=== PATIENT | female | born 1935 | race Caucasian/White ===

== ENCOUNTER 2023-10-12 20:51 | Emergency (ER) | payer MEDICARE, OTHER, SELFPAY ==
[2023-10-12 20:55] VITALS: BP 176/89; PULSE 81; RESP 18; TEMP 36.4; O2SAT 98
--- NOTE | 2023-10-12 21:11 | ED_ITS ---
HPI - Altered Mental Status General Chief Complaint: Altered Mental Status Stated Complaint: AMS Time Seen by Provider: 10/12/23 21:05 Source: patient Mode of arrival: ambulance Limitations: no limitations History of Present Illness HPI narrative: pleasant patient with history of dementia. lives alone. Presents via [facility]. States she was upset at home because some women who was there left. She called 911 and had [facility] bring her here. states she feels ok now and feels she can go home. No injury. No fever Related Data Home Medications Medication Instructions Recorded Confirmed carvedilol 6.25 mg tablet mg 10/12/23 memantine 10 mg tablet mg 10/12/23 Review of Systems ROS Status of ROS 10 or more systems reviewed and unremark able except as noted in history and below PFSH PFS Social History Smoking status: Never smoker Exam Constitutional Vital Signs, click to edit/add: Last Vital Signs Temp 97.6 F 10/12/23 20:55 Pulse 81 10/12/23 20:55 Resp 18 10/12/23 20:55 BP 176/89 H 10/12/23 20:55 Pulse Ox 98 10/12/23 20:55 Common normals: no apparent distress, oriented x3 (pleasant but confused), healthy appearing, alert and well nourished [facility] Common normals: normocephalic and head/scalp atraumatic Eye Common normals: PERRL, EOMs intact bilaterally and conjunctivae normal Respiratory Common normals: normal respiratory effort, no retractions, no use of accessory muscles and clear to auscultation bilaterally Cardio Common normals: regular rate, regular rhythm, S1 normal heart sound and S2 normal heart sound GI Common normals: Normal to inspection, nondistended, normoactive bowel sounds present, soft to palpation and non-tender Extremity Common normals: normal to inspection and full ROM Neuro Common normals: oriented x3 (oriented to place and person), CN's II-XII intact bilaterally, moves all extremities and no focal motor deficits Psych Appearance: grossly normal Course Vital Signs Vital signs: Vital Signs Temperature 97.6 F 10/12/23 20:55 Pulse Rate 81 10/12/23 20:55 Respiratory Rate 18 10/12/23 20:55 Blood Pressure 176/89 H 10/12/23 20:55 Pulse Oximetry 98 10/12/23 20:55 Temperature 97.6 F 10/12/23 20:55 Pulse Rate 81 10/12/23 20:55 Respiratory Rate 18 10/12/23 20:55 Blood Pressure 176/89 H 10/12/23 20:55 Pulse Oximetry 98 10/12/23 20:55 MDM - Altered Mental Status MDM Narrative Medical decision making narrative: history of dementia. States someone at her home left and this upset her. We have no way of proving there was someone at her home. She called [facility] to come to the hospital. States she feels better now that she is here and wants to go home. Will call family to come and get her and check basic labs labs return and demonstrate mild renal insufficiency. UA neg. nitrite and trace leukocytes. Patient not treated for UTI. Urine cx pending. Discharged home in the care of her neighbor who is here to pick her up. He is same person who pick ed her up last time and Lab Data Labs: Lab Results 10/12/23 10/12/23 Range/Units 21:18 22:40 WBC 5.0 (4.0-11.0) 10^3/uL RBC 4.52 (4.20-5.40) 10^6/uL Hgb 14.0 (12.0-16.0) g/dL Hct 44.2 (36.0-48.0) % MCV 97.8 (81.0-99.0) fL MCH 31.0 (26.7-34.0) pg MCHC 31.7 (29.9-35.2) g/dL RDW 13.2 (11.0-15.0) % Plt Count 150 (150-450) 10^3/uL MPV 10.2 (9.5-13.5) fL Neut % (Auto) 61.0 (43.0-75.0) % Lymph % (Auto) 24.7 (20.5-60.0) % [place] % (Auto) 8.5 (1.7-12.0) % Eos % (Auto) 4.8 (0.9-7.0) % Baso % (Auto) 0.8 (0.2-2.0) % Neut # (Auto) 3.0 (1.4-6.5) 10^3/uL Lymph # (Auto) 1.2 (1.2-3.8) 10^3/uL Izard # (Auto) 0.4 (0.3-0.8) 10^3/uL Eos # (Auto) 0.2 (0.0-0.7) 10^3/uL Baso # (Auto) 0.0 (0.0-0.1) 10^3/uL Abs Immat Gran (auto) 0.01 (0.00-0.03) 10^3/uL Imm/Tot Granulo (auto) 0.2 (0.0-0.5) % Sodium 145 (136-145) mmol/L Potassium 4.6 (3.5-5.1) mmol/L Chloride 107 (98-107) mmol/L Carbon Dioxide 30.5 (21.0-32.0) mmol/L Anion Gap 12.1 BUN 27.0 H (7.0-18.0) mg/dL Creatinine 1.13 H (0.55-1.02) mg/dL Est GFR ( Amer) 55 L (>=60) Est GFR (Non-Af Amer) 46 L (>=60) BUN/Creatinine Ratio 23.9 Glucose 90 (74-106) mg/dL Calcium 9.3 (8.5-10.1) mg/dL Urine Color Lt. yellow (YELLOW) Urine Clarity Clear (CLEAR) Urine pH 6.0 (5.0-9.0) Ur Specific [place] >=1.030 A (1.005-1.025) Urine Protein Negative (NEG/TRACE) mg/dL Urine Glucose (UA) Negative (NEGATIVE) mg/dL Urine Ketones Negative (NEGATIVE) mg/dL Urine Occult Blood Trace-i (NEGATIVE) Urine Nitrite Negative (NEGATIVE) Urine Bilirubin Negative (NEGATIVE) Urine Urobilinogen 0.2 (0.2-1.0) EU/dL Ur Leukocyte Esterase Small A (NEGATIVE) Discharge Plan Discharge Chief Complaint: Altered Mental Status Clinical Impression: Dementia Patient Disposition: Home, Self-Care Prescriptions / Home Meds: No Action carvedilol 6.25 mg tablet memantine 10 mg tablet Instructions: Dementia (ED) Additional Instructions: follow up with family doctor early next week Stand Alone Forms: Portal Instructions Referrals: MODE SERVIN DO [Primary Care Provider] - 1 week
--- NOTE | 2023-10-12 21:15 | PC.NURSE ---
Pt has hx dementia and lives alone. Called dispatch because seh thought she saw strangers in her house [employer]NA[employer] IN [employer]. EMS confirmed pt lives alone and there was no one in her home. Pt A&Ox3 upon assessment and neurologically intact.
[2023-10-12 21:25] LABS: Basophils Percent Auto 0.8 % (0.2-2.0); Eosinophils Absolute Auto 0.2 10^3/uL (0.0-0.7); Eosinophils Percent Auto 4.8 % (0.9-7.0); Hematocrit 44.2 % (36.0-48.0); Immature Granulocytes Abs Auto 0.01 10^3/uL (0.00-0.03); Immature Granulocytes Pct Auto 0.2 % (0.0-0.5); Lymphocytes Absolute Auto 1.2 10^3/uL (1.2-3.8); Lymphocytes Percent Auto 24.7 % (20.5-60.0); Mean Corpuscular HGB Conc 31.7 g/dL (29.9-35.2); Mean Corpuscular Volume 97.8 fL (81.0-99.0); Mean Platelet Volume 10.2 fL (9.5-13.5); Monocytes Absolute Auto 0.4 10^3/uL (0.3-0.8); Monocytes Percent Auto 8.5 % (1.7-12.0); Platelet Count 150 10^3/uL (150-450); Red Blood Count 4.52 10^6/uL (4.20-5.40); Red Cell Distribution Width 13.2 % (11.0-15.0)
[2023-10-12 21:33] LABS: Anion Gap 12.1; BUN Creatinine Ratio 23.9; Calcium 9.3 mg/dL (8.5-10.1); Carbon Dioxide 30.5 mmol/L (21.0-32.0); Chloride 107 mmol/L (98-107); Estimated GFR (African America 55 (>=60); Estimated GFR (Non-African Ame 46 (>=60); Glucose 90 mg/dL (74-106); Potassium 4.6 mmol/L (3.5-5.1); Sodium 145 mmol/L (136-145)
[2023-10-12 22:48] LABS: Bilirubin Urine NEGATIVE (NEGATIVE); Blood Urine TRACE-I (NEGATIVE); Clarity Urine CLEAR (CLEAR); Color Urine LT. YELLOW (YELLOW); Glucose Urine UA NEGATIVE (NEGATIVE); Ketones Urine NEGATIVE (NEGATIVE); Leukocyte Esterase Urine SMALL (NEGATIVE); Nitrite Urine NEGATIVE (NEGATIVE); Protein Urine NEGATIVE (NEG/TRACE); Specific Gravity Urine >=1.030 (1.005-1.025); Urobilinogen Urine 0.2 EU/dL (0.2-1.0)
[2023-10-12 22:51] LABS: Urine Microscopic Indicated YES
[2023-10-12 23:00] LABS: RBC Urine 0-2 #/HPF (0-2)
[2023-10-12 23:01] LABS: Bacteria Urine SMALL #/HPF (NONE SEEN); Cast Seen? NONE SEEN #/LPF (NONE SEEN); Crystals Seen? None Seen #/HPF (None Seen); Mucus Urine NONE SEEN (NONE SEEN); Squamous Epithelial Cell Urine MODERATE #/LPF (NONE/RARE); Urine Culture Indicated YES
[2023-10-12 23:03] VITALS: BP 150/88; PULSE 80; RESP 18; O2SAT 97
== END 2023-10-12 23:05 | disposition home or self-care (01) ==
PROVIDERS: Emergency Provider Internal Medicine; PCP Family Medicine
DX: F03.90 Unspecified dementia, unspecified severity, without behavioral disturbance, psychotic disturbance, mood disturbance, and anxiety (principal); Z79.899 Other long term (current) drug therapy
CPT/HCPCS: 36415; 80048; 81001; 85025; 87086; 87150; 87186; 99283

== ENCOUNTER 2023-10-22 14:15 | Emergency (ER) | payer MEDICARE, OTHER, SELFPAY ==
[2023-10-22 14:19] VITALS: BP 161/72; PULSE 89; RESP 18; TEMP 36.8; O2SAT 98; BMI 19.4
--- OUTSIDE RECORDS SUMMARY | 2023-10-22 14:28 | XMS_ITS | CCD ---
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 encouraged to monitor and assist with daily activities, particularly those with potential harm, such as medications and finances. Driving is not recommended due to the magnitude of cognitive impairments. Finally, management of mood symptoms should be considered to maximize cognitive and emotional well-being. RECOMMENDATIONS When there is a diagnosis of dementia, no matter the type, we encourage families to educate themselves, learn communication tips, and learn ways to adjust expectations over time. There are many resources available online. The Alzheimer's Association (web site: alz.org/goldstein) Available 24 hours a day, 7 days per week. Contact: Local: ; Toll free: 807.136.2810 or https://www.alz.org/spearfish Do not require an Alzheimer's diagnosis to contact them Family Caregiver [place] (web site: Caregiver.org) [employer]EN[employer] Scottie[employer]idankrzysztof-- a secure online solution for quality information, support, and resources for family caregivers. Contact: Toll-free number: [phone] In home resource- http://www.ExpertBids.com.GeoMe/ind ex.aspx -Recommended connecting with the local Agency on Aging for benefits screening, including for the [employer] program, which can provide funding for home health aide services. Contact information: . Alternate number: [phone] [facility] (https://[email or web address].com/local/ ayyiwtx-sotfwij-iakx-gtgawc-bw-cg yid-gusyjcwxt-ggsb-yfvdqs-zv-iazv g-oh) - Home Health Agencies who can provide supportive services to both patient and caregiver. These services may include companionship and assistance with activities of daily living, such as meals, bathing, and dressing. They may also provide assistance with mortician supplies sales representative and transportation. Many agencies have caregivers that have training specifically for the care of a person with dementia. [facility]: [phone] Visiting Nurse Association: [phone] [employer]: [phone] [facility]: [phone] [facility]: [phone] This report is meant to be considered as only one part of the comprehensive examination. The results will be communicated to the referring physician via shared electronic medical records. Zarina Lentz Psy.D. Neuropsychology fellow I have participated in this evaluation, including the interview and examination of the patient, interpretation of the test data, and development of the conclusion. The report above has been reviewed and edited by me and its contents reflect my opinions. Nanette Patton, Ph.D., ABPP-CN Board Certified in Clinical Neuropsychology Neuropsychological evaluation services by neuropsychologist = 2 hours Neuropsychological test administration/scoring by ncr operator = 1 hour, 55 minutes documented in this encounter [facility] 01-23-2023 Miscellaneous Notes This encounter was opened in error. documented in this encounter [facility] 10-08-2022 Note HNO ID: [id number] Author: SALVADOR Raza Service: ? Author Type: Technologist Type: Progress Notes Filed: 10/08/2022 3:29 PM Note Text: Radiology Service Progress Note PATIENT NAME: Erin Tejada DATE OF SERVICE: October 08, 2022 TIME: 3:28 PM PATIENT IDENTITY VERIFICATION COMPLETED USING TWO (2) IDENTIFIERS: Name and Date of confirmed by patient verbally. FALL SCREENING: Has the patient had 2 falls in the last year or 1 fall with injury or currently using an Ambulatory Assistive Device (Walker, Cane, Wheelchair, Crutches, etc.)? No PATIENT GENDER DATA: Female. status: : No status: NO. PATIENT RELEVANT IMPLANT DATA REVIEWED: Yes RADIOLOGY DEPARTMENT: MR; Exam(s) Completed: Head: Routine Brain PERIPHERAL IV DATA: Not applicable SIGNED BY: SALVADOR Raza October 08, 2022 3:28 PM [facility] 10-08-2022 History of Present illness Narrative Radiology Service Progress Note PATIENT NAME: Erin Tejada DATE OF SERVICE: October 08, 2022 TIME: 3:28 PM PATIENT IDENTITY VERIFICATION COMPLETED USING TWO (2) IDENTIFIERS: Name and Date of confirmed by patient verbally. FALL SCREENING: Has the patient had 2 falls in the last year or 1 fall with injury or currently using an Ambulatory Assistive Device (Walker, Cane, Wheelchair, Crutches, etc.)? No PATIENT GENDER DATA: Female. status: : No status: NO. PATIENT RELEVANT IMPLANT DATA REVIEWED: Yes RADIOLOGY DEPARTMENT: MR; Exam(s) Completed: Head: Routine Brain PERIPHERAL IV DATA: Not applicable SIGNED BY: SALVADOR Raza October 08, 2022 3:28 PM documented in this encounter [facility] 09-05-2022 Miscellaneous Notes Scheduling spoke with patients cousin (LARS) and provided scheduling number for the neuropsychological testing. I spoke with patient, she requested that I mail MRI order to her so she can complete close to home. (Placed in mail) I also explained to her that I would forward her chart to scheduling for neuropsych testing appointment. She was appreciative of call. Erin is in the [facility] oncology office today for a follow up. 07/07/[address] Quintero who ordered MRI brain and neuropsych testing but Erin said these tests were never scheduled. Follow up is to be arrange after the above testing. Erin would like the MRI brain done locally at [facility]. She is wondering if she should have the neuropsych testing done locally or if [facility] is preferred. She and her cousin, Anderson Palafox, are here today and seem to have some confusion about the expected appointments. Will you please reach out to Erin arrange the testing and follow up as ordered. Enrrique De Santiago LPN documented in this encounter [facility] 09-02-2022 Note HNO ID: [id number] Author: Say Drew MD Service: ? Author Type: Physician Type: Progress Notes Filed: 09/14/2022 5:05 AM Note Text: Radiation Oncology - Follow Up Note PATIENT NAME: Erin Tejada PATIENT DIAGNOSIS/PATIENT IDENTIFICATION: Ms. 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 Holland. She went on to complete at least 5 years of adjuvant endocrine therapy with Arimidex. INTERVAL HISTORY/ROS: Ms. Tejada returns to clinic today for routine follow-up approximately one year since her last visit on 09/02/2021. In the interim, she had her annual surveillance mammogram on 08/30/2022 which showed stable posttreatment changes (BI-RADS 2). Today she reports no pain/discomfort, skin irritation/breakdown, new lumps or bumps in the left breast with intact range of motion. She does note fatigue with good appetite and hydration. Is following up with a neurologist regarding potential cognitive changes. She otherwise denies any recent fevers, chills, headaches, difficulty with speech/swallowing, shortness of breath, chest pain/palpitations, abdominal pain, nausea, vomiting, change in bowel/urinary habits, difficulty with gait/balance, recent falls, etc. The remainder of the review of systems was performed and was otherwise noncontributory. ALLERGIES ALLERGIES Allergen Reactions Ruiz Inhibitors Cough Aspirin Hives Codeine Other: See Comments Pt states i get high out of my mind Nsaids (Non-Steroid* Hives Sulfa (Sulfonamide * Unknown MEDICATIONS: Current Outpatient Medications: hydroCHLOROthiazide (HYDRODIURIL, ESIDRIX) 12.5 mg capsule memantine (NAMENDA) 10 mg tablet carvedilol (COREG) 3.125 mg tablet ALPRAZolam (XANAX) 0.5 mg tablet PHYSICAL EXAM: GENERAL: Elderly woman sitting in chair in no acute distress. VITALS: BP 176/85 Pulse 92 Temp 96.9 Resp 16 Wt 132 lb (59.9kg) SpO2 100% KPS: 80 HEENT: NC/AT, anicteric sclera HEART: S1S2 LUNGS: non-labored breathing ABDOMEN: soft MUSCULOSKELETAL: no peripheral edema, moves all extremities. NEURO: no focal deficit; AANDO X3. RADIOLOGIC DATA: Mammogram (08/30/2022) ASSESSMENT AND PLAN: Ms. 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 Holland. She went on to complete at least 5 years of adjuvant endocrine therapy with Arimidex. Ms. Tejada is doing well clinically approximately 17 years after the completion of her radiation treatments to the left breast with no significant residual sequela at this time in her annual surveillance mammogram from earlier this month shows stable posttreatment changes (BI-RADS 2). Given her age and the time since her diagnosis, we agreed to extend her follow-up mammogram to every other year as she wishes to continue her surveillance. I will plan to see her back in 2 years with repeat mammogram. The patient is aware to contact the clinic in the interim should any questions or concerns arise. Thank you for allowing us to participate in the care of this patient. Signed by: Say Drew MD I spent a total of 20 minutes on the date of the service which included preparing to see the patient, [id number] patient care, and counseling and educating the patient/family/caregiver. This document has been created with the use of voice recognition technology. It may contain inaccuracies, misspellings, inaccurate syntax or inappropriate word context that are a result of the inadequacies/shortcomings of said technology/software. [facility] 09-01-2022 History of Present illness Narrative Radiation Oncology - Follow Up Note PATIENT NAME: Erin Tejada PATIENT Signed by: Say Drew MD I spent a total of 20 minutes on the date of the service which included preparing to see the patient, [id number] patient care, and counseling and educating the patient/family/caregiver. This document has been created with the use of voice recognition technology. It may contain inaccuracies, misspellings, inaccurate syntax or inappropriate word context that are a result of the inadequacies/shortcomings of said technology/software. documented in this encounter [facility] 07-07-2022 Note HNO ID: [id number] Author: Akilah Quintero, DO Service: ? Author Type: Physician Type: Progress Notes Filed: 07/10/2022 3:40 PM Note Text: [facility] for General Neurology New Patient Evaluation Consulting Provider: LUIS SERVIN [address] [place] [id number] Individuals who were included in, or assisted with the encounter were: Erin Tejada Akilah Quintero DO Chief Complaint/Issues: Erin Tejada is a 87 year old female seen in the [facility] for General Neurology for: Memory changes HPI: Ms. Tejada is an 87 year old woman PMHx HTN, remote breast CA presenting with memory concerns. She is accompanied by her cousin. She tells me that another cousin thought she had memory issues when she went to visit her in [place] for three weeks last year. She does not think she has memory issues, but here to find out if she does. Several years ago she had spine surgery. She could not walk well. Feet were glued to the floor after surgery. Balance better now. Denies tremors. Sometimes she talks about her like she just saw him. She states this is just how she talks about him. Her father and paternal grandmother had dementia. No trouble sleeping. Rarely drinks alcohol. She denies tremors. 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 Nobody complains about her cognition at work. Her cousin with her today thinks her memory is okay. General Examination: There were no vitals taken for this visit. General: Awake, alert, interactive, no acute distress, good nutritional status, normal development, well-kept Skin: Rash: absent Pigmentation: absent HEENT: Head: normocephalic, no dysmorphism Eyes: normal Oropharynx: normal Extremities: Edema: absent Trophic change: absent Heart: RRR, no cyanosis Lungs: Chest rise symmetrical Neurological Exam Mental Status Alert, fully oriented, attentive, with normal cognition, memory, speech and affect. [place]orge Cognitive Assessment (MoCA) MoCA Total Score: 18 (out of 30) Visuospatial / Executive: 3/5 Namin/3 Attention: 4/6 Language: 2/3 Abstraction: 1/2 Delayed memory: 0/5 Orientation: 6/6 Education: 0 (1 is true, 0 is false) Cranial Nerves Visual nunez intact. Fundi with normal discs and vasculature. Pupils reactive. Extraocular movements conjugate and full. No ptosis. No nystagmus. Facial sensation intact. Face symmetric and strong. Palate and tongue normal. XI normal. Motor Examination and Coordination Motor examination with normal bulk, strength and tone. No drift. Normal rapid alternating movements and coordination. No adventitious movements or significant tremor. Reflexes Deep tendon reflexes graded by MRC Deep tendon reflexes are 2+ and symmetric in all four extremities. Sensation Light touch intact Gait Gait normal Assessment AND Plan 07/10/2022 - General Neurology, Akilah Quintero, DO ASSESSMENT Ms. Tejada is an 87 year old woman presenting with memory concerns per a report by her cousin. She does not think she had issues. MOCA . This warrants further work-up. PLAN Neuropsych testing Memory labs MRI brain RTC after neuropsych to go over results No diagnosis found. No follow-ups on file. Data Review Objective Current Outpatient Medications Medication Sig carvedilol (COREG) 3.125 mg tablet Take 3.125 mg by mouth twice daily with meals. ALPRAZolam (XANAX) 0.5 mg tablet Take 0.5 mg by mouth at bedtime as needed. No current facility-administered medications for this visit. ACTIVE PROBLEM LIST History of Breast Cancer Breast Cancer (Hcc) Hypertension Headache Back Pain Anxiety PAST MEDICAL HISTORY Diagnosis Date Anxiety BURN VICTIM Back pain Breast cancer (HCC) Headache History of breast cancer 06/25/2014 Hypertension PAST SURGICAL HISTORY Procedure Laterality Date APPENDECTOMY HX BREAST BIOPSY HX Left BREAST LUMPECTOMY HX D AND C DIAGNOSTIC NONOB Social History Tobacco Use Smoking status: Never Smokeless tobacco: Never Substance Use Topics Alcohol use: Yes Comment: socially Drug use: No FAMILY HISTORY Problem Relation Age of Onset Arthritis Mother other (dementia) Father Review of Systems All other systems reviewed and are negative. Subjective Patient-Entered Data: 07/07/22 - GENERAL NEUROLOGY SCORES No flowsheet data found. Depression Screening 03/07/2017 07/25/2019 PHQ-2 Score 1 0 PHQ-9 Score 3 - No flowsheet data found. No flowsheet data found. No flowsheet data found. I spent a total of 60 minutes on the date of the service which included preparing to see the patient, [id number] patient care, completing clinical documentation, obtaining and/or reviewing separately obtained history, performing a medically appropriate examination, counseling and educating the patient/family/ (more content not included)... [facility] 07-07-2022 Instructions Akilah Quintero DO - 07/07/2022 3:29 PM EST Please get memory labs, brain MRI, neuropsychological testing (formal memory testing). Follow-up after neuropsych testing to go over results. documented in this encounter [facility] 07-07-2022 History of Present illness Narrative Images from the original note were not included. [facility] General Neurology New Patient Evaluation Consulting Provider: LUIS SERVIN [place] [id number] Individuals who were included in, or assisted with the encounter were: Erin Tejada Akilah Quintero DO Chief Complaint/Issues: Erin Tejada is a 87 year old female seen in the [facility] for General Neurology for: Memory changes HPI: Ms. Tejada is an 87 year old woman PMHx HTN, remote breast CA presenting with memory concerns. She is accompanied by her cousin. She tells me that another cousin thought she had memory issues when she went to visit her in [place] for three weeks last year. She does not think she has memory issues, but here to find out if she does. Several years ago she had spine surgery. She could not walk well. Feet were glued to the floor after surgery. Balance better now. Denies tremors. Sometimes she talks about her like she just saw him. She states this is just how she talks about him. Her father and paternal grandmother had dementia. No trouble sleeping. Rarely drinks alcohol. She denies tremors. 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 Nobody complains about her cognition at work. Her cousin with her today thinks her memory is okay. General Examination: There were no vitals taken for this visit. General: Awake, alert, interactive, no acute distress, good nutritional status, normal development, well-kept Skin: Rash: absent Pigmentation: absent HEENT: Head: normocephalic, no dysmorphism Eyes: normal Oropharynx: normal Extremities: Edema: absent Trophic change: absent Heart: RRR, no cyanosis Lungs: Chest rise symmetrical Neurological Exam Mental Status Alert, fully oriented, attentive, with normal cognition, memory, speech and affect. [place]orge Cognitive Assessment (MoCA) MoCA Total Score: 18 (out of 30) Visuospatial / Executive: 3/5 Namin/3 Attention: 4/6 Language: 2/3 Abstraction: 1/2 Delayed memory: 0/5 Orientation: 6/6 Education: 0 (1 is true, 0 is false) Cranial Nerves Visual nunez intact. Fundi with normal discs and vasculature. Pupils reactive. Extraocular movements conjugate and full. No ptosis. No nystagmus. Facial sensation intact. Face symmetric and strong. Palate and tongue normal. XI normal. Motor Examination and Coordination Motor examination with normal bulk, strength and tone. No drift. Normal rapid alternating movements and coordination. No adventitious movements or significant tremor. Reflexes Deep tendon reflexes graded by MRC Deep tendon reflexes are 2+ and symmetric in all four extremities. Sensation Light touch intact Gait Gait normal Assessment & Plan 07/10/2022 - General Neurology, Akilah Quintero, DO ASSESSMENT Ms. Tejada is an 87 year old woman presenting with memory concerns per a report by her cousin. She does not think she had issues. MOCA . This warrants further work-up. PLAN Neuropsych testing Memory labs MRI brain RTC after neuropsych to go over results No diagnosis found. No follow-ups on file. Data Review Objective Current Outpatient Medications Medication Sig carvedilol (COREG) 3.125 mg tablet Take 3.125 mg by mouth twice daily with meals. ALPRAZolam (XANAX) 0.5 mg tablet Take 0.5 mg by mouth at bedtime as needed. No current facility-administered medications for this visit. ACTIVE PROBLEM LIST History of Breast Cancer Breast Cancer (Hcc) Hypertension Headache Back Pain Anxiety PAST MEDICAL HISTORY Diagnosis Date Anxiety BURN VICTIM Back pain Breast cancer (HCC) Headache History of breast cancer 06/25/2014 Hypertension PAST SURGICAL HISTORY Procedure Laterality Date APPENDECTOMY HX BREAST BIOPSY HX Left BREAST LUMPECTOMY HX D AND C DIAGNOSTIC NONOB Social History Tobacco Use Smoking status: Never Smokeless tobacco: Never Substance Use Topics Alcohol use: Yes Comment: socially Drug use: No FAMILY HISTORY Problem Relation Age of Onset Arthritis Mother other (dementia) Father Review of Systems All other systems reviewed and are negative. Subjective Patient-Entered Data: 07/07/22 - GENERAL NEUROLOGY SCORES No flowsheet data found. Depression Screening 03/07/2017 07/25/2019 PHQ-2 Score 1 0 PHQ-9 Score 3 - No flowsheet data found. No flowsheet data found. No flowsheet data found. I spent a total of 60 minutes on the date of the service which included preparing to see the patient, [id number] patient care, completing clinical documentation, obtaining and/or reviewing separately obtained history, performing a medically appropriate examination, counseling and educating the patient/family/caregiver, and ordering medications, tests, or procedures. 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 Mild cognitive impairment, so stated [facility] [place] [facility]No assessment information available[facility] Work Phone: Evaluation note* Diagnosis History of breast cancer- Primary Personal history of malignant neoplasm of breast [facility] [place] [facility] Diagnosis Cognitive impairment, mild, so stated- Primary Mild cognitive impairment, so stated [facility] [place] [facility] Diagnosis Cognitive impairment, mild, so stated Mild cognitive impairment, so stated [facility] [place] [facility]* Diagnosis OPENED IN ERROR- Primary To allow closing an encounter opened in error (used in SmartSet) [facility] [place] [facility]* Diagnosis Dementia without behavioral disturbance, psychotic disturbance, mood disturbance, or anxiety, unspecified dementia severity, unspecified dementia type (HCC)- Primary documented in this encounter [facility] Summary Purpose Family History No Family History Records Found Relationship Condition Age at Onset Recorded Date/T eladia father Dementia Unknown Advance Directives No Advanced Directives Records FoundDocuments on File Type Date Recorded Patient Clinical Psychologist Private Practice Expl anation Advance Directive(s) 07/26/2012 2:28 PM Advance Directive Response Recorded Date/ Time Advance Directives No June 16, 2017 8:37am Documents on File Type Date Recorded Patient Clinical Psychologist Private Practice Expl anation Advance Directive(s) 07/26/2012 2:28 PM Reason for Referral Specialty Diagnoses / Procedures Referred By Contac t Referred To Contact Diagnoses Cognitive impairment, mild, so stated Procedures NEUROPSYCHOLOGICAL TESTING CONSULT Akilah Quintero DO [address] [id number] Referral ID Status Reason Start Date Expiration Date Visits Requested Visits Authorized [id number] Ref Not Required PCP Requested Referral 10/05/2022 1 1 Specialty Diagnoses / Procedures Referred By Contac t Referred To Contact MR IMAGING Diagnoses Cognitive impairment, mild, so stated Procedures MRI BRAIN WO IVCON MRI BRAIN BRAIN STEM W/O CONTRAST MATERIAL Akilah Quintero DO [address] [id number] Mr Imaging Referral ID Status Reason Start Date Expiration Date Visits Requested Visits Authorized [id number] Pending Review Auto-Generat ed Referral 08/06/2023 1 1 Specialty Diagnoses / Procedures Referred By Contac t Referred To Contact MR IMAGING Diagnoses Cognitive impairment, mild, so stated Procedures MRI 3D POST PROCESSING 3D RENDERING W/INTERP&POSTPROC DIFF WORK STATION Caio Holloway MD, [address] [id number] Mr Imaging Referral ID Status Reason Start Date Expiration Date Visits Requested Visits Authorized [id number] Pending Review Auto-Generat ed Referral 10/08/2022 11/07/2023 1 1 Specialty Diagnoses / Procedures Referred By Contac t Referred To Contact MR IMAGING Diagnoses Cognitive impairment, mild, so stated Procedures MRI BRAIN WO IVCON MRI BRAIN BRAIN STEM W/O CONTRAST MATERIAL Akilah Quintero DO [address] [place] [address] Mr Imaging Referral ID Status Reason Start Date Expiration Date V isits Requested Visits Authorized [id number] Closed Auto-Generate d Referral 07/07/2022 08/06/2023 1 1 Chief Complaint and Reason for Visit Chief Complaint hx of breast cancer Additional Source Comments INFORMATION SOURCE (unrecogn ized section and content) DATE CREATED AUTHOR 11/15/2021 Napoleon Mujica [facility] DATE CREATED AUTHOR AUTHOR'S ORGANIZ ATION 07/10/2022 [facility] DATE CREATED AUTHOR AUTHOR'S ORGANIZ ATION 09/07/2022 [facility] DATE CREATED AUTHOR AUTHOR'S ORGANIZ ATION 01/05/2023 [facility] DATE CREATED AUTHOR AUTHOR'S ORGANIZ ATION 08/31/2023 [facility] Source Comments (unrecognize d section and content) In the event this informatio n is protected by the Federal Confidentiality of Alcohol and Drug Abuse Patient Records regulations: The Federal rules restrict any use of the information to criminally investigate or prosecute any alcohol or drug abuse patient.[facility] the event this information is protected by the Federal Confidentiality of Alcohol and Drug Abuse Patient Records regulations: The Federal rules restrict any use of the information to criminally investigate or prosecute any alcohol or drug abuse patient.[facility] the event this information is protected by the Federal Confidentiality of Alcohol and Drug Abuse Patient Records regulations: The Federal rules restrict any use of the information to criminally investigate or prosecute any alcohol or drug abuse patient.[facility] the event this information is protected by the Federal Confidentiality of Alcohol and Drug Abuse Patient Records regulations: The Federal rules restrict any use of the information to criminally investigate or prosecute any alcohol or drug abuse patient.[facility] the event this information is protected by the Federal Confidentiality of Alcohol and Drug Abuse Patient Records regulations: The Federal rules restrict any use of the information to criminally investigate or prosecute any alcohol or drug abuse patient.[facility] the event this information is protected by the Federal Confidentiality of Alcohol and Drug Abuse Patient Records regulations: The Federal rules restrict any use of the information to criminally investigate or prosecute any alcohol or drug abuse patient.[facility] the event this information is protected by the Federal Confidentiality of Alcohol and Drug Abuse Patient Records regulations: The Federal rules restrict any use of the information to criminally investigate or prosecute any alcohol or drug abuse patient.[facility] Reason for Visit (unrecogniz ed section and content) Reason Comments New Patient Rule out [facility] , Discu ss symptoms Reason Comments Patient Question Appointment Reason Comments Breast Cancer Specialty Diagnoses / Procedures Referred By Contac t Referred To Contact MR IMAGING Diagnoses Cognitive impairment, mild, so stated Procedures MRI BRAIN WO IVCON MRI BRAIN BRAIN STEM W/O CONTRAST MATERIAL Akilah Quintero DO [address] [place] [address] Mr Imaging Referral ID Status Reason Start Date Expiration Date V isits Requested Visits Authorized [id number] Closed Auto-Generate d Referral 07/07/2022 08/06/2023 1 1 Reason Onset Date Comments Opened In Error 01/23/2023 Specialty Diagnoses / Procedures Referred By Contact Referred To Contact Psychology / NEUROPSYCHOLOGY Diagnoses Cognitive impairment, mild, so stated [G31.84] Procedures ACUTE CARE PHYSICIAN [place] [address] [place] [address] Nanette Patton, PhD [address] [employer] [facility] [place] [address] Referral ID Status Reason Start Date Expiration Date V isits Requested Visits Authorized [id number] Pending Review 01/17/2023 04/17/2023 1 1 Care Teams (unrecognized sec tion and content) Fur Pointer Relationship Specialty Start Date End Date Joselyn Castillo MD [address] [place] [address] PCP - General Family Medicine 08/01/18 Luis Servin [address] [place] [address] Referring Family Medicine 05/31/22 Team Status: Inactive Member Role Status Dates Joselyn Castillo MD Primary Care Provider Active Say Drew MD Attending Provider Active Team Status: Active Member Role Status Dates Joselyn Castillo MD Primary Care Provider Active Fur Pointer Relationship Specialty Start Date End Date Joselyn Castillo MD [address] [facility] [place] [address] PCP - General Family Medicine 08/01/[address] [place] [address] Referring Family Medicine 05/31/22 Fur Pointer Relationship Specialty Start Date End Date Joselyn Castillo MD [address] [facility] [place] [address] PCP - General Family Medicine 08/01/[address] [place] [address] Referring Family Medicine 05/31/22 Fur Pointer Relationship Specialty Start Date End Date Joselyn Castillo MD [address] [facility] [place] [address] PCP - General Family Medicine 08/01/[address] [place] [address] Referring Family Medicine 05/31/22 Fur Pointer Relationship Specialty Start Date End Date Joselyn Castillo MD [address] [facility] [place] [address] PCP - General Family Medicine 08/01/[address] [place] [phone] Referring Family Medicine 05/31/22 Fur Pointer Relationship Specialty Start Date End Date Joselyn Castillo MD [address] [facility] [place] [address] PCP - General Family Medicine 08/01/[address] [place] [address] Referring Family [facility] 05/31/22 Fur Pointer Relationship Specialty Start Date End Date Joselyn Castillo MD [address] [facility] [place] [address] PCP - General Family Medicine 08/01/[address] [place] [address] Referring Family [facility] 05/31/22 Goals (unrecognized section and content) Goals may be documented in a n alternate section FOR RECORDS PERTAINING TO PATIENTS WHO ARE OR HAVE BEEN ENROLLED IN A CHEMICAL DEPENDENCY/SUBSTANCEABUSE PROGRAM, SOME INFORMATION MAY BE OMITTED. This clinical summary was aggregated from multiple sources. Caution should be exercised in using it in the provision of clinical care. This summary normalizes information from multiple sources, and as a consequence, information in this document may materially change the coding, format and clinical context of patient data. In addition, data may be omitted in some cases. CLINICAL DECISIONS SHOULD BE BASED ON THE PRIMARY CLINICAL RECORDS. [facility] [email or web address] provides no warranty or guarantee of the accuracy or completeness of information in this document.
--- NOTE | 2023-10-22 14:46 | ED_ITS ---
HPI - General Adult General Chief complaint: Altered Mental Status Stated complaint: Altered Mental Status Time Seen by Provider: 10/22/23 14:20 Source: patient Mode of arrival: ambulance Limitations: no limitations History of Present Illness HPI narrative: This patient was brought to us from a local restaurant for evaluation of possible confusion. I did review her previous records and she was here recently for the same. We are waiting for family members to arrive. At this time she denies any symptoms. She is fully ambulatory denies any discomfort no nausea vomiting headache difficulty breathing. Her vital signs are stable. She apparently does live alone but says there is a male agricultural education professor who sometimes stays there as well. She is very nondescript and very vague with all her questions. When I ask if she has been to this hospital emergency room recently she said no but then she thought that she might be here but she was not sure. She was not sure of who our president is. She thought today was Monday when in fact it is Monday. She does not know the name of her doctor. She admits that she gets forgetful about things. Her family member arrived and he is an excellent historian. He confirms that last year her primary care doctor, Dr. Ann, sent her to the [facility] in which she was seen there at least twice for cognitive testing. The second visit confirmed that her cognitive skills were declining and she was found to have moderate cognitive impairment. He says they are in the process of getting her financial matters in order. Related Data Home Medications Medication Instructions Recorded Confirmed carvedilol 6.25 mg tablet 6.25 mg PO DAILY 10/12/23 10/22/23 memantine 10 mg tablet 10 mg PO DAILY 10/12/23 10/22/23 Allergies Allergy/AdvReac Type Severity Reaction Status Date / Time No Known Drug Allergies Allergy Verified 10/22/23 14:17 [facility] Social History Smoking status: Never smoker Exam Narrative Exam Narrative: Vital signs are stable on arrival here. She does not have any symptomatology. She has little insight as to why they brought her here. Fortunately family member came in and was able to provide more detailed information. They are also thinking about getting some home health care for her so that she does not have to be living alone. Vital signs are stable and she does not appear ill there is no nuchal rigidity or meningeal irritation there is no evidence of head or neck trauma. I do not smell alcoholic byproducts on her breath. She is fully cooperative and not agitated. Certainly some short-term memory is altered as noted above. On HEENT no evidence of infectious process. Her chest examination is benign with her lungs being clear no wheeze rales or rhonchi heart sounds are normal. She has no abdominal tenderness. Her perfusion to the extremity is normal. She has no focal motor neurological deficits. Ambulation and gait are normal. I Constitutional Vital Signs, click to edit/add: Last Vital Signs Temp 98.3 F 10/22/23 14:19 Pulse 89 10/22/23 14:19 Resp 18 10/22/23 14:19 BP 161/72 H 10/22/23 14:19 Pulse Ox 98 10/22/23 14:19 O2 Del Method Room Air 10/22/23 14:19 Course Vital Signs Vital signs: Vital Signs Temperature 98.3 F 10/22/23 14:19 Pulse Rate 89 10/22/23 14:19 Respiratory Rate 18 10/22/23 14:19 Blood Pressure 161/72 H 10/22/23 14:19 Pulse Oximetry 98 10/22/23 14:19 Oxygen Delivery Method Room Air 10/22/23 14:19 Temperature 98.3 F 10/22/23 14:19 Pulse Rate 89 10/22/23 14:19 Respiratory Rate 18 10/22/23 14:19 Blood Pressure 161/72 H 10/22/23 14:19 Pulse Oximetry 98 10/22/23 14:19 Oxygen Delivery Method Room Air 10/22/23 14:19 Medical Decision Making MDM Narrative Medical decision making narrative: This is now the second visit recently for evaluation of some cognitive decline and behavioral issues. We emphasized with her family member that she should keep close tabs with her primary care doctor and consideration of assistance at her home he agrees that is being done. Discharge Plan Discharge Chief Complaint: Altered Mental Status Clinical Impression: Cognitive impairment Patient Disposition: Home, Self-Care Time of Disposition Decision: 16:11 Prescriptions / Home Meds: No Action carvedilol 6.25 mg tablet 6.25 mg PO DAILY memantine 10 mg tablet 10 mg PO DAILY Additional Instructions: Follow-up with Dr. Forman as needed to put in place safety plans at home Referrals: ROSY CHEEMA [Primary Care Provider] - 1 week Stand Alone Forms: Portal Instructions
== END 2023-10-22 16:25 | disposition home or self-care (01) ==
PROVIDERS: Emergency Provider Emergency Medicine Emergency Medical Services; PCP Family Medicine
DX: F09 Unspecified mental disorder due to known physiological condition (principal); Z79.899 Other long term (current) drug therapy
CPT/HCPCS: 99282

== ENCOUNTER 2023-12-31 09:13 | Observation (INO) | payer MEDICARE, OTHER, SELFPAY ==
[2023-12-31] VITALS (26 sets, daily range): BP systolic 130–200; BP diastolic 55–91; PULSE 69–91; TEMP 36.4–36.9; O2SAT 95–99; BMI 21.0; BMI 20.5
--- NOTE | 2023-12-31 09:26 | XR_ITS ---
The [address] [address] Patient Name: BERNARD PACHECO MRN: [id number] date: 1935 Sex: F Assigned Patient Location: ER Current Patient Location: ER Accession/Order Number: [id number] Exam Date: 12/31/2023 09:40 Report Date: 12/31/2023 09:58 At the request of: SHIRLEY GASTON Procedure: XR chest 1V EXAM: XR chest 1V INDICATION: Altered mental status. COMPARISON: None. TECHNIQUE: Single frontal view of the chest FINDINGS: Normal cardiomediastinal contours. No acute infiltrative process. No pleural effusion or pneumothorax. No acute osseous abnormality. XR/XR chest 1V IMPRESSION: No acute cardiopulmonary process. Electronically authenticated by: TATI NICHOLE Date: 12/31/2023 09:58
--- NOTE | 2023-12-31 09:26 | ECG_ITS ---
[facility] Test Date: 2023-12-31 Pat Name: BERNARD PACHECO Department: Room: - Gender: Female Community Case Manager: : 1935 Requested By: ROSY CHEEMA Order Number: [id number] Reading MD: BROOKE BONILLA Measurements Intervals [place] Rate: 73 P: 81 VA: 178 QRS: -2 QRSD: 98 T: 58 QT: 368 QTc: 393 Interpretive Statements 1100 Sinus rhythm 2440 Incomplete right bundle branch block 9130 borderline ECG No previous ECG available for comparison Electronically Signed On 12-31-2023 21:53:32 EDT by BROOKE BONILLA
--- NOTE | 2023-12-31 09:26 | ED.AMS1 ---
HPI - Altered Mental Status General Chief Complaint: Altered Mental Status Stated Complaint: ALTERED MENTAL STATUS Time Seen by Provider: 12/31/23 09:20 Source: patient Mode of arrival: ambulance Limitations: altered mental status History of Present Illness HPI narrative: 88-year-old female presents by ambulance to ED for altered mental status. She was at a grocery store and a bystander noticed that she seemed confused. Paramedics were called. The patient is unable to tell me where she was and does not seem to have any physical complaints such as headache. There is no history of trauma. She has a history of dementia. Related Data Home Medications ?Medication ?Instructions ?Recorded ?Confirmed carvedilol 6.25 mg tablet 6.25 mg PO DAILY 10/12/23 10/22/23 memantine 10 mg tablet 10 mg PO DAILY 10/12/23 10/22/23 Allergies Allergy/AdvReac Type Severity Reaction Status Date / Time No Known Drug Allergies Allergy Verified 10/22/23 14:17 Review of Systems ROS Narrative A ten point review of systems is negative except as noted above. PFSH PFSH Social History Smoking status: Never smoker Exam Narrative Exam Narrative: Nurses note and vital signs reviewed and patient is not hypoxic. General: The patient appears well and in no apparent distress. Patient is resting comfortably on cart. Skin: Warm, dry, no pallor noted. There is no rash noted. Head: Normocephalic, atraumatic Eye: Normal conjunctiva, no drainage Ears, Nose, Mouth, and Throat: oral mucosa is moist. Nares patent. Cardiovascular: Regular Rate and Rhythm Respiratory: Patient is in no distress, no accessory muscle use, lungs are clear to auscultation, no wheezing, rales or rhonchi Back: non-tender, no CVA tenderness bilaterally to percussion. GI: Soft and nontender Musculoskeletal: The patient has no evidence of calf tenderness, no pitting edema, symmetrical pulses noted bilaterally Neurological: Awake and alert. She knows where she is and her name but does not know the year or why she is here. Psychiatric: Cooperative Constitutional Vital Signs, click to edit/add: Last Vital Signs Temp 97.7 F 12/31/23 09:18 Pulse 76 12/31/23 10:30 Resp 22 H 12/31/23 09:22 BP 175/77 H 12/31/23 09:18 Pulse Ox 97 12/31/23 09:20 O2 Del Method Room Air 12/31/23 09:20 Course Vital Signs Vital signs: Vital Signs Temperature 97.7 F 12/31/23 09:18 Pulse Rate 89 12/31/23 09:18 Respiratory Rate 20 12/31/23 09:18 Blood Pressure 175/77 H 12/31/23 09:18 Pulse Oximetry 97 12/31/23 09:18 Oxygen Delivery Method Room Air 12/31/23 09:18 Temperature 97.7 F 12/31/23 09:18 Pulse Rate 76 12/31/23 10:30 Respiratory Rate 22 H 12/31/23 09:22 Blood Pressure 175/77 H 12/31/23 09:18 Pulse Oximetry 97 12/31/23 09:20 Oxygen Delivery Method Room Air 12/31/23 09:20 MDM - Altered Mental Status MDM Narrative Medical decision making narrative: Blood work and urinalysis are negative. CT scan of the brain is pending. It is not safe for the patient to go home at this point. There are no family members that we have been able to contact and she is being admitted for observation. Differential Diagnosis Differential diagnosis: Likely altered mental status, dementia, hypoglycemia and hyponatremia Lab Data Attestation: I reviewed the patient's lab results. Labs: Lab Results 12/31/23 12/31/23 Range/Units 09:20 10:55 WBC 5.3 (4.0-11.0) 10^3/uL RBC 4.95 (4.20-5.40) 10^6/uL Hgb 15.2 (12.0-16.0) g/dL Hct 48.2 H (36.0-48.0) % MCV 97.4 (81.0-99.0) fL MCH 30.7 (26.7-34.0) pg MCHC 31.5 (29.9-35.2) g/dL RDW 13.2 (11.0-15.0) % Plt Count 153 (150-450) 10^3/uL MPV 10.6 (9.5-13.5) fL Neut % (Auto) 68.3 (43.0-75.0) % Lymph % (Auto) 20.9 (20.5-60.0) % Knott % (Auto) 7.9 (1.7-12.0) % Eos % (Auto) 1.9 (0.9-7.0) % Baso % (Auto) 0.8 (0.2-2.0) % Neut # (Auto) 3.6 (1.4-6.5) 10^3/uL Lymph # (Auto) 1.1 L (1.2-3.8) 10^3/uL Knott # (Auto) 0.4 (0.3-0.8) 10^3/uL Eos # (Auto) 0.1 (0.0-0.7) 10^3/uL Baso # (Auto) 0.0 (0.0-0.1) 10^3/uL Abs Immat Gran (auto) 0.01 (0.00-0.03) 10^3/uL Imm/Tot Granulo (auto) 0.2 (0.0-0.5) % Sodium 140 (136-145) mmol/L Potassium 4.0 (3.5-5.1) mmol/L Chloride 103 (98-107) mmol/L Carbon Dioxide 30.6 (21.0-32.0) mmol/L Anion Gap 10.4 BUN 21.0 H (7.0-18.0) mg/dL Creatinine 1.10 H (0.55-1.02) mg/dL Est GFR ( Amer) 57 L (>=60) Est GFR (Non-Af Amer) 47 L (>=60) BUN/Creatinine Ratio 19.1 Glucose 117 H (74-106) mg/dL Calcium 9.9 (8.5-10.1) mg/dL Urine Color Lt. yellow (YELLOW) Urine Clarity Clear (CLEAR) Urine pH 6.0 (5.0-9.0) Ur Specific [place] 1.025 (1.005-1.025) Urine Protein Negative (NEG/TRACE) mg/dL Urine Glucose (UA) Negative (NEGATIVE) mg/dL Urine Ketones Negative (NEGATIVE) mg/dL Urine Occult Blood Trace-i (NEGATIVE) Urine Nitrite Negative (NEGATIVE) Urine Bilirubin Negative (NEGATIVE) Urine Urobilinogen 0.2 (0.2-1.0) EU/dL Ur Leukocyte Esterase Small A (NEGATIVE) Urine RBC 0-2 (0-2) #/HPF Urine WBC 0-2 A (NONE SEEN) #/HPF Ur Squamous Epith Cells None seen (NONE/RARE) #/LPF Urine Crystals None seen (None Seen) #/HPF Urine Bacteria None seen (NONE SEEN) #/HPF Urine Casts None seen (NONE SEEN) #/LPF Urine Mucus Trace A (NONE SEEN) ECG Data Attestation: I personally reviewed and interpreted this ECG as follows: (EKG on my interpretation shows sinus rhythm with no acute change and rate of 73) Discharge Plan Discharge Chief Complaint: Altered Mental Status Clinical Impression: Confusion Patient Disposition: Admitted as Observation Time of Disposition Decision: 11:51 Condition: Good Prescriptions / Home Meds: No Action carvedilol 6.25 mg tablet 6.25 mg PO DAILY memantine 10 mg tablet 10 mg PO DAILY Print Language: Kinyarwanda Referrals: ROSY CHEEMA [Primary Care Provider] - 1 week
[2023-12-31 09:36] LABS: Basophils Percent Auto 0.8 % (0.2-2.0); Eosinophils Absolute Auto 0.1 10^3/uL (0.0-0.7); Eosinophils Percent Auto 1.9 % (0.9-7.0); Hematocrit 48.2 % (36.0-48.0); Hemoglobin 15.2 g/dL (12.0-16.0); Immature Granulocytes Abs Auto 0.01 10^3/uL (0.00-0.03); Immature Granulocytes Pct Auto 0.2 % (0.0-0.5); Lymphocytes Absolute Auto 1.1 10^3/uL (1.2-3.8); Lymphocytes Percent Auto 20.9 % (20.5-60.0); Mean Corpuscular HGB Conc 31.5 g/dL (29.9-35.2); Mean Corpuscular Hemoglobin 30.7 pg (26.7-34.0); Mean Corpuscular Volume 97.4 fL (81.0-99.0); Mean Platelet Volume 10.6 fL (9.5-13.5); Monocytes Absolute Auto 0.4 10^3/uL (0.3-0.8); Monocytes Percent Auto 7.9 % (1.7-12.0); Neutrophils Absolute Auto 3.6 10^3/uL (1.4-6.5); Neutrophils Percent Auto 68.3 % (43.0-75.0); Platelet Count 153 10^3/uL (150-450); Red Blood Count 4.95 10^6/uL (4.20-5.40); Red Cell Distribution Width 13.2 % (11.0-15.0); White Blood Count 5.3 10^3/uL (4.0-11.0)
--- OUTSIDE RECORDS SUMMARY | 2023-12-31 09:43 | XMS_ITS | CCD ---
Author Organization [facility] Care Team Providers Care Traffic Workforce Representative Name Role Phone DANIELLE QUINTERO Attending Unavailable RENAN CASTILLO Primary Care Unavailable DANIELLE QUINTERO Referring Unavailable RENAN CASTILLO Primary Care Unavailable Renan Castillo MD Primary Care Provider [phone] Luis Servin Unavailable [phone] MD Renan Castillo Primary Care Provider [phone] MD Say Drew Attending Provider Renan Castillo Primary Care Unavailable Gildardobesten Jorge Admitting Unavailable JamiestenLuisJorge Attending Unavailable Jenni, Renan E Primary Care Unavailable Katelin, Say Admitting Unavailable Say Drew Attending Unavailable SERVIN, DR LUIS Bucio Primary Care Unavailable MARKER ., DR ISAAC Attending Unavailable MARKER ., DR ISAAC Consulting Unavailable MARKER ., DR ISAAC Admitting Unavailable SERVIN, DR LUIS Bucio Primary Care Unavailable SERVIN, DR LUIS Bucio Admitting Unavailable SERVIN, DR LUIS Bucio Attending Unavailable SERVIN, DR LUIS Bucio Consulting Unavailable DANIELLE LANDIS Referring Unavailable RENAN CASTILLO E Primary Care Unavailable MARIA ISABEL PATTON Attending Unavailable DANIELLE LANDIS Attending Unavailable DANIELLE LANDIS Referring Unavailable RENAN CASTILLO Primary Care Unavailable RENAN CASTILLO Primary Care Unavailable KATELIN, SAY Attending Unavailable KATELIN SAY Referring Unavailable Allergies Allergy Classification Reported Allergen(s) Allergy Type Date of Onset Reaction(s) Facility (12 sources) Angiotensin Converting Enzyme (Андрей) Inhibitors; Translations: [АНДРЕЙ INHIBITORS] Propensity to adverse reactions to drug (disorder) 7 Cough [facility] Repository (12 sources) Aspirin; Translations: [ASPIRIN] Drug Allergy 4 Hives [facility] Repository (11 sources) Codeine; Translations: [CODEINE] Drug Allergy 4 Other: See Comments [facility] Repository (9 sources) NSAIDs; Translations: [NSAIDS (NON-STEROIDAL ANTI-INFLAMMATOR Y DRUG)] Propensity to adverse reactions to drug (disorder) 7 Hives [facility] Repository (9 sources) Sulfonamides (Antibiotic); Translations: [SULFA (SULFONAMIDE ANTIBIOTICS)] Propensity to adverse reactions to drug (disorder) 4 Unknown [facility]ository Medications Current Medications Medication Drug Class(es) Dates [...] hydrochloride 10 mg oral tablet (7 sources) S-pzoalo-H-asparta 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 Start: 06-17-2022 take 1 [...] 1 dose pk PO per package directions February 09, 2018 11:00pm January 15, 2020 [...] 12-15-2022 Episodic Other aftercare (1 source) Other ocean transportation intermediary (current) drug therapy; Translations: [OTH NURSING HOME CURRENT DRUG THERAPY] Onset: 01-05-2023 Episodic [...] Test Name Value Interpretation Reference Range Facility [facility] 08-30-2023 [facility] Telephone (RADTSA) -------- ERIN TEJADA ([id number]) 1935 F Date Time Provider Department 08/30/23 SAY DREW During your visit today, we recorded the following information about you: Enrrique De Santiago LPN 08/30/2023 10:[address] Drew please sign pended [facility] order due Aug 2024. Desirae: Will you please call and schedule [facility] at [facility] in Aug 2024? Follow up was scheduled for 2 years- 09/02/24. Thanks KAYCEE Cardenas Saju, MD 08/30/2023 10:54 AM Signed Signed - thanks! Desirae Cates 08/30/2023 11:13 AM Signed Patient I called and scheduled.. Allergies As of Date: 08/30/2023 Noted Allergy Reaction АНДРЕЙ INHIBITORS 03/07/2017 3 - Cough ASPIRIN 06/25/2014 4 - Hives CODEINE 06/25/2014 14 - Other: See Comments Comments: Pt states i get high out of my mind NSAIDS (NON-STEROIDAL ANTI-INFLAM*03/07/2017 4 - Hives SULFA (SULFONAMIDE ANTIBIOTICS) 06/25/2014 16 - Unknown Date Reviewed: 09/01/2022 Reviewed by: Graves, Enrrique, LOG HANDLER - Fully Assessed Reason for Visit: Orders [681] Primary Visit Diagnosis:History of breast cancer [Z85.3] Order(s):[facility] DIAGNOSTIC BILATERAL [[id number]] Order #: [id number] FUTURE Prescriptions as of 08/30/2023 - hydroCHLOROthiazide [...] Status:Closed by ENRRIQUE DE SANTIAGO on 08/30/23 [facility] CNOVon 01-17-2023 CNOV Office Visit (NPTU10 ) -------- ERIN TEJADA ([id number]) 1935 F Date Time Provider Department 01/17/23 12:30 PM MARIA ISABEL PATTON NPTU10 During your visit today, we recorded the following information about you: Maria Isabel Patton, PhD 01/23/2023 12:23 PM Signed PATIENT NAME: Erin Tejada NEUROPSYCHOLOGICAL EVALUATION EDUCATION: 12 OCCUPATION: retired HANDEDNESS: R REFERRING: Danielle Quintero, DO ? The current evaluation was performed in the context of medical care and a clinical referral question and not for purposes of a forensic, disability, or workers' compensation evaluation. This assessment is part of a multidisciplinary evaluation conducted in the [facility]. The assessment consisted of a brief interview [...] is othe (more content not included)... Normal [facility] CBC AUTO DIFFon 12-12-2022 BASO # 0.0 103/ul Normal 0.0-0.1 [facility] Comment on above: Performed By: #### C BC #### [facility] [address] [place], [place] [address] Dr. Vonda Ocampo Basophils/100 WBC (Bld) 0.8 % Normal 0.2-2.0 [facility] Comment on above: Performed By: #### C BC #### [facility] [address] [place] [address] Dr. Vonda Ocampo EO # 0.1 103/ul Normal 0.0-0.7 [facility] Comment on above: Performed By: #### C BC #### [facility] [address] [place] [address] Dr. Vonda Ocampo Eosinophils/100 WBC (Bld) 1.8 % Normal 0.9-7.0 [facility] Comment on above: Performed By: #### C BC #### [facility] [address] [place] [address] Dr. Vonda Ocampo Erythrocyte distribution width (RBC) [Ratio] 13.2 % Normal 11.0-15.0 [facility] Comment on above: Performed By: #### C BC #### [facility] [address] [place] [address] Dr. Vonda Ocampo Hematocrit (Bld) [Volume fraction] 46.4 % Normal 36.0-48.0 [facility] Comment on above: Performed By: #### C BC #### [facility] [address] [place] [address] Dr. Vonda Ocampo Hemoglobin (Bld) [Mass/Vol] 14.7 g/dL Normal 12.0-16.0 [facility] Comment on above: Performed By: #### C BC #### [facility] [address] [place] [address] Dr. Vonda Ocampo IG # 0.01 10e3/ul Normal 0.00-0.03 [facility] Comment on above: Performed By: #### C BC #### [facility] [address] [place] [address] Dr. Vonda Ocampo IG % 0.2 % Normal 0.0-0.5 [facility] Comment on above: Performed By: #### C BC #### [facility] [address] [place] [address] Dr. Vonda Ocampo LYMPH # 1.0 103/ul Critically low 1.2-3.8 [facility] Comment on above: Performed By: #### C BC #### [facility] [address] [place] [address] Dr. Vonda Ocampo Lymphocytes/100 WBC (Bld) 19.2 % Critically low 20.5-60.0 [facility] Comment on above: Performed By: #### C BC #### [facility] [address] [place] [address] Dr. Vonda Ocampo MANUAL DIFF REQ NO Normal [facility] Comment on above: Performed By: #### C BC #### [facility] [address] [place] [address] Dr. Vonda Ocampo MCH (RBC) [Entitic mass] 30.4 pg Normal 26.7-34.0 [facility] Comment on above: Performed By: #### C BC #### [facility] [address] [place] [address] Dr. Vonda Ocampo MCHC (RBC) [Mass/Vol] 31.7 g/dL Normal 29.9-35.2 [facility] Comment on above: Performed By: #### C BC #### [facility] [address] [place] [address] Dr. Vonda Ocampo MCV (RBC) [Entitic vol] 96.1 fL Normal 81.0-99.0 [facility] Comment on above: Performed By: #### C BC #### [facility] [address] [place] [address] Dr. Vonda Ocampo MONO # 0.4 103/ul Normal 0.3-0.8 [facility] Comment on above: Performed By: #### C BC #### [facility] [address] [place] [address] Dr. Vonda Ocampo Monocytes/100 WBC (Bld) 7.7 % Normal 1.7-12.0 [facility] Comment on above: Performed By: #### C BC #### [facility] [address] [place] [address] Dr. Vonda Ocampo NEUT # 3.6 103/ul Normal 1.4-6.5 [facility] Comment on above: Performed By: #### C BC #### [facility] [address] [place] [address] Dr. Vonda Ocampo Neutrophils/100 WBC (Bld) 70.3 % Normal 43.0-75.0 [facility] Comment on above: Performed By: #### C BC #### [facility] [address] [place] [address] Dr. Vonda Ocampo Platelet mean volume (Bld) [Entitic vol] 10.1 fL Normal 9.5-13.5 [facility] Comment on above: Performed By: #### C BC #### [facility] [address] [place] [address] Dr. Vonda Ocampo PLT 162 103/ul Normal 150-450 [facility] Comment on above: Performed By: #### C BC #### [facility] [address] [place] [address] Dr. Vonda Ocampo RBC 4.83 106/ul Normal 4.20-5.40 [facility] Comment on above: Performed By: #### C BC #### [facility] [address] [place] [address] Dr. Vonda Ocampo WBC 5.1 103/ul Normal 4.0-11.0 [facility] Comment on above: Performed By: #### C BC #### [facility] [address] [place] [address] Dr. Vonda Ocampo FREE T3on 12-12-2022 FREE T3 2.70 pg/mlL Normal 2.18-3.98 [facility] Comment on above: Performed By: #### C MP, TSH, FT3, LIPID #### [facility] [address] [place] [address] Dr. Vonda Ocampo FREE T4on 12-12-2022 Free T4 [Mass/Vol] 1.01 ng/dL Normal 0.76-1.[address] [facility] Comment on above: Performed By: #### F T4, B12FOL #### [facility] [address] [place] [address] Dr. Vonda Ocampo LIPID PROFILEon 12-12-2022 CHOL-HDL RATIO NORM SEE BELOW Normal [facility] Comment on above: Result Comment: 3.3 - 4.4 LOW RISK 4.4 - 7.1 AVERAGE RISK 7.1 - 11.0 MODERATE RISK >11.0 HIGH RISK Performed By: #### C MP, TSH, FT3, LIPID #### [facility] [address] [place] [address] Dr. Vonda Ocampo Cholesterol [Mass/Vol] 235 mg/dL Critically high <=200 [facility] Comment on above: Performed By: #### C MP, TSH, FT3, LIPID #### [facility] [address] [place] [address] Dr. Vonda Ocampo Cholesterol in HDL [Mass/Vol] 68 mg/dL Critically high 40-60 [facility] Comment on above: Performed By: #### C MP, TSH, FT3, LIPID #### [facility] [address] [place] [address] Dr. Vonda Ocampo Cholesterol in LDL [Mass/Vol] 144.4 mg/dL Normal [facility] Comment on above: Performed By: #### C MP, TSH, FT3, LIPID #### [facility] [address] [place] [address] Dr. Vonda Ocampo Cholesterol.total/ Cholesterol in HDL [Mass ratio] 3.5 {ratio} Normal [facility] Comment on above: Performed By: #### C MP, TSH, FT3, LIPID #### [facility] [address] [place] [address] Dr. Vonda Ocampo HDL NORMAL > or = 60 mg/dl - LO W CARDIOVASCULAR RISK <40 mg/dl - HIGH CARDIOVASCULAR RISK Normal [facility] Comment on above: Performed By: #### C MP, TSH, FT3, LIPID #### [facility] [address] [place] [address] Dr. Vonda Ocampo LDL CALC NORMAL SEE BELOW Normal [facility] Comment on above: Result Comment: <100 mg/dl OPTIMAL 100 - 129 mg/dl NEAR OR ABOVE OPTIMAL 130 - 159 mg/dl BORDERLINE HIGH 160 - 189 mg/dl HIGH >190 mg/dl VERY HIGH Performed By: #### C MP, TSH, FT3, LIPID #### [facility] [address] [place] [address] Dr. Vonda Ocampo Triglyceride [Mass/Vol] 113 mg/dL Normal <=150 [facility] Comment on above: Performed By: #### C MP, TSH, FT3, LIPID #### [facility] [address] [place] [address] [address] Vonda Ocampo VLDL CALC 22.6 mg/dL Normal [facility] Comment on above: Performed By: #### C MP, TSH, FT3, LIPID #### [facility] [address] [place] [address] [address] Vonda Ocampo PROF 14(COMP METB)on 023 Albumin [Mass/Vol] 3.7 g/dL Normal 3.4-5.0 [facility] Comment on above: Performed By: #### C MP, TSH, FT3, LIPID #### [facility] [address] [place] [address] Dr. Vonda Ocampo Albumin/Globulin [Mass ratio] 0.9 {ratio} Normal [facility] Comment on above: Performed By: #### C MP, TSH, FT3, LIPID #### [facility] [address] [place] [address] Dr. Vonda Ocampo ALP [Catalytic activity/Vol] 125 U/L Critically high 46-116 [facility] Comment on above: Performed By: #### C MP, TSH, FT3, LIPID #### [facility] [address] [place] [address] Dr. Vonda Ocampo ALT [Catalytic activity/Vol] 20 U/L Normal 14-59 [facility] Comment on above: Performed By: #### C MP, TSH, FT3, LIPID #### [facility] [address] [place] [address] Dr. Vonda Ocampo Anion gap [Moles/Vol] 12.2 mmol/L Normal [facility] Comment on above: Performed By: #### C MP, TSH, FT3, LIPID #### [facility] [address] [place] [address] Dr. Vonda Ocampo AST [Catalytic activity/Vol] 20 U/L Normal 15-37 [facility] Comment on above: Performed By: #### C MP, TSH, FT3, LIPID #### [facility] [address] [place] [address] Dr. Vonda Ocampo Bilirubin [Mass/Vol] 0.7 mg/dL Normal 0.2-1.0 [facility] Comment on above: Performed By: #### C MP, TSH, FT3, LIPID #### [facility] [address] [place] [address] Dr. Vonda Ocampo Calcium [Mass/Vol] 9.8 mg/dL Normal 8.5-10.1 [facility] Comment on above: Performed By: #### C MP, TSH, FT3, LIPID #### [facility] [address] [place] [address] Dr. Vonda Ocampo Chloride [Moles/Vol] 104 mmol/L Normal 98-107 [facility] Comment on above: Performed By: #### C MP, TSH, FT3, LIPID #### [facility] [address] [place] [address] Dr. Vonda Ocampo CO2 [Moles/Vol] 31.0 mmol/L Normal 21.0-32.0 [facility] Comment on above: Performed By: #### C MP, TSH, FT3, LIPID #### [facility] [address] [place] [address] Dr. Vonda Ocampo Creatinine [Mass/Vol] 0.94 mg/dL Normal 0.55-1.02 [facility] Comment on above: Performed By: #### C MP, TSH, FT3, LIPID #### [facility] [address] [place] [address] Dr. Vonda Ocampo EGFR-AF TURKISH >60 Normal >=60 [facility] Comment on above: Performed By: #### C MP, TSH, FT3, LIPID #### [facility] [address] [place] [address] Dr. Vonda Ocampo EGFR-NON AF TURKISH 56 mL/min/1.73m2 Critically low >=60 [facility] Comment on above: Performed By: #### C MP, TSH, FT3, LIPID #### [facility] [address] [place] [address] Dr. Vonda Ocampo Globulin (S) [Mass/Vol] 4.3 g/dL Normal [facility] Comment on above: Performed By: #### C MP, TSH, FT3, LIPID #### [facility] [address] [place] [address] Dr. Vonda Ocampo Glucose [Mass/Vol] 108 mg/dL Critically high 74-106 T [facility] Comment on above: Performed By: #### C MP, TSH, FT3, LIPID #### [facility] [address] [place] [address] Dr. Vonda Ocampo Potassium [Moles/Vol] 4.2 mmol/L Normal 3.5-5.1 [facility] Comment on above: Performed By: #### C MP, TSH, FT3, LIPID #### [facility] [address] [place] [address] Dr. Vonda Ocampo Protein [Mass/Vol] 8.0 g/dL Normal 6.4-8.2 [facility] Comment on above: Performed By: #### C MP, TSH, FT3, LIPID #### [facility] [address] [place] [address] Dr. Vonda Ocampo Sodium [Moles/Vol] 143 mmol/L Normal 136-145 [facility] Comment on above: Performed By: #### C MP, TSH, FT3, LIPID #### [facility] [address] [place] [address] Dr. Vonda Ocampo Urea nitrogen [Mass/Vol] 21.0 mg/dL Critically high 7.0-18.0 [facility] Comment on above: Performed By: #### C MP, TSH, FT3, LIPID #### [facility] [address] [place] [address] Dr. Vonda Ocampo Urea nitrogen/Creatinin e [Mass ratio] 22.3 mg/mg Normal [facility] Comment on above: Performed By: #### C MP, TSH, FT3, LIPID #### [facility] [address] [place] [address] Dr. Vonda Ocampo TSHon 12-12-2022 TSH 1.479 uIU/mL Normal 0.358-3.740 [facility] Comment on above: Performed By: #### C MP, TSH, FT3, LIPID #### [facility] [address], [place] [address] Dr. Vonda Ocampo VIT B12 AND FOLATEon 023 Cobalamin (Vitamin B12) [Mass/Vol] 384.0 pg/mL Normal 193.0-986.0 [facility] Comment on above: Performed By: #### F T4, B12FOL #### [facility] [address], [place] [address] Dr. Vonda Ocampo FOLATE 23.10 ng/mL Normal 8.60-58.90 [facility] Comment on above: Performed By: #### F T4, B12FOL #### [facility] [address] [place], [place] [address] Dr. Vonda Ocampo MRI 3D POST PROCESSINGon MRI 3D POST PROCESSING * * *Final Report* * * DATE OF EXAM: Oct 08 2022 3:34PM [facility] 0280 - MRI 3D POST PROCESSING / [...] = Focal Lesions 2 = Beginning of [place] 3 = Diffuse Involvement of Entire Region [...] results from the analysis charts for details. Blue Leather Sorter: YARELIS Transcribe Date/Time: Oct 08 2022 3:47P Dictated by : ALEXI YARBROUGH MD This examination was interpreted and the report reviewed and electronically signed by: ALEXI YARBROUGH MD on Oct 08 2022 4:29PM EST [id number] Normal [facility] MRI BRAIN WO IVCONon 023 MRI [...] dementia protocol and 3-D post-processing using the [employer] software at an independent workstation with concurrent [...] = Focal Lesions 2 = Beginning of [place] 3 = Diffuse Involvement of Entire Region [...] results from the analysis charts for details. 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 This document has been created with the use of voice recognition technology. It may contain inaccuracies, misspellings, inaccurate syntax or inappropriate word context that are a result of the inadequacies/shortcoming s of said technology/software. Referring Provider: SAY DREW [[id number]] Allergies As of Date: 09/01/2022 Noted Allergy Reaction АНДРЕЙ INHIBITORS 03/07/2017 3 - Cough ASPIRIN 06/25/2014 [...] mg tablet (more content not included)... Normal [facility] MM diagnostic mammo BI w/CAD on 08-30-2022 MM diagnostic mammo BI w/CAD [facility] [place] [address] [place] [address] Mammography Report Signed Patient: Erin Tejada MR#: [id number] : 1935 Acct:[id number] Age/Sex: 87 / F ADM Date: 08/30/22 Loc: [place] Room: Type: [facility] Attending Dr: Say Drew MD Copies to: [...] Maranda Portillo M.D.08/30/2022 2:31 PM Dictation Location: [facility] Transcribed By: AZIZA 08/30/22 143 Dictated By: Maranda Portillo MD 08/30/22 1426 Signed By: 08/30/22 1431 [facility] CNOVon 07-07-2022 CNOV Office Visit (DAVISADFV ) -------- ERIN TEJADA ([id number]) 1935 F Date Time Provider Department 07/07/22 3:00 PM DANIELLE QUINTERO During your visit today, we recorded the following information about you: Pulse Blood pressure Weight Height 86/minute 199/84 59.8 kg 1.632 m Danielle Quintero DO 07/10/2022 3:40 PM Signed [facility] New Patient Evaluation Consulting Provider: LUIS SERVIN [place] [address] Individuals who were included in, or assisted with the encounter were: Erin Tejada Danielle Quintero DO Chief Complaint/Issues: Erin Tejada is a 87 year old female seen in the [facility] for: Memory changes HPI: Ms. Tejada is an 87 year old woman PMHx HTN, remote breast [place] presenting with memory concerns. She is accompanied by her cousin. She tells me that another cousin thought she had memory issues when she went to visit her in [place] for three weeks last year. She does [...] denies tremors. 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 Nobody complains about her [...] Assessment AND Plan 07/10/2022 - General Neurology, Danielle Quintero, DO ASSESSMENT Ms. Tejada is an [...] service (more content not included)... Normal [facility] FOLATE SERUMon 07-07-2022 Folate [Mass/Vol] >4.7 ng/mL [facility] Folate SerPl-mCncon 07-07-20 22 Folate [Mass/Vol] ng/mL Normal >4.7 [facility] Comment on above: Order Comment: Specrico celaya Type: BLOOD SPECIMEN Ordering Facility: [facility] Address: [address] [place] [id number] Result Comment: A re sult of > 20 ng/mL is not necessarily indicative of a pathologic or treatable condition: it reflects a limitation of the test methodology. Assay reference range: 4.8 to 24.2 ng/mL. Suitable for detection of folate deficiency. Reference: Folate III (Folate III) [package insert V 1.0 Citizen Of [place]]. [place], [place], [place]: June 2015. Performed By: #### 2 132-9, 2284-8 #### [facility] CLIA [id number] [place] [id number] [place] VITAMIN B12 BLOODon 07-07-20 22 Cobalamin (Vitamin B12) [Mass/Vol] 556 pg/mL 232 - 1,245 pg/mL [facility] Vit B12 SerPl-ncon 022 Cobalamin (Vitamin B12) [Mass/Vol] 556 pg/mL Normal 232-1245 [facility] Comment on above: Order Comment: Mushtaq celaya Type: BLOOD SPECIMEN Ordering Facility: [facility] Address: [facility] [place] [address] Performed By: #### 2 132-9, 2284-8 #### [facility] CLIA [id number] [place] [id number] [place] AUD - Otheron [...] was advised that I would speak with quality assurance test program manager regarding the situation and get back [...] restricted hearing right ear Jesusita Jay M.A., [facility] Winder Operator [facility] AUD - Otheron 06-08-2021 AUD - Other 06/07/2021 - Patient in today a week late for appointment. She had written appointment down on wrong day. Patient needed help putting right hearing aid in ear. Patient brought 2 left hearing aids and had been trying to put one of them in her right ear. The hearing aid was [employer] brand, not one she recently purchased here. Patient stated she had other hearing aids at home. Advised patient to reschedule and bring in all of the devices she has at home and we will figure out which devices are the newer ones that she should be wearing. 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 No charge, patient under warranty. Chris Donaldson CCC-A, F-AAA Dx Code: H90.3 SNHL AU Normal [facility] AUD - Hearing Aid Saleson AUD - Hearing Aid Sales [id number] D:127 Normal [facility] AUD - Orderson 12-09-2020 AUD - Orders [id number]#[id number] :127 [facility] AUD - Progress Noteson 12-08 AUD - Progress Notes Hearing Aid Clean/Check 12/08/2020 Purpose of Appointment: Patient in today for a routine hearing aid check/cleaning. Hearing Devices: Unitron D Moxi Jump 7 RICs with C shell earmolds and Unitron Stride P 800 BTE with standard earmold and tubing ( S/N: [id number]) Primary issues/concerns: The patient reports that she [...] as patient is under warranty. 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 Normal [facility] Vital Signs Date Time Vital Sign Value Performing Clinician Lasti mildred 09-01-2022 14:45-0500 Body temperature 96.91 [degF] Say Drew MD Work Phone: [facility] 09-01-2022 14:45-0500 Body weight 59.88 kg Say Drew MD Work Phone: [facility] 09-01-2022 14:45-0500 Diastolic blood pressure 85 mm[Hg] Say Drew MD Work Phone: [facility] 09-01-2022 14:45-0500 Heart rate 92 /min Say Drew MD Work Phone: [facility] 09-01-2022 14:45-0500 Respiratory rate 16 /min Say Drew MD Work Phone: [facility] 09-01-2022 14:45-0500 SaO2% (BldA) [Mass fraction] 100 % Say Drew MD Work Phone: [facility] 09-01-2022 14:45-0500 Systolic blood pressure 176 mm[Hg] Say Drew MD Work Phone: [facility] 07-07-2022 14:36-0500 Body height 163.2 cm Danielle Quintero DO Work Phone: [facility] 07-07-2022 14:36-0500 Body weight 59.83 kg Danielle Quintero DO Work Phone: [facility] 07-07-2022 14:36-0500 Diastolic blood pressure 84 mm[Hg] Danielle Quintero DO Work Phone: [facility] 07-07-2022 14:36-0500 Heart rate 86 /min Danielle Quintero DO Work Phone: [facility] 07-07-2022 14:36-0500 Systolic blood pressure 199 mm[Hg] Danielle Quintero DO Work Phone: [facility] Encounters Encounter Date Encounter Type Care Provider Facility Start: 01-23-2023 Unlisted evaluation and management service Say Drew MD Work Phone: Radiation Oncology Comment on above: Opened In Error Start: 01-17-2023 End: 01-17-2023 ambulatory DANIELLE MANCUSO Facility:[facility] Start: 01-17-2023 End: 01-17-2023 Patient encounter procedure Maria Isabel Patton PhD Work Phone: Neuropyschology Comment on [...] stated [G31.84] Start: 09-01-2022 End: 09-01-2022 ambulatory RENAN CASTILLO Facility:[facility] Start: 09-01-2022 End: 09-01-2022 Patient encounter procedure Say Drew MD Work Phone: Radiation Oncology Comment on above: History of breast ca ncer (Primary Dx) Start: 09-01-2022 Telephone encounter Danielle parada DO Work Phone: Radiation Oncology Comment on above: Patient Question; Ap pointment Start: 08-30-2022 End: 08-30-2022 ambulatory MD Renan Castillo Work Phone: [facility] Work Phone: Start: 08-30-2022 End: 08-30-2022 Patient encounter procedure MD Renan Castillo Work Phone: [facility] Work Phone: Start: 07-07-2022 End: 07-08-2022 ambulatory DANIELLE R LEON Facility:[facility] Start: 07-07-2022 End: 07-07-2022 ambulatory DANIELLE R LEON Facility:[facility] Start: 07-07-2022 End: 07-07-2022 Patient encounter procedure Danielle Simpsonok DO Work Phone: Neurology Comment on above: Cognitive impairment , mild, so stated (Primary Dx) Start: 02-02-2022 End: 02-02-2022 ambulatory Renan Castillo Facility:[facility] Procedures Date Procedure Procedure Detail Performing Clinician Start: 10-08-2022 MRI 3D POST PROCESSING Jair Howell DO Work Phone: Start: 10-08-2022 Mri brain brain stem w/o contrast material Danielle Quintero DO Work Phone: Start: 08-30-2022 Bilateral mammography Kashif Castillo Work Phone: Plan of Treatment Date Care Activity Detail Author Start: 04-21-2023 Influenza vaccination INFLUENZ A (Season Ended) [facility] Start: 08-21-2022 ADVANCE DIRECTIVE DISCUSSION ADVANCE DIRECTIVE DISCUSSION [facility] Start: 08-21-2022 DEPRESSION ASSESSMENT DEPRESSION ASS ESSMENT [facility] Start: 07-07-2022 End: 09-06-2022 VITAMIN B1 (THIAMINE), WHOLE BLOOD VITAMIN B1 (THIAMINE), WHOLE BLOOD Lab Routine Cognitive impairment, mild, so stated Expected: 07/07/2022, Expires: 09/06/2022 [facility] Work Phone: Comment on above: Expected: 07/07/2022 , Expires: 09/06/2022 Start: 04-21-2022 Influenza vaccination INFLUENZA (#1) [facility] Start: 08-21-2021 ADVANCE DIRECTIVE DISCUSSION ADVANCE DIRECTIVE DISCUSSION [facility] Start: 08-21-2021 DEPRESSION ASSESSMENT DEPRESSION ASS ESSMENT [facility] Start: 11-25-2020 COVID-19 VACCINE (3 - Booster for Pfizer series) COVID-19 VACCINE (3 - Booster for Pfizer series) [facility] Start: 2001 BONE DENSITY BONE DENSITY [facility] Start: 2001 PNEUMOCOCCAL: 65+ (1 - PCV) PNEUMOCOCCAL: 65+ (1 - PCV) [facility] Start: 1986 SHINGRIX VACCINE (1 of 2) SHINGRIX VACCINE (1 of 2) [facility] Start: 1981 DIABETES SCREEN DIABETES SCREEN [facility] Start: 1955 Urine microalbumin profile DTAP,TDAP,TD (1 - Tdap) [facility] End: 08-06-2023 Mri brain brain stem w/o contrast material MRI BRAIN WO IVCON Radiology Routine Cognitive impairment, mild, so stated 1 Occurrences starting 07/07/2022 until 08/06/2023 [facility] Work Phone: Comment on above: 1 Occurrences starti ng 07/07/2022 until 08/06/2023 [facility] Payers Date Payer Category Payer Self-pay [id number] 2015 Private Health Insurance HUMANA HUMANA MEDICARE SUPPLEMENT [id number] 2015-Present [phone] [address] [address] [place] [address] Indemnity [id number] 2001 Medicare [id number] 1959 Medicare [id number] 1959 Medicare [id number] 1936 Unknown [id number] 1936 Unknown [id number] Unknown [id number] Unknown [id number] Social History Date Type Detail Facility Start: 07-07-2022 Tobacco smoking stat [facility] Never smoked tobacco [facility] Start: 07-07-2022 Tobacco use and exposure Smokeless tobacco non-user [facility] Start: 07-07-2022 End: 09-01-2022 Alcohol intake Current drinker of alcohol (finding) [facility] Start: 08-18-2016 Alcohol Comment socially [facility] Start: 1935 Sex Assigned At Not on file [facility] Start: 06-27-2022 End: 07-07-2022 Exposure to SARS-CoV-2 (event) Not sure [facility] Start: 1935 Sex Assigned At Female F [facility] Medical Equipment Procedure Code Equipment Code Equipment Origin al Text Equipment Identifier Dates Discectomy, lumbar COFLEX SIZE [address] art: 02-09-2018 Discectomy, lumbar COFLEX SIZE [address] art: 02-09-2018 Clinical Notes 07-07-2022 to 01-23-2023 Maria Isabel Patton, PhD - 01/23/2023 12:22 PM EDTTelephone Encounter - Alice Jamil RN - 01/23/2023 9:58 AM Paola Lange, supervisor of guidance and testing - 10/08/2022 3:00 PM William Drew MD - 09/01/2022 11:46 PM EST Note Date & Type Note Facility 01-23-2023 Note HNO ID: [id number] Author: Maria Isabel Patton, PhD Service: ? Author Type: Physician Type: Progress Notes Filed: 01/23/2023 12:23 PM Note Text: PATIENT NAME: Erin Tejada NEUROPSYCHOLOGICAL EVALUATION EDUCATION: 12 OCCUPATION: retired HANDEDNESS: R REFERRING: Danielle R Leon, DO ? The current evaluation was performed in the context of medical care and a clinical referral question and not for purposes of a forensic, disability, or workers' compensation evaluation. This assessment is part of a multidisciplinary evaluation conducted in the [facility]. The assessment consisted of a brief interview [...] the 24th p (more content not included)... [facility] 01-23-2023 History of Present illness Narrative PATIENT NAME: Erin Tejada NEUROPSYCHOLOGICAL EVALUATION EDUCATION: 12 OCCUPATION: retired HANDEDNESS: R REFERRING: Danielle Quintero, DO ? The current evaluation was performed in the context of medical care and a clinical referral question and not for purposes of a forensic, disability, or workers' compensation evaluation. This assessment is part of a multidisciplinary evaluation conducted in the [facility]. 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 Social: [place] alone in [place] town; [...] per week. Contact: Local: ; Toll free: [phone] or [email or web address] Do not require an Alzheimer's diagnosis to contact them Family Caregiver [place] (web site: Caregiver.org) [employer]-- a secure online solution for quality information, support, and resources for family caregivers. Contact: Toll-free number: [phone] In home resource- http://www.Mbite.AirXP/ind ex.aspx -Recommended connecting with the local Agency on Aging for benefits screening, including for the [employer] program, which can provide funding for home health aide services. Contact information: . Alternate number: [phone] [facility] (https://www.[employer]/local/ xlwznzs-iprvmwy-plkx-exgrvd-zh-os jkz-wmjcowbra-qqpa-tsqcno-ch-mejk g-oh) - Home Health Agencies who can provide supportive services to both patient and caregiver. These services may include companionship and assistance with activities of daily living, such as meals, bathing, and dressing. They may also provide assistance with denture waxer and transportation. Many agencies have caregivers that have training specifically for the care of a person with dementia. [facility] care: [phone] Visiting Nurse Association: [phone] Home Instead: [phone] [employer] Hel[employer]iors: [phone] [facility] Care: [phone] This report is meant to be considered [...] me and its contents reflect my opinions. Maria Isabel Patton, Ph.D., ABPP-CN Board Certified in Clinical Neuropsychology Neuropsychological evaluation services by neuropsychologist = 2 hours Neuropsychological test administration/scoring by cyber ops planner = 1 hour, 55 minutes documented in this encounter [facility] 01-23-2023 Miscellaneous Notes This encounter was opened in error. documented in this encounter [facility] 10-08-2022 Note HNO ID: [id number] Author: SALVADOR Raza Service: ? Author Type: [...] SALVADOR Raza October 08, 2022 3:28 PM [facility] 10-08-2022 History of Present illness Narrative [...] 2022 3:28 PM documented in this encounter [facility] 09-05-2022 Miscellaneous Notes Scheduling spoke with patients [...] appreciative of call. Erin is in the [facility] oncology office today for a follow up. 07/07/[address] Quintero who ordered MRI brain and neuropsych testing but Erin said these tests were never scheduled. Follow up is to be arrange after the above testing. Erin would like the MRI brain done locally at [facility]. She is wondering if she should have the neuropsych testing done locally or if [facility] is preferred. She and her cousin, Anderson Palafox, are here today and seem to have some confusion about the expected appointments. Will you please reach out to Erin arrange the testing and follow up as ordered. Enrrique De Santiago LPN documented in this encounter [facility] 09-02-2022 Note HNO ID: [id number] Author: Say Drew MD Service: ? Author Type: Physician Type: Progress Notes Filed: 09/14/2022 5:05 AM Note Text: Radiation Oncology - Follow Up Note PATIENT NAME: Erin Tejada PATIENT DIAGNOSIS/PATIENT IDENTIFICATION: Ms. 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 Holland. She went on to complete at least 5 years of adjuvant endocrine therapy with Arimidex. INTERVAL HISTORY/ROS: Ms. eTjada returns to clinic today for routine follow-up [...] was otherwise noncontributory. ALLERGIES ALLERGIES Allergen Reactions Андрей Inhibitors Cough Aspirin Hives Codeine Other: See [...] an 87-year old female with Stage I ([id number]) infiltrating ductal carcinoma of the lower quadrant [...] which included preparing to see the patient, omnu-cv-miif patient care, and counseling and educating the patient/family/caregiver. This document has been created with the use of voice recognition technology. It may contain inaccuracies, misspellings, inaccurate syntax or inappropriate word context that are a result of the inadequacies/shortcomings of said technology/software. [facility] 09-01-2022 History of Present illness Narrative Radiation Oncology - Follow Up Note PATIENT NAME: Erin Tejada PATIENT Signed by: Say Drew MD I spent a total of 20 minutes on the date of the service which included preparing to see the patient, wuor-am-xtik patient care, and counseling and educating the patient/family/caregiver. This document has been created with the use of voice recognition technology. It may contain inaccuracies, misspellings, inaccurate syntax or inappropriate word context that are a result of the inadequacies/shortcomings of said technology/software. documented in this encounter [facility] 07-07-2022 Note HNO ID: [id number] Author: Danielle Quintero DO Service: ? Author Type: Physician Type: Progress Notes Filed: 07/10/2022 3:40 PM Note Text: [facility] New Patient Evaluation Consulting Provider: LUIS SERVIN [address] [place] [address] Individuals who were included in, or assisted with the encounter were: Erinjennifer Tejada Danielle Quintero DO Chief Complaint/Issues: Erin Tejada is a 87 year old female seen in the [facility] for: Memory changes HPI: Ms. Tejada is an 87 year old woman PMHx HTN, remote breast CA presenting with memory concerns. She is accompanied by her cousin. She tells me that another cousin thought she had memory issues when she went to visit her in [place] for three weeks last year. She does [...] denies tremors. 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 Nobody complains about her [...] Assessment AND Plan 07/10/2022 - General Neurology, Danielle Quintero, DO ASSESSMENT Ms. Tejada is an [...] which included preparing to see the patient, eehy-uk-pwcw patient care, completing clinical documentation, obtaining and/or reviewing separately obtained history, performing a medically appropriate examination, counseling and educating the patient/family/ (more content not included)... [facility] 07-07-2022 Instructions Danielle Quintero DO - 07/07/2022 3:29 PM EST Please get memory labs, brain MRI, neuropsychological testing (formal memory testing). Follow-up after neuropsych testing to go over results. documented in this encounter [facility] 07-07-2022 History of Present illness Narrative Images from the original note were not included. [facility] General Neurology New Patient Evaluation Consulting Provider: LUIS SERVIN [place] [address] Individuals who were included in, or assisted with the encounter were: Erin Tejada Danielle Quintero DO Chief Complaint/Issues: Erin Tejada is a 87 year old female seen in the [facility] for: Memory changes HPI: Ms. Tejada is an 87 year old woman PMHx HTN, remote breast CA presenting with memory concerns. She is accompanied by her cousin. She tells me that another cousin thought she had memory issues when she went to visit her in [place] for three weeks last year. She does [...] denies tremors. 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 Nobody complains about her [...] with normal cognition, memory, speech and affect. [place] Cognitive Assessment (MoCA) MoCA Total Score: 18 [...] Assessment & Plan 07/10/2022 - General Neurology, Danielle Quintero, DO ASSESSMENT Ms. Tejada is an [...] which included preparing to see the patient, reeu-gc-gebx patient care, completing clinical documentation, obtaining and/or reviewing separately obtained history, performing a medically appropriate examination, counseling and educating the patient/family/caregiver, and ordering medications, tests, or procedures. Danielle Quintero DO documented in this encounter [facility] Evaluation note Diagnosis Cognitive impairment, mild, so stated- Primary Mild cognitive impairment, so stated [facility]No assessment information [facility] Work Phone: Evaluation note* Diagnosis History of breast cancer- Primary Personal history of malignant neoplasm of breast documented [facility]* Diagnosis Cognitive impairment, mild, so stated- Primary Mild cognitive impairment, so stated [facility] Diagnosis Cognitive impairment, mild, so stated Mild cognitive impairment, so stated [facility] Diagnosis OPENED IN ERROR- Primary To allow closing an encounter opened in error (used in SmartSet) [facility] Diagnosis Dementia without behavioral disturbance, psychotic disturbance, mood disturbance, or anxiety, unspecified dementia severity, unspecified dementia type (HCC)- Primary documented in this encounter [facility] Summary Purpose Family History No Family History Records Found Relationship Condition Age at Onset Recorded Date/T eladia father Dementia Unknown Advance Directives No Advanced Directives Records FoundDocuments on File Type Date Recorded Patient Wharf Hand Expl anation Advance Directive(s) 07/26/2012 2:28 PM Advance Directive Response Recorded Date/ Time Advance Directives No June 16, 2017 8:37am Documents on File Type Date Recorded Patient Wharf Hand Expl anation Advance Directive(s) 07/26/2012 2:28 PM Reason for Referral Specialty Diagnoses / Procedures Referred By Contac t Referred To Contact Diagnoses Cognitive impairment, mild, so stated Procedures NEUROPSYCHOLOGICAL TESTING CONSULT Danielle Quintero DO [address] [place] [address] Referral ID Status Reason Start Date Expiration Date Visits Requested Visits Authorized [id number] Ref Not Required PCP Requested Referral 2 10/05/2022 1 1 Specialty Diagnoses / Procedures Referred By Contac t Referred To Contact MR IMAGING Diagnoses Cognitive impairment, mild, so stated Procedures MRI BRAIN WO IVCON MRI BRAIN BRAIN STEM W/O CONTRAST MATERIAL Danielle Quintero, [address] [place] [address] Mr Imaging Referral ID Status Reason Start Date Expiration Date Visits Requested Visits Authorized [id number] Pending Review Auto-Generat ed Referral 08/06/2023 1 1 Specialty Diagnoses / Procedures Referred By Contac t Referred To Contact MR IMAGING Diagnoses Cognitive impairment, mild, so stated Procedures MRI 3D POST PROCESSING 3D RENDERING W/INTERP&POSTPROC DIFF WORK STATION Caio Holloway MD, [address] [place] [address] Mr Imaging Referral ID Status Reason Start Date Expiration Date Visits Requested Visits Authorized [id number] Pending Review Auto-Generat ed Referral 10/08/2022 11/07/2023 1 1 Specialty Diagnoses / Procedures Referred By Contac t Referred To Contact MR IMAGING Diagnoses Cognitive impairment, mild, so stated Procedures MRI BRAIN WO IVCON MRI BRAIN BRAIN STEM W/O CONTRAST MATERIAL Danielle Quintero, [address] [place] [address] Mr Imaging Referral ID Status Reason Start Date Expiration Date V isits Requested Visits Authorized [id number] Closed Auto-Generate d Referral 07/07/2022 08/06/2023 1 1 Chief Complaint and Reason for Visit Chief Complaint hx of breast cancer Additional Source Comments INFORMATION SOURCE (unrecogn ized section and content) DATE CREATED AUTHOR 11/15/2021 [facility] DATE CREATED AUTHOR AUTHOR'S ORGANIZ ATION 07/10/2022 [facility] DATE CREATED AUTHOR AUTHOR'S ORGANIZ ATION 09/07/2022 [facility] DATE CREATED AUTHOR AUTHOR'S ORGANIZ ATION 01/05/2023 [facility] DATE CREATED AUTHOR AUTHOR'S ORGANIZ ATION 08/31/2023 [facility] Source Comments (unrecognize d section and content) In the event this informatio n is protected by the Federal Confidentiality of Alcohol and Drug Abuse Patient Records regulations: The Federal rules restrict any use of the information to criminally investigate or prosecute any alcohol or drug abuse patient.[facility] the event this information is protected by the Federal Confidentiality of Alcohol and Drug Abuse Patient Records regulations: The Federal rules restrict any use of the information to criminally investigate or prosecute any alcohol or drug abuse patient.[facility] CenterIn the event this information is protected by the Federal Confidentiality of Alcohol and Drug Abuse Patient Records regulations: The Federal rules restrict any use of the information to criminally investigate or prosecute any alcohol or drug abuse patient.[facility] CenterIn the event this information is protected by the Federal Confidentiality of Alcohol and Drug Abuse Patient Records regulations: The Federal rules restrict any use of the information to criminally investigate or prosecute any alcohol or drug abuse patient.[facility] CenterIn the event this information is protected by the Federal Confidentiality of Alcohol and Drug Abuse Patient Records regulations: The Federal rules restrict any use of the information to criminally investigate or prosecute any alcohol or drug abuse patient.[facility] CenterIn the event this information is protected by the Federal Confidentiality of Alcohol and Drug Abuse Patient Records regulations: The Federal rules restrict any use of the information to criminally investigate or prosecute any alcohol or drug abuse patient.[facility] CenterIn the event this information is protected by the Federal Confidentiality of Alcohol and Drug Abuse Patient Records regulations: The Federal rules restrict any use of the information to criminally investigate or prosecute any alcohol or drug abuse patient.[facility] Reason for Visit (unrecogniz ed section and content) Reason Comments New Patient Rule out [facility] , Discu ss symptoms Reason Comments Patient Question Appointment Reason Comments Breast Cancer Specialty Diagnoses / Procedures Referred By Contac t Referred To Contact MR IMAGING Diagnoses Cognitive impairment, mild, so stated Procedures MRI BRAIN WO IVCON MRI BRAIN BRAIN STEM W/O CONTRAST MATERIAL Danielle Quintero, [address] [place] [address] Mr Imaging Referral ID Status Reason Start Date Expiration Date V isits Requested Visits Authorized [id number] Closed Auto-Generate d Referral 07/07/2022 08/06/2023 1 1 Reason Onset Date Comments Opened In Error 01/23/2023 Specialty Diagnoses / Procedures Referred By Contact Referred To Contact Psychology / NEUROPSYCHOLOGY Diagnoses Cognitive impairment, mild, so stated [G31.84] Procedures [employer] M[employer] TICK[employer] [address] [address] [place] [id number] Maria Isabel Patton, PhD [address] [place] [address] Referral ID Status Reason Start Date Expiration Date V isits Requested Visits Authorized [id number] Pending Review 01/17/2023 04/17/2023 1 1 Care Teams (unrecognized sec tion and content) Traffic Workforce Representative Relationship Specialty Start Date End Date Renan Castillo MD [address] [place] [address] PCP - General Family Medicine 08/01/18 Luis Servin [address] [place] [address] Referring Family Medicine 05/31/22 Team Status: Inactive Member Role Status Dates Renan Castillo MD Primary Care Provider Brian Drew MD Attending Provider Active Team Status: Active Member Role Status Dates Renan Castillo MD Primary Care Provider Active Traffic Workforce Representative Relationship Specialty Start Date End Date Renan Castillo MD [address] [place] [facility] [place] [place] [phone] PCP - General Family Medicine 08/01/[address] [place] [phone] Referring Family Medicine 05/31/22 Traffic Workforce Representative Relationship Specialty Start Date End Date Renan Castillo MD [address] [place] [facility] [place] [place] [phone] PCP - General Family Medicine 08/01/[address] [place] [phone] Referring Family Medicine 05/31/22 Traffic Workforce Representative Relationship Specialty Start Date End Date Renan Castillo MD [address] [place] [facility] [place] [place] [address] PCP - General Family Medicine 08/01/[address] [place] [phone] Referring Family Medicine 05/31/22 Traffic Workforce Representative Relationship Specialty Start Date End Date Renan Castillo MD [address] [place] [facility] [place] [place] [address] PCP - General Family Medicine 08/01/[address] [place] [phone] Referring Family Medicine 05/31/22 Traffic Workforce Representative Relationship Specialty Start Date End Date Renan Castillo MD [address] [place] [facility] [place] [place] [address] PCP - General Family Medicine 08/01/18 Luis Servin [address] [place] [address] Referring Family [facility] 05/31/22 Traffic Workforce Representative Relationship Specialty Start Date End Date Renan Castillo MD [address] [place] [address] PCP - General Family Medicine 08/01/18 Luis Servin [address] [place] [address] Referring [facility] 05/31/22 Goals (unrecognized section and content) Goals [...] BE BASED ON THE PRIMARY CLINICAL RECORDS. [facility] [employer] [facility]. provides no warranty or guarantee of the accuracy or completeness of information in this document.
[2023-12-31 09:57] LABS: Anion Gap 10.4; BUN Creatinine Ratio 19.1; Calcium 9.9 mg/dL (8.5-10.1); Carbon Dioxide 30.6 mmol/L (21.0-32.0); Chloride 103 mmol/L (98-107); Estimated GFR (African America 57 (>=60); Estimated GFR (Non-African Ame 47 (>=60); Glucose 117 mg/dL (74-106); Sodium 140 mmol/L (136-145)
[2023-12-31 11:03] LABS: Bilirubin Urine NEGATIVE (NEGATIVE); Blood Urine TRACE-I (NEGATIVE); Clarity Urine CLEAR (CLEAR); Color Urine LT. YELLOW (YELLOW); Glucose Urine UA NEGATIVE (NEGATIVE); Ketones Urine NEGATIVE (NEGATIVE); Leukocyte Esterase Urine SMALL (NEGATIVE); Nitrite Urine NEGATIVE (NEGATIVE); Protein Urine NEGATIVE (NEG/TRACE); Specific Gravity Urine 1.025 (1.005-1.025); Urobilinogen Urine 0.2 EU/dL (0.2-1.0)
[2023-12-31 11:14] LABS: Bacteria Urine NONE SEEN #/HPF (NONE SEEN); Cast Seen? NONE SEEN #/LPF (NONE SEEN); Crystals Seen? None Seen #/HPF (None Seen); Mucus Urine TRACE (NONE SEEN); RBC Urine 0-2 #/HPF (0-2); Squamous Epithelial Cell Urine NONE SEEN #/LPF (NONE/RARE); WBC Urine 0-2 #/HPF (NONE SEEN)
--- NOTE | 2023-12-31 11:48 | CT_ITS ---
The [address] [address] Patient Name: BERNARD PACHECO MRN: [id number] date: 1935 Sex: F Assigned Patient Location: ER Current Patient Location: ICU Accession/Order Number: [id number] Exam Date: 12/31/2023 12:00 Report Date: 12/31/2023 13:08 At the request of: SHIRLEY GASTON Procedure: CT head/brain wo con CT HEAD WITHOUT CONTRAST, 12/31/2023. HISTORY: Amnesia. Altered mental status. Confusion. COMPARISON: MRI brain, 08/31/2021. TECHNIQUE: Noncontrast axial CT images obtained through the head. Reconstructions obtained in the sagittal and coronal planes. Dose reduction techniques were achieved by using automated exposure control and/or adjustment of mA and/or kV according to patient size and/or use of iterative reconstruction technique. FINDINGS: The paranasal sinuses are clear. Mastoid air cells are clear. Skull base is intact. No skull lesion. Orbital contents are unremarkable. Large amount of brain atrophy. Large amount of chronic microvascular ischemic change in the cerebral white matter. There is some calcification in the white matter of the left cerebellar hemisphere which is likely degenerative. No subdural fluid collection. No mass effect. No shift of midline. No obstructive hydrocephalus. No acute hemorrhage. No mass. CT/CT head/brain wo con IMPRESSION: 1. No acute findings. No intracranial hemorrhage. 2. Large amount of brain atrophy and chronic microvascular ischemic changes. Electronically authenticated by: JAROCHO CARPIO Date: 12/31/2023 13:08
[2023-12-31] MEDS: CARVEDILOL 3.125 MG TABLET 6.25 MG PO (12:36)
--- OUTSIDE RECORDS SUMMARY | 2023-12-31 12:48 | XMS_ITS | CCD ---
Author Organization [facility] Care Team Providers Care Entry Level Accounting Clerk Name Role Phone DANIELLE QUINTERO Attending Unavailable RENAN CASTILLO Primary Care Unavailable DANIELLE QUINTERO Referring Unavailable RENAN CASTILLO Primary Care Unavailable Renan Castillo MD Primary Care Provider [phone] Luis Servin Unavailable MD Renan Castillo Primary Care Provider [phone] MD Say Drew Attending Provider [phone] Renan Castillo Primary Care Unavailable Gildardobesten Jorge [...] adverse reactions to drug (disorder) 7 Cough [facility] Repository (12 sources) Aspirin; Translations: [ASPIRIN] Drug Allergy 4 Hives [facility] Repository (11 sources) Codeine; Translations: [CODEINE] Drug Allergy 4 Other: See Comments [facility] Repository (9 sources) NSAIDs; Translations: [NSAIDS (NON-STEROIDAL ANTI-INFLAMMATOR Y DRUG)] Propensity to adverse reactions to drug (disorder) 7 Hives [facility] Repository (9 sources) Sulfonamides (Antibiotic); Translations: [SULFA (SULFONAMIDE ANTIBIOTICS)] Propensity to adverse reactions to drug (disorder) 4 Unknown [facility] Medications Current Medications Medication Drug [...] hydrochloride 10 mg oral tablet (7 sources) N-exznkx-M-asparta 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 Start: 06-17-2022 take 1 [...] 12-15-2022 Episodic Other aftercare (1 source) Other long term care social worker (current) drug therapy; Translations: [OTH PENITENTIARY CURRENT DRUG THERAPY] Onset: 01-05-2023 Episodic Other [...] Test Name Value Interpretation Reference Range Facility [facility] 08-30-2023 [facility] Telephone (RADTSA) -------- ERIN TEJADA ([id number]) 1935 F Date Time Provider Department 08/30/23 SAY DREW During your visit today, we recorded the following information about you: Enrrique De Santiago LPN 08/30/2023 10:[address] Drew please sign pended [facility] order due Aug 2024. Desirae: Will you please call and schedule [facility] at [facility] in Aug 2024? Follow [...] Date Reviewed: 09/01/2022 Reviewed by: Graves, Enrrique, PROCESS EXCELLENCE MANAGER - Fully Assessed Reason for Visit: Orders [681] Primary Visit Diagnosis:History of breast cancer [Z85.3] Order(s):[facility] [1064887] Order #: [id number] FUTURE Prescriptions as of 08/30/2023 - hydroCHLOROthiazide [...] Status:Closed by ENRRIQUE DE SANTIAGO on 08/30/[address] [facility] CNOVon 01-17-2023 CNOV Office Visit (NPTU10 ) -------- ERIN TEJADA ([id number]) 1935 F Date Time Provider Department 01/17/23 [...] of a multidisciplinary evaluation conducted in the [facility]. The assessment consisted of a brief interview [...] is othe (more content not included)... Normal [facility] CBC AUTO DIFFon 12-12-2022 BASO # 0.0 103/ul Normal 0.0-0.1 [facility] Comment on above: Performed By: #### C BC #### [facility] [address] [place], [place] [address] Dr. Vonda Ocampo Basophils/100 WBC (Bld) 0.8 % Normal 0.2-2.0 [facility] Comment on above: Performed By: #### C BC #### [facility] [address] [place] [address] Dr. Vonda Ocampo EO # 0.1 103/ul Normal 0.0-0.7 [facility] Comment on above: Performed By: #### C BC #### [facility] [address] [place] [address] Dr. Vonda Ocampo Eosinophils/100 WBC (Bld) 1.8 % Normal 0.9-7.0 [facility] Comment on above: Performed By: #### C BC #### [facility] [address] [place] [address] Dr. Vonda Ocampo Erythrocyte distribution width (RBC) [Ratio] 13.2 % Normal 11.0-15.0 [facility] Comment on above: Performed By: #### C BC #### [facility] [address] [place] [address] Dr. Vonda Ocampo Hematocrit (Bld) [Volume fraction] 46.4 % Normal 36.0-48.0 [facility] Comment on above: Performed By: #### C BC #### [facility] [address] [place] [address] Dr. Vonda Ocampo Hemoglobin (Bld) [Mass/Vol] 14.7 g/dL Normal 12.0-16.0 [facility] Comment on above: Performed By: #### C BC #### [facility] [address] [place] [address] Dr. Vonda Ocampo IG # 0.01 10e3/ul Normal 0.00-0.03 [facility] Comment on above: Performed By: #### C BC #### [facility] [address] [place] [address] Dr. Vonda Ocampo IG % 0.2 % Normal 0.0-0.5 [facility] Comment on above: Performed By: #### C BC #### [facility] [address] [place] [address] Dr. Vonda Ocampo LYMPH # 1.0 103/ul Critically low 1.2-3.8 [facility] Comment on above: Performed By: #### C BC #### [facility] [address] [place] [address] Dr. Vonda Ocampo Lymphocytes/100 WBC (Bld) 19.2 % Critically low 20.5-60.0 [facility] Comment on above: Performed By: #### C BC #### [facility] [address] [place] [address] Dr. Vonda Ocampo MANUAL DIFF REQ NO Normal [facility] Comment on above: Performed By: #### C BC #### [facility] [address] [place] [address] Dr. Vonda Ocapmo MCH (RBC) [Entitic mass] 30.4 pg Normal 26.7-34.0 [facility] Comment on above: Performed By: #### C BC #### [facility] [address] [place] [address] Dr. Vonda Ocampo MCHC (RBC) [Mass/Vol] 31.7 g/dL Normal 29.9-35.2 [facility] Comment on above: Performed By: #### C BC #### [facility] [address] [place] [address] Dr. Vonda Ocampo MCV (RBC) [Entitic vol] 96.1 fL Normal 81.0-99.0 [facility] Comment on above: Performed By: #### C BC #### [facility] [address] [place] [address] Dr. Vonda Ocampo MONO # 0.4 103/ul Normal 0.3-0.8 [facility] Comment on above: Performed By: #### C BC #### [facility] [address] [place] [address] Dr. Vonda Ocampo Monocytes/100 WBC (Bld) 7.7 % Normal 1.7-12.0 [facility] Comment on above: Performed By: #### C BC #### [facility] [address] [place] [address] Dr. Vonda Ocampo NEUT # 3.6 103/ul Normal 1.4-6.5 [facility] Comment on above: Performed By: #### C BC #### [facility] [address] [place] [address] Dr. Vonda Ocampo Neutrophils/100 WBC (Bld) 70.3 % Normal 43.0-75.0 [facility] Comment on above: Performed By: #### C BC #### [facility] [address] [place] [address] Dr. Vonda Ocampo Platelet mean volume (Bld) [Entitic vol] 10.1 fL Normal 9.5-13.5 [facility] Comment on above: Performed By: #### C BC #### [facility] [address] [place] [address] Dr. Vonda Ocampo PLT 162 103/ul Normal 150-450 [facility] Comment on above: Performed By: #### C BC #### [facility] [address] [place] [address] Dr. Vonda Ocampo RBC 4.83 106/ul Normal 4.20-5.40 [facility] Comment on above: Performed By: #### C BC #### [facility] [address] [place] [address] Dr. Vonda Ocampo WBC 5.1 103/ul Normal 4.0-11.0 [facility] Comment on above: Performed By: #### C BC #### [facility] [address] [place] [address] Dr. Vonda Ocampo FREE T3on 12-12-2022 FREE T3 2.70 pg/mlL Normal 2.18-3.98 [facility] Comment on above: Performed By: #### C MP, TSH, FT3, LIPID #### [facility] [address] [place] [address] Dr. Vonda Ocampo FREE T4on 12-12-2022 Free T4 [Mass/Vol] 1.01 ng/dL Normal 0.76-1.46 [facility] Comment on above: Performed By: #### F T4, B12FOL #### [facility] [address] [place] [address] Dr. Vonda Ocampo LIPID PROFILEon 12-12-2022 CHOL-HDL RATIO NORM SEE BELOW Normal [facility] Comment on above: Result Comment: 3.3 - 4.4 LOW RISK 4.4 - 7.1 AVERAGE RISK 7.1 - 11.0 MODERATE RISK >11.0 HIGH RISK Performed By: #### C MP, TSH, FT3, LIPID #### [facility] [address] [place] [address] Dr. Vonda Ocampo Cholesterol [Mass/Vol] 235 mg/dL Critically high <=200 [facility] Comment on above: Performed By: #### C MP, TSH, FT3, LIPID #### [facility] [address] [place] [address] Dr. Vonda Ocampo Cholesterol in HDL [Mass/Vol] 68 mg/dL Critically high 40-60 [facility] Comment on above: Performed By: #### C MP, TSH, FT3, LIPID #### [facility] [address] [place] [address] Dr. Vonda Ocampo Cholesterol in LDL [Mass/Vol] 144.4 mg/dL Normal [facility] Comment on above: Performed By: #### C MP, TSH, FT3, LIPID #### [facility] [address] [place] [address] Dr. Vonda Ocampo Cholesterol.total/ Cholesterol in HDL [Mass ratio] 3.5 {ratio} Normal [facility] Comment on above: Performed By: #### C MP, TSH, FT3, LIPID #### [facility] [address] [place] [address] Dr. Vonda Ocampo HDL NORMAL > or = 60 mg/dl - LO W CARDIOVASCULAR RISK <40 mg/dl - HIGH CARDIOVASCULAR RISK Normal [facility] Comment on above: Performed By: #### C MP, TSH, FT3, LIPID #### [facility] [address] [place] [address] Dr. Vonda Ocampo LDL CALC NORMAL SEE BELOW Normal [facility] Comment on above: Result Comment: <100 mg/dl OPTIMAL 100 - 129 mg/dl NEAR OR ABOVE OPTIMAL 130 - 159 mg/dl BORDERLINE HIGH 160 - 189 mg/dl HIGH >190 mg/dl VERY HIGH Performed By: #### C MP, TSH, FT3, LIPID #### [facility] [address] [place] [address] Dr. Vonda Ocampo Triglyceride [Mass/Vol] 113 mg/dL Normal <=150 [facility] Comment on above: Performed By: #### C MP, TSH, FT3, LIPID #### [facility] [address] [address] [address] Vonda Ocampo VLDL CALC 22.6 mg/dL Normal [facility] Comment on above: Performed By: #### C MP, TSH, FT3, LIPID #### [facility] [address] [place] [address] [address] Vonda Ocampo PROF 14(COMP METB)on 023 Albumin [Mass/Vol] 3.7 g/dL Normal 3.4-5.0 [facility] Comment on above: Performed By: #### C MP, TSH, FT3, LIPID #### [facility] [address] [place] [address] Dr. Vonda Ocampo Albumin/Globulin [Mass ratio] 0.9 {ratio} Normal [facility] Comment on above: Performed By: #### C MP, TSH, FT3, LIPID #### [facility] [address] [place] [address] Dr. Vonda Ocampo ALP [Catalytic activity/Vol] 125 U/L Critically high 46-116 [facility] Comment on above: Performed By: #### C MP, TSH, FT3, LIPID #### [facility] [address] [place] [address] Dr. Vonda Ocampo ALT [Catalytic activity/Vol] 20 U/L Normal 14-59 [facility] Comment on above: Performed By: #### C MP, TSH, FT3, LIPID #### [facility] [address] [place] [address] Dr. Vonda Ocampo Anion gap [Moles/Vol] 12.2 mmol/L Normal [facility] Comment on above: Performed By: #### C MP, TSH, FT3, LIPID #### [facility] [address] [place] [address] Dr. Vonda Ocampo AST [Catalytic activity/Vol] 20 U/L Normal 15-37 [facility] Comment on above: Performed By: #### C MP, TSH, FT3, LIPID #### [facility] [address] [place] [address] Dr. Vonda Ocampo Bilirubin [Mass/Vol] 0.7 mg/dL Normal 0.2-1.0 [facility] Comment on above: Performed By: #### C MP, TSH, FT3, LIPID #### [facility] [address] [place] [address] Dr. Vonda Ocampo Calcium [Mass/Vol] 9.8 mg/dL Normal 8.5-10.1 [facility] Comment on above: Performed By: #### C MP, TSH, FT3, LIPID #### [facility] [address] [place] [address] Dr. Vonda Ocampo Chloride [Moles/Vol] 104 mmol/L Normal 98-107 [facility] Comment on above: Performed By: #### C MP, TSH, FT3, LIPID #### [facility] [address] [place] [address] Dr. Vonda Ocampo CO2 [Moles/Vol] 31.0 mmol/L Normal 21.0-32.0 [facility] Comment on above: Performed By: #### C MP, TSH, FT3, LIPID #### [facility] [address] [place] [address] Dr. Vonda Ocampo Creatinine [Mass/Vol] 0.94 mg/dL Normal 0.55-1.02 [facility] Comment on above: Performed By: #### C MP, TSH, FT3, LIPID #### [facility] [address] [place] [address] Dr. Vonda Ocampo EGFR-AF TANZANIAN >60 Normal >=60 [facility] Comment on above: Performed By: #### C MP, TSH, FT3, LIPID #### [facility] [address] [place] [address] Dr. Vonda Ocampo EGFR-NON AF TANZANIAN 56 mL/min/1.73m2 Critically low >=60 [facility] Comment on above: Performed By: #### C MP, TSH, FT3, LIPID #### [facility] [address] [place] [address] Dr. Vonda Ocampo Globulin (S) [Mass/Vol] 4.3 g/dL Normal [facility] Comment on above: Performed By: #### C MP, TSH, FT3, LIPID #### [facility] [address] [place] [address] Dr. Vonda Ocampo Glucose [Mass/Vol] 108 mg/dL Critically high 74-106 T [facility] Comment on above: Performed By: #### C MP, TSH, FT3, LIPID #### [facility] [address] [place] [address] Dr. Vonda Ocampo Potassium [Moles/Vol] 4.2 mmol/L Normal 3.5-5.1 [facility] Comment on above: Performed By: #### C MP, TSH, FT3, LIPID #### [facility] [address] [place] [address] Dr. Vonda Ocampo Protein [Mass/Vol] 8.0 g/dL Normal 6.4-8.2 [facility] Comment on above: Performed By: #### C MP, TSH, FT3, LIPID #### [facility] [address] [place] [address] Dr. Vonda Ocampo Sodium [Moles/Vol] 143 mmol/L Normal 136-145 [facility] Comment on above: Performed By: #### C MP, TSH, FT3, LIPID #### [facility] [address] [place] [address] Dr. Vonda Ocampo Urea nitrogen [Mass/Vol] 21.0 mg/dL Critically high 7.0-18.0 [facility] Comment on above: Performed By: #### C MP, TSH, FT3, LIPID #### [facility] [address] [place] [address] Dr. Vonda Ocampo Urea nitrogen/Creatinin e [Mass ratio] 22.3 mg/mg Normal [facility] Comment on above: Performed By: #### C MP, TSH, FT3, LIPID #### [facility] [address] [place] [address] Dr. Vonda Ocampo TSHon 12-12-2022 TSH 1.479 uIU/mL Normal 0.358-3.740 [facility] Comment on above: Performed By: #### C MP, TSH, FT3, LIPID #### [facility] [address] [place], [place] [address] Dr. Vonda Ocampo VIT B12 AND FOLATEon 023 Cobalamin (Vitamin B12) [Mass/Vol] 384.0 pg/mL Normal 193.0-986.0 [facility] Comment on above: Performed By: #### F T4, B12FOL #### [facility] [address] [place], [place] [address] Dr. Vonda Ocampo FOLATE 23.10 ng/mL Normal 8.60-58.90 [facility] Comment on above: Performed By: #### F T4, B12FOL #### [facility] [address] [place], [place] [address] Dr. Vonda Ocampo MRI 3D POST PROCESSINGon MRI 3D POST PROCESSING * * *Final Report* * * DATE OF EXAM: Oct 08 2022 3:34PM [facility] 0280 - MRI 3D POST PROCESSING / [...] = Focal Lesions 2 = Beginning of [place] 3 = Diffuse Involvement of Entire Region [...] results from the analysis charts for details. Hair Assistant: YARELIS Transcribe Date/Time: Oct 08 2022 3:47P Dictated by : ALEXI YARBROUGH MD This examination was interpreted and the report reviewed and electronically signed by: ALEXI YARBROUGH MD on Oct 08 2022 4:29PM EST [id number] Normal [facility] MRI BRAIN WO IVCONon 023 MRI [...] dementia protocol and 3-D post-processing using the [employer] software at an independent workstation with concurrent [...] = Focal Lesions 2 = Beginning of [place] 3 = Diffuse Involvement of Entire Region [...] results from the analysis charts for details. 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 This document has been created with the use of voice recognition technology. It may contain inaccuracies, misspellings, inaccurate syntax or inappropriate word context that are a result of the inadequacies/shortcoming s of said technology/software. Referring Provider: SAY DREW [[id number]] Allergies As of Date: 09/01/2022 Noted Allergy [...] mg tablet (more content not included)... Normal [facility] MM diagnostic mammo BI w/CAD on 08-30-2022 MM diagnostic mammo BI w/CAD [facility] [address] [employer] [address] [place] [address] Mammography Report Signed Patient: Erin Tejada MR#: [id number] : 1935 Acct:[id number] Age/Sex: 87 / F ADM Date: 08/30/22 Loc: ID Room: Type: [facility] Attending Dr: Say Drew MD Copies to: MD KATELIN Fernandez SAJU MD Ordering Provider: ASY DREW MD Date of Service: 08/30/22 MM/MM [...] Maranda Portillo M.D.08/30/2022 2:31 PM Dictation Location: [facility] Transcribed By: AZIZA 08/30/22 143 Dictated By: Maranda Portillo MD 08/30/22 1426 Signed By: 08/30/22 1431 [facility] CNOVon 07-07-2022 CNOV Office Visit (DAVISADFV ) -------- ERIN TEJADA ([id number]) 1935 F Date Time Provider Department 07/07/22 3:00 PM DANIELLE QUINTERO During your visit today, we recorded the following information about you: Pulse Blood pressure Weight Height 86/minute 199/84 59.8 kg 1.632 m Danielle Quintero DO 07/10/2022 3:40 PM Signed [facility] New Patient Evaluation Consulting Provider: LUIS SERVIN [place] [address] Individuals who were included in, or assisted with the encounter were: Erin Tejada Danielle Quintero DO Chief Complaint/Issues: Erin Tejada is a 87 year old female seen in the [facility] for: Memory changes HPI: Ms. Tejada is an 87 year old woman PMHx HTN, remote breast CA presenting with memory concerns. She is accompanied by her cousin. She tells me that another cousin thought she had memory issues when she went to visit her in [place] for three weeks last year. She does [...] denies tremors. 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 Nobody complains [...] the service (more content not included)... Normal [facility] FOLATE SERUMon 07-07-2022 Folate [Mass/Vol] >4.7 ng/mL [facility] Folate SerPl-mCncon 07-07-20 22 Folate [Mass/Vol] ng/mL Normal >4.7 [facility] Comment on above: Order Comment: Specrico celaya Type: BLOOD SPECIMEN Ordering Facility: [facility] Address: [address] [id number] Result Comment: A re sult of > 20 ng/mL is not necessarily indicative of a pathologic or treatable condition: it reflects a limitation of the test methodology. Assay reference range: 4.8 to 24.2 ng/mL. Suitable for detection of folate deficiency. Reference: Folate III (Folate III) [package insert V 1.0 [place]]. [employer], [place], [place]: June 2015. Performed By: #### 2 132-9, 2284-8 #### [facility] CLIA [id number] [address] [place] [id number] [place] VITAMIN B12 BLOODon 07-07-20 22 Cobalamin (Vitamin B12) [Mass/Vol] 556 pg/mL 232 - 1,245 pg/mL [facility] Vit B12 SerPl-ncon 022 Cobalamin (Vitamin B12) [Mass/Vol] 556 pg/mL Normal 232-1245 [facility] Comment on above: Order Comment: Mushtaq celaya Type: BLOOD SPECIMEN Ordering Facility: [facility] Address: [address] [place] [address] Performed By: #### 2 132-9, 2284-8 #### [facility] CLIA [id number] [address] [place] [id number] [place] AUD - Otheron 06-10-2021 AUD - Other [...] was advised that I would speak with manager audio regarding the situation and get back to [...] restricted hearing right ear Jesusita Jay M.A., [facility] Load Manager [facility] AUD - Otheron 06-08-2021 AUD - Other 06/07/2021 - Patient in today a week late for appointment. She had written appointment down on wrong day. Patient needed help putting right hearing aid in ear. Patient brought 2 left hearing aids and had been trying to put one of them in her right ear. The hearing aid was [employer] brand, not one she recently purchased here. Patient stated she had other hearing aids at home. Advised patient to reschedule and bring in all of the devices she has at home and we will figure out which devices are the newer ones that she should be wearing. 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 No charge, patient under warranty. Chris Donaldson CCC-A, F-AAA Dx Code: H90.3 SNHL AU Normal [facility] AUD - Hearing Aid Saleson AUD - Hearing Aid Sales [id number] D:127 Normal [facility] AUD - Orderson 12-09-2020 AUD - Orders [id number] 1950 [id number] :127 [facility] AUD - Progress Noteson 12-08 AUD - Progress Notes Hearing Aid Clean/Check 12/08/2020 Purpose of Appointment: Patient in today for a routine hearing aid check/cleaning. Hearing Devices: [employer]ron D Moxi Jump 7 RICs with C shell earmolds and [employer] Stride P 800 BTE with standard earmold and tubing ( S/N: [id number]) Primary issues/concerns: The patient reports that she [...] as patient is under warranty. 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 Normal [facility] Vital Signs Date Time Vital Sign Value Performing Clinician Lasti mildred 09-01-2022 14:45-0500 Body temperature 96.91 [degF] Say Drew MD Work Phone: [facility] 09-01-2022 14:45-0500 Body weight 59.88 kg Say Drew MD Work Phone: [facility] 09-01-2022 14:45-0500 Diastolic blood pressure 85 mm[Hg] Say Drew MD Work Phone: [facility] 09-01-2022 14:45-0500 Heart rate 92 /min Say Drew MD Work Phone: [facility] 09-01-2022 14:45-0500 Respiratory rate 16 /min Say Drew MD Work Phone: [facility] 09-01-2022 14:45-0500 SaO2% (BldA) [Mass fraction] 100 % Say Drew MD Work Phone: [facility] 09-01-2022 14:45-0500 Systolic blood pressure 176 mm[Hg] Say Drew MD Work Phone: [facility] 07-07-2022 14:36-0500 Body height 163.2 cm Danielle Quintero DO Work Phone: [facility] 07-07-2022 14:36-0500 Body weight 59.83 kg Danielle Quintero DO Work Phone: [facility] 07-07-2022 14:36-0500 Diastolic blood pressure 84 mm[Hg] Danielle Quintero DO Work Phone: [facility] 07-07-2022 14:36-0500 Heart rate 86 /min Danielle Quintero DO Work Phone: [facility] 07-07-2022 14:36-0500 Systolic blood pressure 199 mm[Hg] Danielle Quintero DO Work Phone: [facility] Encounters Encounter Date Encounter Type Care Provider Facility Start: 01-23-2023 Unlisted evaluation and management service Say Drew MD Work Phone: Radiation Oncology Comment on above: Opened In Error Start: 01-17-2023 End: 01-17-2023 ambulatory DANIELLE MANCUSO Facility:[facility] Start: 01-17-2023 End: 01-17-2023 Patient encounter [...] Start: 09-01-2022 End: 09-01-2022 ambulatory RENAN CASTILLO Facility:[facility] Start: 09-01-2022 End: 09-01-2022 Patient encounter procedure Say Drew MD Work Phone: Radiation Oncology Comment on above: History of breast ca ncer (Primary Dx) Start: 09-01-2022 Telephone encounter Danielle parada DO Work Phone: Radiation Oncology Comment on above: Patient Question; Ap pointment Start: 08-30-2022 End: 08-30-2022 ambulatory MD Renan Castillo Work Phone: [facility] Work Phone: Start: 08-30-2022 End: 08-30-2022 Patient encounter procedure MD Renan Castillo Work Phone: [facility] Work Phone: Start: 07-07-2022 End: 07-08-2022 ambulatory DANIELLE R LEON Facility:[facility] Start: 07-07-2022 End: 07-07-2022 ambulatory DANIELLE R LEON Facility:[facility] Start: 07-07-2022 End: 07-07-2022 Patient encounter procedure Danielle Simpsonok DO Work Phone: Neurology Comment on above: Cognitive impairment , mild, so stated (Primary Dx) Start: 02-02-2022 End: 02-02-2022 ambulatory Renan Castillo Facility:[facility] Procedures Date Procedure Procedure Detail Performing Clinician Start: 10-08-2022 MRI 3D POST PROCESSING Jair Howell DO Work Phone: Start: 10-08-2022 Mri brain brain stem w/o contrast material Danielle Quintero DO Work Phone: Start: 08-30-2022 Bilateral mammography Kashif Castillo Work Phone: Plan of Treatment Date Care Activity Detail Author Start: 04-21-2023 Influenza vaccination INFLUENZ A (Season Ended) [facility] Start: 08-21-2022 ADVANCE DIRECTIVE DISCUSSION ADVANCE DIRECTIVE DISCUSSION [facility] Start: 08-21-2022 DEPRESSION ASSESSMENT DEPRESSION ASS ESSMENT [facility] Start: 07-07-2022 End: 09-06-2022 VITAMIN B1 (THIAMINE), WHOLE BLOOD VITAMIN B1 (THIAMINE), WHOLE BLOOD Lab Routine Cognitive impairment, mild, so stated Expected: 07/07/2022, Expires: 09/06/2022 [facility] Work Phone: Comment on above: Expected: 07/07/2022 , Expires: 09/06/2022 Start: 04-21-2022 Influenza vaccination INFLUENZA (#1) [facility] Start: 08-21-2021 ADVANCE DIRECTIVE DISCUSSION ADVANCE DIRECTIVE DISCUSSION [facility] Start: 08-21-2021 DEPRESSION ASSESSMENT DEPRESSION ASS ESSMENT [facility] Start: 11-25-2020 COVID-19 VACCINE (3 - Booster for Pfizer series) COVID-19 VACCINE (3 - Booster for Pfizer series) [facility] Start: 2001 BONE DENSITY BONE DENSITY [facility] Start: 2001 PNEUMOCOCCAL: 65+ (1 - PCV) PNEUMOCOCCAL: 65+ (1 - PCV) [facility] Start: 1986 SHINGRIX VACCINE (1 of 2) SHINGRIX VACCINE (1 of 2) [facility] Start: 1981 DIABETES SCREEN DIABETES SCREEN [facility] Start: 1955 Urine microalbumin profile DTAP,TDAP,TD (1 - Tdap) [facility] End: 08-06-2023 Mri brain brain stem w/o contrast material MRI BRAIN WO IVCON Radiology Routine Cognitive impairment, mild, so stated 1 Occurrences starting 07/07/2022 until 08/06/2023 [facility] Work Phone: Comment on above: 1 Occurrences starti ng 07/07/2022 until 08/06/2023 [facility] Payers Date Payer Category Payer Self-pay [id number] 2015 Private Health Insurance HUMANA HUMANA MEDICARE SUPPLEMENT [id number] 2015-Present [phone] [address] [address] [place] [address] Indemnity [id number] 2001 Medicare [id number] 1959 Medicare [id number] 1959 Medicare [id number] 1936 Unknown [id number] 1936 Unknown [id number] Unknown [id number] Unknown [id number] Social History Date Type Detail Facility Start: 07-07-2022 Tobacco smoking stat [facility] Never smoked tobacco [facility] Start: 07-07-2022 Tobacco use and exposure Smokeless tobacco non-user [facility] Start: 07-07-2022 End: 09-01-2022 Alcohol intake Current drinker of alcohol (finding) [facility] Start: 08-18-2016 [facility] Start: 1935 Sex Assigned At Not on file [facility] Start: 06-27-2022 End: 07-07-2022 Exposure to SARS-CoV-2 (event) Not sure [facility] Start: 1935 Sex Assigned At Female F [facility] Medical Equipment Procedure Code Equipment Code Equipment Origin al Text Equipment Identifier Dates Discectomy, lumbar COFLEX SIZE [address] art: 02-09-2018 Discectomy, lumbar COFLEX SIZE [address] art: 02-09-2018 Clinical Notes 07-07-2022 to 01-23-2023 Maria Isabel Patton, PhD - 01/23/2023 12:22 PM EDTTelephone Encounter - Alice Jamil RN - 01/23/2023 9:58 AM Paola Lange, shot tube machine tender - 10/08/2022 3:00 PM William Drew MD - 09/01/2022 11:46 PM EST Note Date & Type Note Facility 01-23-2023 Note HNO ID: [id number] Author: Maria Isabel Patton, PhD Service: ? [...] of a multidisciplinary evaluation conducted in the [facility]. The assessment consisted of a brief interview [...] the 24th p (more content not included)... [facility] 01-23-2023 History of Present illness Narrative PATIENT NAME: Erin Tejada NEUROPSYCHOLOGICAL EVALUATION EDUCATION: 12 OCCUPATION: retired HANDEDNESS: R REFERRING: Danielle Quintero, DO ? The current evaluation was performed in the context of medical care and a clinical referral question and not for purposes of a forensic, disability, or workers' compensation evaluation. This assessment is part of a multidisciplinary evaluation conducted in the [facility]. 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 Social: [place] alone in [place] town; [...] per week. Contact: Local: ; Toll free: [phone] or [email or web address] [email or web address] Do not require an Alzheimer's diagnosis to contact them Family Caregiver [employer] (web site: Caregiver.org) [employer]-- a secure online solution for quality information, support, and resources for family caregivers. Contact: Toll-free number: [phone] In home resource- http://www.[employer].Momo/ind ex.aspx -Recommended connecting with the local Agency on Aging for benefits screening, including for the [employer] program, which can provide funding for home health aide services. Contact information: . Alternate number: [phone] [facility] (https://www.nprogress.protected-networks.com/local/ gpplymq-wlxvksk-weqr-bkjbtm-dz-li mxu-tdtlquuoj-wrpy-qeugrc-za-jmxx g-oh) - Home Health Agencies who can provide supportive services to both patient and caregiver. These services may include companionship and assistance with activities of daily living, such as meals, bathing, and dressing. They may also provide assistance with assistant counsel and transportation. Many agencies have caregivers that have training specifically for the care of a person with dementia. [facility] care: [phone] Visiting Nurse Association: [phone] Home Instead: [phone] [employer]: [phone] [facility] Care: [phone] This report is meant to be considered [...] = 2 hours Neuropsychological test administration/scoring by landfill attendant = 1 hour, 55 minutes documented in this encounter [facility] 01-23-2023 Miscellaneous Notes This encounter was opened in error. documented in this encounter [facility] 10-08-2022 Note HNO ID: [id number] Author: SALVADOR Raza Service: ? Author Type: [...] SALVADOR Raza October 08, 2022 3:28 PM [facility] 10-08-2022 History of Present illness Narrative [...] 2022 3:28 PM documented in this encounter [facility] 09-05-2022 Miscellaneous Notes Scheduling spoke with patients [...] appreciative of call. Erin is in the [facility] [facility]ology office today for a follow up. 07/07/[address] Quintero who ordered MRI brain and neuropsych testing but Erin said these tests were never scheduled. Follow up is to be arrange after the above testing. Erin would like the MRI brain done locally at [facility]. She is wondering if she should have the neuropsych testing done locally or if [facility] is preferred. She and her cousin, Anderson Palafox, are here today and seem to have some confusion about the expected appointments. Will you please reach out to Erin arrange the testing and follow up as ordered. Enrrique De Santiago LPN documented in this encounter [facility] 09-02-2022 Note HNO ID: [id number] Author: Say Drew MD Service: ? Author Type: Physician Type: Progress Notes Filed: 09/14/2022 5:05 AM Note Text: Radiation Oncology - Follow Up Note PATIENT NAME: Erin Tejada PATIENT DIAGNOSIS/PATIENT IDENTIFICATION: Ms. 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 This document has been created with the use of voice recognition technology. It may contain inaccuracies, misspellings, inaccurate syntax or inappropriate word context that are a result of the inadequacies/shortcomings of said technology/software. [facility] 09-01-2022 History of Present illness Narrative Radiation Oncology - Follow Up Note PATIENT NAME: Erin Tejada PATIENT Signed by: Say Drew MD I spent a total of 20 minutes on the date of the service which included preparing to see the patient, uktn-lw-eomm patient care, and counseling and educating the patient/family/caregiver. This document has been created with the use of voice recognition technology. It may contain inaccuracies, misspellings, inaccurate syntax or inappropriate word context that are a result of the inadequacies/shortcomings of said technology/software. documented in this encounter [facility] 07-07-2022 Note HNO ID: [id number] Author: Danielle Quintero DO Service: ? Author Type: Physician Type: Progress Notes Filed: 07/10/2022 3:40 PM Note Text: [facility] New Patient Evaluation Consulting Provider: LUIS SERVIN [address] [place] [address] Individuals who were included in, or assisted with the encounter were: Erinjennifer Tejada Danielle Quintero DO Chief Complaint/Issues: Erin Tejada is a 87 year old female seen in the [facility] for: Memory changes HPI: Ms. Tejada is an 87 year old woman PMHx HTN, remote breast CA presenting with memory concerns. She is accompanied by her cousin. She tells me that another cousin thought she had memory issues when she went to visit her in [place] for three weeks last year. She does [...] denies tremors. 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 Nobody complains [...] which included preparing to see the patient, xuzx-je-plgk patient care, completing clinical documentation, obtaining and/or reviewing separately obtained history, performing a medically appropriate examination, counseling and educating the patient/family/ (more content not included)... [facility] 07-07-2022 Instructions Danielle Quintero DO - 07/07/2022 3:29 PM EST Please get memory labs, brain MRI, neuropsychological testing (formal memory testing). Follow-up after neuropsych testing to go over results. documented in this encounter [facility] 07-07-2022 History of Present illness Narrative Images from the original note were not included. [facility] New Patient Evaluation Consulting Provider: LUIS SERVIN [place] [address] Individuals who were included in, or assisted with the encounter were: Erin Tejada Danielle Quintero DO Chief Complaint/Issues: Erin Tejada is a 87 year old female seen in the [facility] for: Memory changes HPI: Ms. Tejada is an 87 year old woman PMHx HTN, remote breast CA presenting with memory concerns. She is accompanied by her cousin. She tells me that another cousin thought she had memory issues when she went to visit her in [place] for three weeks last year. She does [...] denies tremors. 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 Nobody complains [...] with normal cognition, memory, speech and affect. [place] Cognitive Assessment (MoCA) MoCA Total Score: 18 [...] which included preparing to see the patient, fkpt-qi-uzkb patient care, completing clinical documentation, obtaining and/or reviewing separately obtained history, performing a medically appropriate examination, counseling and educating the patient/family/caregiver, and ordering medications, tests, or procedures. Danielle Quintero DO documented in this encounter [facility] Evaluation note Diagnosis Cognitive impairment, mild, so stated- Primary Mild cognitive impairment, so stated [facility] noteNo assessment [facility] Work Phone: Evaluation note* Diagnosis History of breast cancer- Primary Personal history of malignant neoplasm of breast documented in this [facility]* Diagnosis Cognitive impairment, mild, so stated- Primary Mild cognitive impairment, so stated [facility] Diagnosis Cognitive impairment, mild, so stated Mild cognitive impairment, so stated [facility] Diagnosis OPENED IN ERROR- Primary To allow closing an encounter opened in error (used in SmartSet) [facility] Diagnosis Dementia without behavioral disturbance, psychotic disturbance, mood disturbance, or anxiety, unspecified dementia severity, unspecified dementia type (HCC)- Primary documented in this encounter [facility] Summary Purpose Family History No Family History Records Found Relationship Condition Age at Onset Recorded Date/T eladia father Dementia Unknown Advance Directives No Advanced Directives Records FoundDocuments on File Type Date Recorded 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 Advance Directive(s) 07/26/2012 2:28 PM Advance Directive Response Recorded Date/ Time Advance Directives No June 16, 2017 8:37am Documents on File Type Date Recorded 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 Advance Directive(s) 07/26/2012 2:28 PM Reason for Referral Specialty Diagnoses / Procedures Referred By Contac t Referred To Contact Diagnoses Cognitive impairment, mild, so stated Procedures NEUROPSYCHOLOGICAL TESTING CONSULT Danielle Quintero DO [address] [place] [address] Referral ID Status Reason Start Date Expiration Date Visits Requested Visits Authorized [id number] Ref Not Required PCP Requested Referral 2 10/05/2022 1 1 Specialty Diagnoses / Procedures Referred By Contac t Referred To Contact MR IMAGING Diagnoses Cognitive impairment, mild, so stated Procedures MRI BRAIN WO IVCON MRI BRAIN BRAIN STEM W/O CONTRAST MATERIAL Danielle Quintero, [address] [place] [address] Mr Imaging Referral ID Status Reason Start Date Expiration Date Visits Requested Visits Authorized [id number] Pending Review Auto-Generat ed Referral 08/06/2023 1 1 Specialty Diagnoses / Procedures Referred By Contac t Referred To Contact MR IMAGING Diagnoses Cognitive impairment, mild, so stated Procedures MRI 3D POST PROCESSING 3D RENDERING W/INTERP&POSTPROC DIFF WORK STATION Caio Holloway MD, [address] [place] [address] Mr Imaging Referral ID Status Reason Start Date Expiration Date Visits Requested Visits Authorized [id number] Pending Review Auto-Generat ed Referral 10/08/2022 11/07/2023 1 1 Specialty Diagnoses / Procedures Referred By Contac t Referred To Contact MR IMAGING Diagnoses Cognitive impairment, mild, so stated Procedures MRI BRAIN WO IVCON MRI BRAIN BRAIN STEM W/O CONTRAST MATERIAL Danielle Quintero, [address] [place] [address] Mr Imaging Referral ID Status Reason Start Date Expiration Date V isits Requested Visits Authorized [id number] Closed Auto-Generate d Referral 07/07/2022 08/06/2023 1 1 Chief Complaint and Reason for Visit Chief Complaint hx of breast cancer Additional Source Comments INFORMATION SOURCE (unrecogn ized section and content) DATE CREATED AUTHOR 11/15/2021 [facility] DATE CREATED AUTHOR AUTHOR'S ORGANIZ ATION 07/10/2022 [facility] DATE CREATED AUTHOR AUTHOR'S ORGANIZ ATION 09/07/2022 [facility] DATE CREATED AUTHOR AUTHOR'S ORGANIZ ATION 01/05/2023 [facility] DATE CREATED AUTHOR AUTHOR'S ORGANIZ ATION 08/31/2023 [facility] Source Comments (unrecognize d section and content) In the event this informatio n is protected by the Federal Confidentiality of Alcohol and Drug Abuse Patient Records regulations: The Federal rules restrict any use of the information to criminally investigate or prosecute any alcohol or drug abuse patient.[facility] the event this information is protected by the Federal Confidentiality of Alcohol and Drug Abuse Patient Records regulations: The Federal rules restrict any use of the information to criminally investigate or prosecute any alcohol or drug abuse patient.[facility] the event this information is protected by the Federal Confidentiality of Alcohol and Drug Abuse Patient Records regulations: The Federal rules restrict any use of the information to criminally investigate or prosecute any alcohol or drug abuse patient.[facility] the event this information is protected by the Federal Confidentiality of Alcohol and Drug Abuse Patient Records regulations: The Federal rules restrict any use of the information to criminally investigate or prosecute any alcohol or drug abuse patient.[facility] the event this information is protected by the Federal Confidentiality of Alcohol and Drug Abuse Patient Records regulations: The Federal rules restrict any use of the information to criminally investigate or prosecute any alcohol or drug abuse patient.[facility] the event this information is protected by the Federal Confidentiality of Alcohol and Drug Abuse Patient Records regulations: The Federal rules restrict any use of the information to criminally investigate or prosecute any alcohol or drug abuse patient.[facility] the event this information is protected by the Federal Confidentiality of Alcohol and Drug Abuse Patient Records regulations: The Federal rules restrict any use of the information to criminally investigate or prosecute any alcohol or drug abuse patient.[facility] Reason for Visit (unrecogniz ed section and content) Reason Comments New Patient Rule out [facility] , Discu ss symptoms Reason Comments Patient Question Appointment Reason Comments Breast Cancer Specialty Diagnoses / Procedures Referred By Contac t Referred To Contact MR IMAGING Diagnoses Cognitive impairment, mild, so stated Procedures MRI BRAIN WO IVCON MRI BRAIN BRAIN STEM W/O CONTRAST MATERIAL Danielle Quintero, [address] [place] [address] Mr Imaging Referral ID Status Reason Start Date Expiration Date V isits Requested Visits Authorized [id number] Closed Auto-Generate d Referral 07/07/2022 08/06/2023 1 1 Reason Onset Date Comments Opened In Error 01/23/2023 Specialty Diagnoses / Procedures Referred By Contact Referred To Contact Psychology / NEUROPSYCHOLOGY Diagnoses Cognitive impairment, mild, so stated [G31.84] Procedures [place] [address] [place] [id number] Maria Isabel Patton, PhD [address] [place] [address] Referral ID Status Reason Start Date Expiration Date V isits Requested Visits Authorized [id number] Pending Review 01/17/2023 04/17/2023 1 1 Care Teams (unrecognized sec tion and content) Entry Level Accounting Clerk Relationship Specialty Start Date End Date Renan Castillo MD [address] [place] [address] PCP - General Family Medicine 08/01/18 Luis Servin [address] [place] [address] Referring Family Medicine 05/31/22 Team Status: Inactive Member Role Status Dates Renan Castillo MD Primary Care Provider Brian Drew MD Attending Provider Active Team Status: Active Member Role Status Dates Renan Castillo MD Primary Care Provider Active Entry Level Accounting Clerk Relationship Specialty Start Date End Date Renan Castillo MD [address] [place] [place] [phone] PCP - General Family Medicine 08/01/[address] [place] [address] Referring Family Medicine 05/31/22 Entry Level Accounting Clerk Relationship Specialty Start Date End Date Renan Castillo MD [address] [place] [place] [address] PCP - General Family Medicine 08/01/[address] [place] [phone] Referring Family Medicine 05/31/22 Entry Level Accounting Clerk Relationship Specialty Start Date End Date Renan Castillo MD [address] [place] [place] [address] PCP - General Family Medicine 08/01/[address] [place] [phone] Referring Family Medicine 05/31/22 Entry Level Accounting Clerk Relationship Specialty Start Date End Date Renan Castillo MD [address] [place] [place] [address] PCP - General Family Medicine 08/01/[address] [place] [phone] Referring Family Medicine 05/31/22 Entry Level Accounting Clerk Relationship Specialty Start Date End Date Renan Castillo MD [address] [place] [place] [address] PCP - General Family Medicine 08/01/18 Luis Servin [address] [place] [address] Referring Family [facility] 05/31/22 Entry Level Accounting Clerk Relationship Specialty Start Date End Date Renan Castillo MD [address] [place] [address] PCP - General Family Medicine 08/01/18 Luis Servin [address] [place] [address] Referring [facility] [facility] 05/31/22 Goals (unrecognized section and content) [...] BE BASED ON THE PRIMARY CLINICAL RECORDS. [facility] [employer] [facility]. provides no warranty or guarantee of the accuracy or completeness of information in this document.
[2023-12-31] MEDS: 0.9 % SODIUM CHLORIDE 1,000 ML 70 ML IV (17:35)
[2023-12-31] MEDS: HYDRALAZINE HCL 20 MG/ML VIAL 10 MG IVP (18:21)
[2023-12-31] MEDS: CARVEDILOL 6.25 MG TABLET PO (21:11)
[2023-12-31] MEDS: MEMANTINE HCL 28 MG CAP XR PO (21:11)
[2024-01-01 03:54] VITALS: BP 150/77; PULSE 70; TEMP 36.6; O2SAT 97
[2024-01-01 05:01] LABS: Basophils Percent Auto 0.7 % (0.2-2.0); Eosinophils Absolute Auto 0.1 10^3/uL (0.0-0.7); Eosinophils Percent Auto 1.9 % (0.9-7.0); Hematocrit 43.5 % (36.0-48.0); Hemoglobin 13.8 g/dL (12.0-16.0); Immature Granulocytes Abs Auto 0.01 10^3/uL (0.00-0.03); Immature Granulocytes Pct Auto 0.2 % (0.0-0.5); Lymphocytes Absolute Auto 1.4 10^3/uL (1.2-3.8); Lymphocytes Percent Auto 24.2 % (20.5-60.0); Mean Corpuscular HGB Conc 31.7 g/dL (29.9-35.2); Mean Corpuscular Hemoglobin 30.8 pg (26.7-34.0); Mean Corpuscular Volume 97.1 fL (81.0-99.0); Mean Platelet Volume 10.8 fL (9.5-13.5); Monocytes Absolute Auto 0.5 10^3/uL (0.3-0.8); Monocytes Percent Auto 8.1 % (1.7-12.0); Neutrophils Absolute Auto 3.8 10^3/uL (1.4-6.5); Neutrophils Percent Auto 64.9 % (43.0-75.0); Platelet Count 152 10^3/uL (150-450); Red Blood Count 4.48 10^6/uL (4.20-5.40); Red Cell Distribution Width 13.3 % (11.0-15.0); White Blood Count 5.8 10^3/uL (4.0-11.0)
[2024-01-01 05:06] LABS: Anion Gap 9.3; BUN Creatinine Ratio 23.2; Calcium 9.2 mg/dL (8.5-10.1); Carbon Dioxide 29.1 mmol/L (21.0-32.0); Chloride 106 mmol/L (98-107); Estimated GFR (African America >60 (>=60); Estimated GFR (Non-African Ame 53 (>=60); Glucose 96 mg/dL (74-106); Potassium 4.4 mmol/L (3.5-5.1); Sodium 140 mmol/L (136-145)
[2024-01-01 08:06] VITALS: BP 158/90; PULSE 76
[2024-01-01] MEDS: CARVEDILOL 6.25 MG TABLET PO (08:21)
[2024-01-01] MEDS: SERTRALINE HCL 50 MG TABLET 25 MG PO (08:21)
[2024-01-01] MEDS: 0.9 % SODIUM CHLORIDE 1,000 ML 70 ML IV (08:21)
--- NOTE | 2024-01-01 10:41 | P.HP_ITS ---
HPI H&P: HPI History of Present Illness Chief complaint: CONFUSION Narrative: 88 y/o female with history of dementia presents to ER with confusion. Patient lives alone and drives. Was at store and bystander noticed her acting confused and called EMS. Brought to ER and CT head without acute change. WBC and UA normal. Chest x-ray normal. Patient had similar ER visits 10/22/23, 10/12/23, and 01/04/23 with confusion and each time taken home by family member. ER not able to get ahold of family and admitted. Started IV fluids and resumed home medication. Patient stable overnight. Alert and able to maintain conversation, not oriented to date. 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 Opioid HPI Opioid Management Most Recent Opioid Data: Last Pain Scale 0 01/01/24 10:08 Last Pain Assessment 01/01/24 10:08 Last ED Pain Assessment 12/31/23 09:20 Last ORT Total Score 0 12/31/23 14:10 Last ORT Risk Category Low Risk 12/31/23 14:10 Review of Systems ROS Constitutional Denies: fever, chills or fatigue Cardiovascular Denies: chest pain, palpitations or edema Respiratory Denies: shortness of breath, cough or wheezing Gastrointestinal Denies: abdominal pain, nausea, vomiting or diarrhea Genitourinary Denies: painful urination Neurological Reports: confusion PFSH PFS Medical History (Updated 01/01/24 @ 08:51 by Tone Prince MD) Dementia ?F03.90 - Unspecified dementia, unspecified severity, without behavioral disturbance, psychotic disturbance, mood disturbance, and anxiety (ICD-10) Cognitive impairment ?R41.89 - Other symptoms and signs involving cognitive functions and awareness (ICD-10) Breast cancer ?C50.919 - Malignant neoplasm of unspecified site of unspecified female breast (ICD-10) Dementia ?F03.90 - Unspecified dementia, unspecified severity, without behavioral disturbance, psychotic disturbance, mood disturbance, and anxiety (ICD-10) Surgical History (Updated 12/31/23 @ 13:43 by Annette Richardson) H/O lumpectomy ?Z98.890 - Other specified postprocedural states (ICD-10) Hx of appendectomy ?Z90.49 - Acquired absence of other specified parts of digestive tract (ICD- 10) Family History (Updated 12/31/23 @ 13:45 by Annette Richardson) Aunt Family history of stroke Social History (Updated 12/31/23 @ 13:46 by Annette Richardson) Within the past year, how often did you have a drink containing alcohol: monthly or less Within the past year, how often did you have six or more drinks on one occasion: never Smoking status: Never smoker Non-prescribed substance use: denies use Previous occupational history: retired Highest level of school completed/degree received: high school graduate In a typical week, how many times do you talk on the telephone with family, friends, or neighbors: twice per week How often do you get together with friends or relatives: twice per week How often do you attend anabaptism or hinduism services: never Do you belong to any clubs or organizations such as anabaptism groups unions, [employer] or athletic groups, or school groups: no Little interest or pleasure in doing things: not at all Feeling down, depressed, or hopeless: not at all Feel stressed/tense/nervous/anxious/difficulty sleeping: not at all Meds Home Medications and Allergies Home Medications ?Medication ?Instructions ?Recorded ?Confirmed ?Type carvedilol 6.25 mg tablet 6.25 mg PO BID 10/12/23 12/31/23 History memantine 10 mg tablet 10 mg PO BID 10/12/23 12/31/23 History sertraline 25 mg tablet 25 mg PO DAILY 12/31/23 12/31/23 History Allergies Allergy/AdvReac Type Severity Reaction Status Date / Time No Known Drug Allergies Allergy Verified 10/22/23 14:17 Exam Constitutional Vital Signs, click to edit/add: Last Vital Signs Temp 97.9 F 01/01/24 03:54 Pulse 76 01/01/24 08:06 Resp 20 01/01/24 03:54 BP 158/90 H 01/01/24 08:06 Pulse Ox 97 01/01/24 03:54 O2 Del Method Room Air 01/01/24 03:54 Documenting provider has reviewed patient's vital signs: yes Common normals: no apparent distress and alert Orientation/consciousness: Yes oriented to person and Yes oriented to place [place] Common normals: normocephalic Eye Common normals: PERRL and EOMs intact bilaterally Respiratory Common normals: normal respiratory effort and clear to auscultation bilaterally Cardio Common normals: regular rate, regular rhythm, no gallops, no murmurs and no rub GI Common normals: Normal to inspection, nondistended, normoactive bowel sounds present and non-tender Extremity Common normals: no pedal edema Results Labs Labs: Short CBC 01/01/24 Range/Units 04:20 WBC 5.8 (4.0-11.0) 10^3/uL Hgb 13.8 (12.0-16.0) g/dL Hct 43.5 (36.0-48.0) % Plt Count 152 (150-450) 10^3/uL BMP 01/01/24 04:20 Sodium 140 Potassium 4.4 Chloride 106 Carbon Dioxide 29.1 BUN 23.0 H Creatinine 0.99 Glucose 96 Calcium 9.2 Urine 12/31/23 Range/Units 10:55 Urine Color Lt. 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 Family at bedside and patient at baseline. Family states patient drives and volunteers and wants to continue. Recommended patient have outpatient driving simulation to assess skills and ability to continue driving. [employer] representative gave information on private caregivers since patient not home bound. Offered information on AL and SNF but refused. Discharge home. Resume home medication without change. Follow up with PCP in 1-2 weeks.
--- NOTE | 2024-01-01 10:57 | CM.NOTE ---
Medicare Outpatient Observation Notice reviewed and discussed with patient. Pt. verbalized understanding and signed the form. Original given to patient and copy placed in patient?s chart.
--- NOTE | 2024-01-01 10:59 | CM.NOTE ---
Rounds made with Dr. Prince. Plan for discharge today. Dr. Prince explains different services to Trevon valladares who helps Erin. Erin and Ed verbalizes understanding. Agreeable to discharge.
--- NOTE | 2024-01-01 11:05 | CM.NOTE ---
Spoke with Ed blaine Palafox and Erin regarding discharge planning. 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 Caregiver list given to Trevon and Erin, as requested. Reviewed with Trevon and Erin that the Caregiver list is people that are not associated with an Agency or with the hospital and we cannot guarantee their qualifications. There are several Agencies on the Caregiver list and these were also reviewed with Erin and Trevon. Both Erin and Trevon verbalize understanding. Information regarding [facility] given to Ed and Erin also. Offered outpatient P.T. as well and Erin states she will think about it. Refused [facility], Home Health and Assisted Living at this time. All questions answered.
--- NOTE | 2024-01-02 13:53 | CM.DCFOLLOWU ---
Person spoke with: patient How are you feeling? well How is your pain? no pain, just ate some lunch and going to take a nap Did you understand your discharge instructions? yes Do you have any questions about your discharge instructions? no Were you given any prescriptions at discharge? no Were you able to get your prescriptions filled? N/A Do you understand how to take your medications as ordered? yes Do you have any questions about your follow up appointment and do you plan to keep your follow up appointment? no questions, reviewed follow ups Is there anything else that you would like to discuss? no Questions/Comments/Concerns/Other: N/A
== END 2024-01-01 10:55 | disposition home or self-care (01) ==
LOC: ER 11:52 → ICU 12:46 → MS 17:03
PROVIDERS: Admitting Provider Family Medicine; Emergency Provider Emergency Medicine; PCP Family Medicine; Visit Provider Family Medicine
DX: F03.90 Unspecified dementia, unspecified severity, without behavioral disturbance, psychotic disturbance, mood disturbance, and anxiety (principal); F05 Delirium due to known physiological condition; I12.9 Hypertensive chronic kidney disease with stage 1 through stage 4 chronic kidney disease, or unspecified chronic kidney disease; N18.31 Chronic kidney disease, stage 3a; Z79.899 Other long term (current) drug therapy; Z85.3 Personal history of malignant neoplasm of breast
CPT/HCPCS: 36415; 70450; 71045; 80048; 81001; 85025; 93005; 96374; 97161; 97165; 97530; 99285; G0378

== ENCOUNTER 2024-01-14 12:19 | Emergency (ER) | payer MEDICARE, OTHER, SELFPAY ==
[2024-01-14] VITALS (21 sets, daily range): BP systolic 124–157; BP diastolic 59–81; PULSE 62–102; TEMP 36.4; O2SAT 98–100
--- NOTE | 2024-01-14 12:26 | ECG_ITS ---
[facility] Test Date: 2024-01-14 Pat Name: BERNARD PACHECO Department: Room: - Gender: Female Manager Gas: : 1935 Requested By: MODE SERVIN Order Number: [id number] Reading MD: BROOKE BONILLA Measurements Intervals [place] Rate: 69 P: 90 MD: 198 QRS: 27 QRSD: 100 T: 69 QT: 404 QTc: 423 Interpretive Statements 1100 Sinus rhythm 2420 RSR (QR) in lead V1/V2, consistent with right ventricular conduction delay 0102 ARTIFACT PRESENT 9130 borderline ECG Compared to ECG 12/31/2023 09:24:11 Incomplete right bundle-branch block no longer present Electronically Signed On 01-16-2024 8:48:42 EDT by BROOKE BONILLA
--- NOTE | 2024-01-14 12:34 | CT_ITS ---
The [address] [address] Patient Name: BERNARD PACHECO MRN: [id number] date: 1935 Sex: F Assigned Patient Location: ED.MAIN Current Patient Location: ED.MAIN Accession/Order Number: [id number] Exam Date: 01/14/2024 12:50 Report Date: 01/14/2024 13:23 At the request of: MELLISSA ROTH Procedure: CT head/brain wo con EXAMINATION: CT head/brain wo con HISTORY: fall COMPARISON: 12/31/2023 TECHNIQUE: CT scan of the head was performed without IV contrast. CT dose reduction technique was used, including Automated Exposure Control. FINDINGS: There are no extra-axial fluid collections. There is no mass effect or midline shift. No significant interval change in cortical thinning and compensatory lateral ventricular dilatation and sulci widening, representing cerebral atrophy.. The brain demonstrates normal attenuation. Basal cisterns are patent. There is extensive bilateral subcortical and deep periventricular white matter chronic microvascular ischemia. Bilateral orbits, paranasal sinuses and mastoid air cells are patent. No skull base fracture. CT/CT head/brain wo con IMPRESSION: No CT evidence of intracranial hemorrhage. extensive bilateral subcortical and deep periventricular white matter chronic microvascular ischemia. Electronically authenticated by: PATRICIA TORRES Date: 01/14/2024 13:23
--- OUTSIDE RECORDS SUMMARY | 2024-01-14 12:38 | XMS_ITS | CCD ---
Author Organization [facility] Care Team Providers Care Button Sewer Hand Name Role Phone AKILAH QUINTERO Attending Unavailable JOSELYN CASTILLO Primary Care Unavailable AKILAH QUINTERO Referring Unavailable JOSELYN CASTILLO Primary Care Unavailable Joselyn Castillo MD Primary Care Provider [phone] Luis Servin Unavailable [phone] MD Joselyn Castillo Primary Care Provider [phone] MD Say Drew Attending Provider Joselyn Castillo Primary Care Unavailable Luis Carranzaolas Admitting Unavailable Luis Carranzaolas Attending Unavailable Joselyn Castillo E Primary Care Unavailable Say Drew Admitting Unavailable [...] Primary Care Unavailable NANETTE PATTON Attending Unavailable AILIN MANCUSO AMANDA Attending Unavailable AILIN MANCUSO AKILAH Referring Unavailable JOSELYN CASTILLO Primary Care Unavailable JOSELYN CASTILLO Primary Care Unavailable SAY DREW Attending Unavailable SAY DREW Referring Unavailable Allergies Allergy Classification Reported Allergen(s) Allergy Type Date of Onset Reaction(s) Facility (12 sources) Angiotensin Converting Enzyme (Ruiz) Inhibitors; Translations: [RUIZ INHIBITORS] Propensity to adverse reactions to drug (disorder) 7 Cough [facility] Repository (12 sources) Aspirin; Translations: [ASPIRIN] Drug Allergy 4 [facility] Repository (11 sources) Codeine; Translations: [CODEINE] Drug Allergy 4 Other: See Comments [facility] (9 sources) NSAIDs; Translations: [NSAIDS (NON-STEROIDAL ANTI-INFLAMMATOR Y DRUG)] Propensity to adverse reactions to drug (disorder) 7 [facility] Repository (9 sources) Sulfonamides (Antibiotic); Translations: [SULFA (SULFONAMIDE ANTIBIOTICS)] Propensity to adverse reactions to drug (disorder) 4 Unknown [facility] Repository Medications Current Medications Medication Drug [...] hydrochloride 10 mg oral tablet (7 sources) P-foqqzl-T-asparta 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 Start: 06-17-2022 take 1 [...] 12-15-2022 Episodic Other aftercare (1 source) Other terminal carman (current) drug therapy; Translations: [OTH 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 Drew please sign pended yris order due Aug 2024. Desirae: Will you please call and schedule yris at [facility] in Aug [...] Primary Visit Diagnosis:History of breast cancer [Z85.3] Order(s):[facility] DIAGNOSTIC BILATERAL [[id number]] Order #: [id number] FUTURE Prescriptions as of 08/30/2023 - hydroCHLOROthiazide [...] ENRRIQUE DE SANTIAGO on 08/30/23 [facility] CNOVon 01-17-2023 CNOV Office Visit (NPTU10 ) -------- ERIN TEJADA ([id number]) 1935 F Date Time Provider Department 01/17/23 12:30 PM ANNETTE PATTON NPTU10 During your visit today, we [...] of a multidisciplinary evaluation conducted in the [facility]. The assessment consisted of a brief interview [...] microvascular change. Age related white matter changes ([facility]) rating: White matter lesions: 3 Basal ganglia [...] is othe (more content not included)... Normal [facility] CBC AUTO DIFFon 12-12-2022 BASO # 0.0 103/ul Normal 0.0-0.1 [facility] Comment on above: Performed By: #### C BC #### [facility] [address] [address] [address] Vonda Ocampo Basophils/100 WBC (Bld) 0.8 % Normal 0.2-2.0 [facility] Comment on above: Performed By: #### C BC #### [facility] [address] [place] [address] Dr. Vonda Ocampo EO # 0.1 103/ul Normal 0.0-0.7 [facility] Comment on above: Performed By: #### C BC #### [facility] [address] [place] [address] Dr. Vonda Ocampo Eosinophils/100 WBC (Bld) 1.8 % Normal 0.9-7.0 [facility] Comment on above: Performed By: #### C BC #### [facility] [address] [place] [address] Dr. Vonda Ocampo Erythrocyte distribution width (RBC) [Ratio] 13.2 % Normal 11.0-15.0 [facility] Comment on above: Performed By: #### C BC #### [facility] [address] [place] [address] Dr. Vonda Ocampo Hematocrit (Bld) [Volume fraction] 46.4 % Normal 36.0-48.0 [facility] Comment on above: Performed By: #### C BC #### [facility] [address] [place] [address] Dr. Vonda Ocampo Hemoglobin (Bld) [Mass/Vol] 14.7 g/dL Normal 12.0-16.0 [facility] Comment on above: Performed By: #### C BC #### [facility] [address] [place] [address] Dr. Vonda Ocampo IG # 0.01 10e3/ul Normal 0.00-0.03 [facility] Comment on above: Performed By: #### C BC #### [facility] [address] [place] [address] Dr. Vonda Ocampo IG % 0.2 % Normal 0.0-0.5 [facility] Comment on above: Performed By: #### C BC #### [facility] [address] [place] [address] Dr. Vonda Ocampo LYMPH # 1.0 103/ul Critically low 1.2-3.8 [facility] Comment on above: Performed By: #### C BC #### [facility] [address] [address] [address] Vonda Ocampo Lymphocytes/100 WBC (Bld) 19.2 % Critically low 20.5-60.0 [facility] Comment on above: Performed By: #### C BC #### [facility] [address] [place] [address] Dr. Vonda Ocampo MANUAL DIFF REQ NO Normal [facility] Comment on above: Performed By: #### C BC #### [facility] [address] [place] [address] Dr. Vonda Ocampo MCH (RBC) [Entitic mass] 30.4 pg Normal 26.7-34.0 [facility] Comment on above: Performed By: #### C BC #### [facility] [address] [place] [address] Dr. Vonda Ocampo MCHC (RBC) [Mass/Vol] 31.7 g/dL Normal 29.9-35.2 [facility] Comment on above: Performed By: #### C BC #### [facility] [address] [place] [address] Dr. Vonda Ocampo MCV (RBC) [Entitic vol] 96.1 fL Normal 81.0-99.0 [facility] Comment on above: Performed By: #### C BC #### [facility] [address] [place] [address] Dr. Vonda Ocampo MONO # 0.4 103/ul Normal 0.3-0.8 [facility] Comment on above: Performed By: #### C BC #### [facility] [address] [place] [address] Dr. Vonda Ocampo Monocytes/100 WBC (Bld) 7.7 % Normal 1.7-12.0 [facility] Comment on above: Performed By: #### C BC #### [facility] [address] [place] [address] Dr. Vonda Ocampo NEUT # 3.6 103/ul Normal 1.4-6.5 [facility] Comment on above: Performed By: #### C BC #### [facility] [address] [address] [address] Vonda Ocampo Neutrophils/100 WBC (Bld) 70.3 % Normal 43.0-75.0 [facility] Comment on above: Performed By: #### C BC #### [facility] [address] [address] [address] Vonda Ocampo Platelet mean volume (Bld) [Entitic vol] 10.1 fL Normal 9.5-13.5 [facility] Comment on above: Performed By: #### C BC #### [facility] [address] [address] [address] Vonda Ocampo PLT 162 103/ul Normal 150-450 [facility] Comment on above: Performed By: #### C BC #### [facility] [address] [place] [address] Dr. Vonda Ocampo RBC 4.83 106/ul Normal 4.20-5.40 [facility] Comment on above: Performed By: #### C BC #### [facility] [address] [place] [address] Dr. Vonda Ocampo WBC 5.1 103/ul Normal 4.0-11.0 [facility] Comment on above: Performed By: #### C BC #### [facility] [address] [place] [address] Dr. Vonda Ocampo FREE T3on 12-12-2022 FREE T3 2.70 pg/mlL Normal 2.18-3.98 [facility] Comment on above: Performed By: #### C MP, TSH, FT3, LIPID #### [facility] [address] [place] [address] Dr. Vonda Ocampo FREE T4on 12-12-2022 Free T4 [Mass/Vol] 1.01 ng/dL Normal 0.76-1.46 [facility] Comment on above: Performed By: #### F T4, B12FOL #### [facility] [address] [place] [address] Dr. Vonda Ocampo LIPID PROFILEon 12-12-2022 CHOL-HDL RATIO NORM SEE BELOW Normal [facility] Comment on above: Result Comment: 3.3 - 4.4 LOW RISK 4.4 - 7.1 AVERAGE RISK 7.1 - 11.0 MODERATE RISK >11.0 HIGH RISK Performed By: #### C MP, TSH, FT3, LIPID #### [facility] [address] [place] [address] Dr. Vonda Ocampo Cholesterol [Mass/Vol] 235 mg/dL Critically high <=200 [facility] Comment on above: Performed By: #### C MP, TSH, FT3, LIPID #### [facility] [address] [place] [address] Dr. Vonda Ocampo Cholesterol in HDL [Mass/Vol] 68 mg/dL Critically high 40-60 [facility] Comment on above: Performed By: #### C MP, TSH, FT3, LIPID #### [facility] [address] [place] [address] Dr. Vonda Ocampo Cholesterol in LDL [Mass/Vol] 144.4 mg/dL Normal [facility] Comment on above: Performed By: #### C MP, TSH, FT3, LIPID #### [facility] [address] [place] [address] Dr. Vonda Ocampo Cholesterol.total/ Cholesterol in HDL [Mass ratio] 3.5 {ratio} Normal [facility] Comment on above: Performed By: #### C MP, TSH, FT3, LIPID #### [facility] [address] [place] [address] Dr. Vonda Ocampo HDL NORMAL > or = 60 mg/dl - LO W CARDIOVASCULAR RISK <40 mg/dl - HIGH CARDIOVASCULAR RISK Normal [facility] Comment on above: Performed By: #### C MP, TSH, FT3, LIPID #### [facility] [address] [place] [address] Dr. Vonda Ocampo LDL CALC NORMAL SEE BELOW Normal [facility] Comment on above: Result Comment: <100 mg/dl OPTIMAL 100 - 129 mg/dl NEAR OR ABOVE OPTIMAL 130 - 159 mg/dl BORDERLINE HIGH 160 - 189 mg/dl HIGH >190 mg/dl VERY HIGH Performed By: #### C MP, TSH, FT3, LIPID #### [facility] [address] [place], [place] [id number] Dr. Vonda Ocampo Triglyceride [Mass/Vol] 113 mg/dL Normal <=150 [facility] Comment on above: Performed By: #### C MP, TSH, FT3, LIPID #### [facility] [address] [place] [address] Dr. Vonda Ocampo VLDL CALC 22.6 mg/dL Normal [facility] Comment on above: Performed By: #### C MP, TSH, FT3, LIPID #### [facility] [address] [address] [address] Vonda Ocampo PROF 14(COMP METB)on 023 Albumin [Mass/Vol] 3.7 g/dL Normal 3.4-5.0 [facility] Comment on above: Performed By: #### C MP, TSH, FT3, LIPID #### [facility] [address] [place] [address] Dr. Vonda Ocampo Albumin/Globulin [Mass ratio] 0.9 {ratio} Normal [facility] Comment on above: Performed By: #### C MP, TSH, FT3, LIPID #### [facility] [address] [place] [address] Dr. Vonda Ocampo ALP [Catalytic activity/Vol] 125 U/L Critically high 46-116 [facility] Comment on above: Performed By: #### C MP, TSH, FT3, LIPID #### [facility] [address] [place] [address] Dr. Vonda Ocampo ALT [Catalytic activity/Vol] 20 U/L Normal 14-59 [facility] Comment on above: Performed By: #### C MP, TSH, FT3, LIPID #### [facility] [address] [address] [address] Vonda Ocampo Anion gap [Moles/Vol] 12.2 mmol/L Normal [facility] Comment on above: Performed By: #### C MP, TSH, FT3, LIPID #### [facility] [address] [place] [address] Dr. Vonda Ocampo AST [Catalytic activity/Vol] 20 U/L Normal 15-37 [facility] Comment on above: Performed By: #### C MP, TSH, FT3, LIPID #### [facility] [address] [address] [address] Vonda Ocampo Bilirubin [Mass/Vol] 0.7 mg/dL Normal 0.2-1.0 [facility] Comment on above: Performed By: #### C MP, TSH, FT3, LIPID #### [facility] [address] [place] [address] Dr. Vonda Ocampo Calcium [Mass/Vol] 9.8 mg/dL Normal 8.5-10.1 [facility] Comment on above: Performed By: #### C MP, TSH, FT3, LIPID #### [facility] [address] [place] [address] Dr. Vonda Ocampo Chloride [Moles/Vol] 104 mmol/L Normal 98-107 [facility] Comment on above: Performed By: #### C MP, TSH, FT3, LIPID #### [facility] [address] [place] [address] Dr. Vonda Ocampo CO2 [Moles/Vol] 31.0 mmol/L Normal 21.0-32.0 [facility] Comment on above: Performed By: #### C MP, TSH, FT3, LIPID #### [facility] [address] [place] [address] Dr. Vonda Ocampo Creatinine [Mass/Vol] 0.94 mg/dL Normal 0.55-1.02 [facility] Comment on above: Performed By: #### C MP, TSH, FT3, LIPID #### [facility] [address] [place] [address] Dr. Vonda Ocampo EGFR-AF FINNISH >60 Normal >=60 [facility] Comment on above: Performed By: #### C MP, TSH, FT3, LIPID #### [facility] [address] [place] [address] Dr. Vonda Ocampo EGFR-NON AF FINNISH 56 mL/min/1.73m2 Critically low >=60 [facility] Comment on above: Performed By: #### C MP, TSH, FT3, LIPID #### [facility] [address] [place] [address] Dr. Vonda Ocampo Globulin (S) [Mass/Vol] 4.3 g/dL Normal [facility] Comment on above: Performed By: #### C MP, TSH, FT3, LIPID #### [facility] [address] [place] [address] Dr. Vonda Ocampo Glucose [Mass/Vol] 108 mg/dL Critically high 74-106 [facility] Comment on above: Performed By: #### C MP, TSH, FT3, LIPID #### [facility] [address] [place] [address] Dr. Vonda Ocampo Potassium [Moles/Vol] 4.2 mmol/L Normal 3.5-5.1 [facility] Comment on above: Performed By: #### C MP, TSH, FT3, LIPID #### [facility] [address] [place] [address] Dr. Vonda Ocampo Protein [Mass/Vol] 8.0 g/dL Normal 6.4-8.2 [facility] Comment on above: Performed By: #### C MP, TSH, FT3, LIPID #### [facility] [address] [place] [address] Dr. Vonda Ocampo Sodium [Moles/Vol] 143 mmol/L Normal 136-145 [facility] Comment on above: Performed By: #### C MP, TSH, FT3, LIPID #### [facility] [address] [place] [address] Dr. Vonda Ocampo Urea nitrogen [Mass/Vol] 21.0 mg/dL Critically high 7.0-18.0 [facility] Comment on above: Performed By: #### C MP, TSH, FT3, LIPID #### [facility] [address] [place] [address] Dr. Vonda Ocampo Urea nitrogen/Creatinin e [Mass ratio] 22.3 mg/mg Normal [facility] Comment on above: Performed By: #### C MP, TSH, FT3, LIPID #### [facility] [address] [place] [address] Dr. Vonda Ocampo TSHon 12-12-2022 TSH 1.479 uIU/mL Normal 0.358-3.740 [facility] Comment on above: Performed By: #### C MP, TSH, FT3, LIPID #### [facility] [address] [place], [place] [address] Dr. Vonda Ocampo VIT B12 AND FOLATEon 023 Cobalamin (Vitamin B12) [Mass/Vol] 384.0 pg/mL Normal 193.0-986.0 [facility] Comment on above: Performed By: #### F T4, B12FOL #### [facility] [address] [place], [place] [address] Dr. Vonda Ocampo FOLATE 23.10 ng/mL Normal 8.60-58.90 [facility] Comment on above: Performed By: #### F T4, B12FOL #### [facility] [address] [place], [place] [address] Dr. Vonda Ocampo MRI 3D POST PROCESSINGon MRI 3D POST PROCESSING * * *Final Report* * * DATE OF EXAM: Oct 08 2022 3:34PM [facility] 0280 - MRI 3D POST [...] = Focal Lesions 2 = Beginning of Twilight 3 = Diffuse Involvement of Entire Region [...] results from the analysis charts for details. Chief Chemist: YARELIS Transcribe Date/Time: Oct 08 2022 3:47P Dictated by : ALEXI YARBROUGH MD This examination was interpreted and the report reviewed and electronically signed by: ALEXI YRABROUGH MD on Oct 08 2022 4:29PM EST [id number] Normal [facility] MRI BRAIN WO IVCONon 023 MRI BRAIN [...] dementia protocol and 3-D post-processing using the [employer] software at an independent workstation with concurrent [...] = Focal Lesions 2 = Beginning of Twilight 3 = Diffuse Involvement of Entire Region [...] impairment, and elderly controls. Neuroimage 43;59 (2008). Nonahlund et al. A New Rating Scale for Age-Related White Matter Changes Applicable to MRI and CT. Stroke. 32:1318 (2001). * Asymmetry index defined as difference between left and right volumes divided by mean or [(L-R/Mean) x 100] (%). Age-matched reference charts measure total hippocampal volume (% of intracranial volume). See results from the analysis charts for details. Chief Chemist: YARELIS Transcribe Date/Time: Oct 08 2022 3:47P Dictated by : ALEXI YARBROUGH MD This examination was interpreted and the report reviewed and electronically signed by: ALEXI YARBROUGH MD on Oct 08 2022 4:29PM EST [id number] Normal 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 This document has been created with the use of voice recognition technology. It may contain inaccuracies, misspellings, inaccurate syntax or inappropriate word context that are a result of the inadequacies/shortcoming s of said technology/software. Referring Provider: SAY DREW [[id number]] Allergies As of Date: 09/01/2022 Noted Allergy [...] mg tablet (more content not included)... Normal [facility] MM diagnostic mammo BI w/CAD on 08-30-2022 MM diagnostic mammo BI w/CAD [facility] [place] [address] Mammography Report Signed Patient: Erin Tejada MR#: [id number] : 1935 Acct:[id number] Age/Sex: 87 / F ADM Date: 08/30/22 Loc: [place] Room: Type: [facility] Attending Dr: Say Drew MD Copies to: [...] Maranda Portillo M.D.08/30/2022 2:31 PM Dictation Location: [facility] Transcribed By: AZIZA 08/30/22 143 Dictated By: Maranda Portillo MD 08/30/22 1426 Signed By: 08/30/22 1431 [facility] CNOVon 07-07-2022 CNOV Office Visit (PEDROFV ) -------- ERIN TEJADA ([id number]) 1935 F Date Time Provider Department 07/07/22 3:00 PM AKILAH QUINTERO During your visit today, we recorded the following information about you: Pulse Blood pressure Weight Height 86/minute 199/84 59.8 kg 1.632 m Akilah Quintero DO 07/10/2022 3:40 PM Signed [facility] for General Neurology New Patient Evaluation Consulting Provider: LUIS SERVIN [address] [phone] Individuals who were included in, or assisted with the encounter were: Erin Tejada Akilah Quintero DO Chief Complaint/Issues: Erin Tejada is a 87 year old female seen in the [facility] for General Neurology for: Memory changes HPI: Ms. Tejada is an 87 year old woman PMHx HTN, remote breast CA presenting with memory concerns. She is accompanied by her cousin. She tells me that another cousin thought she had memory issues when she went to visit her in [place] for three weeks last year. She does [...] denies tremors. 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 Nobody complains about her [...] the service (more content not included)... Normal [facility] FOLATE SERUMon 07-07-2022 Folate [Mass/Vol] >4.7 ng/mL [facility] Folate SerPl-mCncon 07-07-20 22 Folate [Mass/Vol] ng/mL Normal >4.7 [facility] Comment on above: Order Comment: Speci belia Type: BLOOD SPECIMEN Ordering Facility: [facility] Address: [place] [address] Result Comment: A re sult of > 20 ng/mL is not necessarily indicative of a pathologic or treatable condition: it reflects a limitation of the test methodology. Assay reference range: 4.8 to 24.2 ng/mL. Suitable for detection of folate deficiency. Reference: Folate III (Folate III) [package insert V 1.0 [place]raini]. [employer], [place], [place]: June 2015. Performed By: #### 2 132-9, 2284-8 #### [facility] CLIA [id number] [address] [id number] [place] VITAMIN B12 BLOODon 07-07-20 22 Cobalamin (Vitamin B12) [Mass/Vol] 556 pg/mL 232 - 1,245 pg/mL [facility] Cobalamin (Vitamin B12) [Mass/Vol] 556 pg/mL Normal 232-1245 [facility] Comment on above: Order Comment: Mushtaq celaya Type: BLOOD SPECIMEN Ordering Facility: [facility] Address: [place] [address] Performed By: #### 2 132-9, 2284-8 #### [facility] CLIA [id number] [address] [place] [address] [place] AUD - Otheron [...] was advised that I would speak with erp manager regarding the situation and get back [...] restricted hearing right ear Jesusita Jay M.A., [facility] Agronomy Technician [facility] AUD - Otheron 06-08-2021 AUD - Other 06/07/2021 - Patient in today a week late for appointment. She had written appointment down on wrong day. Patient needed help putting right hearing aid in ear. Patient brought 2 left hearing aids and had been trying to put one of them in her right ear. The hearing aid was [employer] brand, not one she recently purchased here. Patient stated she had other hearing aids at home. Advised patient to reschedule and bring in all of the devices she has at home and we will figure out which devices are the newer ones that she should be wearing. 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 No charge, patient under warranty. Chris Donaldson [facility], F-AAA Dx Code: H90.3 SNHL AU Normal [facility] AUD - Hearing Aid Saleson AUD - Hearing Aid Sales [id number] D:127 Normal [facility] AUD - Orderson 12-09-2020 AUD - Orders [id number]#1.00CD :127 Normal [facility] AUD - Progress Noteson 12-08 AUD - Progress Notes Hearing Aid Clean/Check 12/08/2020 Purpose of Appointment: Patient in today for a routine hearing aid check/cleaning. Hearing Devices: Unitron D Moxi Jump 7 RICs with C shell earmolds and Unitron Stride P 800 BTE with standard earmold and tubing ( S/N: [id number]) Primary issues/concerns: The patient reports that she [...] as patient is under warranty. 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 Normal [facility] Vital Signs Date Time Vital Sign Value Performing Clinician Faci lity 09-01-2022 14:45-0500 Body temperature 96.91 [degF] Say Drew MD Work Phone: [facility] 09-01-2022 14:45-0500 Body weight 59.88 kg Say Drew MD Work Phone: [facility] 09-01-2022 14:45-0500 Diastolic blood pressure 85 mm[Hg] Say Drew MD Work Phone: [facility] 09-01-2022 14:45-0500 Heart rate 92 /min Say Drew MD Work Phone: [facility] 09-01-2022 14:45-0500 Respiratory rate 16 /min Say Drew MD Work Phone: [facility] 09-01-2022 14:45-0500 SaO2% (BldA) [Mass fraction] 100 % Say Drew MD Work Phone: [facility] 09-01-2022 14:45-0500 Systolic blood pressure 176 mm[Hg] Say Drew MD Work Phone: [facility] 07-07-2022 14:36-0500 Body height 163.2 cm Akilah Qiuntero DO Work Phone: [facility] 07-07-2022 14:36-0500 Body weight 59.83 kg Akilah Quintero DO Work Phone: [facility] 07-07-2022 14:36-0500 Diastolic blood pressure 84 mm[Hg] Akilah Qiuntero DO Work Phone: [facility] 07-07-2022 14:36-0500 Heart rate 86 /min Akilah Quintero DO Work Phone: [facility] 07-07-2022 14:36-0500 Systolic blood pressure 199 mm[Hg] Akilah Quintero DO Work Phone: [facility] Encounters Encounter Date Encounter Type Care Provider Facility Start: 01-23-2023 Unlisted evaluation and management service Say Drew MD Work Phone: Radiation Oncology Comment on above: Opened In Error Start: 01-17-2023 End: 01-17-2023 ambulatory AKILAH MANCUSO Facility:[facility] Start: 01-17-2023 End: 01-17-2023 Patient encounter procedure Nanette Patton PhD Work Phone: Neuropyschology Comment on above: Dementia without beh avioral disturbance, psychotic disturbance, mood disturbance, or anxiety, unspecified dementia severity, unspecified dementia type (HCC) (Primary Dx) Start: 01-04-2023 End: 01-04-[address] LUIS SERVIN Facility:[facility] Start: 12-12-2022 End: 12-13-[address] LUIS SERVIN Facility:[facility] Start: 10-08-2022 End: 10-08-2022 Orders Only Jair Lynda DO Work Phone: [facility] Comment on above: Cognitive impairment , mild, so stated (Primary Dx) Cognitive impairment , mild, so stated [G31.84] Start: 09-01-2022 End: 09-01-2022 ambulatory JOSELYN CASTILLO Facility:[facility] Start: 09-01-2022 End: 09-01-2022 Patient encounter procedure Say Drew MD Work Phone: Radiation Oncology Comment on above: History of breast ca ncer (Primary Dx) Start: 09-01-2022 Telephone encounter Akilah parada DO Work Phone: Radiation Oncology Comment on above: Patient Question; Ap pointment Start: 08-30-2022 End: 08-30-2022 ambulatory MD Joselyn Castillo Work Phone: [facility] Work Phone: Start: 08-30-2022 End: 08-30-2022 Patient encounter procedure MD Joselyn Castillo Work Phone: [facility] Work Phone: Start: 07-07-2022 End: 07-08-2022 ambulatory AKILAH R AILIN Facility:[facility] Start: 07-07-2022 End: 07-07-2022 ambulatory AKILAH R AILIN Facility:[facility] Start: 07-07-2022 End: 07-07-2022 Patient encounter procedure Akilah Quintero DO Work Phone: Neurology Comment on above: Cognitive impairment , mild, so stated (Primary Dx) Start: 02-02-2022 End: 02-02-2022 ambulatory Joselyn Castillo Facility:[facility] Procedures Date Procedure Procedure Detail Performing Clinician Start: 10-08-2022 MRI 3D POST PROCESSING Jair Howell DO Work Phone: Start: 10-08-2022 Mri brain brain stem w/o contrast material Akilah Quintero DO Work Phone: Start: 08-30-2022 Bilateral mammography Kashif Castillo Work Phone: Plan of Treatment Date Care Activity Detail Author Start: 04-21-2023 Influenza vaccination INFLUENZ A (Season Ended) [facility] Start: 08-21-2022 ADVANCE DIRECTIVE DISCUSSION ADVANCE DIRECTIVE DISCUSSION [facility] Start: 08-21-2022 DEPRESSION ASSESSMENT DEPRESSION ASS ESSMENT [facility] Start: 07-07-2022 End: 09-06-2022 VITAMIN B1 (THIAMINE), WHOLE BLOOD VITAMIN B1 (THIAMINE), WHOLE BLOOD Lab Routine Cognitive impairment, mild, so stated Expected: 07/07/2022, Expires: 09/06/2022 [facility] Work Phone: Comment on above: Expected: 07/07/2022 , Expires: 09/06/2022 Start: 04-21-2022 Influenza vaccination INFLUENZA (#1) [facility] Start: 08-21-2021 ADVANCE DIRECTIVE DISCUSSION ADVANCE DIRECTIVE DISCUSSION [facility] Start: 08-21-2021 DEPRESSION ASSESSMENT DEPRESSION ASS ESSMENT [facility] Start: 11-25-2020 COVID-19 VACCINE (3 - Booster for Pfizer series) COVID-19 VACCINE (3 - Booster for Pfizer series) [facility] Start: 2001 BONE DENSITY BONE DENSITY [facility] Start: 2001 PNEUMOCOCCAL: 65+ (1 - PCV) PNEUMOCOCCAL: 65+ (1 - PCV) [facility] Start: 1986 SHINGRIX VACCINE (1 of 2) SHINGRIX VACCINE (1 of 2) [facility] Start: 1981 DIABETES SCREEN DIABETES SCREEN [facility] Start: 1955 Urine microalbumin profile DTAP,TDAP,TD (1 - Tdap) [facility] End: 08-06-2023 Mri brain brain stem w/o contrast material MRI BRAIN WO IVCON Radiology Routine Cognitive impairment, mild, so stated 1 Occurrences starting 07/07/2022 until 08/06/2023 [facility] Work Phone: Comment on above: 1 Occurrences starti ng 07/07/2022 until 08/06/2023 [facility] Payers Date Payer Category Payer Self-pay [id number] 2015 Private Health Insurance HUMANA HUMANA MEDICARE SUPPLEMENT [id number] 2015-Present [phone] [address] [address] [place] [address] Indemnity [id number] 2001 Medicare [id number] 1959 Medicare [id number] 1959 Medicare [id number] 1936 Unknown [id number] 1936 Unknown [id number] Unknown [id number] Unknown [id number] Social History Date Type Detail Facility Start: 07-07-2022 Tobacco smoking stat [facility] Never smoked tobacco [facility] Start: 07-07-2022 Tobacco use and exposure Smokeless tobacco non-user [facility] Start: 07-07-2022 End: 09-01-2022 Alcohol intake Current drinker of alcohol (finding) [facility] Start: 08-18-2016 Alcohol Comment [facility] Start: 1935 Sex Assigned At Not on file C [facility] Start: 06-27-2022 End: 07-07-2022 Exposure to SARS-CoV-2 (event) Not sure [facility] Start: 1935 Sex Assigned At Female F [facility] Medical Equipment Procedure Code Equipment Code Equipment Origin al Text Equipment Identifier Dates Discectomy, lumbar COFLEX SIZE [address] art: 02-09-2018 Discectomy, lumbar COFLEX SIZE [address] art: 02-09-2018 Clinical Notes 07-07-2022 to 01-23-2023 Nanette Patton, PhD - 01/23/2023 12:22 PM EDTTelephone Encounter - Alice Jamil RN - 01/23/2023 9:58 AM Paola Lange, duck farmer - 10/08/2022 3:00 PM William Drew MD - 09/01/2022 11:46 PM EST Note Date & Type Note Facility 01-23-2023 Note HNO ID: [id number] Author: Nanette Patton, PhD Service: ? Author [...] of a multidisciplinary evaluation conducted in the [facility]. The assessment consisted of a brief interview [...] the 24th p (more content not included)... [facility] 01-23-2023 History of Present illness Narrative PATIENT NAME: Erin Tejada NEUROPSYCHOLOGICAL EVALUATION EDUCATION: 12 OCCUPATION: retired HANDEDNESS: R REFERRING: Akilah Quintero, DO ? The current evaluation was performed in the context of medical care and a clinical referral question and not for purposes of a forensic, disability, or workers' compensation evaluation. This assessment is part of a multidisciplinary evaluation conducted in the [facility]. The assessment consisted of a brief interview [...] per week. Contact: Local: ; Toll free: [phone] or [email or web address] Do not require an Alzheimer's diagnosis to contact them Family Caregiver Wayne (web site: Caregiver.org) HENRIK Loreta-- a secure online solution for quality information, support, and resources for family caregivers. Contact: Toll-free number: [phone] In home resource- http://www.Helpjuice.com.[employer]/ind ex.aspx -Recommended connecting with the local Agency on Aging for benefits screening, including for the [employer] program, which can provide funding for home health aide services. Contact information: . Alternate number: [phone] [facility] (https://www.Mega[employer]/local/ rpwvvyz-tenaysy-hbxj-boigst-xf-wb irq-dhyrhcshn-olbb-krtptm-yp-jrip g-oh) - Home Health Agencies who can provide supportive services to both patient and caregiver. These services may include companionship and assistance with activities of daily living, such as meals, bathing, and dressing. They may also provide assistance with securities broker and transportation. Many agencies have caregivers that have training specifically for the care of a person with dementia. [facility] care: [phone] Visiting Nurse Association: [phone] Home Instead: [phone] [employer] [employer]: [phone] [facility] Care: [phone] This report is meant to be considered [...] = 2 hours Neuropsychological test administration/scoring by video coordinator = 1 hour, 55 minutes documented in this encounter [facility] 01-23-2023 Miscellaneous Notes This encounter was opened in error. documented in this encounter [facility] 10-08-2022 Note HNO ID: [id number] Author: SALVADOR Raza Service: ? Author Type: [...] SALVADOR Raza October 08, 2022 3:[address] [facility] 10-08-2022 History of Present illness Narrative Radiology [...] 2022 3:28 PM documented in this encounter [facility] 09-05-2022 Miscellaneous Notes Scheduling spoke with patients [...] appreciative of call. Erin is in the [facility] oncology office today for a follow up. 07/07/[address] Quintero who ordered MRI brain and neuropsych testing but Erin said these tests were never scheduled. Follow up is to be arrange after the above testing. Erin would like the MRI brain done locally at [facility]. She is wondering if she should have the neuropsych testing done locally or if [facility] is preferred. She and her cousin, Anderson Palafox, are here today and seem to have some confusion about the expected appointments. Will you please reach out to Erin arrange the testing and follow up as ordered. Enrrique De Santiago LPN documented in this encounter [facility] 09-02-2022 Note HNO ID: [id number] Author: Say Drew MD Service: ? Author Type: Physician Type: Progress Notes Filed: 09/14/2022 5:05 AM Note Text: Radiation Oncology - Follow Up Note PATIENT NAME: Erin Tejada PATIENT DIAGNOSIS/PATIENT IDENTIFICATION: Ms. 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 This document has been created with the use of voice recognition technology. It may contain inaccuracies, misspellings, inaccurate syntax or inappropriate word context that are a result of the inadequacies/shortcomings of said technology/software. [facility] 09-01-2022 History of Present illness Narrative Radiation Oncology - Follow Up Note PATIENT NAME: Erin Tejada PATIENT Signed by: Say Drew MD I spent a total of 20 minutes on the date of the service which included preparing to see the patient, peyb-xl-jcwl patient care, and counseling and educating the patient/family/caregiver. This document has been created with the use of voice recognition technology. It may contain inaccuracies, misspellings, inaccurate syntax or inappropriate word context that are a result of the inadequacies/shortcomings of said technology/software. documented in this encounter [facility] 07-07-2022 Note HNO ID: [id number] Author: Akilah Quintero, DO Service: ? Author Type: Physician Type: Progress Notes Filed: 07/10/2022 3:40 PM Note Text: [facility] New Patient Evaluation Consulting Provider: LUIS SERVIN [address] [place] [address] Individuals who were included in, or assisted with the encounter were: Erin Tejada Akilah Quintero DO Chief Complaint/Issues: Erin Tejada is a 87 year old female seen in the [facility] for: Memory changes HPI: Ms. Tejada is an 87 year old woman PMHx HTN, remote breast CA presenting with memory concerns. She is accompanied by her cousin. She tells me that another cousin thought she had memory issues when she went to visit her in [place] for three weeks last year. She does [...] denies tremors. 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 Nobody complains about her [...] with normal cognition, memory, speech and affect. [place] Cognitive Assessment (MoCA) MoCA Total Score: 18 [...] which included preparing to see the patient, nbin-mg-vbhu patient care, completing clinical documentation, obtaining and/or reviewing separately obtained history, performing a medically appropriate examination, counseling and educating the patient/family/ (more content not included)... [facility] 07-07-2022 Instructions Akilah Quintero DO - 07/07/2022 3:29 PM EST Please get memory labs, brain MRI, neuropsychological testing (formal memory testing). Follow-up after neuropsych testing to go over results. documented in this encounter [facility] 07-07-2022 History of Present illness Narrative Images from the original note were not included. [facility] General Neurology New Patient Evaluation Consulting Provider: LUIS SERVIN [place] [address] Individuals who were included in, or assisted with the encounter were: Erin Tejada Akilah Quintero DO Chief Complaint/Issues: Erin Tejada is a 87 year old female seen in the [facility] for: Memory changes HPI: Ms. Tejada is an 87 year old woman PMHx HTN, remote breast CA presenting with memory concerns. She is accompanied by her cousin. She tells me that another cousin thought she had memory issues when she went to visit her in [place] for three weeks last year. She does [...] denies tremors. 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 Nobody complains about her [...] which included preparing to see the patient, twri-sg-riuv patient care, completing clinical documentation, obtaining and/or reviewing separately obtained history, performing a medically appropriate examination, counseling and educating the patient/family/caregiver, and ordering medications, tests, or procedures. Akilah Quintero DO documented in this encounter [facility] Evaluation note Diagnosis Cognitive impairment, mild, so stated- Primary Mild cognitive impairment, so stated [facility] Work Phone: Evaluation note* Diagnosis History of breast cancer- Primary Personal history of malignant neoplasm of breast [facility]* Diagnosis Cognitive impairment, mild, so stated- Primary Mild cognitive impairment, so stated [facility] Diagnosis Cognitive impairment, mild, so stated Mild cognitive impairment, so stated [facility]* Diagnosis OPENED IN ERROR- Primary To allow closing an encounter opened in error (used in SmartSet) [facility] Diagnosis Dementia without behavioral disturbance, psychotic disturbance, mood disturbance, or anxiety, unspecified dementia severity, unspecified dementia type (HCC)- Primary documented in this encounter [facility] Summary Purpose Family History No Family History Records Found Relationship Condition Age at Onset Recorded Date/T eladia father Dementia Unknown Advance Directives No Advanced Directives Records FoundDocuments on File Type Date Recorded Patient Culinary Internship Expl anation Advance Directive(s) 07/26/2012 2:28 PM Advance Directive Response Recorded Date/ Time Advance Directives No June 16, 2017 8:37am Documents on File Type Date Recorded Patient Culinary Internship Expl anation Advance Directive(s) 07/26/2012 2:28 PM Reason for Referral Specialty Diagnoses / Procedures Referred By Contac t Referred To Contact Diagnoses Cognitive impairment, mild, so stated Procedures NEUROPSYCHOLOGICAL TESTING CONSULT Akilah Quintero DO [address] [place] [address] Referral ID Status Reason Start Date Expiration Date Visits Requested Visits Authorized [id number] Ref Not Required PCP Requested Referral 2 10/05/2022 1 1 Specialty Diagnoses / Procedures Referred By Contac t Referred To Contact MR IMAGING Diagnoses Cognitive impairment, mild, so stated Procedures MRI BRAIN WO IVCON MRI BRAIN BRAIN STEM W/O CONTRAST MATERIAL Akilah Quintero DO [address] [place] [id number] Mr Imaging Referral ID Status Reason Start Date Expiration Date Visits Requested Visits Authorized [id number] Pending Review Auto-Generat ed Referral 08/06/2023 1 1 Specialty Diagnoses / Procedures Referred By Contac t Referred To Contact MR IMAGING Diagnoses Cognitive impairment, mild, so stated Procedures MRI 3D POST PROCESSING 3D RENDERING W/INTERP&POSTPROC DIFF WORK STATION Caio Holloway MD, [address] [place] [id number] Mr Imaging Referral ID Status Reason Start Date Expiration Date Visits Requested Visits Authorized [id number] Pending Review Auto-Generat ed Referral 10/08/2022 11/07/2023 1 1 Specialty Diagnoses / Procedures Referred By Contac t Referred To Contact MR IMAGING Diagnoses Cognitive impairment, mild, so stated Procedures MRI BRAIN WO IVCON MRI BRAIN BRAIN STEM W/O CONTRAST MATERIAL Akilah Quintero, [address] [place] [address] Mr Imaging Referral ID Status Reason Start Date Expiration Date V isits Requested Visits Authorized [id number] Closed Auto-Generate d Referral 07/07/2022 08/06/2023 1 1 Chief Complaint and Reason for Visit Chief Complaint hx of breast cancer Additional Source Comments INFORMATION SOURCE (unrecogn ized section and content) DATE CREATED AUTHOR 11/15/2021 Napoleon Mujica [facility] DATE CREATED AUTHOR AUTHOR'S ORGANIZ ATION 07/10/2022 [facility] DATE CREATED AUTHOR AUTHOR'S ORGANIZ ATION 09/07/2022 [facility] DATE CREATED AUTHOR AUTHOR'S ORGANIZ ATION 01/05/2023 [facility] DATE CREATED AUTHOR AUTHOR'S ORGANIZ ATION 08/31/[address] [facility] Source Comments (unrecognize d section and content) In the event this informatio n is protected by the Federal Confidentiality of Alcohol and Drug Abuse Patient Records regulations: The Federal rules restrict any use of the information to criminally investigate or prosecute any alcohol or drug abuse patient.[facility] the event this information is protected by the Federal Confidentiality of Alcohol and Drug Abuse Patient Records regulations: The Federal rules restrict any use of the information to criminally investigate or prosecute any alcohol or drug abuse patient.[facility] the event this information is protected by the Federal Confidentiality of Alcohol and Drug Abuse Patient Records regulations: The Federal rules restrict any use of the information to criminally investigate or prosecute any alcohol or drug abuse patient.[facility] the event this information is protected by the Federal Confidentiality of Alcohol and Drug Abuse Patient Records regulations: The Federal rules restrict any use of the information to criminally investigate or prosecute any alcohol or drug abuse patient.[facility] the event this information is protected by the Federal Confidentiality of Alcohol and Drug Abuse Patient Records regulations: The Federal rules restrict any use of the information to criminally investigate or prosecute any alcohol or drug abuse patient.[facility] the event this information is protected by the Federal Confidentiality of Alcohol and Drug Abuse Patient Records regulations: The Federal rules restrict any use of the information to criminally investigate or prosecute any alcohol or drug abuse patient.[facility] the event this information is protected by the Federal Confidentiality of Alcohol and Drug Abuse Patient Records regulations: The Federal rules restrict any use of the information to criminally investigate or prosecute any alcohol or drug abuse patient.[facility] Reason for Visit (unrecogniz ed section and content) Reason Comments New Patient Rule out [facility] , Discu ss symptoms Reason Comments Patient Question Appointment Reason Comments Breast Cancer Specialty Diagnoses / Procedures Referred By Contac t Referred To Contact MR IMAGING Diagnoses Cognitive impairment, mild, so stated Procedures MRI BRAIN WO IVCON MRI BRAIN BRAIN STEM W/O CONTRAST MATERIAL Akilah Quintero DO [address] [place] [id number] Mr Imaging Referral ID Status Reason Start Date Expiration Date V isits Requested Visits Authorized [id number] Closed Auto-Generate d Referral 07/07/2022 08/06/2023 1 1 Reason Onset Date Comments Opened In Error 01/23/2023 Specialty Diagnoses / Procedures Referred By Contact Referred To Contact Psychology / NEUROPSYCHOLOGY Diagnoses Cognitive impairment, mild, so stated [G31.84] Procedures 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 [place] [address] [address] [place] [phone] Nanette Patton, PhD [address] [place] [id number] Referral ID Status Reason Start Date Expiration Date V isits Requested Visits Authorized [id number] Pending Review 01/17/2023 04/17/2023 1 1 Care Teams (unrecognized sec tion and content) Button Sewer Hand Relationship Specialty Start Date End Date Joselyn Castillo MD [address] [place] [address] PCP - General Family Medicine 08/01/18 Luis Servin [address] [place] [address] Referring Family Medicine 05/31/22 Team Status: Inactive Member Role Status Dates Joselyn Castillo MD Primary Care Provider Active Say Drew MD Attending Provider Active Team Status: Active Member Role Status Dates Joselyn Castillo MD Primary Care Provider Active Button Sewer Hand Relationship Specialty Start Date End Date Joselyn Castillo MD [address] [place] [facility] [place] [id number] PCP - General Family Medicine 08/01/[address] [place] [id number] Referring Family Medicine 05/31/22 Button Sewer Hand Relationship Specialty Start Date End Date Joselyn Castillo MD [address] [place] [place] [id number] PCP - General Family Medicine 08/01/[address] [place] [phone] Referring Family Medicine 05/31/22 Button Sewer Hand Relationship Specialty Start Date End Date Joselyn Castillo MD [address] [place] [facility] [place] [address] PCP - General Family Medicine 08/01/[address] [place] [phone] Referring Family Medicine 05/31/22 Button Sewer Hand Relationship Specialty Start Date End Date Joselyn Castillo MD [address] [place] [facility] [place] [phone] PCP - General Family Medicine 08/01/[address] [place] [phone] Referring Family Medicine 05/31/22 Button Sewer Hand Relationship Specialty Start Date End Date Joselyn Castillo MD [address] [place] [facility] [place] [address] PCP - General Family Medicine 08/01/[address] [place] [address] Referring Family Medicine 05/31/22 Button Sewer Hand Relationship Specialty Start Date End Date Joselyn Castillo MD [address] [place] [address] PCP - General Family Medicine 08/01/18 [address] [place] [address] [facility] 05/31/22 Goals (unrecognized section and content) Goals [...] BE BASED ON THE PRIMARY CLINICAL RECORDS. [facility] [employer] [facility]. provides no warranty or guarantee of the accuracy or completeness of information in this document.
[2024-01-14 13:08] LABS: Basophils Percent Auto 0.6 % (0.2-2.0); Eosinophils Absolute Auto 0.1 10^3/uL (0.0-0.7); Eosinophils Percent Auto 1.4 % (0.9-7.0); Hematocrit 42.8 % (36.0-48.0); Hemoglobin 13.7 g/dL (12.0-16.0); Immature Granulocytes Abs Auto 0.02 10^3/uL (0.00-0.03); Immature Granulocytes Pct Auto 0.3 % (0.0-0.5); Lymphocytes Absolute Auto 1.1 10^3/uL (1.2-3.8); Lymphocytes Percent Auto 14.8 % (20.5-60.0); Mean Corpuscular Hemoglobin 30.8 pg (26.7-34.0); Mean Corpuscular Volume 96.2 fL (81.0-99.0); Mean Platelet Volume 10.3 fL (9.5-13.5); Monocytes Absolute Auto 0.5 10^3/uL (0.3-0.8); Monocytes Percent Auto 6.4 % (1.7-12.0); Neutrophils Absolute Auto 5.5 10^3/uL (1.4-6.5); Neutrophils Percent Auto 76.5 % (43.0-75.0); Platelet Count 143 10^3/uL (150-450); Red Blood Count 4.45 10^6/uL (4.20-5.40); Red Cell Distribution Width 13.2 % (11.0-15.0); White Blood Count 7.2 10^3/uL (4.0-11.0)
[2024-01-14] MEDS: 0.9 % SODIUM CHLORIDE 1,000 ML 500 ML IV (13:08)
[2024-01-14 13:22] LABS: Magnesium 2.3 mg/dL (1.8-2.4)
[2024-01-14 13:31] LABS: Alanine Aminotransferase 17 U/L (14-59); Albumin Globulin Ratio 0.9; Albumin Level 3.4 g/dL (3.4-5.0); Alkaline Phosphatase 122 U/L (46-116); Anion Gap 11.7; Aspartate Amino Transferase 19 U/L (15-37); BUN Creatinine Ratio 23.4; Bilirubin Total 0.9 mg/dL (0.2-1.0); Calcium 9.3 mg/dL (8.5-10.1); Carbon Dioxide 30.8 mmol/L (21.0-32.0); Chloride 104 mmol/L (98-107); Estimated GFR (African America 59 (>=60); Estimated GFR (Non-African Ame 49 (>=60); Globulin 3.8 g/dL; Glucose 105 mg/dL (74-106); Potassium 4.5 mmol/L (3.5-5.1); Sodium 142 mmol/L (136-145); Total Protein 7.2 g/dL (6.4-8.2); Troponin I High Sensitivity 5.5 pg/mL (4.0-51.3)
--- NOTE | 2024-01-14 16:22 | ED.FALL1 ---
HPI HPI - Fall General Chief Complaint: Fall Stated Complaint: FALL Time Seen by Provider: 01/14/24 12:26 Source: patient Mode of arrival: ambulance Limitations: no limitations History of Present Illness HPI Narrative: The patient was shopping at [employer] with her friend when she actually passed out after being there for a while, she was on her cart when she fell backwards and the cart fell on top of her, the patient had few seconds before she woke up, the patient presented to us by the EMS with no acute complaints no nausea no vomiting no abnormal movements at any time She did have breakfast this morning but when she presented as she mentioned that she is hungry ready She had mild dizziness on arrival when sitting up Related Data Home Medications ?Medication ?Instructions ?Recorded ?Confirmed carvedilol 6.25 mg tablet 6.25 mg PO BID 10/12/23 01/14/24 memantine 10 mg tablet 10 mg PO BID 10/12/23 01/14/24 sertraline 25 mg tablet 25 mg PO DAILY 12/31/23 01/14/24 Allergies Allergy/AdvReac Type Severity Reaction Status Date / Time No Known Drug Allergies Allergy Verified 10/22/23 14:17 Opioid HPI Opioid Management Most Recent Pain and Opioid Data: Last Pain Scale 0 01/01/24 10:08 Last ORT Total Score 0 12/31/23 14:10 Last ORT Risk Category Low Risk 12/31/23 14:10 Review of Systems ROS Status of ROS 10 or more systems reviewed and unremarkable except as noted in history and below PFSH PFSH Medical History (Updated 01/14/24 @ 15:29 by Kianna Mcknight MD) CKD stage 3a, GFR 45-59 ml/min ?N18.31 - Chronic kidney disease, stage 3a (ICD-10) 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 ?F03.90 - Unspecified dementia, unspecified severity, without behavioral disturbance, psychotic disturbance, mood disturbance, and anxiety (ICD-10) Hypertension ?I10 - Essential (primary) hypertension (ICD-10) Dementia ?F03.90 - Unspecified dementia, unspecified severity, without behavioral disturbance, psychotic disturbance, mood disturbance, and anxiety (ICD-10) Cognitive impairment ?R41.89 - Other symptoms and signs involving cognitive functions and awareness (ICD-10) Breast cancer ?C50.919 - Malignant neoplasm of unspecified site of unspecified female breast (ICD-10) Dementia ?F03.90 - Unspecified dementia, unspecified severity, without behavioral disturbance, psychotic disturbance, mood disturbance, and anxiety (ICD-10) Surgical History (Updated 12/31/23 @ 13:43 by Annette Richardson) H/O lumpectomy ?Z98.890 - Other specified postprocedural states (ICD-10) Hx of appendectomy ?Z90.49 - Acquired absence of other specified parts of digestive tract (ICD-10) Family History (Updated 12/31/23 @ 13:45 by Annette Richardson) Aunt Family history of stroke Social History (Updated 12/31/23 @ 13:46 by Annette Richardson) Within the past year, how often did you have a drink containing alcohol: monthly or less Within the past year, how often did you have six or more drinks on one occasion: never Smoking status: Never smoker Non-prescribed substance use: denies use Previous occupational history: retired Highest level of school completed/degree received: high school graduate In a typical week, how many times do you talk on the telephone with family, friends, or neighbors: twice per week How often do you get together with friends or relatives: twice per week How often do you attend protestant or taoism services: never Do you belong to any clubs or organizations such as protestant groups unions, fraternal or athletic groups, or school groups: no Little interest or pleasure in doing things: not at all Feeling down, depressed, or hopeless: not at all Feel stressed/tense/nervous/anxious/difficulty sleeping: not at all Exam Narrative Exam Narrative: Nurses notes and vital signs reviewed and patient is not hypoxic. General: Well-appearing and in no apparent distress. Skin: Warm, dry, no pallor noted. No rash. Head: Normocephalic, atraumatic. Neck: Supple, non-tender. Eye: Pupils are equal, round and EOMI. No scleral icterus. Ears, Nose, Mouth, and Throat: TM are clear, no nasal mucosal hypertrophy. Oral mucosa is moist, no posterior oropharynx erythema, uvula is mid-line Cardiovascular: Regular Rate and Rhythm without murmur, gallop or rub. Respiratory: No accessory muscle use or respiratory distress. Lungs are clear to auscultation, no wheezing, rales or rhonchi Chest Wall: no tenderness Back: No midline thoracic or lumbar vertebral tenderness. No CVA tenderness Musculoskeletal: normal ROM, no calf or popliteal tenderness, no lower extremity edema/swelling GI: Abdomen is soft, non-distended. Normal bowel sounds. No masses appreciated. No tenderness to palpation. No rebound, guarding, or rigidity noted. Neurological: A&O x4 No cranial nerve dysfunction observed. No truncal ataxia. Moves all extremities. Sensation intact. Psychiatric: Cooperative and interactive. Normal mood and affect. Constitutional Vital Signs, click to edit/add: Last Vital Signs Temp 97.6 F 01/14/24 12:20 Pulse 87 01/14/24 15:45 Resp 16 01/14/24 15:45 BP 149/81 H 01/14/24 15:45 Pulse Ox 98 01/14/24 15:45 O2 Del Method Room Air 01/14/24 12:37 Course Vital Signs Vital signs: Vital Signs Temperature 97.6 F 01/14/24 12:20 Pulse Rate 72 01/14/24 12:20 Respiratory Rate 17 01/14/24 12:20 Blood Pressure 124/78 01/14/24 12:20 Pulse Oximetry 98 01/14/24 12:20 Oxygen Delivery Method Room Air 01/14/24 12:20 Temperature 97.6 F 01/14/24 12:20 Pulse Rate 87 01/14/24 15:45 Respiratory Rate 16 01/14/24 15:45 Blood Pressure 149/81 H 01/14/24 15:45 Pulse Oximetry 98 01/14/24 15:45 Oxygen Delivery Method Room Air 01/14/24 12:37 MDM - Fall MDM Narrative Medical decision making narrative: The patient EKG in the ER showing sinus rhythm no ST elevation or depression CBC and chemistry shows acute kidney injury and the patient was provided IV fluid after which she was feeling much better Troponin was negative no chest pain at any time Patient presentation is mostly secondary to vasovagal or dehydration After initial evaluation in the ER the patient was able to walk and ambulate in the ER with no help no dizziness I did speak with the patient power of health care attorney and explained to him that the patient will need further help at home including life alert and home health care and according to him she is going to get this on Monday which is 2 days from now and from now till then he need to make sure that there is a continuous checkup on her to make sure that she is okay at home There was a concern by the friend that the patient does not have enough care but the patient herself is refusing penitentiary facility admission and she mentioned that she have enough care at home The patient is to follow up with primary care physician in next 2-3 days or to return to the emergency department should any of the signs or symptoms worsen or new symptoms develop. The patient agrees with the following Diagnosis and Treatment plan and the patient will be discharged home. Lab Data Labs: Lab Results 01/14/24 Range/Units 13:00 WBC 7.2 (4.0-11.0) 10^3/uL RBC 4.45 (4.20-5.40) 10^6/uL Hgb 13.7 (12.0-16.0) g/dL Hct 42.8 (36.0-48.0) % MCV 96.2 (81.0-99.0) fL MCH 30.8 (26.7-34.0) pg MCHC 32.0 (29.9-35.2) g/dL RDW 13.2 (11.0-15.0) % Plt Count 143 L (150-450) 10^3/uL MPV 10.3 (9.5-13.5) fL Neut % (Auto) 76.5 H (43.0-75.0) % Lymph % (Auto) 14.8 L (20.5-60.0) % [place] % (Auto) 6.4 (1.7-12.0) % Eos % (Auto) 1.4 (0.9-7.0) % Baso % (Auto) 0.6 (0.2-2.0) % Neut # (Auto) 5.5 (1.4-6.5) 10^3/uL Lymph # (Auto) 1.1 L (1.2-3.8) 10^3/uL [place] # (Auto) 0.5 (0.3-0.8) 10^3/uL Eos # (Auto) 0.1 (0.0-0.7) 10^3/uL Baso # (Auto) 0.0 (0.0-0.1) 10^3/uL Abs Immat Gran (auto) 0.02 (0.00-0.03) 10^3/uL Imm/Tot Granulo (auto) 0.3 (0.0-0.5) % Sodium 142 (136-145) mmol/L Potassium 4.5 (3.5-5.1) mmol/L Chloride 104 (98-107) mmol/L Carbon Dioxide 30.8 (21.0-32.0) mmol/L Anion Gap 11.7 BUN 25.0 H (7.0-18.0) mg/dL Creatinine 1.07 H (0.55-1.02) mg/dL Est GFR ( Amer) 59 L (>=60) Est GFR (Non-Af Amer) 49 L (>=60) BUN/Creatinine Ratio 23.4 Glucose 105 (74-106) mg/dL Calcium 9.3 (8.5-10.1) mg/dL Magnesium 2.3 (1.8-2.4) mg/dL Total Bilirubin 0.9 (0.2-1.0) mg/dL AST 19 (15-37) U/L ALT 17 (14-59) U/L Alkaline Phosphatase 122 H (46-116) U/L Troponin I High Sens 5.5 (4.0-51.3) pg/mL Total Protein 7.2 (6.4-8.2) g/dL Albumin 3.4 (3.4-5.0) g/dL Globulin 3.8 g/dL Albumin/Globulin Ratio 0.9 Discharge Plan Discharge Stand Alone Forms: Portal Instructions Chief Complaint: Fall Clinical Impression: Syncope, vasovagal, Dehydration Patient Disposition: Home, Self-Care Time of Disposition Decision: 15:29 Prescriptions / Home Meds: No Action sertraline 25 mg tablet 25 mg PO DAILY carvedilol 6.25 mg tablet 6.25 mg PO BID memantine 10 mg tablet 10 mg PO BID Print Language: Togolese Instructions: Dehydration (DC), Syncope (DC) Referrals: MODE SERVIN DO [Primary Care Provider] - 1 week Discharge Date/Time: 01/14/24 15:49
== END 2024-01-14 15:49 | disposition home or self-care (01) ==
PROVIDERS: Emergency Provider Emergency Medicine; PCP Family Medicine
DX: R55 Syncope and collapse (principal); E86.0 Dehydration; N17.9 Acute kidney failure, unspecified
CPT/HCPCS: 36415; 70450; 80053; 83735; 84484; 85025; 93005; 96360; 96361; 99285

== ENCOUNTER 2024-05-02 11:57 | Emergency (ER) | payer MEDICARE, OTHER, SELFPAY ==
[2024-05-02] VITALS (10 sets, daily range): BP systolic 148; BP diastolic 67; PULSE 58–76; TEMP 36.8; O2SAT 97–99; BMI 17.4
--- NOTE | 2024-05-02 12:05 | XR_ITS ---
The [address] [address] Patient Name: BERNARD PACHECO MRN: [id number] date: 1935 Sex: F Assigned Patient Location: ER Current Patient Location: ER Accession/Order Number: [id number] Exam Date: 05/02/2024 12:24 Report Date: 05/02/2024 12:55 At the request of: SHIRLEY GASTON Procedure: XR chest 1V EXAMINATION: XR chest 1V HISTORY: altered MS COMPARISON: 12/31/2023 TECHNIQUE: Portable FINDINGS: LUNGS: No significant pulmonary parenchymal abnormalities. VASCULATURE: No increased pulmonary vasculature. PLEURA: No pneumothorax, effusion, or pleural thickening. CARDIAC: No cardiomegaly or cardiac silhouette abnormality. MEDIASTINUM: No visible mass or adenopathy. BONES: No fracture or visible bone lesion. OTHER: Negative. XR/XR chest 1V IMPRESSION: No acute cardiopulmonary process Electronically authenticated by: DOT GUZMAN Date: 05/02/2024 12:55
--- NOTE | 2024-05-02 12:05 | ECG_ITS ---
The [facility] Test Date: 2024-05-02 Pat Name: BERNARD PACHECO Department: Room: - Gender: Female Dba: : 1935 Requested By: MODE SERVIN Order Number: [id number] Reading MD: BROOKE BONILLA Measurements Intervals [place] Rate: 71 P: 79 SC: 184 QRS: 43 QRSD: 100 T: 76 QT: 374 QTc: 396 Interpretive Statements 1100 Sinus rhythm 2440 Incomplete right bundle branch block 0102 ARTIFACT PRESENT 9130 borderline ECG Compared to ECG 01/14/2024 12:24:32 Incomplete right bundle-branch block now present Electronically Signed On 05-02-2024 22:26:32 EDT by BROOKE BONILLA
--- NOTE | 2024-05-02 12:06 | CT_ITS ---
The [address] [address] Patient Name: BERNARD PACHECO MRN: [id number] date: 1935 Sex: F Assigned Patient Location: ER Current Patient Location: ER Accession/Order Number: [id number] Exam Date: 05/02/2024 12:24 Report Date: 05/02/2024 12:36 At the request of: SHIRLEY GASTON Procedure: CT head/brain wo con EXAM: CT head/brain wo con HISTORY: Change in mental status, headache COMPARISON: CT head 01/14/2024. TECHNIQUE: Axial noncontrast CT imaging of the head was performed with coronal and sagittal reformats. This CT exam was performed using one or more of the following dose reduction techniques: Automated exposure control, adjustment of the MA and/or kV according to patient size, or use of iterative reconstruction technique. FINDINGS: Calvarium/skull base: No evidence of acute fracture or destructive lesion. Paranasal sinuses: No air fluid levels. Brain: No acute intracranial hemorrhage. No acute large vascular territory infarct. Grossly similar confluent supratentorial white matter hypoattenuation is present which while nonspecific most commonly relates to sequela of small vessel disease. Redemonstration of coarse parenchymal calcification involving the left cerebellum, possibly physiologic versus dystrophic in nature. Stable moderate parenchymal volume loss. No mass lesion or mass effect. No hydrocephalus. CT/CT head/brain wo con IMPRESSION: 1. No acute intracranial process. 2. Stable chronic changes described above. Electronically authenticated by: JOHN IRBY Date: 05/02/2024 12:36
--- NOTE | 2024-05-02 12:06 | ED_ITS ---
HPI HPI - General Adult General Chief complaint: Altered Mental Status Stated complaint: CONFUSION Time Seen by Provider: 05/02/24 12:01 Source: patient Mode of arrival: ambulance Limitations: no limitations History of Present Illness HPI narrative: 88-year-old female presents to the emergency department because she was [place] Paramedics brought her in. She is not able to provide any injury. She does not know how she got there but according to the EHR she has a history of dementia. There is no injury apparently but she had a small amount of dirt on her knees. She does not have any complaints of pain. Related Data Home Medications ?Medication ?Instructions ?Recorded ?Confirmed carvedilol 6.25 mg tablet 6.25 mg PO BID 10/12/23 01/14/24 memantine 10 mg tablet 10 mg PO BID 10/12/23 01/14/24 sertraline 25 mg tablet 25 mg PO DAILY 12/31/23 01/14/24 Previous Rx's ?Medication ?Instructions ?Recorded cephalexin 500 mg capsule 500 mg PO TID 7 days #21 caps 05/02/24 Allergies Allergy/AdvReac Type Severity Reaction Status Date / Time No Known Drug Allergies Allergy Verified 10/22/23 14:17 Opioid HPI Opioid Management Most Recent Opioid Data: Last Pain Scale 3 05/02/24 12:00 Last ORT Total Score 0 12/31/23 14:10 Last ORT Risk Category Low Risk 12/31/23 14:10 Review of Systems ROS Narrative Not obtainable, dementia PFSH PFSH Medical History (Updated 05/02/24 @ 14:44 by Simón Ball MD) CKD stage 3a, GFR 45-59 ml/min ?N18.31 - Chronic kidney disease, stage 3a (ICD-10) 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 ?F03.90 - Unspecified dementia, unspecified severity, without behavioral disturbance, psychotic disturbance, mood disturbance, and anxiety (ICD-10) Hypertension ?I10 - Essential (primary) hypertension (ICD-10) Dementia ?F03.90 - Unspecified dementia, unspecified severity, without behavioral disturbance, psychotic disturbance, mood disturbance, and anxiety (ICD-10) Cognitive impairment ?R41.89 - Other symptoms and signs involving cognitive functions and awareness (ICD-10) Breast cancer ?C50.919 - Malignant neoplasm of unspecified site of unspecified female breast (ICD-10) Dementia ?F03.90 - Unspecified dementia, unspecified severity, without behavioral disturbance, psychotic disturbance, mood disturbance, and anxiety (ICD-10) Surgical History (Updated 12/31/23 @ 13:43 by Annette Richardson) H/O lumpectomy ?Z98.890 - Other specified postprocedural states (ICD-10) Hx of appendectomy ?Z90.49 - Acquired absence of other specified parts of digestive tract (ICD- 10) Family History (Updated 12/31/23 @ 13:45 by Annette Richardson) Aunt Family history of stroke Social History (Updated 12/31/23 @ 13:46 by Annette Richardson) Within the past year, how often did you have a drink containing alcohol: monthly or less Within the past year, how often did you have six or more drinks on one occasion: never Smoking status: Never smoker Non-prescribed substance use: denies use Previous occupational history: retired Highest level of school completed/degree received: high school graduate In a typical week, how many times do you talk on the telephone with family, friends, or neighbors: twice per week How often do you get together with friends or relatives: twice per week How often do you attend catholic or mandaen services: never Do you belong to any clubs or organizations such as catholic groups unions, fraternal or athletic groups, or school groups: no Little interest or pleasure in doing things: not at all Feeling down, depressed, or hopeless: not at all Feel stressed/tense/nervous/anxious/difficulty sleeping: not at all Exam Narrative Exam Narrative: Nurses note and vital signs reviewed and patient is not hypoxic. General: The patient appears in no apparent distress. Patient is resting comfortably on cart. Skin: Warm, dry, no pallor noted. There is no rash noted. Head: Normocephalic, atraumatic Eye: Normal conjunctiva, no drainage Ears, Nose, Mouth, and Throat: oral mucosa is moist. Nares patent. Cardiovascular: Regular Rate and Rhythm Respiratory: Patient is in no distress, no accessory muscle use, lungs are clear to auscultation, no wheezing, rales or rhonchi Back: non-tender, including cervical thoracic and lumbar spines GI: Soft and nontender Musculoskeletal: No palpable tenderness to her extremities and all joints have full range of motion Neurological: Awake and alert. Oriented to self and place. She does not know what year it is or why she is here. Psychiatric: Cooperative Constitutional Vital Signs, click to edit/add: Last Vital Signs Temp 98.3 F 05/02/24 12:01 Pulse 70 05/02/24 12:01 Resp 16 05/02/24 12:01 BP 148/67 H 05/02/24 12:01 Pulse Ox 99 05/02/24 12:01 O2 Del Method Room Air 05/02/24 12:01 Course Vital Signs Vital signs: Vital Signs Pulse Oximetry 97 05/02/24 12:00 Oxygen Delivery Method Room Air 05/02/24 12:00 Temperature 98.3 F 05/02/24 12:01 Pulse Rate 70 05/02/24 12:01 Respiratory Rate 16 05/02/24 12:01 Blood Pressure 148/67 H 05/02/24 12:01 Pulse Oximetry 99 05/02/24 12:01 Oxygen Delivery Method Room Air 05/02/24 12:01 Medical Decision Making [facility] Narrative Medical decision making narrative: The patient had been found wandering away from her home, she lives by herself. A friend is now here to pick her up and the patient was found to have a mild UTI. The rest of her workup is negative. Treatment diagnosis and follow-up were discussed with the patient and her friend. Differential Diagnosis Differential Diagnosis: Dementia, UTI Lab Data Lab results reviewed: Yes I reviewed the patient's lab results Labs: Lab Results 05/02/24 05/02/24 Range/Units 12:00 13:25 WBC 5.5 (4.0-11.0) 10^3/uL RBC 4.49 (4.20-5.40) 10^6/uL Hgb 13.8 (12.0-16.0) g/dL Hct 44.0 (36.0-48.0) % MCV 98.0 (81.0-99.0) fL MCH 30.7 (26.7-34.0) pg MCHC 31.4 (29.9-35.2) g/dL RDW 13.3 (11.0-15.0) % Plt Count 141 L (150-450) 10^3/uL MPV 11.4 (9.5-13.5) fL Neut % (Auto) 74.5 (43.0-75.0) % Lymph % (Auto) 17.6 L (20.5-60.0) % [place] % (Auto) 5.7 (1.7-12.0) % Eos % (Auto) 1.3 (0.9-7.0) % Baso % (Auto) 0.7 (0.2-2.0) % Neut # (Auto) 4.1 (1.4-6.5) 10^3/uL Lymph # (Auto) 1.0 L (1.2-3.8) 10^3/uL [place] # (Auto) 0.3 (0.3-0.8) 10^3/uL Eos # (Auto) 0.1 (0.0-0.7) 10^3/uL Baso # (Auto) 0.0 (0.0-0.1) 10^3/uL Abs Immat Gran (auto) 0.01 (0.00-0.03) 10^3/uL Imm/Tot Granulo (auto) 0.2 (0.0-0.5) % Sodium 136 (136-145) mmol/L Potassium 4.7 (3.5-5.1) mmol/L Chloride 102 (98-107) mmol/L Carbon Dioxide 30.5 (21.0-32.0) mmol/L Anion Gap 8.2 BUN 27.0 H (7.0-18.0) mg/dL Creatinine 1.34 H (0.55-1.02) mg/dL Est GFR ( Amer) 45 L (>=60) Est GFR (Non-Af Amer) 37 L (>=60) BUN/Creatinine Ratio 20.1 Glucose 195 H (74-106) mg/dL Calcium 8.9 (8.5-10.1) mg/dL Urine Color Yellow (YELLOW) Urine Clarity Clear (CLEAR) Urine pH 6.0 (5.0-9.0) Ur Specific [place] 1.025 (1.005-1.025) Urine Protein Negative (NEG/TRACE) mg/dL Urine Glucose (UA) Negative (NEGATIVE) mg/dL Urine Ketones Negative (NEGATIVE) mg/dL Urine Occult Blood Negative (NEGATIVE) Urine Nitrite Negative (NEGATIVE) Urine Bilirubin Negative (NEGATIVE) Urine Urobilinogen 0.2 (0.2-1.0) EU/dL Ur Leukocyte Esterase Small A (NEGATIVE) Urine RBC None seen (0-2) #/HPF Urine WBC 10-20 A (NONE SEEN) #/HPF Ur Squamous Epith Cells Few A (NONE/RARE) #/LPF Urine Bacteria Small A (NONE SEEN) #/HPF Urine Casts Seen A (NONE SEEN) #/LPF Hyaline Casts Many Urine Mucus Small A (NONE SEEN) Ur Culture Indicated? Yes Imaging Data Chest x-ray: Radiologist's impression: ITS Impressions Chest X-Ray 05/02/24 12:05 IMPRESSION: No acute cardiopulmonary process Electronically authenticated by: DOT GUZMAN Date: 05/02/2024 12:[address] 05/02/24 12:06 IMPRESSION: 1. No acute intracranial process. 2. Stable chronic changes described above. Electronically authenticated by: JOHN IRBY Date: 05/02/2024 12:36 ECG Data Attestation: I personally reviewed and interpreted this ECG as follows: (EKG on my interpretation shows normal sinus rhythm with a rate of 71 and no acute change) Discharge Plan Discharge Chief Complaint: Altered Mental Status Clinical Impression: Urinary tract infection, Dementia Patient Disposition: Home, Self-Care Time of Disposition Decision: 14:44 Condition: Good Mode of Transportation: Private Vehicle Prescriptions / Home Meds: New cephalexin 500 mg capsule 500 mg PO TID 7 Days Qty: 21 0RF No Action sertraline 25 mg tablet 25 mg PO DAILY carvedilol 6.25 mg tablet 6.25 mg PO BID memantine 10 mg tablet 10 mg PO BID Print Language: Turkish Instructions: Urinary Tract Infection in Older Adults (ED) Referrals: MODE SERVIN DO [Primary Care Provider] - 1 week
[2024-05-02 12:17] LABS: Basophils Percent Auto 0.7 % (0.2-2.0); Eosinophils Absolute Auto 0.1 10^3/uL (0.0-0.7); Eosinophils Percent Auto 1.3 % (0.9-7.0); Hemoglobin 13.8 g/dL (12.0-16.0); Immature Granulocytes Abs Auto 0.01 10^3/uL (0.00-0.03); Immature Granulocytes Pct Auto 0.2 % (0.0-0.5); Lymphocytes Percent Auto 17.6 % (20.5-60.0); Mean Corpuscular HGB Conc 31.4 g/dL (29.9-35.2); Mean Corpuscular Hemoglobin 30.7 pg (26.7-34.0); Mean Platelet Volume 11.4 fL (9.5-13.5); Monocytes Absolute Auto 0.3 10^3/uL (0.3-0.8); Monocytes Percent Auto 5.7 % (1.7-12.0); Neutrophils Absolute Auto 4.1 10^3/uL (1.4-6.5); Neutrophils Percent Auto 74.5 % (43.0-75.0); Platelet Count 141 10^3/uL (150-450); Red Blood Count 4.49 10^6/uL (4.20-5.40); Red Cell Distribution Width 13.3 % (11.0-15.0); White Blood Count 5.5 10^3/uL (4.0-11.0)
--- OUTSIDE RECORDS SUMMARY | 2024-05-02 12:23 | XMS_ITS | CCD ---
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 Repository (12 sources) Aspirin; Translations: [ASPIRIN] Drug Allergy 4 [facility] Repository (11 sources) Codeine; Translations: [CODEINE] Drug Allergy 4 Other: See Comments [facility] (9 sources) NSAIDs; Translations: [NSAIDS (NON-STEROIDAL ANTI-INFLAMMATOR Y DRUG)] Propensity to adverse reactions to drug (disorder) 7 [facility] Repository (9 sources) Sulfonamides (Antibiotic); Translations: [SULFA (SULFONAMIDE ANTIBIOTICS)] Propensity to adverse reactions to drug (disorder) [address] 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 Drew please sign pended yris order due Aug 2024. Desirae: Will you please call and schedule yris at [facility] [place]? Follow up was scheduled [...] Primary Visit Diagnosis:History of breast cancer [Z85.3] Order(s):[facility] DIAGNOSTIC BILATERAL [[id number]] Order #: [id number] FUTURE Prescriptions as of 08/30/2023 - hydroCHLOROthiazide [...] Status:Closed by ENRRIQUE DE SANTIAGO on 08/30/23 [facility] CNOVon 01-17-2023 CNOV Office Visit (NPTU10 ) -------- ERIN TEJADA ([id number]) 1935 F Date Time Provider Department 01/17/23 [...] of a multidisciplinary evaluation conducted in the [facility]. The assessment consisted of a brief [...] microvascular change. Age related white matter changes ([facility]) rating: White matter lesions: 3 Basal [...] (more content not included)... Normal [facility] CBC AUTO DIFFon 12-12-2022 BASO # 0.0 103/ul Normal 0.0-0.1 [facility] Comment on above: Performed By: #### C BC #### [facility] [address] [address] [address] Vonda Ocampo Basophils/100 WBC (Bld) 0.8 % Normal 0.2-2.0 [facility] Comment on above: Performed By: #### C BC #### [facility] [address] [place] [address] Dr. Vonda Ocampo EO # 0.1 103/ul Normal 0.0-0.7 [facility] Comment on above: Performed By: #### C BC #### [facility] [address] [place] [address] Dr. Vonda Ocampo Eosinophils/100 WBC (Bld) 1.8 % Normal 0.9-7.0 [facility] Comment on above: Performed By: #### C BC #### [facility] [address] [place] [address] Dr. Vonda Ocampo Erythrocyte distribution width (RBC) [Ratio] 13.2 % Normal 11.0-15.0 [facility] Comment on above: Performed By: #### C BC #### [facility] [address] [place] [address] Dr. Vonda Ocampo Hematocrit (Bld) [Volume fraction] 46.4 % Normal 36.0-48.0 [facility] Comment on above: Performed By: #### C BC #### [facility] [address] [place] [address] Dr. Vonda Ocampo Hemoglobin (Bld) [Mass/Vol] 14.7 g/dL Normal 12.0-16.0 [facility] Comment on above: Performed By: #### C BC #### [facility] [address] [place] [address] Dr. Vonda Ocampo IG # 0.01 10e3/ul Normal 0.00-0.03 [facility] Comment on above: Performed By: #### C BC #### [facility] [address] [place] [address] Dr. Vonda Ocampo IG % 0.2 % Normal 0.0-0.5 [facility] Comment on above: Performed By: #### C BC #### [facility] [address] [place] [address] Dr. Vonda Ocapmo LYMPH # 1.0 103/ul Critically low 1.2-3.8 [facility] Comment on above: Performed By: #### C BC #### [facility] [address] [address] [address] Vonda Ocampo Lymphocytes/100 WBC (Bld) 19.2 % Critically low 20.5-60.0 [facility] Comment on above: Performed By: #### C BC #### [facility] [address] [place] [address] Dr. Vonda Ocampo MANUAL DIFF REQ NO Normal [facility] Comment on above: Performed By: #### C BC #### [facility] [address] [place] [address] Dr. Vonda Ocampo MCH (RBC) [Entitic mass] 30.4 pg Normal 26.7-34.0 [facility] Comment on above: Performed By: #### C BC #### [facility] [address] [place] [address] Dr. Vonda Ocampo MCHC (RBC) [Mass/Vol] 31.7 g/dL Normal 29.9-35.2 [facility] Comment on above: Performed By: #### C BC #### [facility] [address] [place] [address] Dr. Vonda Ocampo MCV (RBC) [Entitic vol] 96.1 fL Normal 81.0-99.0 [facility] Comment on above: Performed By: #### C BC #### [facility] [address] [place] [address] Dr. Vonda Ocampo MONO # 0.4 103/ul Normal 0.3-0.8 [facility] Comment on above: Performed By: #### C BC #### [facility] [address] [place] [address] Dr. Vonda Ocampo Monocytes/100 WBC (Bld) 7.7 % Normal 1.7-12.0 [facility] Comment on above: Performed By: #### C BC #### [facility] [address] [place] [address] Dr. Vonda Ocampo NEUT # 3.6 103/ul Normal 1.4-6.5 [facility] Comment on above: Performed By: #### C BC #### [facility] [address] [address] [address] Vonda Oacmpo Neutrophils/100 WBC (Bld) 70.3 % Normal 43.0-75.0 [facility] Comment on above: Performed By: #### C BC #### [facility] [address] [address] [address] Vonda Ocampo Platelet mean volume (Bld) [Entitic vol] 10.1 fL Normal 9.5-13.5 [facility] Comment on above: Performed By: #### C BC #### [facility] [address] [address] [address] Vonda Ocampo PLT 162 103/ul Normal 150-450 [facility] Comment on above: Performed By: #### C BC #### [facility] [address] [place] [address] Dr. Vonda Ocampo RBC 4.83 106/ul Normal 4.20-5.40 [facility] Comment on above: Performed By: #### C BC #### [facility] [address] [place] [address] Dr. Vonda Ocampo WBC 5.1 103/ul Normal 4.0-11.0 [facility] Comment on above: Performed By: #### C BC #### [facility] [address] [place] [address] Dr. Vonda Ocampo FREE T3on 12-12-2022 FREE T3 2.70 pg/mlL Normal 2.18-3.98 [facility] Comment on above: Performed By: #### C MP, TSH, FT3, LIPID #### [facility] [address] [place] [address] Dr. Vonda Ocampo FREE T4on 12-12-2022 Free T4 [Mass/Vol] 1.01 ng/dL Normal 0.76-1.46 [facility] Comment on above: Performed By: #### F T4, B12FOL #### [facility] [address] [place] [address] Dr. Vonda Ocampo LIPID PROFILEon 12-12-2022 CHOL-HDL RATIO NORM SEE BELOW Normal [facility] Comment on above: Result Comment: 3.3 - 4.4 LOW RISK 4.4 - 7.1 AVERAGE RISK 7.1 - 11.0 MODERATE RISK >11.0 HIGH RISK Performed By: #### C MP, TSH, FT3, LIPID #### [facility] [address] [place] [address] Dr. Vonda Ocampo Cholesterol [Mass/Vol] 235 mg/dL Critically high <=200 [facility] Comment on above: Performed By: #### C MP, TSH, FT3, LIPID #### [facility] [address] [place] [address] Dr. Vonda Ocampo Cholesterol in HDL [Mass/Vol] 68 mg/dL Critically high 40-60 [facility] Comment on above: Performed By: #### C MP, TSH, FT3, LIPID #### [facility] [address] [place] [address] Dr. Vonda Ocampo Cholesterol in LDL [Mass/Vol] 144.4 mg/dL Normal [facility] Comment on above: Performed By: #### C MP, TSH, FT3, LIPID #### [facility] [address] [place] [address] Dr. Vonda Ocampo Cholesterol.total/ Cholesterol in HDL [Mass ratio] 3.5 {ratio} Normal [facility] Comment on above: Performed By: #### C MP, TSH, FT3, LIPID #### [facility] [address] [place] [address] Dr. Vonda Ocampo HDL NORMAL > or = 60 mg/dl - LO W CARDIOVASCULAR RISK <40 mg/dl - HIGH CARDIOVASCULAR RISK Normal [facility] Comment on above: Performed By: #### C MP, TSH, FT3, LIPID #### [facility] [address] [place] [address] Dr. Vonda Ocampo LDL CALC NORMAL SEE BELOW Normal [facility] Comment on above: Result Comment: <100 mg/dl OPTIMAL 100 - 129 mg/dl NEAR OR ABOVE OPTIMAL 130 - 159 mg/dl BORDERLINE HIGH 160 - 189 mg/dl HIGH >190 mg/dl VERY HIGH Performed By: #### C MP, TSH, FT3, LIPID #### [facility] [address] [place], [place] [id number] Dr. Vonda Ocampo Triglyceride [Mass/Vol] 113 mg/dL Normal <=150 [facility] Comment on above: Performed By: #### C MP, TSH, FT3, LIPID #### [facility] [address] [place] [address] Dr. Vonda Ocampo VLDL CALC 22.6 mg/dL Normal [facility] Comment on above: Performed By: #### C MP, TSH, FT3, LIPID #### [facility] [address] [address] [address] Vonda Ocampo PROF 14(COMP METB)on 023 Albumin [Mass/Vol] 3.7 g/dL Normal 3.4-5.0 [facility] Comment on above: Performed By: #### C MP, TSH, FT3, LIPID #### [facility] [address] [place] [address] Dr. Vonda Ocampo Albumin/Globulin [Mass ratio] 0.9 {ratio} Normal [facility] Comment on above: Performed By: #### C MP, TSH, FT3, LIPID #### [facility] [address] [place] [address] Dr. Vonda Ocampo ALP [Catalytic activity/Vol] 125 U/L Critically high 46-116 [facility] Comment on above: Performed By: #### C MP, TSH, FT3, LIPID #### [facility] [address] [place] [address] Dr. Vonda Ocampo ALT [Catalytic activity/Vol] 20 U/L Normal 14-59 [facility] Comment on above: Performed By: #### C MP, TSH, FT3, LIPID #### [facility] [address] [address] [address] Vonda Ocampo Anion gap [Moles/Vol] 12.2 mmol/L Normal [facility] Comment on above: Performed By: #### C MP, TSH, FT3, LIPID #### [facility] [address] [place] [address] Dr. Vonda Ocampo AST [Catalytic activity/Vol] 20 U/L Normal 15-37 [facility] Comment on above: Performed By: #### C MP, TSH, FT3, LIPID #### [facility] [address] [address] [address] Vonda Ocampo Bilirubin [Mass/Vol] 0.7 mg/dL Normal 0.2-1.0 [facility] Comment on above: Performed By: #### C MP, TSH, FT3, LIPID #### [facility] [address] [place] [address] Dr. Vonda Ocampo Calcium [Mass/Vol] 9.8 mg/dL Normal 8.5-10.1 [facility] Comment on above: Performed By: #### C MP, TSH, FT3, LIPID #### [facility] [address] [place] [address] Dr. Vonda Ocampo Chloride [Moles/Vol] 104 mmol/L Normal 98-107 [facility] Comment on above: Performed By: #### C MP, TSH, FT3, LIPID #### [facility] [address] [place] [address] Dr. Vonda Ocampo CO2 [Moles/Vol] 31.0 mmol/L Normal 21.0-32.0 [facility] Comment on above: Performed By: #### C MP, TSH, FT3, LIPID #### [facility] [address] [place] [address] Dr. Vonda Ocampo Creatinine [Mass/Vol] 0.94 mg/dL Normal 0.55-1.02 [facility] Comment on above: Performed By: #### C MP, TSH, FT3, LIPID #### [facility] [address] [place] [address] Dr. Vonda Ocampo EGFR-AF ALGERIAN >60 Normal >=60 [facility] Comment on above: Performed By: #### C MP, TSH, FT3, LIPID #### [facility] [address] [place] [address] Dr. Vonda Ocampo EGFR-NON AF ALGERIAN 56 mL/min/1.73m2 Critically low >=60 [facility] Comment on above: Performed By: #### C MP, TSH, FT3, LIPID #### [facility] [address] [place] [address] Dr. Vonda Ocampo Globulin (S) [Mass/Vol] 4.3 g/dL Normal [facility] Comment on above: Performed By: #### C MP, TSH, FT3, LIPID #### [facility] [address] [place] [address] Dr. Vonda Ocampo Glucose [Mass/Vol] 108 mg/dL Critically high 74-106 [facility] Comment on above: Performed By: #### C MP, TSH, FT3, LIPID #### [facility] [address] [place] [address] Dr. Vonda Ocampo Potassium [Moles/Vol] 4.2 mmol/L Normal 3.5-5.1 [facility] Comment on above: Performed By: #### C MP, TSH, FT3, LIPID #### [facility] [address] [place] [address] Dr. Vonda Ocampo Protein [Mass/Vol] 8.0 g/dL Normal 6.4-8.2 [facility] Comment on above: Performed By: #### C MP, TSH, FT3, LIPID #### [facility] [address] [place] [address] Dr. Vonda Ocampo Sodium [Moles/Vol] 143 mmol/L Normal 136-145 [facility] Comment on above: Performed By: #### C MP, TSH, FT3, LIPID #### [facility] [address] [place] [address] Dr. Vonda Ocampo Urea nitrogen [Mass/Vol] 21.0 mg/dL Critically high 7.0-18.0 [facility] Comment on above: Performed By: #### C MP, TSH, FT3, LIPID #### [facility] [address] [place] [address] Dr. Vonda Ocampo Urea nitrogen/Creatinin e [Mass ratio] 22.3 mg/mg Normal [facility] Comment on above: Performed By: #### C MP, TSH, FT3, LIPID #### [facility] [address] [place] [address] Dr. Vonda Ocampo TSHon 12-12-2022 TSH 1.479 uIU/mL Normal 0.358-3.740 [facility] Comment on above: Performed By: #### C MP, TSH, FT3, LIPID #### [facility] [address] [place], [place] [address] Dr. Vonda Ocampo VIT B12 AND FOLATEon 023 Cobalamin (Vitamin B12) [Mass/Vol] 384.0 pg/mL Normal 193.0-986.0 [facility] Comment on above: Performed By: #### F T4, B12FOL #### [facility] [address] [place], [place] [address] Dr. Vonda Ocampo FOLATE 23.10 ng/mL Normal 8.60-58.90 [facility] Comment on above: Performed By: #### F T4, B12FOL #### [facility] [address] [place], [place] [address] Dr. Vonda Ocampo MRI 3D POST PROCESSINGon MRI 3D POST PROCESSING * * *Final Report* * * DATE OF EXAM: Oct 08 2022 3:34PM [facility] 0280 - MRI 3D POST PROCESSING / [...] = Focal Lesions 2 = Beginning of [place] 3 = Diffuse Involvement of Entire Region [...] results from the analysis charts for details. Medical Charge Entry Specialist: YARELIS Transcribe Date/Time: Oct 08 2022 3:47P Dictated by : ALEXI YARBROUGH MD This examination was interpreted and the report reviewed and electronically signed by: ALEXI YARBROUGH MD on Oct 08 2022 4:29PM EST [id number] Normal [facility] MRI BRAIN WO IVCONon 023 [...] dementia protocol and 3-D post-processing using the ecoVent software at an independent workstation with concurrent [...] = Focal Lesions 2 = Beginning of [place] 3 = Diffuse Involvement of Entire Region [...] results from the analysis charts for details. 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 This document has been created with the use of voice recognition technology. It may contain inaccuracies, misspellings, inaccurate syntax or inappropriate word context that are a result of the inadequacies/shortcoming s of said technology/software. Referring Provider: SAY DREW [[id number]] Allergies As of Date: 09/01/2022 Noted Allergy [...] (more content not included)... Normal [facility] MM diagnostic mammo BI w/CAD on 08-30-2022 MM diagnostic mammo BI w/[place] [address] Mammography Report Signed Patient: Erin Tejada MR#: [id number] : 1935 Acct:[id number] Age/Sex: 87 / F ADM Date: 08/30/22 Loc: [place] Room: Type: [facility] Attending Dr: Say Drew MD Copies to: [...] Maranda Portillo M.D.08/30/2022 2:31 PM Dictation Location: [facility] Transcribed By: AZIZA 08/30/22 143 Dictated By: Maranda Portillo MD 08/30/22 1426 Signed By: 08/30/22 1431 [facility] CNOVon 07-07-2022 CNOV Office Visit (PEDROFV ) -------- ERIN TEJADA ([id number]) 1935 F Date Time Provider Department 07/07/22 3:00 PM AKILAH QUINTERO During your visit today, we recorded the following information about you: Pulse Blood pressure Weight Height 86/minute 199/84 59.8 kg 1.632 m Akilah Quintero DO 07/10/2022 3:40 PM Signed [facility] New Patient Evaluation Consulting Provider: LUIS SERVIN [address] [id number] Individuals who were included in, or assisted with the encounter were: Erin Tejada Akilah Quintero DO Chief Complaint/Issues: Erin Tejada is a 87 year old female seen in the [facility] for: Memory changes HPI: Ms. Tejada is an 87 year old woman PMHx HTN, remote breast CA presenting with memory concerns. She is accompanied by her cousin. She tells me that another cousin thought she had memory issues when she went to visit her in [place] for three weeks last year. She does [...] denies tremors. 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 Nobody complains about her [...] the service (more content not included)... Normal [facility] FOLATE SERUMon 07-07-2022 Folate [Mass/Vol] >4.7 ng/mL [facility] Folate SerPl-mCncon 07-07-20 22 Folate [Mass/Vol] ng/mL Normal >4.7 [facility] Comment on above: Order Comment: Speci belia Type: BLOOD SPECIMEN Ordering Facility: [facility] Address: [place] [address] Result Comment: A re sult of > 20 ng/mL is not necessarily indicative of a pathologic or treatable condition: it reflects a limitation of the test methodology. Assay reference range: 4.8 to 24.2 ng/mL. Suitable for detection of folate deficiency. Reference: Folate III (Folate III) [package insert V 1.0 Thai]. [employer], [place], [place]: June 2015. Performed By: #### 2 132-9, 2284-8 #### [facility] CLIA [id number] [address] [id number] [place] VITAMIN B12 BLOODon 07-07-20 22 Cobalamin (Vitamin B12) [Mass/Vol] 556 pg/mL 232 - 1,245 pg/mL [facility] Cobalamin (Vitamin B12) [Mass/Vol] 556 pg/mL Normal 232-1245 [facility] Comment on above: Order Comment: Mushtaq celaya Type: BLOOD SPECIMEN Ordering Facility: [facility] Address: [place] [address] Performed By: #### 2 132-9, 2284-8 #### [facility] CLIA [id number] [address] [place] [address] [place] AUD - Otheron [...] was advised that I would speak with customs manager regarding the situation and get back [...] restricted hearing right ear Jesusita Jay M.A., [facility] Professor Of Forest Planning [facility] AUD - Otheron 06-08-2021 AUD - Other 06/07/2021 - Patient in today a week late for appointment. She had written appointment down on wrong day. Patient needed help putting right hearing aid in ear. Patient brought 2 left hearing aids and had been trying to put one of them in her right ear. The hearing aid was [employer] brand, not one she recently purchased here. Patient stated she had other hearing aids at home. Advised patient to reschedule and bring in all of the devices she has at home and we will figure out which devices are the newer ones that she should be wearing. 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 No charge, patient under warranty. Chris Donaldson [facility], F-AAA Dx Code: H90.3 SNHL AU Normal [facility] AUD - Hearing Aid Saleson AUD - Hearing Aid Sales [phone] [id number] D:127 Normal [facility] AUD - Orderson 12-09-2020 AUD - Orders [id number] :127 Normal [facility] AUD - Progress Noteson 12-08 AUD - Progress Notes Hearing Aid Clean/Check 12/08/2020 Purpose of Appointment: Patient in today for a routine hearing aid check/cleaning. Hearing Devices: Unitron D Moxi Jump 7 RICs with C shell earmolds and Unitron Stride P 800 BTE with standard earmold and tubing ( S/N: [id number]) Primary issues/concerns: The patient reports that she [...] as patient is under warranty. 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 Normal [facility] Vital Signs Date Time Vital Sign Value Performing Clinician Faci lity 09-01-2022 14:45-0500 Body temperature 96.91 [degF] Say Drew MD Work Phone: [facility] 09-01-2022 14:45-0500 Body weight 59.88 kg Say Drew MD Work Phone: [facility] 09-01-2022 14:45-0500 Diastolic blood pressure 85 mm[Hg] Say Drew MD Work Phone: [facility] 09-01-2022 14:45-0500 Heart rate 92 /min Say Drew MD Work Phone: [facility] 09-01-2022 14:45-0500 Respiratory rate 16 /min Say Drew MD Work Phone: [facility] 09-01-2022 14:45-0500 SaO2% (BldA) [Mass fraction] 100 % Say Drew MD Work Phone: [facility] 09-01-2022 14:45-0500 Systolic blood pressure 176 mm[Hg] Say Drew MD Work Phone: [facility] 07-07-2022 14:36-0500 Body height 163.2 cm Akilah Quintero DO Work Phone: [facility] 07-07-2022 14:36-0500 Body weight 59.83 kg Akilah Quintero DO Work Phone: [facility] 07-07-2022 14:36-0500 Diastolic blood pressure 84 mm[Hg] Akilah Quintero DO Work Phone: [facility] 07-07-2022 14:36-0500 Heart rate 86 /min Akilah Quintero DO Work Phone: [facility] 07-07-2022 14:36-0500 Systolic blood pressure 199 mm[Hg] Akilah Quintero DO Work Phone: [facility] Encounters Encounter Date Encounter Type Care Provider Facility Start: 01-23-2023 Unlisted evaluation and management service Say Drew MD Work Phone: Radiation Oncology Comment on above: Opened In Error Start: 01-17-2023 End: 01-17-2023 ambulatory AKILAH MANCUSO Facility:[facility] Start: 01-17-2023 End: 01-17-2023 Patient [...] Start: 09-01-2022 End: 09-01-2022 ambulatory JOSELYN CASTILLO Facility:[facility] Start: 09-01-2022 End: 09-01-2022 Patient encounter procedure aSy Drew MD Work Phone: Radiation Oncology Comment on above: History of breast ca ncer (Primary Dx) Start: 09-01-2022 Telephone encounter Akilah parada DO Work Phone: Radiation Oncology Comment on above: Patient Question; Ap pointment Start: 08-30-2022 End: 08-30-2022 ambulatory MD Joselyn Castillo Work Phone: [facility] Work Phone: Start: 08-30-2022 End: 08-30-2022 Patient encounter procedure MD Joselyn Castillo Work Phone: [facility] Work Phone: Start: 07-07-2022 End: 07-08-2022 ambulatory AKILAH R AILIN Facility:[facility] Start: 07-07-2022 End: 07-07-2022 ambulatory AKILAH R AILIN Facility:[facility] Start: 07-07-2022 End: 07-07-2022 Patient encounter procedure Akilah Quintero DO Work Phone: Neurology Comment on above: Cognitive impairment , mild, so stated (Primary Dx) Start: 02-02-2022 End: 02-02-2022 ambulatory Joselyn Castillo Facility:[facility] Procedures Date Procedure Procedure Detail Performing Clinician Start: 10-08-2022 MRI 3D POST PROCESSING Jair Howell DO Work Phone: Start: 10-08-2022 Mri brain brain stem w/o contrast material Akilah Quintero DO Work Phone: Start: 08-30-2022 Bilateral mammography Kashif Castillo Work Phone: Plan of Treatment Date Care Activity Detail Author Start: 04-21-2023 Influenza vaccination INFLUENZ A (Season Ended) [facility] Start: 08-21-2022 ADVANCE DIRECTIVE DISCUSSION ADVANCE DIRECTIVE DISCUSSION [facility] Start: 08-21-2022 DEPRESSION ASSESSMENT DEPRESSION ASS ESSMENT [facility] Start: 07-07-2022 End: 09-06-2022 VITAMIN B1 (THIAMINE), WHOLE BLOOD VITAMIN B1 (THIAMINE), WHOLE BLOOD Lab Routine Cognitive impairment, mild, so stated Expected: 07/07/2022, Expires: 09/06/2022 [facility] Work Phone: Comment on above: Expected: 07/07/2022 , Expires: 09/06/2022 Start: 04-21-2022 Influenza vaccination INFLUENZA (#1) [facility] Start: 08-21-2021 ADVANCE DIRECTIVE DISCUSSION ADVANCE DIRECTIVE DISCUSSION [facility] Start: 08-21-2021 DEPRESSION ASSESSMENT DEPRESSION ASS ESSMENT [facility] Start: 11-25-2020 COVID-19 VACCINE (3 - Booster for Pfizer series) COVID-19 VACCINE (3 - Booster for Pfizer series) [facility] Start: 2001 BONE DENSITY BONE DENSITY [facility] Start: 2001 PNEUMOCOCCAL: 65+ (1 - PCV) PNEUMOCOCCAL: 65+ (1 - PCV) [facility] Start: 1986 SHINGRIX VACCINE (1 of 2) SHINGRIX VACCINE (1 of 2) [facility] Start: 1981 DIABETES SCREEN DIABETES SCREEN [facility] Start: 1955 Urine microalbumin profile DTAP,TDAP,TD (1 - Tdap) [facility] End: 08-06-2023 Mri brain brain stem w/o contrast material MRI BRAIN WO IVCON Radiology Routine Cognitive impairment, mild, so stated 1 Occurrences starting 07/07/2022 until 08/06/2023 [facility] Work Phone: Comment on above: 1 Occurrences starti ng 07/07/2022 until 08/06/2023 [facility] Payers Date Payer Category Payer Self-pay [id number] 2015 Private Health Insurance HUMANA HUMANA MEDICARE SUPPLEMENT [id number] 2015-Present [phone] [address] [address] [place] [address] Indemnity [id number] 2001 Medicare [id number] 1959 Medicare [id number] 1959 Medicare [id number] 1936 Unknown [id number] 1936 Unknown [id number] Unknown [id number] Unknown [id number] Social History Date Type Detail Facility Start: 07-07-2022 Tobacco smoking stat [facility] Never smoked tobacco [facility] Start: 07-07-2022 Tobacco use and exposure Smokeless tobacco non-user [facility] Start: 07-07-2022 End: 09-01-2022 Alcohol intake Current drinker of alcohol (finding) [facility] Start: 08-18-2016 Alcohol Comment socially [facility] Start: 1935 Sex Assigned At Not on file C [facility] Start: 06-27-2022 End: 07-07-2022 Exposure to SARS-CoV-2 (event) Not sure [facility] Start: 1935 Sex Assigned At Female F [facility] Medical Equipment Procedure Code Equipment Code Equipment Origin al Text Equipment Identifier Dates Discectomy, lumbar COFLEX SIZE [address] art: 02-09-2018 Discectomy, lumbar COFLEX SIZE [address] art: 02-09-2018 Clinical Notes 07-07-2022 to 01-23-2023 Nanette Patton, PhD - 01/23/2023 12:22 PM EDTTelephone Encounter - Alice Jamil RN - 01/23/2023 9:58 AM Paola Lange, clinical project assistant - 10/08/2022 3:00 PM William Drew MD - 09/01/2022 11:46 PM EST Note Date & Type Note Facility 01-23-2023 Note HNO ID: [id number] Author: Nanette Patton, PhD Service: ? Author [...] of a multidisciplinary evaluation conducted in the [facility]. The assessment consisted of a brief [...] p (more content not included)... [facility] 01-23-2023 History of Present illness [...] of a multidisciplinary evaluation conducted in the [facility]. The assessment consisted of a brief [...] per week. Contact: Local: ; Toll free: [phone] or [email or web address]/plant city Do not require an Alzheimer's diagnosis to contact them Family Caregiver [place] (web site: Caregiver.org) HENRIK Loreta-- a secure online solution for quality information, support, and resources for family caregivers. Contact: Toll-free number: [phone] In home resource- [email or web address]/[email or web address] ex.aspx -Recommended connecting with the local Agency on Aging for benefits screening, including for the Engage program, which can provide funding for home health aide services. Contact information: . Alternate number: [phone] [facility] ([email or web address].Property Place/local/ kovuosz-uxzcpui-drkc-edpemd-gc-jz rph-ekerrrduq-brlx-keugeu-hj-rfgs g-oh) - Home Health Agencies who can provide supportive services to both patient and caregiver. These services may include companionship and assistance with activities of daily living, such as meals, bathing, and dressing. They may also provide assistance with pharmacy helper and transportation. Many agencies have caregivers that have training specifically for the care of a person with dementia. [facility] care: [phone] Visiting Nurse Association: [phone] Home Instead: [phone] [facility]: [phone] [facility] Home Care: [phone] This report is meant to be considered [...] = 2 hours Neuropsychological test administration/scoring by airborne operations manager = 1 hour, 55 minutes documented in this encounter [facility] 01-23-2023 Miscellaneous Notes This encounter was opened in error. documented in this encounter [facility] 10-08-2022 Note HNO ID: [id number] Author: SALVADOR Raza Service: ? Author Type: [...] October 08, 2022 3:28 PM [facility] 10-08-2022 History of Present illness [...] 2022 3:28 PM documented in this encounter [facility] 09-05-2022 Miscellaneous Notes Scheduling spoke with [...] appreciative of call. Erin is in the [facility] oncology office today for a follow up. 07/07/[address] Quintero who ordered MRI brain and neuropsych testing but Erin said these tests were never scheduled. Follow up is to be arrange after the above testing. Erin would like the MRI brain done locally at [facility]. She is wondering if she should have the neuropsych testing done locally or if [facility] is preferred. She and her cousin, Anderson Palafox, are here today and seem to have some confusion about the expected appointments. Will you please reach out to Erin arrange the testing and follow up as ordered. Enrrique De Santiago LPN documented in this encounter [facility] 09-02-2022 Note HNO ID: [id number] Author: Say Drew MD Service: ? Author Type: Physician Type: Progress Notes Filed: 09/14/2022 5:05 AM Note Text: Radiation Oncology - Follow Up Note PATIENT NAME: Erin Tejada PATIENT DIAGNOSIS/PATIENT IDENTIFICATION: Ms. 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 This document has been created with the use of voice recognition technology. It may contain inaccuracies, misspellings, inaccurate syntax or inappropriate word context that are a result of the inadequacies/shortcomings of said technology/software. [facility] 09-01-2022 History of Present illness Narrative Radiation Oncology - Follow Up Note PATIENT NAME: Erin Tejada PATIENT Signed by: Say Drew MD I spent a total of 20 minutes on the date of the service which included preparing to see the patient, ryvj-jq-xkun patient care, and counseling and educating the patient/family/caregiver. This document has been created with the use of voice recognition technology. It may contain inaccuracies, misspellings, inaccurate syntax or inappropriate word context that are a result of the inadequacies/shortcomings of said technology/software. documented in this encounter [facility] 07-07-2022 Note HNO ID: [id number] Author: Akilah Quintero, DO Service: ? Author Type: Physician Type: Progress Notes Filed: 07/10/2022 3:40 PM Note Text: [facility] New Patient Evaluation Consulting Provider: LUIS SERVIN [address] [place] [address] Individuals who were included in, or assisted with the encounter were: Erin Tejada Akilah Quintero DO Chief Complaint/Issues: Erin Tejada is a 87 year old female seen in the [facility] for: Memory changes HPI: Ms. Tejada is an 87 year old woman PMHx HTN, remote breast CA presenting with memory concerns. She is accompanied by her cousin. She tells me that another cousin thought she had memory issues when she went to visit her in [place] for three weeks last year. She does [...] denies tremors. 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 Nobody complains about her [...] with normal cognition, memory, speech and affect. [place] Cognitive Assessment (MoCA) MoCA Total Score: 18 [...] which included preparing to see the patient, hfwv-vc-ggql patient care, completing clinical documentation, obtaining and/or reviewing separately obtained history, performing a medically appropriate examination, counseling and educating the patient/family/ (more content not included)... [facility] 07-07-2022 Instructions Akilah Quintero DO - 07/07/2022 3:29 PM EST Please get memory labs, brain MRI, neuropsychological testing (formal memory testing). Follow-up after neuropsych testing to go over results. documented in this encounter [facility] 07-07-2022 History of Present illness Narrative Images from the original note were not included. [facility] General Neurology New Patient Evaluation Consulting Provider: LUIS SERVIN [place] [address] Individuals who were included in, or assisted with the encounter were: Erin Tejada Akilah Quintero DO Chief Complaint/Issues: Erin Tejada is a 87 year old female seen in the [facility] for: Memory changes HPI: Ms. Tejada is an 87 year old woman PMHx HTN, remote breast CA presenting with memory concerns. She is accompanied by her cousin. She tells me that another cousin thought she had memory issues when she went to visit her in [place] for three weeks last year. She does [...] denies tremors. 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 Nobody complains about her [...] which included preparing to see the patient, leru-na-cibd patient care, completing clinical documentation, obtaining and/or reviewing separately obtained history, performing a medically appropriate examination, counseling and educating the patient/family/caregiver, and ordering medications, tests, or procedures. Akilah Quintero DO documented in this encounter [facility] Evaluation note Diagnosis Cognitive impairment, mild, so stated- Primary Mild cognitive impairment, so stated [facility] Work Phone: Evaluation note* Diagnosis History of breast cancer- Primary Personal history of malignant neoplasm of breast documented [facility] this encounter [facility]* Diagnosis Cognitive impairment, mild, so stated- Primary Mild cognitive impairment, so stated [facility] Diagnosis Cognitive impairment, mild, so stated Mild cognitive impairment, so stated [facility]* Diagnosis OPENED IN ERROR- Primary To allow closing an encounter opened in error (used in SmartSet) [facility] Diagnosis Dementia without behavioral disturbance, psychotic disturbance, mood disturbance, or anxiety, unspecified dementia severity, unspecified dementia type (HCC)- Primary documented in this encounter [facility] Summary Purpose Family History No Family History Records Found Relationship Condition Age at Onset Recorded Date/T eladia father Dementia Unknown Advance Directives No Advanced Directives Records FoundDocuments on File Type Date Recorded 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 Advance Directive(s) 07/26/2012 2:28 PM Advance Directive Response Recorded Date/ Time Advance Directives No June 16, 2017 8:37am Documents on File Type Date Recorded 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 Advance Directive(s) 07/26/2012 2:28 PM Reason for Referral Specialty Diagnoses / Procedures Referred By Contac t Referred To Contact Diagnoses Cognitive impairment, mild, so stated Procedures NEUROPSYCHOLOGICAL TESTING CONSULT Akilah Quintero DO [address] [place] [address] Referral ID Status Reason Start Date Expiration Date Visits Requested Visits Authorized [id number] Ref Not Required PCP Requested Referral 2 10/05/2022 1 1 Specialty Diagnoses / Procedures Referred By Contac t Referred To Contact MR IMAGING Diagnoses Cognitive impairment, mild, so stated Procedures MRI BRAIN WO IVCON MRI BRAIN BRAIN STEM W/O CONTRAST MATERIAL Akilah Quintero DO [address] [place] [id number] Mr Imaging Referral ID Status Reason Start Date Expiration Date Visits Requested Visits Authorized [id number] Pending Review Auto-Generat ed Referral 08/06/2023 1 1 Specialty Diagnoses / Procedures Referred By Contac t Referred To Contact MR IMAGING Diagnoses Cognitive impairment, mild, so stated Procedures MRI 3D POST PROCESSING 3D RENDERING W/INTERP&POSTPROC DIFF WORK STATION Caio Holloway MD, [address] [place] [id number] Mr Imaging Referral ID Status Reason Start Date Expiration Date Visits Requested Visits Authorized [id number] Pending Review Auto-Generat ed Referral 10/08/2022 11/07/2023 1 1 Specialty Diagnoses / Procedures Referred By Contac t Referred To Contact MR IMAGING Diagnoses Cognitive impairment, mild, so stated Procedures MRI BRAIN WO IVCON MRI BRAIN BRAIN STEM W/O CONTRAST MATERIAL Akilah Quintero, [address] [place] [address] Mr Imaging Referral ID Status Reason Start Date Expiration Date V isits Requested Visits Authorized [id number] Closed Auto-Generate d Referral 07/07/2022 08/06/2023 1 1 Chief Complaint and Reason for Visit Chief Complaint hx of breast cancer Additional Source Comments INFORMATION SOURCE (unrecogn ized section and content) DATE CREATED AUTHOR 11/15/[address] [facility] DATE CREATED AUTHOR AUTHOR'S ORGANIZ ATION 07/10/2022 [facility] DATE CREATED AUTHOR AUTHOR'S ORGANIZ ATION 09/07/2022 [facility] DATE CREATED AUTHOR AUTHOR'S ORGANIZ ATION 01/05/2023 [facility] DATE CREATED AUTHOR AUTHOR'S ORGANIZ ATION 08/31/2023 [facility] Source Comments (unrecognize d section and content) In the event this informatio n is protected by the Federal Confidentiality of Alcohol and Drug Abuse Patient Records regulations: The Federal rules restrict any use of the information to criminally investigate or prosecute any alcohol or drug abuse patient.[facility] the event this information is protected by the Federal Confidentiality of Alcohol and Drug Abuse Patient Records regulations: The Federal rules restrict any use of the information to criminally investigate or prosecute any alcohol or drug abuse patient.[facility] the event this information is protected by the Federal Confidentiality of Alcohol and Drug Abuse Patient Records regulations: The Federal rules restrict any use of the information to criminally investigate or prosecute any alcohol or drug abuse patient.[facility] the event this information is protected by the Federal Confidentiality of Alcohol and Drug Abuse Patient Records regulations: The Federal rules restrict any use of the information to criminally investigate or prosecute any alcohol or drug abuse patient.[facility] the event this information is protected by the Federal Confidentiality of Alcohol and Drug Abuse Patient Records regulations: The Federal rules restrict any use of the information to criminally investigate or prosecute any alcohol or drug abuse patient.[facility] the event this information is protected by the Federal Confidentiality of Alcohol and Drug Abuse Patient Records regulations: The Federal rules restrict any use of the information to criminally investigate or prosecute any alcohol or drug abuse patient.[facility] the event this information is protected by the Federal Confidentiality of Alcohol and Drug Abuse Patient Records regulations: The Federal rules restrict any use of the information to criminally investigate or prosecute any alcohol or drug abuse patient.[facility] Reason for Visit (unrecogniz ed section and content) Reason Comments New Patient Rule out [facility] , Discu ss symptoms Reason Comments Patient Question Appointment Reason Comments Breast Cancer Specialty Diagnoses / Procedures Referred By Contac t Referred To Contact MR IMAGING Diagnoses Cognitive impairment, mild, so stated Procedures MRI BRAIN WO IVCON MRI BRAIN BRAIN STEM W/O CONTRAST MATERIAL Akilah Quintero DO [address] [place] [id number] Mr Imaging Referral ID Status Reason Start Date Expiration Date V isits Requested Visits Authorized [id number] Closed Auto-Generate d Referral 07/07/2022 08/06/2023 1 1 Reason Onset Date Comments Opened In Error 01/23/2023 Specialty Diagnoses / Procedures Referred By Contact Referred To Contact Psychology / NEUROPSYCHOLOGY Diagnoses Cognitive impairment, mild, so stated [G31.84] Procedures DIRECTOR TRANSITION [place] [address] [address] [place] [id number] Nanette Patton, PhD [address] [place] [id number] Referral ID Status Reason Start Date Expiration Date V isits Requested Visits Authorized [id number] Pending Review 01/17/2023 04/17/2023 1 1 Care Teams (unrecognized sec tion and content) Automatic Serging Machine Operator Relationship Specialty Start Date End Date Joselyn Castillo MD [address] [place] [address] PCP - General Family Medicine 08/01/18 Luis Servin [address] [place] [address] Referring Family Medicine 05/31/22 Team Status: Inactive Member Role Status Dates Joselyn Castillo MD Primary Care Provider Active Say Drew MD Attending Provider Active Team Status: Active Member Role Status Dates Joselyn Castillo MD Primary Care Provider Active Automatic Serging Machine Operator Relationship Specialty Start Date End Date Joselyn Castillo MD [address] [facility] [place] [phone] PCP - General Family Medicine 08/01/[address] [place] [phone] Referring Family Medicine 05/31/22 Automatic Serging Machine Operator Relationship Specialty Start Date End Date Joselyn Castillo MD [address] [facility] [place] [phone] PCP - General Family Medicine 08/01/[address] [place] [address] Referring Family Medicine 05/31/22 Automatic Serging Machine Operator Relationship Specialty Start Date End Date Joselyn Castillo MD [address] [facility] [place] [address] PCP - General Family Medicine 08/01/[address] [place] [phone] Referring Family Medicine 05/31/22 Automatic Serging Machine Operator Relationship Specialty Start Date End Date Joselyn Castillo MD [address] [facility] [place] [phone] PCP - General Family Medicine 08/01/[address] [place] [phone] Referring Family Medicine 05/31/22 Automatic Serging Machine Operator Relationship Specialty Start Date End Date Joselyn Castillo MD [address] [facility] [place] [address] PCP - General Family Medicine 08/01/[address] [place] [address] Referring Family Medicine 05/31/22 [employer] Machine [employer] Relationship Specialty Start Date End Date Joselyn Castillo MD [address] [place] [address] PCP - General Family Medicine 08/01/18 Luis Servin [address] [place] [address] Referring Family [facility] 05/31/22 Goals (unrecognized section and content) Goals [...] BE BASED ON THE PRIMARY CLINICAL RECORDS. [facility] [employer] [facility]. provides no warranty or guarantee of the accuracy or completeness of information in this document.
[2024-05-02 12:27] LABS: Anion Gap 8.2; BUN Creatinine Ratio 20.1; Calcium 8.9 mg/dL (8.5-10.1); Carbon Dioxide 30.5 mmol/L (21.0-32.0); Chloride 102 mmol/L (98-107); Estimated GFR (African America 45 (>=60); Estimated GFR (Non-African Ame 37 (>=60); Glucose 195 mg/dL (74-106); Potassium 4.7 mmol/L (3.5-5.1); Sodium 136 mmol/L (136-145)
[2024-05-02 13:59] LABS: Bilirubin Urine NEGATIVE (NEGATIVE); Blood Urine NEGATIVE (NEGATIVE); Clarity Urine CLEAR (CLEAR); Color Urine YELLOW (YELLOW); Glucose Urine UA NEGATIVE (NEGATIVE); Ketones Urine NEGATIVE (NEGATIVE); Leukocyte Esterase Urine SMALL (NEGATIVE); Nitrite Urine NEGATIVE (NEGATIVE); Protein Urine NEGATIVE (NEG/TRACE); Specific Gravity Urine 1.025 (1.005-1.025); Urobilinogen Urine 0.2 EU/dL (0.2-1.0)
[2024-05-02 14:09] LABS: Bacteria Urine SMALL #/HPF (NONE SEEN); Mucus Urine SMALL (NONE SEEN); RBC Urine NONE SEEN #/HPF (0-2)
[2024-05-02 14:10] LABS: Cast Seen? SEEN #/LPF (NONE SEEN); Hyaline Casts Urine MANY; Squamous Epithelial Cell Urine FEW #/LPF (NONE/RARE); Urine Culture Indicated YES
== END 2024-05-02 15:01 | disposition home or self-care (01) ==
PROVIDERS: Emergency Provider Emergency Medicine; PCP Family Medicine
DX: N39.0 Urinary tract infection, site not specified (principal); F03.90 Unspecified dementia, unspecified severity, without behavioral disturbance, psychotic disturbance, mood disturbance, and anxiety
CPT/HCPCS: 36415; 70450; 71045; 80048; 81001; 85025; 87086; 93005; 99285

== ENCOUNTER 2024-05-25 18:19 | Observation (INO) | payer MEDICARE, OTHER, SELFPAY ==
[2024-05-25] VITALS (38 sets, daily range): BP systolic 122–165; BP diastolic 49–117; PULSE 59–79; O2SAT 99–100; BMI 21.3
--- NOTE | 2024-05-25 18:23 | ED_ITS ---
HPI - Syncope General Chief Complaint: Syncope Stated Complaint: SYNCOPE Time Seen by Provider: 05/25/24 18:22 History of Present Illness HPI narrative: 88-year-old female presents to the emergency department for syncopal or presyncopal episode. She was standing and a friend caught her before she fell. She did not injure herself in any way and she does not have a headache or any physical complaints. Paramedics reported that she was by herself and has had declining health and friends thought that she was having a hard time taking care of herself. Related Data Home Medications ?Medication ?Instructions ?Recorded ?Confirmed carvedilol 6.25 mg tablet 6.25 mg PO BID 10/12/23 01/14/24 memantine 10 mg tablet 10 mg PO BID 10/12/23 01/14/24 sertraline 25 mg tablet 25 mg PO DAILY 12/31/23 01/14/24 Previous Rx's ?Medication ?Instructions ?Recorded cephalexin 500 mg capsule 500 mg PO TID 7 days #21 caps 05/02/24 Allergies Allergy/AdvReac Type Severity Reaction Status Date / Time No Known Drug Allergies Allergy Verified 10/22/23 14:17 Review of Systems ROS Narrative A ten point review of systems is negative except as noted above. 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 ?F03.90 - Unspecified dementia, unspecified severity, without behavioral disturbance, psychotic disturbance, mood disturbance, and anxiety (ICD-10) Hypertension ?I10 - Essential (primary) hypertension (ICD-10) Dementia ?F03.90 - Unspecified dementia, unspecified severity, without behavioral disturbance, psychotic disturbance, mood disturbance, and anxiety (ICD-10) Cognitive impairment ?R41.89 - Other symptoms and signs involving cognitive functions and awareness (ICD-10) Breast cancer ?C50.919 - Malignant neoplasm of unspecified site of unspecified female breast (ICD-10) Dementia ?F03.90 - Unspecified dementia, unspecified severity, without behavioral disturbance, psychotic disturbance, mood disturbance, and anxiety (ICD-10) Surgical History (Updated 12/31/23 @ 13:43 by Annette Richardson) H/O lumpectomy ?Z98.890 - Other specified postprocedural states (ICD-10) Hx of appendectomy ?Z90.49 - Acquired absence of other specified parts of digestive tract (ICD- 10) Family History (Updated 12/31/23 @ 13:45 by Annette Richardson) Aunt Family history of stroke Social History (Updated 12/31/23 @ 13:46 by Annette Richardson) Within the past year, how often did you have a drink containing alcohol: monthly or less Within the past year, how often did you have six or more drinks on one occasion: never Smoking status: Never smoker Non-prescribed substance use: denies use Previous occupational history: retired Highest level of school completed/degree received: high school graduate In a typical week, how many times do you talk on the telephone with family, friends, or neighbors: twice per week How often do you get together with friends or relatives: twice per week How often do you attend anglican or confucianism services: never Do you belong to any clubs or organizations such as anglican groups unions, [employer] or athletic groups, or school groups: no Little interest or pleasure in doing things: not at all Feeling down, depressed, or hopeless: not at all Feel stressed/tense/nervous/anxious/difficulty sleeping: not at all Exam Narrative Exam Narrative: Nurses note and vital signs reviewed and patient is not hypoxic. General: The patient appears well and in no apparent distress. Patient is resting comfortably on cart. Skin: Warm, dry, no pallor noted. There is no rash noted. Head: Normocephalic, atraumatic Eye: Normal conjunctiva, no drainage Ears, Nose, Mouth, and Throat: oral mucosa is moist. Nares patent. Cardiovascular: Regular Rate and Rhythm Respiratory: Patient is in no distress, no accessory muscle use, lungs are clear to auscultation, no wheezing, rales or rhonchi Back: non-tender GI: Soft and nontender Musculoskeletal: The patient has no evidence of calf tenderness, no pitting edema, symmetrical pulses noted bilaterally Neurological: Awake and alert. She is oriented to self. She did not know what year it is. She told me that she is in the basement of the hospital [place]. Psychiatric: Cooperative Constitutional Vital Signs, click to edit/add: Last Vital Signs Pulse 66 05/25/24 18:21 Resp 17 05/25/24 18:21 BP 122/88 05/25/24 18:21 Pulse Ox 100 05/25/24 18:21 O2 Del Method Room Air 05/25/24 18:21 Course Vital Signs Vital signs: Vital Signs Pulse Rate 66 05/25/24 18:21 Respiratory Rate 17 05/25/24 18:21 Blood Pressure 122/88 05/25/24 18:21 Pulse Oximetry 100 05/25/24 18:21 Oxygen Delivery Method Room Air 05/25/24 18:21 Pulse Rate 66 05/25/24 18:21 Respiratory Rate 17 05/25/24 18:21 Blood Pressure 122/88 05/25/24 18:21 Pulse Oximetry 100 05/25/24 18:21 Oxygen Delivery Method Room Air 05/25/24 18:21 MDM - Syncope MDM Narrative Medical decision making narrative: Tests are ordered and the patient is signed out to Dr. Chiang at change of shift. Differential Diagnosis Differential diagnosis: Likely syncope due to orthostatic hypotension, vasovagal syncope and dehydration Discharge Plan Discharge Patient Disposition: Still a Patient
--- NOTE | 2024-05-25 18:23 | XR_ITS ---
The [address] [address] Patient Name: BERNARD PACHECO MRN: [id number] date: 1935 Sex: F Assigned Patient Location: ED.MAIN Current Patient Location: ER Accession/Order Number: [id number] Exam Date: 05/25/2024 19:05 Report Date: 05/25/2024 19:30 At the request of: SHIRLEY GASTON Procedure: XR chest 1V EXAM: XR chest 1V at 1859 hours HISTORY: Syncope COMPARISON: 05/02/2024 TECHNIQUE: AP upright portable chest x-ray FINDINGS: The heart is not enlarged and the vasculature is not distended. No acute infiltrate, effusion or pneumothorax is identified. The osseous structures are grossly intact. XR/XR chest 1V IMPRESSION: No acute infiltrate or evidence of cardiac decompensation. The overall appearance of the chest is essentially unchanged. Electronically authenticated by: JELANI CUENCA Date: 05/25/2024 19:30
--- NOTE | 2024-05-25 18:23 | ECG_ITS ---
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
--- OUTSIDE RECORDS SUMMARY | 2024-05-25 18:27 | XMS_ITS | CCD ---
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 Name Role Phone AKILAH QUINTERO Attending Unavailable JOSELYN CASTILLO Primary Care Unavailable AKILAH QUINTERO Referring Unavailable JOSELYN CASTILLO Primary Care Unavailable Joselyn Castillo MD Primary Care Provider [phone] Luis Servin Unavailable MD Joselyn Castillo Primary Care Provider [phone] MD Say Drew Attending Provider [phone] Joselyn Castillo Primary Care Unavailable Jorge [...] adverse reactions to drug (disorder) 7 [facility] Repository (12 sources) Aspirin; Translations: [ASPIRIN] Drug Allergy 4 [facility] Repository (11 sources) Codeine; Translations: [CODEINE] Drug Allergy 4 Other: See Comments [facility] (9 sources) NSAIDs; Translations: [NSAIDS (NON-STEROIDAL ANTI-INFLAMMATOR Y DRUG)] Propensity to adverse reactions to drug (disorder) 7 [facility] Repository (9 sources) Sulfonamides (Antibiotic); Translations: [SULFA (SULFONAMIDE ANTIBIOTICS)] Propensity to adverse reactions to drug (disorder) 4 Unknown [facility] Repository Medications Current Medications Medication [...] hydrochloride 10 mg oral tablet (7 sources) X-bqyrnl-T-asparta 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 Start: 06-17-2022 take 1 [...] 12-15-2022 Episodic Other aftercare (1 source) Other roasterman (current) drug therapy; Translations: [OTH PENITENTIARY CURRENT [...] Test Name Value Interpretation Reference Range Facility [facility] 08-30-2023 [facility] Tele[facility] (RADTSA) -------- ERIN TEJADA ([id number]) 1935 F Date Time Provider Department 08/30/23 SAY DREW During your visit today, we recorded the following information about you: Enrrique De Santiago LPN 08/30/2023 10:[address] Drew please sign pended yris order due Aug 2024. Desirae: Will you please call and schedule yris at [facility] [place] Aug 2024? Follow up was scheduled [...] Primary Visit Diagnosis:History of breast cancer [Z85.3] Order(s):[facility] DI[facility] B[facility]AL [[id number]] Order #: [id number] FUTURE Prescriptions as of 08/30/2023 - hydroCHLOROthiazide [...] ENRRIQUE DE SANTIAGO on 08/30/23 [facility] CNOVon 01-17-2023 CNOV Office Visit (NPTU10 ) -------- ERIN TEJADA ([id number]) 1935 F Date Time Provider Department 01/17/23 [...] of a multidisciplinary evaluation conducted in the [facility]. The assessment consisted of a brief [...] microvascular change. Age related white matter changes ([facility]) rating: White matter lesions: 3 Basal [...] (more content not included)... Normal [facility] CBC AUTO DIFFon 12-12-2022 BASO # 0.0 103/ul Normal 0.0-0.1 [facility] Comment on above: Performed By: #### C BC #### [facility] [address] [address] [address] Vonda Ocampo Basophils/100 WBC (Bld) 0.8 % Normal 0.2-2.0 [facility] Comment on above: Performed By: #### C BC #### [facility] [address] [place] [address] Dr. Vonda Ocampo EO # 0.1 103/ul Normal 0.0-0.7 [facility] Comment on above: Performed By: #### C BC #### [facility] [address] [place] [address] Dr. Vonda Ocampo Eosinophils/100 WBC (Bld) 1.8 % Normal 0.9-7.0 [facility] Comment on above: Performed By: #### C BC #### [facility] [address] [place] [address] Dr. Vonda Ocampo Erythrocyte distribution width (RBC) [Ratio] 13.2 % Normal 11.0-15.0 [facility] Comment on above: Performed By: #### C BC #### [facility] [address] [place] [address] Dr. Vonda Ocampo Hematocrit (Bld) [Volume fraction] 46.4 % Normal 36.0-48.0 [facility] Comment on above: Performed By: #### C BC #### [facility] [address] [place] [address] Dr. Vonda Ocampo Hemoglobin (Bld) [Mass/Vol] 14.7 g/dL Normal 12.0-16.0 [facility] Comment on above: Performed By: #### C BC #### [facility] [address] [place] [address] Dr. Vonda Ocampo IG # 0.01 10e3/ul Normal 0.00-0.03 [facility] Comment on above: Performed By: #### C BC #### [facility] [address] [place] [address] Dr. Vonda Ocampo IG % 0.2 % Normal 0.0-0.5 [facility] Comment on above: Performed By: #### C BC #### [facility] [address] [place] [address] Dr. Vonda Ocampo LYMPH # 1.0 103/ul Critically low 1.2-3.8 [facility] Comment on above: Performed By: #### C BC #### [facility] [address] [address] [address] Vonda Ocampo Lymphocytes/100 WBC (Bld) 19.2 % Critically low 20.5-60.0 [facility] Comment on above: Performed By: #### C BC #### [facility] [address] [place] [address] Dr. Vonda Ocampo MANUAL DIFF REQ NO Normal [facility] Comment on above: Performed By: #### C BC #### [facility] [address] [place] [address] Dr. Vonda Ocampo MCH (RBC) [Entitic mass] 30.4 pg Normal 26.7-34.0 [facility] Comment on above: Performed By: #### C BC #### [facility] [address] [place] [address] Dr. Vonda Ocampo MCHC (RBC) [Mass/Vol] 31.7 g/dL Normal 29.9-35.2 [facility] Comment on above: Performed By: #### C BC #### [facility] [address] [place] [address] Dr. Vonda Ocampo MCV (RBC) [Entitic vol] 96.1 fL Normal 81.0-99.0 [facility] Comment on above: Performed By: #### C BC #### [facility] [address] [place] [address] Dr. Vonda Ocampo MONO # 0.4 103/ul Normal 0.3-0.8 [facility] Comment on above: Performed By: #### C BC #### [facility] [address] [place] [address] Dr. Vonda Ocampo Monocytes/100 WBC (Bld) 7.7 % Normal 1.7-12.0 [facility] Comment on above: Performed By: #### C BC #### [facility] [address] [place] [address] Dr. Vonda Ocampo NEUT # 3.6 103/ul Normal 1.4-6.5 [facility] Comment on above: Performed By: #### C BC #### [facility] [address] [address] [address] Vonda Ocampo Neutrophils/100 WBC (Bld) 70.3 % Normal 43.0-75.0 [facility] Comment on above: Performed By: #### C BC #### [facility] [address] [address] [address] Vonda Ocampo Platelet mean volume (Bld) [Entitic vol] 10.1 fL Normal 9.5-13.5 [facility] Comment on above: Performed By: #### C BC #### [facility] [address] [address] [address] Vonda Ocampo PLT 162 103/ul Normal 150-450 [facility] Comment on above: Performed By: #### C BC #### [facility] [address] [place] [address] Dr. Vonda Ocampo RBC 4.83 106/ul Normal 4.20-5.40 [facility] Comment on above: Performed By: #### C BC #### [facility] [address] [place] [address] Dr. Vonda Ocampo WBC 5.1 103/ul Normal 4.0-11.0 [facility] Comment on above: Performed By: #### C BC #### [facility] [address] [place] [address] Dr. Vonda Ocampo FREE T3on 12-12-2022 FREE T3 2.70 pg/mlL Normal 2.18-3.98 [facility] Comment on above: Performed By: #### C MP, TSH, FT3, LIPID #### [facility] [address] [place] [address] Dr. Vonda Ocampo FREE T4on 12-12-2022 Free T4 [Mass/Vol] 1.01 ng/dL Normal 0.76-1.46 [facility] Comment on above: Performed By: #### F T4, B12FOL #### [facility] [address] [place] [address] Dr. Vonda Ocampo LIPID PROFILEon 12-12-2022 CHOL-HDL RATIO NORM SEE BELOW Normal [facility] Comment on above: Result Comment: 3.3 - 4.4 LOW RISK 4.4 - 7.1 AVERAGE RISK 7.1 - 11.0 MODERATE RISK >11.0 HIGH RISK Performed By: #### C MP, TSH, FT3, LIPID #### [facility] [address] [place] [address] Dr. Vonda Ocampo Cholesterol [Mass/Vol] 235 mg/dL Critically high <=200 [facility] Comment on above: Performed By: #### C MP, TSH, FT3, LIPID #### [facility] [address] [place] [address] Dr. Vonda Ocampo Cholesterol in HDL [Mass/Vol] 68 mg/dL Critically high 40-60 [facility] Comment on above: Performed By: #### C MP, TSH, FT3, LIPID #### [facility] [address] [place] [address] Dr. Vonda Ocampo Cholesterol in LDL [Mass/Vol] 144.4 mg/dL Normal [facility] Comment on above: Performed By: #### C MP, TSH, FT3, LIPID #### [facility] [address] [place] [address] Dr. Vonda Ocampo Cholesterol.total/ Cholesterol in HDL [Mass ratio] 3.5 {ratio} Normal [facility] Comment on above: Performed By: #### C MP, TSH, FT3, LIPID #### [facility] [address] [place] [address] Dr. Vonda Ocampo HDL NORMAL > or = 60 mg/dl - LO W CARDIOVASCULAR RISK <40 mg/dl - HIGH CARDIOVASCULAR RISK Normal [facility] Comment on above: Performed By: #### C MP, TSH, FT3, LIPID #### [facility] [address] [place] [address] Dr. Vonda Ocampo LDL CALC NORMAL SEE BELOW Normal [facility] Comment on above: Result Comment: <100 mg/dl OPTIMAL 100 - 129 mg/dl NEAR OR ABOVE OPTIMAL 130 - 159 mg/dl BORDERLINE HIGH 160 - 189 mg/dl HIGH >190 mg/dl VERY HIGH Performed By: #### C MP, TSH, FT3, LIPID #### [facility] [address] [place], [place] [id number] Dr. Vonda Ocampo Triglyceride [Mass/Vol] 113 mg/dL Normal <=150 [facility] Comment on above: Performed By: #### C MP, TSH, FT3, LIPID #### [facility] [address] [place] [address] Dr. Vonda Ocampo VLDL CALC 22.6 mg/dL Normal [facility] Comment on above: Performed By: #### C MP, TSH, FT3, LIPID #### [facility] [address] [address] [address] Vonda Ocampo PROF 14(COMP METB)on 023 Albumin [Mass/Vol] 3.7 g/dL Normal 3.4-5.0 [facility] Comment on above: Performed By: #### C MP, TSH, FT3, LIPID #### [facility] [address] [place] [address] Dr. Vonda Ocampo Albumin/Globulin [Mass ratio] 0.9 {ratio} Normal [facility] Comment on above: Performed By: #### C MP, TSH, FT3, LIPID #### [facility] [address] [place] [address] Dr. Vonda Ocampo ALP [Catalytic activity/Vol] 125 U/L Critically high 46-116 [facility] Comment on above: Performed By: #### C MP, TSH, FT3, LIPID #### [facility] [address] [place] [address] Dr. Vonda Ocampo ALT [Catalytic activity/Vol] 20 U/L Normal 14-59 [facility] Comment on above: Performed By: #### C MP, TSH, FT3, LIPID #### [facility] [address] [address] [address] Vonda Ocampo Anion gap [Moles/Vol] 12.2 mmol/L Normal [facility] Comment on above: Performed By: #### C MP, TSH, FT3, LIPID #### [facility] [address] [place] [address] Dr. Vonda Ocampo AST [Catalytic activity/Vol] 20 U/L Normal 15-37 [facility] Comment on above: Performed By: #### C MP, TSH, FT3, LIPID #### [facility] [address] [address] [address] Vonda Ocampo Bilirubin [Mass/Vol] 0.7 mg/dL Normal 0.2-1.0 [facility] Comment on above: Performed By: #### C MP, TSH, FT3, LIPID #### [facility] [address] [place] [address] Dr. Vonda Ocampo Calcium [Mass/Vol] 9.8 mg/dL Normal 8.5-10.1 [facility] Comment on above: Performed By: #### C MP, TSH, FT3, LIPID #### [facility] [address] [place] [address] Dr. Vonda Ocampo Chloride [Moles/Vol] 104 mmol/L Normal 98-107 [facility] Comment on above: Performed By: #### C MP, TSH, FT3, LIPID #### [facility] [address] [place] [address] Dr. Vonda Ocampo CO2 [Moles/Vol] 31.0 mmol/L Normal 21.0-32.0 [facility] Comment on above: Performed By: #### C MP, TSH, FT3, LIPID #### [facility] [address] [place] [address] Dr. Vonda Ocampo Creatinine [Mass/Vol] 0.94 mg/dL Normal 0.55-1.02 [facility] Comment on above: Performed By: #### C MP, TSH, FT3, LIPID #### [facility] [address] [place] [address] Dr. Vonda Ocampo EGFR-AF NIUEAN >60 Normal >=60 [facility] Comment on above: Performed By: #### C MP, TSH, FT3, LIPID #### [facility] [address] [place] [address] Dr. Vonda Ocampo EGFR-NON AF NIUEAN 56 mL/min/1.73m2 Critically low >=60 [facility] Comment on above: Performed By: #### C MP, TSH, FT3, LIPID #### [facility] [address] [place] [address] Dr. Vonda Ocampo Globulin (S) [Mass/Vol] 4.3 g/dL Normal [facility] Comment on above: Performed By: #### C MP, TSH, FT3, LIPID #### [facility] [address] [place] [address] Dr. Vonda Ocampo Glucose [Mass/Vol] 108 mg/dL Critically high 74-106 [facility] Comment on above: Performed By: #### C MP, TSH, FT3, LIPID #### [facility] [address] [place] [address] Dr. Vonda Ocampo Potassium [Moles/Vol] 4.2 mmol/L Normal 3.5-5.1 [facility] Comment on above: Performed By: #### C MP, TSH, FT3, LIPID #### [facility] [address] [place] [address] Dr. Vonda Ocampo Protein [Mass/Vol] 8.0 g/dL Normal 6.4-8.2 [facility] Comment on above: Performed By: #### C MP, TSH, FT3, LIPID #### [facility] [address] [place] [address] Dr. Vonda Ocampo Sodium [Moles/Vol] 143 mmol/L Normal 136-145 [facility] Comment on above: Performed By: #### C MP, TSH, FT3, LIPID #### [facility] [address] [place] [address] Dr. Vonda Ocampo Urea nitrogen [Mass/Vol] 21.0 mg/dL Critically high 7.0-18.0 [facility] Comment on above: Performed By: #### C MP, TSH, FT3, LIPID #### [facility] [address] [place] [address] Dr. Vonda Ocampo Urea nitrogen/Creatinin e [Mass ratio] 22.3 mg/mg Normal [facility] Comment on above: Performed By: #### C MP, TSH, FT3, LIPID #### [facility] [address] [place] [address] Dr. Vonda Ocampo TSHon 12-12-2022 TSH 1.479 uIU/mL Normal 0.358-3.740 [facility] Comment on above: Performed By: #### C MP, TSH, FT3, LIPID #### [facility] [address] [place], [place] [address] Dr. Vonda Ocampo VIT B12 AND FOLATEon 023 Cobalamin (Vitamin B12) [Mass/Vol] 384.0 pg/mL Normal 193.0-986.0 [facility] Comment on above: Performed By: #### F T4, B12FOL #### [facility] [address] [place], [place] [address] Dr. Vonda Ocampo FOLATE 23.10 ng/mL Normal 8.60-58.90 [facility] Comment on above: Performed By: #### F T4, B12FOL #### [facility] [address] [place], [place] [address] Dr. Vonda Ocampo MRI 3D POST PROCESSINGon MRI 3D POST PROCESSING * * *Final Report* * * DATE OF EXAM: Oct 08 2022 3:34PM [facility] 0280 - MRI 3D POST PROCESSING / [...] = Focal Lesions 2 = Beginning of [place] 3 = Diffuse Involvement of Entire Region [...] results from the analysis charts for details. Ent Surgeon: YARELIS Transcribe Date/Time: Oct 08 2022 3:47P Dictated by : ALEXI YARBROUGH MD This examination was interpreted and the report reviewed and electronically signed by: ALEXI YARBROUGH MD on Oct 08 2022 4:29PM EST [id number] Normal [facility] MRI BRAIN WO IVCONon 023 [...] dementia protocol and 3-D post-processing using the [employer] software at an independent workstation with concurrent [...] = Focal Lesions 2 = Beginning of [place] 3 = Diffuse Involvement of Entire Region [...] results from the analysis charts for details. 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 This document has been created with the use of voice recognition technology. It may contain inaccuracies, misspellings, inaccurate syntax or inappropriate word context that are a result of the inadequacies/shortcoming s of said technology/software. Referring Provider: SAY DREW [[id number]] Allergies As of Date: 09/01/2022 Noted Allergy [...] (more content not included)... Normal [facility] MM diagnostic mammo BI w/CAD on 08-30-2022 MM diagnostic mammo BI w/CAD [facility] [place] [address] Mammography Report Signed Patient: Erin Tejada MR#: [id number] : 1935 Acct:[id number] Age/Sex: 87 / F ADM Date: 08/30/22 Loc: [place] Room: Type: [facility] Attending Dr: Say Drew MD Copies to: [...] Maranda Portillo M.D.08/30/2022 2:31 PM Dictation Location: [facility] Transcribed By: AZIZA 08/30/22 143 Dictated By: Maranda Portillo MD 08/30/22 1426 Signed By: 08/30/22 1431 [facility] CNOVon 07-07-2022 CNOV Office Visit (PEDROFV ) -------- ERIN TEJADA ([id number]) 1935 F Date Time Provider Department 07/07/22 3:00 PM AKILAH QUINTERO During your visit today, we recorded the following information about you: Pulse Blood pressure Weight Height 86/minute 199/84 59.8 kg 1.632 m Akilah Quintero DO 07/10/2022 3:40 PM Signed [facility] for General Neurology New Patient Evaluation Consulting Provider: LUIS SERVIN [address] [id number] Individuals who were included in, or assisted with the encounter were: Erin Tejada Akilah Quintero DO Chief Complaint/Issues: Erin Tejada is a 87 year old female seen in the [facility] for General Neurology for: Memory changes HPI: Ms. Tejada is an 87 year old woman PMHx HTN, remote breast CA presenting with memory concerns. She is accompanied by her cousin. She tells me that another cousin thought she had memory issues when she went to visit her in [place] for three weeks last year. She does [...] tremors. 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 Nobody complains about her [...] with normal cognition, memory, speech and affect. [place] Cognitive Assessment (MoCA) MoCA Total Score: 18 [...] the service (more content not included)... Normal [facility] FOLATE SERUMon 07-07-2022 Folate [Mass/Vol] >4.7 ng/mL [facility] Folate SerPl-mCncon 07-07-20 22 Folate [Mass/Vol] ng/mL Normal >4.7 [facility] Comment on above: Order Comment: Speci belia Type: BLOOD SPECIMEN Ordering Facility: [facility] Address: [place] [address] Result Comment: A re sult of > 20 ng/mL is not necessarily indicative of a pathologic or treatable condition: it reflects a limitation of the test methodology. Assay reference range: 4.8 to 24.2 ng/mL. Suitable for detection of folate deficiency. Reference: Folate III (Folate III) [package insert V 1.0 American]. Michael Gauzy, [place], [place]: June 2015. Performed By: #### 2 132-9, 2284-8 #### [facility] CLIA [id number] [id number] [place] VITAMIN B12 BLOODon 07-07-20 22 Cobalamin (Vitamin B12) [Mass/Vol] 556 pg/mL 232 - 1,245 pg/mL [facility] Vit B12 [facility] Cobalamin (Vitamin B12) [Mass/Vol] 556 pg/mL Normal 232-1245 [facility] Comment on above: Order Comment: Mushtaq celaya Type: BLOOD SPECIMEN Ordering Facility: [facility] Address: [place] [address] Performed By: #### 2 132-9, 2284-8 #### [facility] CLIA [id number] [place] [address] [place] AUD - Otheron [...] was advised that I would speak with medical records manager regarding the situation and get back [...] restricted hearing right ear Jesusita Jay M.A., [facility] Chemical Preparer [facility] AUD - Otheron 06-08-2021 AUD - Other 06/07/2021 - Patient in today a week late for appointment. She had written appointment down on wrong day. Patient needed help putting right hearing aid in ear. Patient brought 2 left hearing aids and had been trying to put one of them in her right ear. The hearing aid was [employer] brand, not one she recently purchased here. Patient stated she had other hearing aids at home. Advised patient to reschedule and bring in all of the devices she has at home and we will figure out which devices are the newer ones that she should be wearing. 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 AUD - Progress Noteson 01-04 [...] she will be contacted once a new Chemical Preparer is in place for her next visit. No charge, patient under warranty. Chris Donaldson [facility], F-AAA Dx Code: H90.3 SNHL AU Normal [facility] [place] [facility] AUD - Hearing Aid Saleson AUD - Hearing Aid Sales [id number] D:127 Normal [facility] [place] [facility] AUD - Orderson 12-09-2020 AUD - Orders [id number] :127 Normal [facility] [place] [facility] AUD - Progress Noteson 12-08 AUD - Progress Notes Hearing Aid Clean/Check 12/08/2020 Purpose of Appointment: Patient in today for a routine hearing aid check/cleaning. Hearing Devices: [employer] D Moxi Jump 7 RICs with C shell earmolds and [employer] Stride P 800 BTE with standard earmold and tubing ( S/N: [id number]) Primary issues/concerns: The patient reports that she [...] as patient is under warranty. 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 Normal [facility] [place] [facility] Vital Signs Date Time Vital Sign Value Performing Clinician Faci lity 09-01-2022 14:45-0500 Body temperature 96.91 [degF] Say Drew MD Work Phone: [facility] 09-01-2022 14:45-0500 Body weight 59.88 kg Say Drew MD Work Phone: [facility] 09-01-2022 14:45-0500 Diastolic blood pressure 85 mm[Hg] Say Drew MD Work Phone: [facility] 09-01-2022 14:45-0500 Heart rate 92 /min Say Drew MD Work Phone: [facility] 09-01-2022 14:45-0500 Respiratory rate 16 /min Say Drew MD Work Phone: [facility] 09-01-2022 14:45-0500 SaO2% (BldA) [Mass fraction] 100 % Say Drew MD Work Phone: [facility] 09-01-2022 14:45-0500 Systolic blood pressure 176 mm[Hg] Say Drew MD Work Phone: [facility] 07-07-2022 14:36-0500 Body height 163.2 cm Akilah Quintero DO Work Phone: [facility] 07-07-2022 14:36-0500 Body weight 59.83 kg Akilah Quintero DO Work Phone: [facility] 07-07-2022 14:36-0500 Diastolic blood pressure 84 mm[Hg] Akilah Quintero DO Work Phone: [facility] 07-07-2022 14:36-0500 Heart rate 86 /min Akilah Quintero DO Work Phone: [facility] 07-07-2022 14:36-0500 Systolic blood pressure 199 mm[Hg] Akilah Quintero DO Work Phone: [facility] Encounters Encounter Date Encounter Type Care Provider Facility Start: 01-23-2023 Unlisted evaluation and management service Say Drew MD Work Phone: Radiation Oncology Comment on above: Opened In Error Start: 01-17-2023 End: 01-17-2023 ambulatory AKILAH MANCUSO Facility:[facility] Start: 01-17-2023 End: 01-17-2023 Patient encounter procedure Nanette Patton PhD Work Phone: Neuropyschology Comment on above: Dementia without beh avioral disturbance, psychotic disturbance, mood disturbance, or anxiety, unspecified dementia severity, unspecified dementia type (HCC) (Primary Dx) Start: 01-04-2023 End: 01-04-[address] LIUS SERVIN Facility:[facility] Start: 12-12-2022 End: 12-13-[address] LUIS SERVIN Facility:[facility] Start: 10-08-2022 End: 10-08-2022 Orders Only Jair Lynda DO Work Phone: [facility] Comment on above: Cognitive impairment , mild, so stated (Primary Dx) Cognitive impairment , mild, so stated [G31.84] Start: 09-01-2022 End: 09-01-2022 ambulatory JOSELYN CASTILLO Facility:[facility] Start: 09-01-2022 End: 09-01-2022 Patient encounter procedure Say Drew MD Work Phone: Radiation Oncology Comment on above: History of breast ca ncer (Primary Dx) Start: 09-01-2022 Telephone encounter Akilah parada DO Work Phone: Radiation Oncology Comment on above: Patient Question; Ap pointment Start: 08-30-2022 End: 08-30-2022 ambulatory MD Joselyn Castillo Work Phone: [facility] Work Phone: Start: 08-30-2022 End: 08-30-2022 Patient encounter procedure MD Joselyn Castillo Work Phone: [facility] Work Phone: Start: 07-07-2022 End: 07-08-2022 ambulatory AKILAH R AILIN Facility:[facility] Start: 07-07-2022 End: 07-07-2022 ambulatory AKILAH R AILIN Facility:[facility] Start: 07-07-2022 End: 07-07-2022 Patient encounter procedure Akilah Quintero DO Work Phone: Neurology Comment on above: Cognitive impairment , mild, so stated (Primary Dx) Start: 02-02-2022 End: 02-02-2022 ambulatory Joselyn Castillo Facility:[facility] Procedures Date Procedure Procedure Detail Performing Clinician Start: 10-08-2022 MRI 3D POST PROCESSING Jair Howell DO Work Phone: Start: 10-08-2022 Mri brain brain stem w/o contrast material Akilah Quintero DO Work Phone: Start: 08-30-2022 Bilateral mammography Kashif Castillo Work Phone: Plan of Treatment Date Care Activity Detail Author Start: 04-21-2023 Influenza vaccination INFLUENZ A (Season Ended) [facility] Start: 08-21-2022 ADVANCE DIRECTIVE DISCUSSION ADVANCE DIRECTIVE DISCUSSION [facility] Start: 08-21-2022 DEPRESSION ASSESSMENT DEPRESSION ASS ESSMENT [facility] Start: 07-07-2022 End: 09-06-2022 VITAMIN B1 (THIAMINE), WHOLE BLOOD VITAMIN B1 (THIAMINE), WHOLE BLOOD Lab Routine Cognitive impairment, mild, so stated Expected: 07/07/2022, Expires: 09/06/2022 [facility] Work Phone: Comment on above: Expected: 07/07/2022 , Expires: 09/06/2022 Start: 04-21-2022 Influenza vaccination INFLUENZA (#1) [facility] Start: 08-21-2021 ADVANCE DIRECTIVE DISCUSSION ADVANCE DIRECTIVE DISCUSSION [facility] Start: 08-21-2021 DEPRESSION ASSESSMENT DEPRESSION ASS ESSMENT [facility] Start: 11-25-2020 COVID-19 VACCINE (3 - Booster for Pfizer series) COVID-19 VACCINE (3 - Booster for Pfizer series) [facility] Start: 2001 BONE DENSITY BONE DENSITY [facility] Start: 2001 PNEUMOCOCCAL: 65+ (1 - PCV) PNEUMOCOCCAL: 65+ (1 - PCV) [facility] Start: 1986 SHINGRIX VACCINE (1 of 2) SHINGRIX VACCINE (1 of 2) [facility] Start: 1981 DIABETES SCREEN DIABETES SCREEN [facility] Start: 1955 Urine microalbumin profile DTAP,TDAP,TD (1 - Tdap) [facility] End: 08-06-2023 Mri brain brain stem w/o contrast material MRI BRAIN WO IVCON Radiology Routine Cognitive impairment, mild, so stated 1 Occurrences starting 07/07/2022 until 08/06/2023 [facility] Work Phone: Comment on above: 1 Occurrences starti ng 07/07/2022 until 08/06/2023 [facility] Payers Date Payer Category Payer Self-pay [id number] 2015 Private Health Insurance HUMANA HUMANA MEDICARE SUPPLEMENT [id number] 2015-Present [phone] [address] [address] [place] [address] Indemnity [id number] 2001 Medicare [id number] 1959 Medicare [id number] 1959 Medicare [id number] 1936 Unknown [id number] 1936 Unknown [id number] Unknown [id number] Unknown [id number] Social History Date Type Detail Facility Start: 07-07-2022 Tobacco smoking stat [facility] Never smoked tobacco [facility] Start: 07-07-2022 Tobacco use and exposure Smokeless tobacco non-user [facility] Start: 07-07-2022 End: 09-01-2022 Alcohol intake Current drinker of alcohol (finding) [facility] Start: 08-18-2016 [facility] Start: 1935 Sex Assigned At Not on file C [facility] Start: 06-27-2022 End: 07-07-2022 Exposure to SARS-CoV-2 (event) Not sure [facility] Start: 1935 Sex Assigned At Female F [facility] Medical Equipment Procedure Code Equipment Code Equipment Origin al Text Equipment Identifier Dates Discectomy, lumbar COFLEX SIZE [address] art: 02-09-2018 Discectomy, lumbar COFLEX SIZE [address] art: 02-09-2018 Clinical Notes 07-07-2022 to 01-23-2023 Nanette Patton, PhD - 01/23/2023 12:22 PM EDTTelephone Encounter - Alice Jamil RN - 01/23/2023 9:58 AM Paola Lange, remnant sorter - 10/08/2022 3:00 PM William Drew MD - 09/01/2022 11:46 PM EST Note Date & Type Note Facility 01-23-2023 Note HNO ID: [id number] Author: Nanette Patton, PhD Service: ? Author [...] of a multidisciplinary evaluation conducted in the [facility]. The assessment consisted of a brief [...] p (more content not included)... [facility] 01-23-2023 History of Present illness [...] of a multidisciplinary evaluation conducted in the [facility]. The assessment consisted of a brief [...] per week. Contact: Local: ; Toll free: [phone] or [email or web address] Do not require an Alzheimer's diagnosis to contact them Family Caregiver [place] (web site: Caregiver.org) HENRIK Loreta-- a secure online solution for quality information, support, and resources for family caregivers. Contact: Toll-free number: [phone] In home resource- [email or web address]/[email or web address] ex.[email or web address] -Recommended connecting with the local Agency on Aging for benefits screening, including for the AppDirect program, which can provide funding for home health aide services. Contact information: . Alternate number: [phone] [facility] ([email or web address]/local/ dvbrbnb-vdmltvi-pzcy-hoxtkm-yb-bd hik-ibytnylbz-yrvx-pnorwt-sj-ihgn g-oh) - Home Health Agencies who can provide supportive services to both patient and caregiver. These services may include companionship and assistance with activities of daily living, such as meals, bathing, and dressing. They may also provide assistance with financial services director and transportation. Many agencies have caregivers that have training specifically for the care of a person with dementia. [facility] care: [phone] Visiting Nurse Association: [phone] Home Instead: [phone] [employer]: [phone] [facility] Home Care: [phone] This report is meant to be considered [...] = 2 hours Neuropsychological test administration/scoring by electro mechanical solar technician = 1 hour, 55 minutes documented in this encounter [facility] 01-23-2023 Miscellaneous Notes This encounter was opened in error. documented in this encounter [facility] 10-08-2022 Note HNO ID: [id number] Author: SALVADOR Raza Service: ? Author Type: [...] October 08, 2022 3:28 PM [facility] 10-08-2022 History of Present illness [...] 2022 3:28 PM documented in this encounter [facility] 09-05-2022 Miscellaneous Notes Scheduling spoke with [...] appreciative of call. Erin is in the [facility] oncology office today for a follow up. 07/07/[address] Quintero who ordered MRI brain and neuropsych testing but Erin said these tests were never scheduled. Follow up is to be arrange after the above testing. Erin would like the MRI brain done locally at [facility]. She is wondering if she should have the neuropsych testing done locally or if [facility] is preferred. She and her cousin, Anderson Palafox, are here today and seem to have some confusion about the expected appointments. Will you please reach out to Erin arrange the testing and follow up as ordered. Enrrique De Santiago LPN documented in this encounter [facility] 09-02-2022 Note HNO ID: [id number] Author: Say Drew MD Service: ? Author Type: Physician Type: Progress Notes Filed: 09/14/2022 5:05 AM Note Text: Radiation Oncology - Follow Up Note PATIENT NAME: Erin Tejada PATIENT DIAGNOSIS/PATIENT IDENTIFICATION: Ms. 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 This document has been created with the use of voice recognition technology. It may contain inaccuracies, misspellings, inaccurate syntax or inappropriate word context that are a result of the inadequacies/shortcomings of said technology/software. [facility] 09-01-2022 History of Present illness Narrative Radiation Oncology - Follow Up Note PATIENT NAME: Erin Tejada PATIENT Signed by: Say Drew MD I spent a total of 20 minutes on the date of the service which included preparing to see the patient, [id number] patient care, and counseling and educating the patient/family/caregiver. This document has been created with the use of voice recognition technology. It may contain inaccuracies, misspellings, inaccurate syntax or inappropriate word context that are a result of the inadequacies/shortcomings of said technology/software. documented in this encounter [facility] 07-07-2022 Note HNO ID: [id number] Author: Akilah Quintero, DO Service: ? Author Type: Physician Type: Progress Notes Filed: 07/10/2022 3:40 PM Note Text: [facility] for General Neurology New Patient Evaluation Consulting Provider: LUIS SERVIN [address] [place] [address] Individuals who were included in, or assisted with the encounter were: Erin Tejada Akilah Quintero DO Chief Complaint/Issues: Erin Tejada is a 87 year old female seen in the [facility] for General Neurology for: Memory changes HPI: Ms. Tejada is an 87 year old woman PMHx HTN, remote breast CA presenting with memory concerns. She is accompanied by her cousin. She tells me that another cousin thought she had memory issues when she went to visit her in [place] for three weeks last year. She does [...] tremors. 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 Nobody complains about her [...] which included preparing to see the patient, [id number] patient care, completing clinical documentation, obtaining and/or reviewing separately obtained history, performing a medically appropriate examination, counseling and educating the patient/family/ (more content not included)... [facility] 07-07-2022 Instructions Akilah Quintero DO - 07/07/2022 3:29 PM EST Please get memory labs, brain MRI, neuropsychological testing (formal memory testing). Follow-up after neuropsych testing to go over results. documented in this encounter [facility] 07-07-2022 History of Present illness Narrative Images from the original note were not included. [facility] General Neurology New Patient Evaluation Consulting Provider: LUIS SERVIN [place] [address] Individuals who were included in, or assisted with the encounter were: Erin Tejada Akilah Quintero DO Chief Complaint/Issues: Erin Tejada is a 87 year old female seen in the [facility] for General Neurology for: Memory changes HPI: Ms. Tejada is an 87 year old woman PMHx HTN, remote breast CA presenting with memory concerns. She is accompanied by her cousin. She tells me that another cousin thought she had memory issues when she went to visit her in [place] for three weeks last year. She does [...] tremors. 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 Nobody complains about her [...] which included preparing to see the patient, iipt-[id number] patient care, completing clinical documentation, obtaining and/or reviewing separately obtained history, performing a medically appropriate examination, counseling and educating the patient/family/caregiver, and ordering medications, tests, or procedures. Akilah Quintero DO documented in this encounter [facility] Evaluation note Diagnosis Cognitive impairment, mild, so stated- Primary Mild cognitive impairment, so stated [facility]No assessment [facility] Work Phone: Evaluation note* Diagnosis History of breast cancer- Primary Personal history of malignant neoplasm of breast documented in this encounter [facility]* Diagnosis Cognitive impairment, mild, so stated- Primary Mild cognitive impairment, so stated [facility]* Diagnosis Cognitive impairment, mild, so stated Mild cognitive impairment, so stated documented in this encounter [facility]* Diagnosis OPENED IN ERROR- Primary To allow closing an encounter opened in error (used in SmartSet) [facility]* Diagnosis Dementia without behavioral disturbance, psychotic disturbance, mood disturbance, or anxiety, unspecified dementia severity, unspecified dementia type (HCC)- Primary documented in this encounter [facility] Summary Purpose Family History No Family History Records Found Relationship Condition Age at Onset Recorded Date/T eladia father Dementia Unknown Advance Directives No Advanced Directives Records FoundDocuments on File Type Date Recorded 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 Advance Directive(s) 07/26/2012 2:28 PM Advance Directive Response Recorded Date/ Time Advance Directives No June 16, 2017 8:37am Documents on File Type Date Recorded 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 Advance Directive(s) 07/26/2012 2:28 PM Reason for Referral Specialty Diagnoses / Procedures Referred By Contac t Referred To Contact Diagnoses Cognitive impairment, mild, so stated Procedures NEUROPSYCHOLOGICAL TESTING CONSULT Akilah Quintero DO [address] [place] [address] Referral ID Status Reason Start Date Expiration Date Visits Requested Visits Authorized [id number] Ref Not Required PCP Requested Referral 2 10/05/2022 1 1 Specialty Diagnoses / Procedures Referred By Contac t Referred To Contact MR IMAGING Diagnoses Cognitive impairment, mild, so stated Procedures MRI BRAIN WO IVCON MRI BRAIN BRAIN STEM W/O CONTRAST MATERIAL Akilah Quintero DO [address] [place] [id number] Mr Imaging Referral ID Status Reason Start Date Expiration Date Visits Requested Visits Authorized [id number] Pending Review Auto-Generat ed Referral 08/06/2023 1 1 Specialty Diagnoses / Procedures Referred By Contac t Referred To Contact MR IMAGING Diagnoses Cognitive impairment, mild, so stated Procedures MRI 3D POST PROCESSING 3D RENDERING W/INTERP&POSTPROC DIFF WORK STATION Caio Holloway MD, [address] [place] [id number] Mr Imaging Referral ID Status Reason Start Date Expiration Date Visits Requested Visits Authorized [id number] Pending Review Auto-Generat ed Referral 10/08/2022 11/07/2023 1 1 Specialty Diagnoses / Procedures Referred By Contac t Referred To Contact MR IMAGING Diagnoses Cognitive impairment, mild, so stated Procedures MRI BRAIN WO IVCON MRI BRAIN BRAIN STEM W/O CONTRAST MATERIAL Akilah Quintero, [address] [place] [address] Mr Imaging Referral ID Status Reason Start Date Expiration Date V isits Requested Visits Authorized [id number] Closed Auto-Generate d Referral 07/07/2022 08/06/2023 1 1 Chief Complaint and Reason for Visit Chief Complaint hx of breast cancer Additional Source Comments INFORMATION SOURCE (unrecogn ized section and content) DATE CREATED AUTHOR 11/15/2021 Napoleon Mujica [facility] DATE CREATED AUTHOR AUTHOR'S ORGANIZ ATION 07/10/2022 [facility] DATE CREATED AUTHOR AUTHOR'S ORGANIZ ATION 09/07/2022 [facility] DATE CREATED AUTHOR AUTHOR'S ORGANIZ ATION 01/05/2023 [facility] DATE CREATED AUTHOR AUTHOR'S ORGANIZ ATION 08/31/2023 [facility] Source Comments (unrecognize d section and content) In the event this informatio n is protected by the Federal Confidentiality of Alcohol and Drug Abuse Patient Records regulations: The Federal rules restrict any use of the information to criminally investigate or prosecute any alcohol or drug abuse patient.[facility] the event this information is protected by the Federal Confidentiality of Alcohol and Drug Abuse Patient Records regulations: The Federal rules restrict any use of the information to criminally investigate or prosecute any alcohol or drug abuse patient.[facility] the event this information is protected by the Federal Confidentiality of Alcohol and Drug Abuse Patient Records regulations: The Federal rules restrict any use of the information to criminally investigate or prosecute any alcohol or drug abuse patient.[facility] the event this information is protected by the Federal Confidentiality of Alcohol and Drug Abuse Patient Records regulations: The Federal rules restrict any use of the information to criminally investigate or prosecute any alcohol or drug abuse patient.[facility] the event this information is protected by the Federal Confidentiality of Alcohol and Drug Abuse Patient Records regulations: The Federal rules restrict any use of the information to criminally investigate or prosecute any alcohol or drug abuse patient.[facility] the event this information is protected by the Federal Confidentiality of Alcohol and Drug Abuse Patient Records regulations: The Federal rules restrict any use of the information to criminally investigate or prosecute any alcohol or drug abuse patient.[facility] the event this information is protected by the Federal Confidentiality of Alcohol and Drug Abuse Patient Records regulations: The Federal rules restrict any use of the information to criminally investigate or prosecute any alcohol or drug abuse patient.[facility] Reason for Visit (unrecogniz ed section and content) Reason Comments New Patient Rule out [facility] , Discu ss symptoms Reason Comments Patient Question Appointment Reason Comments Breast Cancer Specialty Diagnoses / Procedures Referred By Contac t Referred To Contact MR IMAGING Diagnoses Cognitive impairment, mild, so stated Procedures MRI BRAIN WO IVCON MRI BRAIN BRAIN STEM W/O CONTRAST MATERIAL Akilah Quintero DO [address] [place] [id number] Mr Imaging Referral ID Status Reason Start Date Expiration Date V isits Requested Visits Authorized [id number] Closed Auto-Generate d Referral 07/07/2022 08/06/2023 1 1 Reason Onset Date Comments Opened In Error 01/23/2023 Specialty Diagnoses / Procedures Referred By Contact Referred To Contact Psychology / NEUROPSYCHOLOGY Diagnoses Cognitive impairment, mild, so stated [G31.84] Procedures CORPORATE TRAVEL COORDINATOR [place] [address] [address] [place] [id number] Nanette Patton, PhD [id number] [place] [id number] Referral ID Status Reason Start Date Expiration Date V isits Requested Visits Authorized [id number] Pending Review 01/17/2023 04/17/2023 1 1 Care Teams (unrecognized sec tion and content) Dry Chain Worker Relationship Specialty Start Date End Date Joselyn Castillo MD [address] [place] [address] PCP - General Family Medicine 08/01/18 Luis Servin [address] [place] [address] Referring Family Medicine 05/31/22 Team Status: Inactive Member Role Status Dates Joselyn Castillo MD Primary Care Provider Active Say Drew MD Attending Provider Active Team Status: Active Member Role Status Dates Joselyn Castillo MD Primary Care Provider Active Dry Chain Worker Relationship Specialty Start Date End Date Joselyn Castillo MD [address] [place] [facility] [place] [phone] PCP - General Family Medicine 08/01/[address] [place] [phone] Referring Family Medicine 05/31/22 Dry Chain Worker Relationship Specialty Start Date End Date Joselyn Castillo MD [address] [place] [facility] [place] [phone] PCP - General Family Medicine 08/01/[address] [place] [phone] Referring Family Medicine 05/31/22 Dry Chain Worker Relationship Specialty Start Date End Date Joselyn Castillo MD [address] [place] [facility] [place] [address] PCP - General Family Medicine 08/01/[address] [place] [phone] Referring Family Medicine 05/31/22 Dry Chain Worker Relationship Specialty Start Date End Date Joselyn Castillo MD [address] [place] [facility] [place] [phone] PCP - General Family Medicine 08/01/[address] [place] [phone] Referring Family Medicine 05/31/22 Dry Chain Worker Relationship Specialty Start Date End Date Joselyn Castillo MD [address] [place] [facility] [place] [address] PCP - General Family Medicine 08/01/[address] [place] [address] Referring Family Medicine 05/31/22 Dry Chain Worker Relationship Specialty Start Date End Date Joselyn Castillo MD [address] [place] [address] PCP - General Family Medicine 08/01/18 Luis Servin [address] [place] [address] Referring Family [facility] 05/31/22 Goals (unrecognized section and content) Goals [...] BE BASED ON THE PRIMARY CLINICAL RECORDS. [facility] [employer] [facility]. provides no warranty or guarantee of the accuracy or completeness of information in this document.
--- NOTE | 2024-05-25 19:05 | PC.NURSE ---
Patient increased confusion per EMS that spoke with the neighbor. Pt states I fee fine other than being cold. Brief change, linens changed. Attempted to straight cath without success.
[2024-05-25 19:16] LABS: Basophils Percent Auto 0.5 % (0.2-2.0); Eosinophils Absolute Auto 0.1 10^3/uL (0.0-0.7); Eosinophils Percent Auto 0.8 % (0.9-7.0); Hematocrit 39.7 % (36.0-48.0); Hemoglobin 12.9 g/dL (12.0-16.0); Immature Granulocytes Abs Auto 0.02 10^3/uL (0.00-0.03); Immature Granulocytes Pct Auto 0.3 % (0.0-0.5); Lymphocytes Absolute Auto 0.9 10^3/uL (1.2-3.8); Lymphocytes Percent Auto 14.9 % (20.5-60.0); Mean Corpuscular HGB Conc 32.5 g/dL (29.9-35.2); Mean Corpuscular Hemoglobin 31.4 pg (26.7-34.0); Mean Corpuscular Volume 96.6 fL (81.0-99.0); Mean Platelet Volume 11.2 fL (9.5-13.5); Monocytes Absolute Auto 0.4 10^3/uL (0.3-0.8); Monocytes Percent Auto 6.4 % (1.7-12.0); Neutrophils Absolute Auto 4.8 10^3/uL (1.4-6.5); Neutrophils Percent Auto 77.1 % (43.0-75.0); Platelet Count 111 10^3/uL (150-450); Red Blood Count 4.11 10^6/uL (4.20-5.40); Red Cell Distribution Width 13.5 % (11.0-15.0); White Blood Count 6.2 10^3/uL (4.0-11.0)
[2024-05-25 19:30] LABS: Anion Gap 12.8; BUN Creatinine Ratio 14.8; Calcium 9.8 mg/dL (8.5-10.1); Carbon Dioxide 25.1 mmol/L (21.0-32.0); Chloride 103 mmol/L (98-107); Estimated GFR (African America 28 (>=60 mL/min/1.73m^2); Estimated GFR (Non-African Ame 23 (>=60 mL/min/1.73m^2); Glucose 138 mg/dL (74-106); Potassium 3.9 mmol/L (3.5-5.1); Sodium 137 mmol/L (136-145); Troponin I High Sensitivity 7.3 pg/mL (4.0-51.3)
[2024-05-25] MEDS: 0.9 % SODIUM CHLORIDE 1,000 ML 999 ML IV (20:45)
[2024-05-25 22:42] LABS: Bilirubin Urine SMALL (NEGATIVE); Blood Urine MODERATE (NEGATIVE); Clarity Urine CLEAR (CLEAR); Color Urine YELLOW (YELLOW); Glucose Urine UA NEGATIVE (NEGATIVE); Ketones Urine 15 mg/dL (NEGATIVE); Leukocyte Esterase Urine NEGATIVE (NEGATIVE); Nitrite Urine NEGATIVE (NEGATIVE); Protein Urine 30 mg/dL (NEG/TRACE); Specific Gravity Urine >=1.030 (1.005-1.025); Urobilinogen Urine 0.2 EU/dL (0.2-1.0)
[2024-05-25 22:51] LABS: Bacteria Urine TRACE #/HPF (NONE SEEN); Mucus Urine NONE SEEN (NONE SEEN); Squamous Epithelial Cell Urine FEW #/LPF (NONE/RARE)
[2024-05-25 22:52] LABS: Cast Seen? NONE SEEN #/LPF (NONE SEEN); Crystals Seen? None Seen #/HPF (None Seen)
--- OUTSIDE RECORDS SUMMARY | 2024-05-25 23:56 | XMS_ITS | CCD ---
Author Organization [facility] Care Team Providers Care Table Games Manager Name Role Phone AKILAH QUINTERO Attending Unavailable JOSELYN CASTILLO Primary Care Unavailable AKILAH QUINTERO Referring Unavailable JOSELYN CASTILLO Primary Care Unavailable Joselyn Castillo MD Primary Care Provider [phone] Luis Servin Unavailable MD Joselyn Castillo Primary Care Provider [phone] MD Say Drew Attending Provider [phone] Joselyn Castillo Primary Care Unavailable Jorge [...] adverse reactions to drug (disorder) [address] [facility] Repository (12 sources) Aspirin; Translations: [ASPIRIN] Drug Allergy 4 [facility] Repository (11 sources) Codeine; Translations: [CODEINE] Drug Allergy 4 Other: See Comments [facility] (9 sources) NSAIDs; Translations: [NSAIDS (NON-STEROIDAL ANTI-INFLAMMATOR Y DRUG)] Propensity to adverse reactions to drug (disorder) 7 [facility] Repository (9 sources) Sulfonamides (Antibiotic); Translations: [SULFA (SULFONAMIDE ANTIBIOTICS)] Propensity to adverse reactions to drug (disorder) [address] 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 Drew please sign pended yris order due Aug 2024. Desirae: Will you please call and schedule yris at [facility] in Aug 2024? Follow up was scheduled [...] Primary Visit Diagnosis:History of breast cancer [Z85.3] Order(s):[facility] [[id number]] Order #: [id number] FUTURE Prescriptions as of 08/30/2023 - hydroCHLOROthiazide [...] ENRRIQUE DE SANTIAGO on 08/30/23 [facility] CNOVon 01-17-2023 CNOV Office Visit (NPTU10 ) -------- ERIN TEJADA ([id number]) 1935 F Date Time Provider Department 01/17/23 [...] of a multidisciplinary evaluation conducted in the [facility]. The assessment consisted of a [...] microvascular change. Age related white matter changes ([facility]) rating: White matter lesions: 3 Basal [...] is othe (more content not included)... Normal [facility] CBC AUTO DIFFon 12-12-2022 BASO # 0.0 103/ul Normal 0.0-0.1 [facility] Comment on above: Performed By: #### C BC #### [facility] [address] [address] [address] Vonda Ocampo Basophils/100 WBC (Bld) 0.8 % Normal 0.2-2.0 [facility] Comment on above: Performed By: #### C BC #### [facility] [address] [place] [address] Dr. Vonda Ocampo EO # 0.1 103/ul Normal 0.0-0.7 [facility] Comment on above: Performed By: #### C BC #### [facility] [address] [place] [address] Dr. Vonda Ocampo Eosinophils/100 WBC (Bld) 1.8 % Normal 0.9-7.0 [facility] Comment on above: Performed By: #### C BC #### [facility] [address] [place] [address] Dr. Vonda Ocampo Erythrocyte distribution width (RBC) [Ratio] 13.2 % Normal 11.0-15.0 [facility] Comment on above: Performed By: #### C BC #### [facility] [address] [place] [address] Dr. Vonda Ocampo Hematocrit (Bld) [Volume fraction] 46.4 % Normal 36.0-48.0 [facility] Comment on above: Performed By: #### C BC #### [facility] [address] [place] [address] Dr. Vonda Ocampo Hemoglobin (Bld) [Mass/Vol] 14.7 g/dL Normal 12.0-16.0 [facility] Comment on above: Performed By: #### C BC #### [facility] [address] [place] [address] Dr. Vonda Ocampo IG # 0.01 10e3/ul Normal 0.00-0.03 [facility] Comment on above: Performed By: #### C BC #### [facility] [address] [place] [address] Dr. Vonda Ocampo IG % 0.2 % Normal 0.0-0.5 [facility] Comment on above: Performed By: #### C BC #### [facility] [address] [place] [address] Dr. Vonda Ocampo LYMPH # 1.0 103/ul Critically low 1.2-3.8 [facility] Comment on above: Performed By: #### C BC #### [facility] [address] [address] [address] Vonda Ocampo Lymphocytes/100 WBC (Bld) 19.2 % Critically low 20.5-60.0 [facility] Comment on above: Performed By: #### C BC #### [facility] [address] [place] [address] Dr. Vonda Ocampo MANUAL DIFF REQ NO Normal [facility] Comment on above: Performed By: #### C BC #### [facility] [address] [place] [address] Dr. Vonda Ocampo MCH (RBC) [Entitic mass] 30.4 pg Normal 26.7-34.0 [facility] Comment on above: Performed By: #### C BC #### [facility] [address] [place] [address] Dr. Vonda Ocampo MCHC (RBC) [Mass/Vol] 31.7 g/dL Normal 29.9-35.2 [facility] Comment on above: Performed By: #### C BC #### [facility] [address] [place] [address] Dr. Vonda Ocampo MCV (RBC) [Entitic vol] 96.1 fL Normal 81.0-99.0 [facility] Comment on above: Performed By: #### C BC #### [facility] [address] [place] [address] Dr. Vonda Ocampo MONO # 0.4 103/ul Normal 0.3-0.8 [facility] Comment on above: Performed By: #### C BC #### [facility] [address] [place] [address] Dr. Vonda Ocampo Monocytes/100 WBC (Bld) 7.7 % Normal 1.7-12.0 [facility] Comment on above: Performed By: #### C BC #### [facility] [address] [place] [address] Dr. Vonda Ocampo NEUT # 3.6 103/ul Normal 1.4-6.5 [facility] Comment on above: Performed By: #### C BC #### [facility] [address] [address] [address] Vonda Ocampo Neutrophils/100 WBC (Bld) 70.3 % Normal 43.0-75.0 [facility] Comment on above: Performed By: #### C BC #### [facility] [address] [address] [address] Vonda Ocampo Platelet mean volume (Bld) [Entitic vol] 10.1 fL Normal 9.5-13.5 [facility] Comment on above: Performed By: #### C BC #### [facility] [address] [address] [address] Vonda Ocampo PLT 162 103/ul Normal 150-450 [facility] Comment on above: Performed By: #### C BC #### [facility] [address] [place] [address] Dr. Vonda Ocampo RBC 4.83 106/ul Normal 4.20-5.40 [facility] Comment on above: Performed By: #### C BC #### [facility] [address] [place] [address] Dr. Vonda Ocampo WBC 5.1 103/ul Normal 4.0-11.0 [facility] Comment on above: Performed By: #### C BC #### [facility] [address] [place] [address] Dr. Vonda Ocampo FREE T3on 12-12-2022 FREE T3 2.70 pg/mlL Normal 2.18-3.98 [facility] Comment on above: Performed By: #### C MP, TSH, FT3, LIPID #### [facility] [address] [place] [address] Dr. Vonda Ocampo FREE T4on 12-12-2022 Free T4 [Mass/Vol] 1.01 ng/dL Normal 0.76-1.46 [facility] Comment on above: Performed By: #### F T4, B12FOL #### [facility] [address] [place] [address] Dr. Vonda Ocampo LIPID PROFILEon 12-12-2022 CHOL-HDL RATIO NORM SEE BELOW Normal [facility] Comment on above: Result Comment: 3.3 - 4.4 LOW RISK 4.4 - 7.1 AVERAGE RISK 7.1 - 11.0 MODERATE RISK >11.0 HIGH RISK Performed By: #### C MP, TSH, FT3, LIPID #### [facility] [address] [place] [address] Dr. Vonda Ocampo Cholesterol [Mass/Vol] 235 mg/dL Critically high <=200 [facility] Comment on above: Performed By: #### C MP, TSH, FT3, LIPID #### [facility] [address] [place] [address] Dr. Vonda Ocampo Cholesterol in HDL [Mass/Vol] 68 mg/dL Critically high 40-60 [facility] Comment on above: Performed By: #### C MP, TSH, FT3, LIPID #### [facility] [address] [place] [address] Dr. Vonda Ocampo Cholesterol in LDL [Mass/Vol] 144.4 mg/dL Normal [facility] Comment on above: Performed By: #### C MP, TSH, FT3, LIPID #### [facility] [address] [place] [address] Dr. Vonda Ocampo Cholesterol.total/ Cholesterol in HDL [Mass ratio] 3.5 {ratio} Normal [facility] Comment on above: Performed By: #### C MP, TSH, FT3, LIPID #### [facility] [address] [place] [address] Dr. Vonda Ocampo HDL NORMAL > or = 60 mg/dl - LO W CARDIOVASCULAR RISK <40 mg/dl - HIGH CARDIOVASCULAR RISK Normal [facility] Comment on above: Performed By: #### C MP, TSH, FT3, LIPID #### [facility] [address] [place] [address] Dr. Vonda Ocampo LDL CALC NORMAL SEE BELOW Normal [facility] Comment on above: Result Comment: <100 mg/dl OPTIMAL 100 - 129 mg/dl NEAR OR ABOVE OPTIMAL 130 - 159 mg/dl BORDERLINE HIGH 160 - 189 mg/dl HIGH >190 mg/dl VERY HIGH Performed By: #### C MP, TSH, FT3, LIPID #### [facility] [address] [place], [place] [id number] Dr. Vonda Ocampo Triglyceride [Mass/Vol] 113 mg/dL Normal <=150 [facility] Comment on above: Performed By: #### C MP, TSH, FT3, LIPID #### [facility] [address] [place] [address] Dr. Vonda Ocampo VLDL CALC 22.6 mg/dL Normal [facility] Comment on above: Performed By: #### C MP, TSH, FT3, LIPID #### [facility] [address] [address] [address] Vonda Ocampo PROF 14(COMP METB)on 023 Albumin [Mass/Vol] 3.7 g/dL Normal 3.4-5.0 [facility] Comment on above: Performed By: #### C MP, TSH, FT3, LIPID #### [facility] [address] [place] [address] Dr. Vonda Ocampo Albumin/Globulin [Mass ratio] 0.9 {ratio} Normal [facility] Comment on above: Performed By: #### C MP, TSH, FT3, LIPID #### [facility] [address] [place] [address] Dr. Vonda Ocampo ALP [Catalytic activity/Vol] 125 U/L Critically high 46-116 [facility] Comment on above: Performed By: #### C MP, TSH, FT3, LIPID #### [facility] [address] [place] [address] Dr. Vonda Ocampo ALT [Catalytic activity/Vol] 20 U/L Normal 14-59 [facility] Comment on above: Performed By: #### C MP, TSH, FT3, LIPID #### [facility] [address] [address] [address] Vonda Ocampo Anion gap [Moles/Vol] 12.2 mmol/L Normal [facility] Comment on above: Performed By: #### C MP, TSH, FT3, LIPID #### [facility] [address] [place] [address] Dr. Vonda Ocampo AST [Catalytic activity/Vol] 20 U/L Normal 15-37 [facility] Comment on above: Performed By: #### C MP, TSH, FT3, LIPID #### [facility] [address] [address] [address] Vonda Ocampo Bilirubin [Mass/Vol] 0.7 mg/dL Normal 0.2-1.0 [facility] Comment on above: Performed By: #### C MP, TSH, FT3, LIPID #### [facility] [address] [place] [address] Dr. Vonda Ocampo Calcium [Mass/Vol] 9.8 mg/dL Normal 8.5-10.1 [facility] Comment on above: Performed By: #### C MP, TSH, FT3, LIPID #### [facility] [address] [place] [address] Dr. Vonda Ocampo Chloride [Moles/Vol] 104 mmol/L Normal 98-107 [facility] Comment on above: Performed By: #### C MP, TSH, FT3, LIPID #### [facility] [address] [place] [address] Dr. Vonda Ocampo CO2 [Moles/Vol] 31.0 mmol/L Normal 21.0-32.0 [facility] Comment on above: Performed By: #### C MP, TSH, FT3, LIPID #### [facility] [address] [place] [address] Dr. Vonda Ocampo Creatinine [Mass/Vol] 0.94 mg/dL Normal 0.55-1.02 [facility] Comment on above: Performed By: #### C MP, TSH, FT3, LIPID #### [facility] [address] [place] [address] Dr. Vonda Ocampo EGFR-AF GEORGIAN >60 Normal >=60 [facility] Comment on above: Performed By: #### C MP, TSH, FT3, LIPID #### [facility] [address] [place] [address] Dr. Vonda Ocampo EGFR-NON AF GEORGIAN 56 mL/min/1.73m2 Critically low >=60 [facility] Comment on above: Performed By: #### C MP, TSH, FT3, LIPID #### [facility] [address] [place] [address] Dr. Vonda Ocampo Globulin (S) [Mass/Vol] 4.3 g/dL Normal [facility] Comment on above: Performed By: #### C MP, TSH, FT3, LIPID #### [facility] [address] [place] [address] Dr. Vonda Ocampo Glucose [Mass/Vol] 108 mg/dL Critically high 74-106 [facility] Comment on above: Performed By: #### C MP, TSH, FT3, LIPID #### [facility] [address] [place] [address] Dr. Vonda Ocampo Potassium [Moles/Vol] 4.2 mmol/L Normal 3.5-5.1 [facility] Comment on above: Performed By: #### C MP, TSH, FT3, LIPID #### [facility] [address] [place] [address] Dr. Vonda Ocampo Protein [Mass/Vol] 8.0 g/dL Normal 6.4-8.2 [facility] Comment on above: Performed By: #### C MP, TSH, FT3, LIPID #### [facility] [address] [place] [address] Dr. Vonda Ocampo Sodium [Moles/Vol] 143 mmol/L Normal 136-145 [facility] Comment on above: Performed By: #### C MP, TSH, FT3, LIPID #### [facility] [address] [place] [address] Dr. Vonda Ocampo Urea nitrogen [Mass/Vol] 21.0 mg/dL Critically high 7.0-18.0 [facility] Comment on above: Performed By: #### C MP, TSH, FT3, LIPID #### [facility] [address] [place] [address] Dr. Vonda Ocampo Urea nitrogen/Creatinin e [Mass ratio] 22.3 mg/mg Normal [facility] Comment on above: Performed By: #### C MP, TSH, FT3, LIPID #### [facility] [address] [place] [address] Dr. Vonda Ocampo TSHon 12-12-2022 TSH 1.479 uIU/mL Normal 0.358-3.740 [facility] Comment on above: Performed By: #### C MP, TSH, FT3, LIPID #### [facility] [address], [place] [address] Dr. Vonda Ocampo VIT B12 AND FOLATEon 023 Cobalamin (Vitamin B12) [Mass/Vol] 384.0 pg/mL Normal 193.0-986.0 [facility] Comment on above: Performed By: #### F T4, B12FOL #### [facility] [address] [place], [place] [address] Dr. Vonda Ocampo FOLATE 23.10 ng/mL Normal 8.60-58.90 [facility] Comment on above: Performed By: #### F T4, B12FOL #### [facility] [address] [place], [place] [address] Dr. Vonda Ocampo MRI 3D POST PROCESSINGon MRI 3D POST PROCESSING * * *Final Report* * * DATE OF EXAM: Oct 08 2022 3:34PM [facility] 0280 - MRI 3D [...] = Focal Lesions 2 = Beginning of [place] 3 = Diffuse Involvement of Entire Region [...] results from the analysis charts for details. Smoking Pipe Maker: YARELIS Transcribe Date/Time: Oct 08 2022 3:47P Dictated by : ALEXI YARBROUGH MD This examination was interpreted and the report reviewed and electronically signed by: ALEXI YARBROUGH MD on Oct 08 2022 4:29PM EST [id number] Normal [facility] MRI BRAIN WO IVCONon 023 MRI [...] dementia protocol and 3-D post-processing using the Ankota software at an independent workstation with concurrent [...] = Focal Lesions 2 = Beginning of [place] 3 = Diffuse Involvement of Entire Region [...] results from the analysis charts for details. 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 This document has been created with the use of voice recognition technology. It may contain inaccuracies, misspellings, inaccurate syntax or inappropriate word context that are a result of the inadequacies/shortcoming s of said technology/software. Referring Provider: SAY DREW [[id number]] Allergies As of Date: 09/01/2022 Noted Allergy [...] mg tablet (more content not included)... Normal [facility] MM diagnostic mammo BI w/CAD on 08-30-2022 MM diagnostic mammo BI w/CAD [facility] [place] [address] Mammography Report Signed Patient: Erin Tejada MR#: [id number] : 1935 Acct:[id number] Age/Sex: 87 / F ADM Date: 08/30/22 Loc: [place] Room: Type: [facility] Attending Dr: Say Drew MD Copies [...] Maranda Portillo M.D.08/30/2022 2:31 PM Dictation Location: [facility] Transcribed By: AZIZA 08/30/22 143 Dictated By: Maranda Portillo MD 08/30/22 1426 Signed By: 08/30/22 1431 [facility] CNOVon 07-07-2022 CNOV Office Visit (PEDROFV ) -------- ERIN TEJADA ([id number]) 1935 F Date Time Provider Department 07/07/22 3:00 PM AKILAH QUINTERO During your visit today, we recorded the following information about you: Pulse Blood pressure Weight Height 86/minute 199/84 59.8 kg 1.632 m Akilah Quintero DO 07/10/2022 3:40 PM Signed [facility] New Patient Evaluation Consulting Provider: LUIS SERVIN [address] [phone] Individuals who were included in, or assisted with the encounter were: Erin Tejada Akilah Quintero DO Chief Complaint/Issues: Erin Tejada is a 87 year old female seen in the [facility] for: Memory changes HPI: Ms. Tejada is an 87 year old woman PMHx HTN, remote breast CA presenting with memory concerns. She is accompanied by her cousin. She tells me that another cousin thought she had memory issues when she went to visit her in [place] for three weeks last year. She does [...] denies tremors. 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 Nobody complains [...] with normal cognition, memory, speech and affect. Mammoth Cognitive Assessment (MoCA) MoCA Total Score: 18 [...] the service (more content not included)... Normal [facility] FOLATE SERUMon 07-07-2022 Folate [Mass/Vol] >4.7 ng/mL [facility] Folate SerPl-mCncon 07-07-20 22 Folate [Mass/Vol] ng/mL Normal >4.7 [facility] Comment on above: Order Comment: Speci belia Type: BLOOD SPECIMEN Ordering Facility: [facility] Address: [place] [address] Result Comment: A re sult of > 20 ng/mL is not necessarily indicative of a pathologic or treatable condition: it reflects a limitation of the test methodology. Assay reference range: 4.8 to 24.2 ng/mL. Suitable for detection of folate deficiency. Reference: Folate III (Folate III) [package insert V 1.0 Pakistani]. Michael [employer], [place], [place]: June 2015. Performed By: #### 2 132-9, 2284-8 #### [facility] CLIA [id number] [id number] [place] VITAMIN B12 BLOODon 07-07-20 22 Cobalamin (Vitamin B12) [Mass/Vol] 556 pg/mL 232 - 1,245 pg/mL [facility] Vit B12 [facility] Cobalamin (Vitamin B12) [Mass/Vol] 556 pg/mL Normal 232-1245 [facility] Comment on above: Order Comment: Mushtaq celaya Type: BLOOD SPECIMEN Ordering Facility: [facility] Address: [place] [address] Performed By: #### 2 132-9, 2284-8 #### [facility] CLIA [id number] [address] [place] [address] [place] AUD - Otheron [...] advised that I would speak with manager industrial regarding the situation and get back to [...] restricted hearing right ear Jesusita Jay M.A., [facility]-A [employer] [facility] AUD - Otheron 06-08-2021 AUD - Other 06/07/2021 - Patient in today a week late for appointment. She had written appointment down on wrong day. Patient needed help putting right hearing aid in ear. Patient brought 2 left hearing aids and had been trying to put one of them in her right ear. The hearing aid was [employer] brand, not one she recently purchased here. Patient stated she had other hearing aids at home. Advised patient to reschedule and bring in all of the devices she has at home and we will figure out which devices are the newer ones that she should be wearing. 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 No charge, patient under warranty. Chris Donaldson [facility]-A, F-AAA Dx Code: H90.3 SNHL AU Normal [facility] AUD - Hearing Aid Saleson AUD - Hearing Aid Sales [id number] D:127 Normal [facility] AUD - Orderson 12-09-2020 AUD - Orders [id number] :127 Normal [facility] AUD - Progress Noteson 12-08 AUD - Progress Notes Hearing Aid Clean/Check 12/08/2020 Purpose of Appointment: Patient in today for a routine hearing aid check/cleaning. Hearing Devices: [employer] D Moxi Jump 7 RICs with C shell earmolds and [employer] Stride P 800 BTE with standard earmold and tubing ( S/N: [id number]) Primary issues/concerns: The patient reports that she [...] as patient is under warranty. 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 Normal [facility] Vital Signs Date Time Vital Sign Value Performing Clinician Faci lity 09-01-2022 14:45-0500 Body temperature 96.91 [degF] Say rDew MD Work Phone: [facility] 09-01-2022 14:45-0500 Body weight 59.88 kg Say Drew MD Work Phone: [facility] 09-01-2022 14:45-0500 Diastolic blood pressure 85 mm[Hg] Say Drew MD Work Phone: [facility] 09-01-2022 14:45-0500 Heart rate 92 /min Say Drew MD Work Phone: [facility] 09-01-2022 14:45-0500 Respiratory rate 16 /min Say Drew MD Work Phone: [facility] 09-01-2022 14:45-0500 SaO2% (BldA) [Mass fraction] 100 % Say Drew MD Work Phone: [facility] 09-01-2022 14:45-0500 Systolic blood pressure 176 mm[Hg] Say Drew MD Work Phone: [facility] 07-07-2022 14:36-0500 Body height 163.2 cm Akilah Quintero DO Work Phone: [facility] 07-07-2022 14:36-0500 Body weight 59.83 kg Akilah Quintero DO Work Phone: [facility] 07-07-2022 14:36-0500 Diastolic blood pressure 84 mm[Hg] Akilah Quintero DO Work Phone: [facility] 07-07-2022 14:36-0500 Heart rate 86 /min Akilah Quintero DO Work Phone: [facility] 07-07-2022 14:36-0500 Systolic blood pressure 199 mm[Hg] Akilah Quintero DO Work Phone: [facility] Encounters Encounter Date Encounter Type Care Provider Facility Start: 01-23-2023 Unlisted evaluation and management service Say Drew MD Work Phone: Radiation Oncology Comment on above: Opened In Error Start: 01-17-2023 End: 01-17-2023 ambulatory AKILAH MANCUSO Facility:[facility] Start: 01-17-2023 End: 01-17-2023 Patient encounter procedure [...] Start: 09-01-2022 End: 09-01-2022 ambulatory JOSELYN CASTILLO Facility:[facility] Start: 09-01-2022 End: 09-01-2022 Patient encounter procedure Say Drew MD Work Phone: Radiation Oncology Comment on above: History of breast ca ncer (Primary Dx) Start: 09-01-2022 Telephone encounter Akilah pardaa DO Work Phone: Radiation Oncology Comment on above: Patient Question; Ap pointment Start: 08-30-2022 End: 08-30-2022 ambulatory MD Joselyn Castillo Work Phone: [facility] Work Phone: Start: 08-30-2022 End: 08-30-2022 Patient encounter procedure MD Joselyn Castillo Work Phone: [facility] Work Phone: Start: 07-07-2022 End: 07-08-2022 ambulatory AKILAH R AILIN Facility:[facility] Start: 07-07-2022 End: 07-07-2022 ambulatory AKILAH R AILIN Facility:[facility] Start: 07-07-2022 End: 07-07-2022 Patient encounter procedure Akilah Quintero DO Work Phone: Neurology Comment on above: Cognitive impairment , mild, so stated (Primary Dx) Start: 02-02-2022 End: 02-02-2022 ambulatory Joselyn Castillo Facility:[facility] Procedures Date Procedure Procedure Detail Performing Clinician Start: 10-08-2022 MRI 3D POST PROCESSING Jair Howell DO Work Phone: Start: 10-08-2022 Mri brain brain stem w/o contrast material Akilah Quintero DO Work Phone: Start: 08-30-2022 Bilateral mammography Kashif Castillo Work Phone: Plan of Treatment Date Care Activity Detail Author Start: 04-21-2023 Influenza vaccination INFLUENZ A (Season Ended) [facility] Start: 08-21-2022 ADVANCE DIRECTIVE DISCUSSION ADVANCE DIRECTIVE DISCUSSION [facility] Start: 08-21-2022 DEPRESSION ASSESSMENT DEPRESSION ASS ESSMENT [facility] Start: 07-07-2022 End: 09-06-2022 VITAMIN B1 (THIAMINE), WHOLE BLOOD VITAMIN B1 (THIAMINE), WHOLE BLOOD Lab Routine Cognitive impairment, mild, so stated Expected: 07/07/2022, Expires: 09/06/2022 [facility] Work Phone: Comment on above: Expected: 07/07/2022 , Expires: 09/06/2022 Start: 04-21-2022 Influenza vaccination INFLUENZA (#1) [facility] Start: 08-21-2021 ADVANCE DIRECTIVE DISCUSSION ADVANCE DIRECTIVE DISCUSSION [facility] Start: 08-21-2021 DEPRESSION ASSESSMENT DEPRESSION ASS ESSMENT [facility] Start: 11-25-2020 COVID-19 VACCINE (3 - Booster for Pfizer series) COVID-19 VACCINE (3 - Booster for Pfizer series) [facility] Start: 2001 BONE DENSITY BONE DENSITY [facility] Start: 2001 PNEUMOCOCCAL: 65+ (1 - PCV) PNEUMOCOCCAL: 65+ (1 - PCV) [facility] Start: 1986 SHINGRIX VACCINE (1 of 2) SHINGRIX VACCINE (1 of 2) [facility] Start: 1981 DIABETES SCREEN DIABETES SCREEN [facility] Start: 1955 Urine microalbumin profile DTAP,TDAP,TD (1 - Tdap) [facility] End: 08-06-2023 Mri brain brain stem w/o contrast material MRI BRAIN WO IVCON Radiology Routine Cognitive impairment, mild, so stated 1 Occurrences starting 07/07/2022 until 08/06/2023 [facility] Work Phone: Comment on above: 1 Occurrences starti ng 07/07/2022 until 08/06/2023 [facility] Payers Date Payer Category Payer Self-pay [id number] 2015 Private Health Insurance HUMANA HUMANA MEDICARE SUPPLEMENT [id number] 2015-Present [phone] [address] [address] [place] [address] Indemnity [id number] 2001 Medicare [id number] 1959 Medicare [id number] 1959 Medicare [id number] 1936 Unknown [id number] 1936 Unknown [id number] Unknown [id number] Unknown [id number] Social History Date Type Detail Facility Start: 07-07-2022 Tobacco smoking stat [facility] Never smoked tobacco [facility] Start: 07-07-2022 Tobacco use and exposure Smokeless tobacco non-user [facility] Start: 07-07-2022 End: 09-01-2022 Alcohol intake Current drinker of alcohol (finding) [facility] Start: 08-18-2016 Alcohol Comment socially [facility] Start: 1935 Sex Assigned At Not on file [facility] Start: 06-27-2022 End: 07-07-2022 Exposure to SARS-CoV-2 (event) Not sure [facility] Start: 1935 Sex Assigned At Female F [facility] Medical Equipment Procedure Code Equipment Code Equipment Origin al Text Equipment Identifier Dates Discectomy, lumbar COFLEX SIZE [address] art: 02-09-2018 Discectomy, lumbar COFLEX SIZE [address] art: 02-09-2018 Clinical Notes 07-07-2022 to 01-23-2023 Nanette Patton, PhD - 01/23/2023 12:22 PM EDTTelephone Encounter - Alice Jamil RN - 01/23/2023 9:58 AM Paola Lange, insurance examining clerk - 10/08/2022 3:00 PM William Drew MD - 09/01/2022 11:46 PM EST Note Date & Type Note Facility 01-23-2023 Note HNO ID: [id number] Author: Nanette Patton, PhD Service: ? Author [...] of a multidisciplinary evaluation conducted in the [facility]. The assessment consisted of a [...] the 24th p (more content not included)... [facility] 01-23-2023 History of Present illness Narrative PATIENT NAME: Erin Tejada NEUROPSYCHOLOGICAL EVALUATION EDUCATION: 12 OCCUPATION: retired HANDEDNESS: R REFERRING: Akilah Quintero, DO ? The current evaluation was performed in the context of medical care and a clinical referral question and not for purposes of a forensic, disability, or workers' compensation evaluation. This assessment is part of a multidisciplinary evaluation conducted in the [facility]. The assessment consisted of a [...] per week. Contact: Local: ; Toll free: [phone] or [email or web address] Do not require an Alzheimer's diagnosis to contact them Family Caregiver [place] (web site: Caregiver.org) [employer]ENRIK Lore[employer]-- a secure online solution for quality information, support, and resources for family caregivers. Contact: Toll-free number: [phone] In home resource- http://www.[employer]ICE [employer]/ind ex.aspx -Recommended connecting with the local Agency on Aging for benefits screening, including for the [employer] program, which can provide funding for home health aide services. Contact information: . Alternate number: [phone] [facility] (https://www.[employer].One[employer]Trip/local/ bbhbmjx-zywstsh-ckzf-cfjmpp-hf-kl nfn-wfsnmlxzp-cgvr-pahcml-ka-qcjz g-oh) - Home Health Agencies who can provide supportive services to both patient and caregiver. These services may include companionship and assistance with activities of daily living, such as meals, bathing, and dressing. They may also provide assistance with home appraiser and transportation. Many agencies have caregivers that have training specifically for the care of a person with dementia. [facility] care: [phone] Visiting Nurse Association: [phone] Home Instead: [phone] [facility] [facility]: [phone] [facility] Home Care: [phone] This report is meant to be considered [...] = 2 hours Neuropsychological test administration/scoring by manager multicultural = 1 hour, 55 minutes documented in this encounter [facility] 01-23-2023 Miscellaneous Notes This encounter was opened in error. documented in this encounter [facility] 10-08-2022 Note HNO ID: [id number] Author: SALVADOR Raza Service: ? Author Type: [...] SALVADOR Raza October 08, 2022 3:28 PM [facility] 10-08-2022 History of Present illness Narrative [...] 2022 3:28 PM documented in this encounter [facility] 09-05-2022 Miscellaneous Notes Scheduling spoke [...] appreciative of call. Erin is in the [facility] oncology office today for a follow up. 07/07/[address] Quintero who ordered MRI brain and neuropsych testing but Erin said these tests were never scheduled. Follow up is to be arrange after the above testing. Erin would like the MRI brain done locally at [facility]. She is wondering if she should have the neuropsych testing done locally or [facility]. She and her cousin, Anderson Palafox, are here today and seem to have some confusion about the expected appointments. Will you please reach out to Erin arrange the testing and follow up as ordered. Enrrique De Santiago LPN documented in this encounter [facility] 09-02-2022 Note HNO ID: [id number] Author: Say Drew MD Service: ? Author Type: Physician Type: Progress Notes Filed: 09/14/2022 5:05 AM Note Text: Radiation Oncology - Follow Up Note PATIENT NAME: Erin Tejada PATIENT DIAGNOSIS/PATIENT IDENTIFICATION: Ms. 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 This document has been created with the use of voice recognition technology. It may contain inaccuracies, misspellings, inaccurate syntax or inappropriate word context that are a result of the inadequacies/shortcomings of said technology/software. [facility] 09-01-2022 History of Present illness Narrative Radiation Oncology - Follow Up Note PATIENT NAME: Erin Tejada PATIENT Signed by: Say Drew MD I spent a total of 20 minutes on the date of the service which included preparing to see the patient, uqup-hn-ojqb patient care, and counseling and educating the patient/family/caregiver. This document has been created with the use of voice recognition technology. It may contain inaccuracies, misspellings, inaccurate syntax or inappropriate word context that are a result of the inadequacies/shortcomings of said technology/software. documented in this encounter [facility] 07-07-2022 Note HNO ID: [id number] Author: Akilah Quintero, DO Service: ? Author Type: Physician Type: Progress Notes Filed: 07/10/2022 3:40 PM Note Text: [facility] New Patient Evaluation Consulting Provider: LUIS SERVIN [address] [place] [address] Individuals who were included in, or assisted with the encounter were: Erin Tejada Akilah Quintero DO Chief Complaint/Issues: Erin Tejada is a 87 year old female seen in the [facility] for: Memory changes HPI: Ms. Tejada is an 87 year old woman PMHx HTN, remote breast CA presenting with memory concerns. She is accompanied by her cousin. She tells me that another cousin thought she had memory issues when she went to visit her in [place] for three weeks last year. She does [...] denies tremors. 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 Nobody complains [...] which included preparing to see the patient, krxk-cb-cxvn patient care, completing clinical documentation, obtaining and/or reviewing separately obtained history, performing a medically appropriate examination, counseling and educating the patient/family/ (more content not included)... [facility] 07-07-2022 Instructions Akilah Quintero DO - 07/07/2022 3:29 PM EST Please get memory labs, brain MRI, neuropsychological testing (formal memory testing). Follow-up after neuropsych testing to go over results. documented in this encounter [facility] 07-07-2022 History of Present illness Narrative Images from the original note were not included. [facility] General Neurology New Patient Evaluation Consulting Provider: LUIS SERVIN [place] [address] Individuals who were included in, or assisted with the encounter were: Erin Tejada Akilah Quintero DO Chief Complaint/Issues: Erin Tejada is a 87 year old female seen in the [facility] for: Memory changes HPI: Ms. Tejada is an 87 year old woman PMHx HTN, remote breast CA presenting with memory concerns. She is accompanied by her cousin. She tells me that another cousin thought she had memory issues when she went to visit her in [place] for three weeks last year. She does [...] denies tremors. 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 Nobody complains [...] which included preparing to see the patient, drcf-yq-fjiz patient care, completing clinical documentation, obtaining and/or reviewing separately obtained history, performing a medically appropriate examination, counseling and educating the patient/family/caregiver, and ordering medications, tests, or procedures. Akilah Quintero DO documented in this encounter [facility] Evaluation note Diagnosis Cognitive impairment, mild, so stated- Primary Mild cognitive impairment, so stated [facility] Work Phone: Evaluation note* Diagnosis History of breast cancer- Primary Personal history of malignant neoplasm of breast documented [facility]* Diagnosis Cognitive impairment, mild, so stated- Primary Mild cognitive impairment, so stated [facility] Diagnosis Cognitive impairment, mild, so stated Mild cognitive impairment, so stated [facility]* Diagnosis OPENED IN ERROR- Primary To allow closing an encounter opened in error (used in SmartSet) [facility] Diagnosis Dementia without behavioral disturbance, psychotic disturbance, mood disturbance, or anxiety, unspecified dementia severity, unspecified dementia type (HCC)- Primary documented in this encounter [facility] Summary Purpose Family History No Family History Records Found Relationship Condition Age at Onset Recorded Date/T eladia father Dementia Unknown Advance Directives No Advanced Directives Records FoundDocuments on File Type Date Recorded 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 And 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 Expl anation Advance Directive(s) 07/26/2012 2:28 PM Advance Directive Response Recorded Date/ Time Advance Directives No June 16, 2017 8:37am Documents on File Type Date Recorded 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 And Assembler Expl anation Advance Directive(s) 07/26/2012 2:28 PM Reason for Referral Specialty Diagnoses / Procedures Referred By Contac t Referred To Contact Diagnoses Cognitive impairment, mild, so stated Procedures NEUROPSYCHOLOGICAL TESTING CONSULT Akilah Quintero DO [address] [place] [address] Referral ID Status Reason Start Date Expiration Date Visits Requested Visits Authorized [id number] Ref Not Required PCP Requested Referral 2 10/05/2022 1 1 Specialty Diagnoses / Procedures Referred By Contac t Referred To Contact MR IMAGING Diagnoses Cognitive impairment, mild, so stated Procedures MRI BRAIN WO IVCON MRI BRAIN BRAIN STEM W/O CONTRAST MATERIAL Akilah Quintero DO [address] [place] [id number] Mr Imaging Referral ID Status Reason Start Date Expiration Date Visits Requested Visits Authorized [id number] Pending Review Auto-Generat ed Referral 08/06/2023 1 1 Specialty Diagnoses / Procedures Referred By Contac t Referred To Contact MR IMAGING Diagnoses Cognitive impairment, mild, so stated Procedures MRI 3D POST PROCESSING 3D RENDERING W/INTERP&POSTPROC DIFF WORK STATION Caio Holloway MD, [address] [place] [id number] Mr Imaging Referral ID Status Reason Start Date Expiration Date Visits Requested Visits Authorized [id number] Pending Review Auto-Generat ed Referral 10/08/2022 11/07/2023 1 1 Specialty Diagnoses / Procedures Referred By Contac t Referred To Contact MR IMAGING Diagnoses Cognitive impairment, mild, so stated Procedures MRI BRAIN WO IVCON MRI BRAIN BRAIN STEM W/O CONTRAST MATERIAL Akilah Quintero, [address] [place] [address] Mr Imaging Referral ID Status Reason Start Date Expiration Date V isits Requested Visits Authorized [id number] Closed Auto-Generate d Referral 07/07/2022 08/06/2023 1 1 Chief Complaint and Reason for Visit Chief Complaint hx of breast cancer Additional Source Comments INFORMATION SOURCE (unrecogn ized section and content) DATE CREATED AUTHOR 11/15/2021 Napoleon Mujica [facility] DATE CREATED AUTHOR AUTHOR'S ORGANIZ ATION 07/10/2022 [facility] DATE CREATED AUTHOR AUTHOR'S ORGANIZ ATION 09/07/2022 [facility] DATE CREATED AUTHOR AUTHOR'S ORGANIZ ATION 01/05/2023 [facility] DATE CREATED AUTHOR AUTHOR'S ORGANIZ ATION 08/31/2023 [facility] Source Comments (unrecognize d section and content) In the event this informatio n is protected by the Federal Confidentiality of Alcohol and Drug Abuse Patient Records regulations: The Federal rules restrict any use of the information to criminally investigate or prosecute any alcohol or drug abuse patient.[facility] the event this information is protected by the Federal Confidentiality of Alcohol and Drug Abuse Patient Records regulations: The Federal rules restrict any use of the information to criminally investigate or prosecute any alcohol or drug abuse patient.[facility] the event this information is protected by the Federal Confidentiality of Alcohol and Drug Abuse Patient Records regulations: The Federal rules restrict any use of the information to criminally investigate or prosecute any alcohol or drug abuse patient.[facility] the event this information is protected by the Federal Confidentiality of Alcohol and Drug Abuse Patient Records regulations: The Federal rules restrict any use of the information to criminally investigate or prosecute any alcohol or drug abuse patient.[facility] the event this information is protected by the Federal Confidentiality of Alcohol and Drug Abuse Patient Records regulations: The Federal rules restrict any use of the information to criminally investigate or prosecute any alcohol or drug abuse patient.[facility] the event this information is protected by the Federal Confidentiality of Alcohol and Drug Abuse Patient Records regulations: The Federal rules restrict any use of the information to criminally investigate or prosecute any alcohol or drug abuse patient.[facility] the event this information is protected by the Federal Confidentiality of Alcohol and Drug Abuse Patient Records regulations: The Federal rules restrict any use of the information to criminally investigate or prosecute any alcohol or drug abuse patient.[facility] Reason for Visit (unrecogniz ed [...] STEM W/O CONTRAST MATERIAL Akilah Quintero DO [address] [place] [id number] Mr Imaging Referral ID Status Reason Start Date Expiration Date V isits Requested Visits Authorized [id number] Closed Auto-Generate d Referral 07/07/2022 08/06/2023 1 1 Reason Onset Date Comments Opened In Error 01/23/2023 Specialty Diagnoses / Procedures Referred By Contact Referred To Contact Psychology / NEUROPSYCHOLOGY Diagnoses Cognitive impairment, mild, so stated [G31.84] Procedures 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 [place] [address] [address] [place] [id number] Nanette Patton, PhD [address] [place] [id number] Referral ID Status Reason Start Date Expiration Date V isits Requested Visits Authorized [id number] Pending Review 01/17/2023 04/17/2023 1 1 Care Teams (unrecognized sec tion and content) Table Games Manager Relationship Specialty Start Date End Date Joselyn Castillo MD [address] [place] [address] PCP - General Family Medicine 08/01/18 Luis Servin [address] [place] [address] Referring Family Medicine 05/31/22 Team Status: Inactive Member Role Status Dates Joselyn Castillo MD Primary Care Provider Active Say Drew MD Attending Provider Active Team Status: Active Member Role Status Dates Joselyn Castillo MD Primary Care Provider Active Table Games Manager Relationship Specialty Start Date End Date Joselyn Castillo MD [address] [facility] [place] [phone] PCP - General Family Medicine 08/01/[address] [place] [phone] Referring Family Medicine 05/31/22 Table Games Manager Relationship Specialty Start Date End Date Joselyn Castillo MD [address] [facility] [phone] PCP - General Family Medicine 08/01/[address] [place] [phone] Referring Family Medicine 05/31/22 Table Games Manager Relationship Specialty Start Date End Date Joselyn Castillo MD [address] [facility] [place] [address] PCP - General Family Medicine 08/01/[address] [place] [phone] Referring Family Medicine 05/31/22 Table Games Manager Relationship Specialty Start Date End Date Joselyn Castillo MD [address] [facility] [place] [phone] PCP - General Family Medicine 08/01/[address] [place] [phone] Referring Family Medicine 05/31/22 Table Games Manager Relationship Specialty Start Date End Date Joselyn Castillo MD [address] [facility] [place] [address] PCP - General Family Medicine 08/01/[address] [place] [address] Referring Family Medicine 05/31/22 Table Games Manager Relationship Specialty Start Date End Date Joselyn Castillo MD [address] [place] [address] PCP - General Family Medicine 08/01/18 Luis Servin [address] [place] [address] Referring Family [facility] 05/31/22 Goals (unrecognized section and content) Goals [...] BE BASED ON THE PRIMARY CLINICAL RECORDS. [facility] [employer] [facility]. provides no warranty or guarantee of the accuracy or completeness of information in this document.
[2024-05-26] VITALS (12 sets, daily range): BP systolic 145–168; BP diastolic 68–82; PULSE 58–70; TEMP 36.6–36.9; O2SAT 96–98; BMI 20.4
[2024-05-26] MEDS: 0.9 % SODIUM CHLORIDE 1,000 ML 100 ML IV ×2 (00:36→10:10)
[2024-05-26 06:46] LABS: Hematocrit 37.7 % (36.0-48.0); Hemoglobin 12.2 g/dL (12.0-16.0); Mean Corpuscular HGB Conc 32.4 g/dL (29.9-35.2); Mean Corpuscular Volume 95.7 fL (81.0-99.0); Mean Platelet Volume 11.8 fL (9.5-13.5); Platelet Count 90 10^3/uL (150-450); Red Blood Count 3.94 10^6/uL (4.20-5.40); Red Cell Distribution Width 13.5 % (11.0-15.0); White Blood Count 5.7 10^3/uL (4.0-11.0)
[2024-05-26 06:55] LABS: Anion Gap 13.2; BUN Creatinine Ratio 20.1; Calcium 8.8 mg/dL (8.5-10.1); Carbon Dioxide 24.2 mmol/L (21.0-32.0); Chloride 108 mmol/L (98-107); Estimated GFR (African America 43 (>=60 mL/min/1.73m^2); Estimated GFR (Non-African Ame 36 (>=60 mL/min/1.73m^2); Glucose 80 mg/dL (74-106); Potassium 3.4 mmol/L (3.5-5.1); Sodium 142 mmol/L (136-145)
[2024-05-26 07:02] LABS: Troponin I High Sensitivity 11.8 pg/mL (4.0-51.3)
[2024-05-26] MEDS: SERTRALINE HCL 50 MG TABLET 25 MG PO (08:08)
[2024-05-26] MEDS: CARVEDILOL 6.25 MG TABLET PO (08:08)
[2024-05-26] MEDS: MEMANTINE HCL 28 MG CAP XR PO (08:08)
--- NOTE | 2024-05-26 13:49 | P.HP_ITS ---
HPI H&P: HPI History of Present Illness Chief complaint: DEHYDRATION PRACHI Narrative: 88 y/o female to ER after syncopal episode. At home and sudden syncope while talking to neighbor. Helped to ground and no injury. To ER and vitals stable. Chest x-ray negative and labs showed PRACHI. Admitted for treatment. Started IV fluids and resumed home medication. Patient improved overnight. Normal appetite and feels back to baseline. Significant dementia and confused during exam. Opioid HPI Opioid Management Most Recent Pain and Opioid Data: Last Pain Scale 3 05/02/24 12:00 Last Pain Assessment 05/26/24 13:37 Last ORT Total Score 0 05/26/24 00:10 Last ORT Risk Category Low Risk 05/26/24 00:10 Review of Systems ROS Constitutional Denies: fever, chills or fatigue Cardiovascular Denies: chest pain, palpitations or edema Respiratory Denies: shortness of breath, cough or wheezing Gastrointestinal Denies: abdominal pain, nausea, vomiting or diarrhea Genitourinary Denies: painful urination [facility] Medical History (Updated 05/26/24 @ 09:15 by Tone Prince MD) Dementia ?F03.90 - Unspecified dementia, unspecified severity, without behavioral disturbance, psychotic disturbance, mood disturbance, and anxiety (ICD-10) Syncope, vasovagal ?R55 - Syncope and collapse (ICD-10) Urinary tract infection ?N39.0 - Urinary tract infection, site not specified (ICD-10) Dementia ?F03.90 - Unspecified dementia, unspecified severity, without behavioral disturbance, psychotic disturbance, mood disturbance, and anxiety (ICD-10) Cognitive impairment ?R41.89 - Other symptoms and signs involving cognitive functions and awareness (ICD-10) Breast cancer ?C50.919 - Malignant neoplasm of unspecified site of unspecified female breast (ICD-10) Dementia ?F03.90 - Unspecified dementia, unspecified severity, without behavioral dist urbance, psychotic disturbance, mood disturbance, and anxiety (ICD-10) Surgical History (Updated 12/31/23 @ 13:43 by Annette Richardson) H/O lumpectomy ?Z98.890 - Other specified postprocedural states (ICD-10) Hx of appendectomy ?Z90.49 - Acquired absence of other specified parts of digestive tract (ICD- 10) Family History (Updated 12/31/23 @ 13:45 by Annette Richardson) Aunt Family history of stroke Social History (Updated 12/31/23 @ 13:46 by Annette Richardson) Within the past year, how often did you have a drink containing alcohol: monthly or less Within the past year, how often did you have six or more drinks on one occasion: never Smoking status: Never smoker Non-prescribed substance use: denies use Previous occupational history: retired Highest level of school completed/degree received: high school graduate In a typical week, how many times do you talk on the telephone with family, friends, or neighbors: twice per week How often do you get together with friends or relatives: twice per week How often do you attend jain or buddhist services: never Do you belong to any clubs or organizations such as jain groups unions, [employer] or athletic groups, or school groups: no Little interest or pleasure in doing things: not at all Feeling down, depressed, or hopeless: not at all Feel stressed/tense/nervous/anxious/difficulty sleeping: not at all Meds Home Medications and Allergies Home Medications ?Medication ?Instructions ?Recorded ?Confirmed ?Type carvedilol 6.25 mg tablet 6.25 mg PO BID 10/12/23 05/25/24 History memantine 10 mg tablet 10 mg PO BID 10/12/23 05/25/24 History sertraline 25 mg tablet 25 mg PO DAILY 12/31/23 05/25/24 History Allergies Allergy/AdvReac Type Severity Reaction Status Date / Time No Known Drug Allergies Allergy Verified 10/22/23 14:17 Exam Constitutional Vital Signs, click to edit/add: Last Vital Signs Temp 97.9 F 05/26/24 08:11 Pulse 58 L 05/26/24 11:53 Resp 16 05/26/24 08:11 BP 159/82 H 05/26/24 08:11 Pulse Ox 98 05/26/24 08:11 O2 Del Method Room Air 05/26/24 08:11 Documenting provider has reviewed patient's vital signs: yes Common normals: no apparent distress and alert HENMT Common normals: normocephalic Eye Common normals: PERRL and EOMs intact bilaterally Respiratory Common normals: normal respiratory effort and clear to auscultation bilaterally Cardio Common normals: regular rate, regular rhythm, no gallops, no murmurs and no rub GI Common normals: Normal to inspection, nondistended, normoactive bowel sounds present and non-tender Extremity Common normals: no pedal edema Results Labs Labs: Short CBC 05/25/24 05/26/24 Range/Units 18:50 05:57 WBC 6.2 5.7 (4.0-11.0) 10^3/uL Hgb 12.9 12.2 (12.0-16.0) g/dL Hct 39.7 37.7 (36.0-48.0) % Plt Count 111 L 90 L (150-450) 10^3/uL BMP 05/25/24 05/26/24 18:50 05:57 Sodium 137 142 Potassium 3.9 3.4 L Chloride 103 108 H Carbon Dioxide 25.1 24.2 BUN 30.0 H 28.0 H Creatinine 2.03 H 1.39 H Glucose 138 H 80 Calcium 9.8 8.8 Urine 05/25/24 Range/Units 18:23 Urine Color Yellow (YELLOW) Urine Clarity Clear (CLEAR) Urine pH 6.0 (5.0-9.0) Ur Specific [place] >=1.030 A (1.005-1.025) Urine Protein 30 A (NEG/TRACE) mg/dL Urine Glucose (UA) Negative (NEGATIVE) mg/dL Assessment and Plan Assessment and Plan (1) Syncope: (2) PRACHI (acute kidney injury): (3) Dehydration: (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 Improved with IV fluids and labs close to baseline. Ambulating without assistance. Family concerned of safety at home but no medical reason to keep in hospital. Discharge home and son will attempt to arrange for extra home care. Continue home medication without change. Urinary Catheter Management Urinary Catheter Management Straight: Cath placed during this visit: yes Urethral indwelling: No Insertion date: 05/25/24 Insertion time: 22:30
--- NOTE | 2024-05-27 13:54 | CM.DCFOLLOWU ---
1st attempt 05/27/24, no answer
--- NOTE | 2024-05-28 12:49 | CM.DCFOLLOWU ---
Person spoke with:patient How are you feeling?well How is your pain?none Did you understand your discharge instructions?yes Do you have any questions about your discharge instructions?no Were you given any prescriptions at discharge?no Were you able to get your prescriptions filled?no Do you understand how to take your medications as ordered?yes Do you have any questions about your follow up appointment and do you plan to keep your follow up appointment? no questions, unsure if follow up was scheduled. Advised pt to ask her son Is there anything else that you would like to discuss?no Questions/Comments/Concerns/Other:none
== END 2024-05-26 13:38 | disposition home or self-care (01) ==
LOC: ER 21:44 → MS 23:53
PROVIDERS: Emergency Medicine; Registered Nurse; Admitting Provider Family Medicine; Emergency Provider Internal Medicine; PCP Family Medicine; Visit Provider Family Medicine
DX: N17.9 Acute kidney failure, unspecified (principal); R55 Syncope and collapse; E86.0 Dehydration; F03.90 Unspecified dementia, unspecified severity, without behavioral disturbance, psychotic disturbance, mood disturbance, and anxiety; I12.9 Hypertensive chronic kidney disease with stage 1 through stage 4 chronic kidney disease, or unspecified chronic kidney disease; N18.31 Chronic kidney disease, stage 3a
CPT/HCPCS: 36415; 71045; 80048; 81001; 84484; 85025; 85027; 93005; 96360; 96361; 99285; G0378

== ENCOUNTER 2024-06-06 18:03 | Emergency (ER) | payer MEDICARE, OTHER, SELFPAY ==
--- OUTSIDE RECORDS SUMMARY | 2024-06-06 18:10 | XMS_ITS | CCD ---
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 Name Role Phone AKILAH QUINTERO Attending Unavailable JOSELYN CASTILLO Primary Care Unavailable AKILAH QUINTERO Referring Unavailable JOSELYN CASTILLO Primary Care Unavailable Joselyn Castillo MD Primary Care Provider [phone] Luis Servin Unavailable [phone] MD Joselyn Castillo Primary Care Provider [phone] MD Say Drew Attending Provider Joselyn Castillo Primary Care Unavailable JamiestenLuisJorge Admitting Unavailable Jorge Carranza Attending Unavailable Jenni Joselyn E Primary Care Unavailable Say Drew Admitting [...] Unavailable AKILAH LANDIS Referring Unavailable JOSELYN CASTILLO E Primary Care Unavailable NANETTE PATTON Attending Unavailable [...] adverse reactions to drug (disorder) 7 [facility] Repository (12 sources) Aspirin; Translations: [ASPIRIN] Drug Allergy 4 [facility] Repository (11 sources) Codeine; Translations: [CODEINE] Drug Allergy 4 Other: See Comments [facility] (9 sources) NSAIDs; Translations: [NSAIDS (NON-STEROIDAL ANTI-INFLAMMATOR Y DRUG)] Propensity to adverse reactions to drug (disorder) 7 [facility] Repository (9 sources) Sulfonamides (Antibiotic); Translations: [SULFA (SULFONAMIDE ANTIBIOTICS)] Propensity to adverse reactions to drug (disorder) 4 Unknown [facility] Repository Medications Current Medications Medication [...] hydrochloride 10 mg oral tablet (7 sources) H-pyfsdw-A-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 Start: 06-17-2022 take 1 [...] 12-15-2022 Episodic Other aftercare (1 source) 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 [facility], [address] ABS EOSINOPHIL 0.08 x10^3ul Normal (0.00 - 0.40) [facility] Comment on above: Order Comment: FACIL ITY: [facility] [id number] Performed By: #### C BC/D, CHEM-C, TIBC+, TSHT34, B12+ #### [facility] [address] [facility], [address] ABS IMMATURE GRANS 0.01 x10^3ul Normal (0.00 - 0.11) [facility] Comment on above: Order Comment: FACIL ITY: [facility] [id number] Performed By: #### C BC/D, CHEM-C, TIBC+, TSHT34, B12+ #### [facility] [address] [facility], [address] ABS LYMPHOCYTE 1.29 x10^3ul Normal (0.96 - 5.40) [facility] Comment on above: Order Comment: FACIL ITY: [facility] [id number] Performed By: #### C BC/D, CHEM-C, TIBC+, TSHT34, B12+ #### [facility] [address] [place], [address] ABS MONOCYTE 0.50 x10^3ul Normal (0.10 - 1.00) [facility] Comment on above: Order Comment: FACIL ITY: [facility] [id number] Performed By: #### C BC/D, CHEM-C, TIBC+, TSHT34, B12+ #### [facility] [address] [place], [address] ABS NEUTROPHIL 4.59 x10^3ul Normal (1.50 - 7.00) [facility] Comment on above: Order Comment: FACIL ITY: [facility] [id number] Performed By: #### C BC/D, CHEM-C, TIBC+, TSHT34, B12+ #### [facility] [address] [place], [address] Basophils/100 WBC (Bld) 0.5 % Normal () [facility] Comment on above: Order Comment: FACIL ITY: [facility] [id number] Performed By: #### C BC/D, CHEM-C, TIBC+, TSHT34, B12+ #### [facility] [address] [place], [address] Eosinophils/100 WBC (Bld) 1.2 % Normal () [facility] Comment on above: Order Comment: FACIL ITY: [facility] [id number] Performed By: #### C BC/D, CHEM-C, TIBC+, TSHT34, B12+ #### [facility] [address] [place], [address] Hematocrit (Bld) [Volume fraction] 40.4 % Normal (37.0 - 47.0) [facility] Comment on above: Order Comment: FACIL ITY: [facility] [id number] Performed By: #### C BC/D, CHEM-C, TIBC+, TSHT34, B12+ #### [facility] [address] [place], [address] Hemoglobin (Bld) [Mass/Vol] 13.0 g/dL Normal (12.0 - 16.0) [facility] Comment on above: Order Comment: [facility]ACIL ITY: [facility] [id number] Performed By: #### C BC/D, CHEM-C, TIBC+, TSHT34, B12+ #### [facility] [address] [place], [address] IMMATURE GRANS (IG) 0.2 % Normal () [facility] Comment on above: Order Comment: FACIL ITY: [facility] [id number] Performed By: #### C BC/D, CHEM-C, TIBC+, TSHT34, B12+ #### [place] [facility] [address] [place], [address] LYMPS 19.8 % Normal () [facility] Comment on above: Order Comment: FACIL ITY: [facility] [id number] Performed By: #### C BC/D, CHEM-C, TIBC+, TSHT34, B12+ #### [facility] [address] [place], [address] MCH (RBC) [Entitic mass] 31.1 pg Normal (27.0 - 33.0) [facility] Comment on above: Order Comment: FACIL ITY: [facility] [id number] Performed By: #### C BC/D, CHEM-C, TIBC+, TSHT34, B12+ #### [facility] [address] [place], [address] MCHC (RBC) [Mass/Vol] 32.2 g/dL Normal (30.0 - 37.0) [facility] Comment on above: Order Comment: FACIL ITY: [facility] [id number] Performed By: #### C BC/D, CHEM-C, TIBC+, TSHT34, B12+ #### [facility] [address] [place], [address] MCV (RBC) [Entitic vol] 96.7 fL Normal (81.0 - 99.0) [facility] Comment on above: Order Comment: FACIL ITY: [facility] [id number] Performed By: #### C BC/D, CHEM-C, TIBC+, TSHT34, B12+ #### [facility] [address] [place], [address] MONOS 7.7 % Normal () [facility] Comment on above: Order Comment: FACIL ITY: [facility] [id number] Performed By: #### C BC/D, CHEM-C, TIBC+, TSHT34, B12+ #### [facility] [address] [place], [address] PLT 127 x10^3ul Low (130 - 400) [facility] Comment on above: Order Comment: FACIL ITY: [facility] [id number] Performed By: #### C BC/D, CHEM-C, TIBC+, TSHT34, B12+ #### [facility] [address] [place], [address] RBC 4.18 x10^6ul Low (4.20 - 5.40) [facility] Comment on above: Order Comment: FACIL ITY: [facility] [id number] Performed By: #### C BC/D, CHEM-C, TIBC+, TSHT34, B12+ #### [facility] [address] [place], [address] RDW-SD 48.5 fl Normal (37.0 - 49.0) [facility] Comment on above: Order Comment: FACIL ITY: [facility] [id number] Performed By: #### C BC/D, CHEM-C, TIBC+, TSHT34, B12+ #### [facility] [address] [place], [address] SEGS 70.6 % Normal () [facility] Comment on above: Order Comment: FACIL ITY: [facility] [id number] Performed By: #### C BC/D, CHEM-C, TIBC+, TSHT34, B12+ #### [facility] [address] [place], [address] WBC 6.50 x10^3ul Normal (3.80 - 10.60) [facility] Comment on above: Order Comment: FACIL ITY: [facility] [id number] Performed By: #### C BC/D, CHEM-C, TIBC+, TSHT34, B12+ #### [facility] [address] [place], [address] COMP METABOLIC PANEL W/GFRon 05-27-2024 Albumin [Mass/Vol] 3.9 g/dL Normal (3.5 - 5.0) [facility] Comment on above: Performed By: #### C BC/D, CHEM-C, TIBC+, TSHT34, B12+ #### [facility] [address] [place], [address] ALK PHOS 102 U/L Normal (38 - 126) [facility] Comment on above: Performed By: #### C BC/D, CHEM-C, TIBC+, TSHT34, B12+ #### [facility] [address] [place], [address] ALT [Catalytic activity/Vol] 21 U/L Normal (1 - 35) [facility] Comment on above: Performed By: #### C BC/D, CHEM-C, TIBC+, TSHT34, B12+ #### [facility] [address] [place], [address] AST [Catalytic activity/Vol] 38 U/L Normal (15 - 46) [facility] Comment on above: Performed By: #### C BC/D, CHEM-C, TIBC+, TSHT34, B12+ #### [facility] [address] [place], [address] Bilirubin [Mass/Vol] 0.7 mg/dL Normal (0.2 - 1.3) [facility] Comment on above: Performed By: #### C BC/D, CHEM-C, TIBC+, TSHT34, B12+ #### [place] [facility] [address] [place], [address] Calcium [Mass/Vol] 9.3 mg/dL Normal (8.6 - 10.6) [facility] Comment on above: Performed By: #### C BC/D, CHEM-C, TIBC+, TSHT34, B12+ #### [place] [facility] [address] [place], [address] Chloride [Moles/Vol] 107 mmol/L Normal (98 - 107) [facility] Comment on above: Performed By: #### C BC/D, CHEM-C, TIBC+, TSHT34, B12+ #### [facility] [address] [place], [address] CO2 [Moles/Vol] 25 mmol/L Normal (22 - 30) [facility] Comment on above: Performed By: #### C BC/D, CHEM-C, TIBC+, TSHT34, B12+ #### [facility] [address] [place], [address] Creatinine [Mass/Vol] 1.31 mg/dL High (0.52 - 1.04) [facility] Comment on above: Performed By: #### C BC/D, CHEM-C, TIBC+, TSHT34, B12+ #### [facility] [address] [place], [address] GFR- AMER 46.5 ML/M1.7 Low (60.0 - 140.1) [facility] Comment on above: Performed By: #### C BC/D, CHEM-C, TIBC+, TSHT34, B12+ #### [facility] [address] [place], [address] GFR-NON AFRIC-AMER 38.4 ML/M1.7 Low (60.0 - 115.8) [facility] Comment on above: Performed By: #### C BC/D, CHEM-C, TIBC+, TSHT34, B12+ #### [facility] [address] [place], [address] Glucose [Mass/Vol] 109 mg/dL High (74 - 106) [facility] Comment on above: Performed By: #### C BC/D, CHEM-C, TIBC+, TSHT34, B12+ #### [facility] [address] [place], [address] Potassium [Moles/Vol] 4.1 mmol/L Normal (3.5 - 5.1) [facility] Comment on above: Performed By: #### C BC/D, CHEM-C, TIBC+, TSHT34, B12+ #### [facility] [address] [place], [address] Protein [Mass/Vol] 6.7 g/dL Normal (6.3 - 8.2) [facility] Comment on above: Performed By: #### C BC/D, CHEM-C, TIBC+, TSHT34, B12+ #### [facility] [address] [place], [address] Sodium [Moles/Vol] 140 mmol/L Normal (137 - 145) [facility] Comment on above: Performed By: #### C BC/D, CHEM-C, TIBC+, TSHT34, B12+ #### [facility] [address] [place], [address] Urea nitrogen [Mass/Vol] 24 mg/dL High (7 - 17) [facility] Comment on above: Performed By: #### C BC/D, CHEM-C, TIBC+, TSHT34, B12+ #### [place] [facility] [address] [place], [address] IRON, TIBC AND FERRITINon % SATURATION 31 % Normal (20 - 55) [facility] Comment on above: Performed By: #### C BC/D, CHEM-C, TIBC+, TSHT34, B12+ #### [place] [facility] [address] [place], [address] Ferritin [Mass/Vol] 85.6 ng/mL Normal (11.0 - 415.0) [facility] Comment on above: Performed By: #### C BC/D, CHEM-C, TIBC+, TSHT34, B12+ #### [place] [facility] [address] [place], [address] Iron [Mass/Vol] 84 ug/dL Normal (37 - 170) [facility] Comment on above: Performed By: #### C BC/D, CHEM-C, TIBC+, TSHT34, B12+ #### [place] [facility] [address] [place], [address] TIBC 275 UG/DL Normal (250 - 450) [facility] Comment on above: Performed By: #### C BC/D, CHEM-C, TIBC+, TSHT34, B12+ #### [place] [facility] [address] [place], [address] T3 FREE, T4 FREE AND TSHon 1 Free T3 [Mass/Vol] 3.01 pg/mL Normal (2.45 - 5.93) [facility] Comment on above: Performed By: #### C BC/D, CHEM-C, TIBC+, TSHT34, B12+ #### [facility] [address] [place], [address] T4 - FREE 1.24 UG/DL Normal (0.61 - 2.12) [facility] Comment on above: Performed By: #### C BC/D, CHEM-C, TIBC+, TSHT34, B12+ #### [facility] [address] [place], [address] TSH Qn 1.40 m[IU]/L Normal (0.470 - 4.680) [facility] Comment on above: Performed By: #### C BC/D, CHEM-C, TIBC+, TSHT34, B12+ #### [facility] [address] [place], [address] VIT B12 AND FOLATEon 024 Cobalamin (Vitamin B12) [Mass/Vol] 489 pg/mL Normal (239 - 931) [facility] Comment on above: Performed By: #### C BC/D, CHEM-C, TIBC+, TSHT34, B12+ #### [facility] [address] [place], [address] FOLIC ACID >20.0 High (2.8 - 20.0) [facility] Comment on above: Performed By: #### C BC/D, CHEM-C, TIBC+, TSHT34, B12+ #### [facility] [address] [facility], [address] CNPNon 08-30-2023 CNPN Telephone (RADTSA) -------- ERIN TEJADA ([id number]) 1935 F Date Time Provider Department 08/30/23 SAY DREW During your visit today, we recorded the following information about you: Enrrique De Santiago LPN 08/30/2023 10:[address] Drew please sign pended [facility] order due Aug 2024. Desirae: Will you please call and schedule [facility] in Aug 2024? Follow up was scheduled [...] Primary Visit Diagnosis:History of breast cancer [Z85.3] Order(s):[facility] DIAGNOST[facility] B[facility]ATERAL [[id number]] Order #: [id number] FUTURE Prescriptions as of 08/30/2023 - hydroCHLOROthiazide [...] Status:Closed by ENRRIQUE DE SANTIAGO on 08/30/23 [facility] CNOVon 01-17-2023 CNOV Office Visit (NPTU10 ) -------- ERIN TEJADA ([id number]) 1935 F Date Time Provider Department 01/17/23 [...] of a multidisciplinary evaluation conducted in the [facility]. The assessment consisted of a brief interview [...] is othe (more content not included)... Normal [facility] CBC AUTO DIFFon 12-12-2022 BASO # 0.0 103/ul Normal 0.0-0.1 [facility] Comment on above: Performed By: #### C BC #### [facility] [address] [place] [address] Dr. Vonda Ocampo Basophils/100 WBC (Bld) 0.8 % Normal 0.2-2.0 [facility] Comment on above: Performed By: #### C BC #### [facility] [address] [address] [address] Vonda Ocampo EO # 0.1 103/ul Normal 0.0-0.7 [facility] Comment on above: Performed By: #### C BC #### [facility] [address] [place] [address] Dr. Vonda Ocampo Eosinophils/100 WBC (Bld) 1.8 % Normal 0.9-7.0 [facility] Comment on above: Performed By: #### C BC #### [facility] [address] [place] [address] Dr. Vonda Ocampo Erythrocyte distribution width (RBC) [Ratio] 13.2 % Normal 11.0-15.0 [facility] Comment on above: Performed By: #### C BC #### [facility] [address] [place] [address] Dr. Vonda Ocampo Hematocrit (Bld) [Volume fraction] 46.4 % Normal 36.0-48.0 [facility] Comment on above: Performed By: #### C BC #### [facility] [address] [address] [address] Vonda Ocampo Hemoglobin (Bld) [Mass/Vol] 14.7 g/dL Normal 12.0-16.0 [facility] Comment on above: Performed By: #### C BC #### [facility] [address] [address] [address] Vonda Ocampo IG # 0.01 10e3/ul Normal 0.00-0.03 [facility] Comment on above: Performed By: #### C BC #### [facility] [address] [place] [address] Dr. Vonda Ocampo IG % 0.2 % Normal 0.0-0.5 [facility] Comment on above: Performed By: #### C BC #### [facility] [address] [place] [address] Dr. Vonda Ocampo LYMPH # 1.0 103/ul Critically low 1.2-3.8 [facility] Comment on above: Performed By: #### C BC #### [facility] [address] [place] [address] Dr. Vonda Ocampo Lymphocytes/100 WBC (Bld) 19.2 % Critically low 20.5-60.0 [facility] Comment on above: Performed By: #### C BC #### [facility] [address] [place] [address] Dr. Vonda Ocampo MANUAL DIFF REQ NO Normal [facility] Comment on above: Performed By: #### C BC #### [facility] [address] [place] [address] Dr. Vonda Ocampo MCH (RBC) [Entitic mass] 30.4 pg Normal 26.7-34.0 [facility] Comment on above: Performed By: #### C BC #### [facility] [address] [place] [address] Dr. Vonda Ocampo MCHC (RBC) [Mass/Vol] 31.7 g/dL Normal 29.9-35.2 [facility] Comment on above: Performed By: #### C BC #### [facility] [address] [address] [address] Vonda Ocampo MCV (RBC) [Entitic vol] 96.1 fL Normal 81.0-99.0 [facility] Comment on above: Performed By: #### C BC #### [facility] [address] [address] [address] Vonda Ocampo MONO # 0.4 103/ul Normal 0.3-0.8 [facility] Comment on above: Performed By: #### C BC #### [facility] [address] [place] [address] Dr. Vonda Ocampo Monocytes/100 WBC (Bld) 7.7 % Normal 1.7-12.0 [facility] Comment on above: Performed By: #### C BC #### [facility] [address] [place] [address] Dr. Vonda Ocampo NEUT # 3.6 103/ul Normal 1.4-6.5 [facility] Comment on above: Performed By: #### C BC #### [facility] [address] [place] [address] Dr. Vonda Ocampo Neutrophils/100 WBC (Bld) 70.3 % Normal 43.0-75.0 [facility] Comment on above: Performed By: #### C BC #### [facility] [address] [place] [address] Dr. Vonda Ocampo Platelet mean volume (Bld) [Entitic vol] 10.1 fL Normal 9.5-13.5 [facility] Comment on above: Performed By: #### C BC #### [facility] [address] [place] [address] Dr. Vonda Ocampo PLT 162 103/ul Normal 150-450 [facility] Comment on above: Performed By: #### C BC #### [facility] [address] [place] [address] Dr. Vonda Ocampo RBC 4.83 106/ul Normal 4.20-5.40 [facility] Comment on above: Performed By: #### C BC #### [facility] [address] [address] [address] Vonda Ocampo WBC 5.1 103/ul Normal 4.0-11.0 [facility] Comment on above: Performed By: #### C BC #### [facility] [address] [place] [address] Dr. Vonda Ocampo FREE T3on 12-12-2022 FREE T3 2.70 pg/mlL Normal 2.18-3.98 [facility] Comment on above: Performed By: #### C MP, TSH, FT3, LIPID #### [facility] [address] [place] [address] Dr. Vonda Ocampo FREE T4on 12-12-2022 Free T4 [Mass/Vol] 1.01 ng/dL Normal 0.76-1.46 [facility] Comment on above: Performed By: #### F T4, B12FOL #### [facility] [address] [place] [address] Dr. Vonda Ocampo LIPID PROFILEon 12-12-2022 CHOL-HDL RATIO NORM SEE BELOW Normal [facility] Comment on above: Result Comment: 3.3 - 4.4 LOW RISK 4.4 - 7.1 AVERAGE RISK 7.1 - 11.0 MODERATE RISK >11.0 HIGH RISK Performed By: #### C MP, TSH, FT3, LIPID #### [facility] [address] [place] [address] Dr. Vonda Ocampo Cholesterol [Mass/Vol] 235 mg/dL Critically high <=200 [facility] Comment on above: Performed By: #### C MP, TSH, FT3, LIPID #### [facility] [address] [place] [address] Dr. Vonda Ocampo Cholesterol in HDL [Mass/Vol] 68 mg/dL Critically high 40-60 [facility] Comment on above: Performed By: #### C MP, TSH, FT3, LIPID #### [facility] [address] [place] [address] Dr. Vonda Ocampo Cholesterol in LDL [Mass/Vol] 144.4 mg/dL Normal [facility] Comment on above: Performed By: #### C MP, TSH, FT3, LIPID #### [facility] [address] [address] [address] Vonda Ocampo Cholesterol.total/ Cholesterol in HDL [Mass ratio] 3.5 {ratio} Normal [facility] Comment on above: Performed By: #### C MP, TSH, FT3, LIPID #### [facility] [address] [address] [address] Vonda Ocampo HDL NORMAL > or = 60 mg/dl - LO W CARDIOVASCULAR RISK <40 mg/dl - HIGH CARDIOVASCULAR RISK Normal [facility] Comment on above: Performed By: #### C MP, TSH, FT3, LIPID #### [facility] [address] [address] [address] Vonda Ocampo LDL CALC NORMAL SEE BELOW Normal [facility] Comment on above: Result Comment: <100 mg/dl OPTIMAL 100 - 129 mg/dl NEAR OR ABOVE OPTIMAL 130 - 159 mg/dl BORDERLINE HIGH 160 - 189 mg/dl HIGH >190 mg/dl VERY HIGH Performed By: #### C MP, TSH, FT3, LIPID #### [facility] [address] [place] [address] Dr. Vonda Ocampo Triglyceride [Mass/Vol] 113 mg/dL Normal <=150 [facility] Comment on above: Performed By: #### C MP, TSH, FT3, LIPID #### [facility] [address] [address] [address] Vonda Ocampo VLDL CALC 22.6 mg/dL Normal [facility] Comment on above: Performed By: #### C MP, TSH, FT3, LIPID #### [facility] [address] [address] [address] Vonda Ocampo PROF 14(COMP METB)on 023 Albumin [Mass/Vol] 3.7 g/dL Normal 3.4-5.0 [facility] Comment on above: Performed By: #### C MP, TSH, FT3, LIPID #### [facility] [address] [address] [address] Vonda Ocampo Albumin/Globulin [Mass ratio] 0.9 {ratio} Normal [facility] Comment on above: Performed By: #### C MP, TSH, FT3, LIPID #### [facility] [address] [place] [address] Dr. Vonda Ocampo ALP [Catalytic activity/Vol] 125 U/L Critically high 46-116 [facility] Comment on above: Performed By: #### C MP, TSH, FT3, LIPID #### [facility] [address] [place] [address] Dr. Vonda Ocampo ALT [Catalytic activity/Vol] 20 U/L Normal 14-59 [facility] Comment on above: Performed By: #### C MP, TSH, FT3, LIPID #### [facility] [address] [place] [address] Dr. Vonda Ocampo Anion gap [Moles/Vol] 12.2 mmol/L Normal [facility] Comment on above: Performed By: #### C MP, TSH, FT3, LIPID #### [facility] [address] [place] [address] Dr. Vonda Ocampo AST [Catalytic activity/Vol] 20 U/L Normal 15-37 [facility] Comment on above: Performed By: #### C MP, TSH, FT3, LIPID #### [facility] [address] [place] [address] Dr. Vonda Ocampo Bilirubin [Mass/Vol] 0.7 mg/dL Normal 0.2-1.0 [facility] Comment on above: Performed By: #### C MP, TSH, FT3, LIPID #### [facility] [address] [place] [address] Dr. Vonda Ocampo Calcium [Mass/Vol] 9.8 mg/dL Normal 8.5-10.1 [facility] Comment on above: Performed By: #### C MP, TSH, FT3, LIPID #### [facility] [address] [place] [address] Dr. Vonda Ocampo Chloride [Moles/Vol] 104 mmol/L Normal 98-107 [facility] Comment on above: Performed By: #### C MP, TSH, FT3, LIPID #### [facility] [address] [place] [address] Dr. Vonda Ocampo CO2 [Moles/Vol] 31.0 mmol/L Normal 21.0-32.0 [facility] Comment on above: Performed By: #### C MP, TSH, FT3, LIPID #### [facility] [address] [place] [address] Dr. Vonda Ocampo Creatinine [Mass/Vol] 0.94 mg/dL Normal 0.55-1.02 [facility] Comment on above: Performed By: #### C MP, TSH, FT3, LIPID #### [facility] [address] [place] [address] Dr. Vonda Ocampo EGFR-AF BELIZEAN >60 Normal >=60 [facility] Comment on above: Performed By: #### C MP, TSH, FT3, LIPID #### [facility] [address] [place] [address] Dr. Vonda Ocampo EGFR-NON AF BELIZEAN 56 mL/min/1.73m2 Critically low >=60 [facility] Comment on above: Performed By: #### C MP, TSH, FT3, LIPID #### [facility] [address] [place] [address] Dr. Vonda Ocampo Globulin (S) [Mass/Vol] 4.3 g/dL Normal [facility] Comment on above: Performed By: #### C MP, TSH, FT3, LIPID #### [facility] [address] [place] [address] Dr. Vonda Ocampo Glucose [Mass/Vol] 108 mg/dL Critically high 74-106 [facility] Comment on above: Performed By: #### C MP, TSH, FT3, LIPID #### [facility] [address] [place] [address] Dr. Vonda Ocampo Potassium [Moles/Vol] 4.2 mmol/L Normal 3.5-5.1 [facility] Comment on above: Performed By: #### C MP, TSH, FT3, LIPID #### [facility] [address] [place] [address] Dr. Vonda Ocampo Protein [Mass/Vol] 8.0 g/dL Normal 6.4-8.2 [facility] Comment on above: Performed By: #### C MP, TSH, FT3, LIPID #### [facility] [address] [place] [address] Dr. Vonda Ocampo Sodium [Moles/Vol] 143 mmol/L Normal 136-145 [facility] Comment on above: Performed By: #### C MP, TSH, FT3, LIPID #### [facility] [address] [place] [address] Dr. Vonda Ocampo Urea nitrogen [Mass/Vol] 21.0 mg/dL Critically high 7.0-18.0 [facility] Comment on above: Performed By: #### C MP, TSH, FT3, LIPID #### [facility] [address] [place] [address] Dr. Vonda Ocampo Urea nitrogen/Creatinin e [Mass ratio] 22.3 mg/mg Normal [facility] Comment on above: Performed By: #### C MP, TSH, FT3, LIPID #### [facility] [address] [place] [address] Dr. Vonda Ocampo TSHon 12-12-2022 TSH 1.479 uIU/mL Normal 0.358-3.740 [facility] Comment on above: Performed By: #### C MP, TSH, FT3, LIPID #### [facility] [address] [place] [address] Dr. Vonda Ocampo VIT B12 AND FOLATEon 023 Cobalamin (Vitamin B12) [Mass/Vol] 384.0 pg/mL Normal 193.0-986.0 [facility] Comment on above: Performed By: #### F T4, B12FOL #### [facility] [address] [place] [address] Dr. Vonda Ocampo FOLATE 23.10 ng/mL Normal 8.60-58.90 [facility] Comment on above: Performed By: #### F T4, B12FOL #### [facility] [address] [place] [address] Dr. Vonda Ocmapo MRI 3D POST PROCESSINGon MRI 3D POST PROCESSING * * *Final Report* * * DATE OF EXAM: Oct 08 2022 3:34PM [facility] 0280 - MRI 3D POST PROCESSING / PROCEDURE REASON: Cognitive impairment, mild, so stated * * * * Physician Interpretation * * * * EXAMINATION: MRI BRAIN WO IVCON, MRI 3D POST PROCESSING CLINICAL HISTORY: TECHNIQUE: Axial FUNMI FLAIR, FUNMI T2, diffusion and susceptibility weighted imaging without contrast, using the ADNI dementia protocol and 3-D post-processing using the BodyMedia software at an independent workstation with concurrent [...] = Focal Lesions 2 = Beginning of [place] 3 = Diffuse Involvement of Entire Region [...] results from the analysis charts for details. Deputy Sheriff Custody: YARELIS Transcribe Date/Time: Oct 08 2022 3:47P Dictated by : ALEXI YARBROUGH MD This examination was interpreted and the report reviewed and electronically signed by: ALEXI YARBROUGH MD on Oct 08 2022 4:29PM EST [id number] Normal [facility] MRI BRAIN WO IVCONon 023 MRI [...] = Focal Lesions 2 = Beginning of [place] 3 = Diffuse Involvement of Entire Region [...] results from the analysis charts for details. 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 This document has been created with the use of voice recognition technology. It may contain inaccuracies, misspellings, inaccurate syntax or inappropriate word context that are a result of the inadequacies/shortcoming s of said technology/software. Referring Provider: SAY DREW [[id number]] Allergies As of Date: 09/01/2022 Noted Allergy [...] mg tablet (more content not included)... Normal [facility] MM diagnostic mammo BI w/CAD on 08-30-2022 MM diagnostic mammo BI w/CAD [facility] [place] [address] [place] [address] Mammography Report Signed Patient: Erin Tejada MR#: [id number] : 1935 Acct:[id number] Age/Sex: 87 / F ADM Date: 08/30/22 Loc: [place] Room: Type: [facility] Attending Dr: Say Drew MD Copies [...] Maranda Portillo M.D.08/30/2022 2:31 PM Dictation Location: [facility] Transcribed By: AZIZA 08/30/221430 Dictated By: Maranda Portillo MD 08/30/221425 Signed By: 08/30/221430 [facility] CNOVon 07-07-2022 CNOV Office Visit (NEADFV ) -------- RAMIROERIN EVANS ([id number]) 1935 F Date Time Provider Department 07/07/22 3:00 PM AKILAH QUINTERO During your visit today, we recorded the following information about you: Pulse Blood pressure Weight Height 86/minute 199/84 59.8 kg 1.632 m Akilah Quintero DO 07/10/2022 3:40 PM Signed [facility] New Patient Evaluation Consulting Provider: LUIS SERVIN [place] [address] Individuals who were included in, or assisted with the encounter were: Erin Timmonsgladys Quintero DO Chief Complaint/Issues: Erin Tejada is a 87 year old female seen in the [facility] for: Memory changes HPI: Ms. Tejada is an 87 year old woman PMHx HTN, remote breast CA presenting with memory concerns. She is accompanied by her cousin. She tells me that another cousin thought she had memory issues when she went to visit her in [place] for three weeks last year. She does [...] denies tremors. 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 Nobody complains about [...] the service (more content not included)... Normal [facility] FOLATE SERUMon 07-07-2022 Folate [Mass/Vol] >4.7 ng/mL [facility] Folate SerPl-mCncon 07-07-20 Folate [Mass/Vol] ng/mL Normal >4.7 [facility] Comment on above: Order Comment: Speci men Type: BLOOD SPECIMEN Ordering Facility: [facility] Address: [address] [place] [address] [place] [address] Result Comment: A re sult of > 20 ng/mL is not necessarily indicative of a pathologic or treatable condition: it reflects a limitation of the test methodology. Assay reference range: 4.8 to 24.2 ng/mL. Suitable for detection of folate deficiency. Reference: Folate III (Folate III) [package insert V 1.0 Bel[place]ian]. [facility], [place], [place]: June 2015. Performed By: #### 2 132-9, 2284-8 #### [facility] CLIA [id number] [place] [address] [place] VITAMIN B12 BLOODon 07-07-20 22 Cobalamin (Vitamin B12) [Mass/Vol] 556 pg/mL 232 - 1,245 pg/mL [facility] Vit B12 SerPl-mCncon 022 Cobalamin (Vitamin B12) [Mass/Vol] 556 pg/mL Normal 232-1245 [facility] Comment on above: Order Comment: Speci men Type: BLOOD SPECIMEN Ordering Facility: [facility] Address: [place] [id number] Performed By: #### 2 132-9, 2284-8 #### [facility] CLIA [id number] [address] [place] [address] [place] A[place] - Otheron 06-10-2021 [...] was advised that I would speak with export sales manager regarding the situation and get back [...] restricted hearing right ear Jesusita Jay M.A., [facility] Radiology Asst [facility] AUD - Otheron 06-08-2021 AUD - Other 06/07/2021 - Patient in today a week late for appointment. She had written appointment down on wrong day. Patient needed help putting right hearing aid in ear. Patient brought 2 left hearing aids and had been trying to put one of them in her right ear. The hearing aid was Siemen's brand, not one she recently purchased here. Patient stated she had other hearing aids at home. Advised patient to reschedule and bring in all of the devices she has at home and we will figure out which devices are the newer ones that she should be wearing. 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 No charge, patient under warranty. Chris Donaldson [facility], F-AAA Dx Code: H90.3 SNHL AU [facility] AUD - Hearing Aid Saleson AUD - Hearing Aid Sales [id number]#[id number] D:127 [facility] AUD - Orderson 12-09-2020 AUD - Orders [id number]#[id number] :127 [facility] AUD - Progress Noteson 12-08 AUD - Progress Notes Hearing Aid Clean/Check 12/08/2020 Purpose of Appointment: Patient in today for a routine hearing aid check/cleaning. Hearing Devices: Unitron D Moxi Jump 7 RICs with C shell earmolds and Unitron Stride P 800 BTE with standard earmold and tubing ( S/N: [id number]) Primary issues/concerns: The patient reports that she [...] as patient is under warranty. 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 Normal [facility] Vital Signs Date Time Vital Sign Value Performing Clinician Faci litfaith 09-01-2022 14:45-0500 Body temperature 96.91 [degF] Say Drew MD Work Phone: [facility] 09-01-2022 14:45-0500 Body weight 59.88 kg Say Drew MD Work Phone: [facility] 09-01-2022 14:45-0500 Diastolic blood pressure 85 mm[Hg] aSy Drew MD Work Phone: [facility] 09-01-2022 14:45-0500 Heart rate 92 /min Say Drew MD Work Phone: [facility] 09-01-2022 14:45-0500 Respiratory rate 16 /min Say Drew MD Work Phone: [facility] 09-01-2022 14:45-0500 SaO2% (BldA) [Mass fraction] 100 % Say Drew MD Work Phone: [facility] 09-01-2022 14:45-0500 Systolic blood pressure 176 mm[Hg] Say Drew MD Work Phone: [facility] 07-07-2022 14:36-0500 Body height 163.2 cm Akilah Leon DO Work Phone: [facility] 07-07-2022 14:36-0500 Body weight 59.83 kg Akilah Leon DO Work Phone: [facility] 07-07-2022 14:36-0500 Diastolic blood pressure 84 mm[Hg] Akilah Leon DO Work Phone: [facility] 07-07-2022 14:36-0500 Heart rate 86 /min Akilah Leon DO Work Phone: [facility] 07-07-2022 14:36-0500 Systolic blood pressure 199 mm[Hg] Akilah Leon DO Work Phone: [facility] Encounters Encounter Date Encounter Type Care Provider Facility Start: 01-23-2023 Unlisted evaluation and management service Say Drew MD Work Phone: Radiation Oncology Comment on above: Opened In Error Start: 01-17-2023 End: 01-17-2023 ambulatory AKILAH MANCUSO Facility:[facility] Start: 01-17-2023 End: 01-17-2023 Patient encounter [...] Start: 09-01-2022 End: 09-01-2022 ambulatory JOSELYN CASTILLO Facility:[facility] Start: 09-01-2022 End: 09-01-2022 Patient encounter procedure Say Drew MD Work Phone: Radiation Oncology Comment on above: History of breast ca ncer (Primary Dx) Start: 09-01-2022 Telephone encounter Akilah parada DO Work Phone: Radiation Oncology Comment on above: Patient Question; Ap pointment Start: 08-30-2022 End: 08-30-2022 ambulatory MD Joselyn Castillo Work Phone: [facility] Work Phone: Start: 08-30-2022 End: 08-30-2022 Patient encounter procedure MD Joselyn Castillo Work Phone: [facility] Work Phone: Start: 07-07-2022 End: 07-08-2022 ambulatory AKILAH R LEON Facility:[facility] Start: 07-07-2022 End: 07-07-2022 ambulatory AKILAH R LEON Facility:[facility] Start: 07-07-2022 End: 07-07-2022 Patient encounter procedure Akilahterry Simpsonok DO Work Phone: Neurology Comment on above: Cognitive impairment , mild, so stated (Primary Dx) Start: 02-02-2022 End: 02-02-2022 ambulatory Joselyn Castillo Facility:[facility] Procedures Date Procedure Procedure Detail Performing Clinician Start: 10-08-2022 MRI 3D POST PROCESSING Jair Howell DO Work Phone: Start: 10-08-2022 Mri brain brain stem w/o contrast material Akilah Quintero DO Work Phone: Start: 08-30-2022 Bilateral mammography M D Joselyn Castillo Work Phone: Plan of Treatment Date Care Activity Detail Author Start: 04-21-2023 Influenza vaccination INFLUENZ A (Season Ended) [facility] Start: 08-21-2022 ADVANCE DIRECTIVE DISCUSSION ADVANCE DIRECTIVE DISCUSSION [facility] Start: 08-21-2022 DEPRESSION ASSESSMENT DEPRESSION ASS ESSMENT [facility] Start: 07-07-2022 End: 09-06-2022 VITAMIN B1 (THIAMINE), WHOLE BLOOD VITAMIN B1 (THIAMINE), WHOLE BLOOD Lab Routine Cognitive impairment, mild, so stated Expected: 07/07/2022, Expires: 09/06/2022 [facility] Work Phone: Comment on above: Expected: 07/07/2022 , Expires: 09/06/2022 Start: 04-21-2022 Influenza vaccination INFLUENZA (#1) [facility] Start: 08-21-2021 ADVANCE DIRECTIVE DISCUSSION ADVANCE DIRECTIVE DISCUSSION [facility] Start: 08-21-2021 DEPRESSION ASSESSMENT DEPRESSION ASS ESSMENT [facility] Start: 11-25-2020 COVID-19 VACCINE (3 - Booster for Pfizer series) COVID-19 VACCINE (3 - Booster for Pfizer series) [facility] Start: 2001 BONE DENSITY BONE DENSITY [facility] Start: 2001 PNEUMOCOCCAL: 65+ (1 - PCV) PNEUMOCOCCAL: 65+ (1 - PCV) [facility] Start: 1986 SHINGRIX VACCINE (1 of 2) SHINGRIX VACCINE (1 of 2) [facility] Start: 1981 DIABETES SCREEN DIABETES SCREEN [facility] Start: 1955 Urine microalbumin profile DTAP,TDAP,TD (1 - Tdap) [facility] End: 08-06-2023 Mri brain brain stem w/o contrast material MRI BRAIN WO IVCON Radiology Routine Cognitive impairment, mild, so stated 1 Occurrences starting 07/07/2022 until 08/06/2023 [facility] Work Phone: Comment on above: 1 Occurrences starti ng 07/07/2022 until 08/06/2023 [facility] Payers Date Payer Category Payer Self-pay [id number] 2015 Private Health Insurance HUMANA HUMANA MEDICARE SUPPLEMENT [id number] 2015-Present [phone] [address] [address] [place] [address] Indemnity [id number] 2001 Medicare [id number] 1959 Medicare [id number] 1959 Medicare [id number] 1935 Unknown [id number] 1935 Unknown [id number] Unknown [id number] Unknown [id number] Social History Date Type Detail Facility Start: 07-07-2022 Tobacco smoking stat us NDIS Never smoked tobacco [facility] Start: 07-07-2022 Tobacco use and exposure Smokeless tobacco non-user [facility] Start: 07-07-2022 End: 09-01-2022 Alcohol intake Current drinker of alcohol (finding) [facility] Start: 08-18-2016 Alcohol Comment derrick Gutierrez [facility] Start: 1935 Sex Assigned At Not on file C [facility] Start: 06-27-2022 End: 07-07-2022 Exposure to SARS-CoV-2 (event) Not sure [facility] Start: 1935 Sex Assigned At Female F [facility] Medical Equipment Procedure Code Equipment Code Equipment Origin al Text Equipment Identifier Dates Discectomy, lumbar COFLEX SIZE [address] art: 02-09-2018 Discectomy, lumbar COFLEX SIZE [address] art: 02-09-2018 Clinical Notes 07-07-2022 to 01-23-2023 Nanette Patton, PhD - 01/23/2023 12:22 PM EDTTelephone Encounter - Alice Jamil RN - 01/23/2023 9:58 AM Paola Lange, steam hand - 10/08/2022 3:00 PM William Drew MD - 09/01/2022 11:46 PM EST Note Date & Type Note Facility 01-23-2023 Note HNO ID: [id number] Author: Nanette Patton, PhD Service: ? Author [...] of a multidisciplinary evaluation conducted in the [facility]. The assessment consisted of a brief interview [...] the 24th p (more content not included)... [facility] 01-23-2023 History of Present illness Narrative PATIENT NAME: Erin Tejada NEUROPSYCHOLOGICAL EVALUATION EDUCATION: 12 OCCUPATION: retired HANDEDNESS: R REFERRING: Akilah Quintero, DO ? The current evaluation was performed in the context of medical care and a clinical referral question and not for purposes of a forensic, disability, or workers' compensation evaluation. This assessment is part of a multidisciplinary evaluation conducted in the [facility]. The assessment consisted of a brief interview [...] word reading performance and demographic variables, Ms. Tejada's premorbid intellectual abilities are estimated to be [...] per week. Contact: Local: ; Toll free: [phone] or https://www.[employer].org/wolf run Do not require an Alzheimer's diagnosis to contact them Family Caregiver [place] (web site: Caregiver.org) [employer]-- a secure online solution for quality information, support, and resources for family caregivers. Contact: Toll-free number: [phone] In home resource- http://www.[employer].org/ind ex.aspx -Recommended connecting with the local Agency on Aging for benefits screening, including for the Options program, which can provide funding for home health aide services. Contact information: . Alternate number: [phone] [facility] (https://www.[employer].com/local/ xrfhslv-yrvawdf-kfbc-qhhtau-sn-lx whr-wecfdsxxi-yupg-gxsaol-bl-levi g-oh) - Home Health Agencies who can provide supportive services to both patient and caregiver. These services may include companionship and assistance with activities of daily living, such as meals, bathing, and dressing. They may also provide assistance with household worker and transportation. Many agencies have caregivers that have training specifically for the care of a person with dementia. [facility]: [phone] Visiting Nurse Association: [phone] Home Instead: [phone] [employer]: [phone] [facility] Care: [phone] This report is meant to be considered [...] = 2 hours Neuropsychological test administration/scoring by quality assurance monitor chassis = 1 hour, 55 minutes documented in this encounter [facility] 01-23-2023 Miscellaneous Notes This encounter was opened in error. documented in this encounter [facility] 10-08-2022 Note HNO ID: [id number] Author: Melisa Lange steam hand Service: ? Author Type: Technologist Type: Progress [...] SALVADOR Raza October 08, 2022 3:28 PM [facility] 10-08-2022 History of Present illness Narrative [...] 2022 3:28 PM documented in this encounter [facility] 09-05-2022 Miscellaneous Notes Scheduling spoke with patients cousin (POA) and provided scheduling number for the neuropsychological testing. I spoke with patient, she requested that I mail MRI order to her so she can complete close to home. (Placed in mail) I also explained to her that I would forward her chart to scheduling for neuropsych testing appointment. She was appreciative of call. Erin is in the [facility] oncology office today for a follow up. 07/07/[address] Quintero who ordered MRI brain and neuropsych testing but Erin said these tests were never scheduled. Follow up is to be arrange after the above testing. Erin would like the MRI brain done locally at [facility]. She is wondering if she should have the neuropsych testing done locally or if [facility] is preferred. She and her cousin, Anderson Palafox, are here today and seem to have some confusion about the expected appointments. Will you please reach out to Erin arrange the testing and follow up as ordered. Enrrique De Santiago LPN documented in this encounter [facility] 09-02-2022 Note HNO ID: [id number] Author: Say Drew MD Service: ? Author Type: Physician Type: Progress Notes Filed: 09/14/2022 5:05 AM Note Text: Radiation Oncology - Follow Up Note PATIENT NAME: Erin Tejada PATIENT DIAGNOSIS/PATIENT IDENTIFICATION: Ms. 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 This document has been created with the use of voice recognition technology. It may contain inaccuracies, misspellings, inaccurate syntax or inappropriate word context that are a result of the inadequacies/shortcomings of said technology/software. [facility] 09-01-2022 History of Present illness Narrative Radiation Oncology - Follow Up Note PATIENT NAME: Erin Tejada PATIENT Signed by: Say Drew MD I spent a total of 20 minutes on the date of the service which included preparing to see the patient, [id number] patient care, and counseling and educating the patient/family/caregiver. This document has been created with the use of voice recognition technology. It may contain inaccuracies, misspellings, inaccurate syntax or inappropriate word context that are a result of the inadequacies/shortcomings of said technology/software. documented in this encounter [facility] 07-07-2022 Note HNO ID: [id number] Author: Akilah Quintero DO Service: ? Author Type: Physician Type: Progress Notes Filed: 07/10/2022 3:40 PM Note Text: [facility] New Patient Evaluation Consulting Provider: LUIS SERVIN [address] [place] [address] Individuals who were included in, or assisted with the encounter were: Erin Tejada Akilah Quintero DO Chief Complaint/Issues: Erin Tejada is a 87 year old female seen in the [facility] for: Memory changes HPI: Ms. Tejada is an 87 year old woman PMHx HTN, remote breast CA presenting with memory concerns. She is accompanied by her cousin. She tells me that another cousin thought she had memory issues when she went to visit her in [place] for three weeks last year. She does [...] denies tremors. 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 Nobody complains about [...] 30) Visuospatial / Executive: 3/5 Namin/3 Attention: 6 Language: 2/3 Abstraction: 1/2 Delayed memory: 0/5 Orientation: 01/24 Education: 0 (1 is true, 0 is [...] does not think she had issues. MOCA 18/30. This warrants further work-up. PLAN Neuropsych testing [...] which included preparing to see the patient, [id number] patient care, completing clinical documentation, obtaining and/or reviewing separately obtained history, performing a medically appropriate examination, counseling and educating the patient/family/ (more content not included)... [facility] 07-07-2022 Instructions Akilah Quintero DO - 07/07/2022 3:29 PM EST Please get memory labs, brain MRI, neuropsychological testing (formal memory testing). Follow-up after neuropsych testing to go over results. documented in this encounter [facility] 07-07-2022 History of Present illness Narrative Images from the original note were not included. [facility] New Patient Evaluation Consulting Provider: LUIS SERVIN [facility] [address] Individuals who were included in, or assisted with the encounter were: Erin Tejada Akilah Quintero DO Chief Complaint/Issues: Erin Tejada is a 87 year old female seen in the [facility] for: Memory changes HPI: Ms. Tejada is an 87 year old woman PMHx HTN, remote breast CA presenting with memory concerns. She is accompanied by her cousin. She tells me that another cousin thought she had memory issues when she went to visit her [place] for three weeks last year. She does [...] denies tremors. 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 Nobody complains about [...] with normal cognition, memory, speech and affect. [place] Cognitive Assessment (MoCA) MoCA Total Score: 18 [...] which included preparing to see the patient, [id number] patient care, completing clinical documentation, obtaining and/or reviewing separately obtained history, performing a medically appropriate examination, counseling and educating the patient/family/caregiver, and ordering medications, tests, or procedures. Akilah Quintero DO documented in this encounter [facility] Evaluation note Diagnosis Cognitive impairment, mild, so stated- Primary Mild cognitive impairment, so stated [facility] noteNo assessment information availableTri[facility] Work Phone: Evaluation note* Diagnosis History of breast cancer- Primary Personal history of malignant neoplasm of breast documented in this encounter [facility] note* Diagnosis Cognitive impairment, mild, so stated- Primary Mild cognitive impairment, so stated documented in this encounter [facility] note* Diagnosis Cognitive impairment, mild, so stated Mild cognitive impairment, so stated documented in this encounter [facility] note* Diagnosis OPENED IN ERROR- Primary To allow closing an encounter opened in error (used in SmartSet) documented in this encounter [facility] note* Diagnosis Dementia without behavioral disturbance, psychotic disturbance, mood disturbance, or anxiety, unspecified dementia severity, unspecified dementia type (HCC)- Primary documented in this encounter [facility] Summary Purpose Family History No Family History Records Found Relationship Condition Age at Onset Recorded Date/T eladia father Dementia Unknown Advance Directives No Advanced Directives Records FoundDocuments on File Type Date Recorded 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 Advance Directive(s) 07/26/2012 2:28 PM Advance Directive Response Recorded Date/ Time Advance Directives No June 16, 2017 8:37am Documents on File Type Date Recorded 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 Advance Directive(s) 07/26/2012 2:28 PM Reason for Referral Specialty Diagnoses / Procedures Referred By Ratna turner Referred To Contact Diagnoses Cognitive impairment, mild, so stated Procedures NEUROPSYCHOLOGICAL TESTING CONSULT Akilah Quintero DO [address] [place] [address] Referral ID Status Reason Start Date Expiration Date Visits Requested Visits Authorized [id number] Ref Not Required PCP Requested Referral 2 10/05/2022 1 1 Specialty Diagnoses / Procedures Referred By Ratna t Referred To Contact MR IMAGING Diagnoses Cognitive impairment, mild, so stated Procedures MRI BRAIN WO IVCON MRI BRAIN BRAIN STEM W/O CONTRAST MATERIAL Akilah Quintero DO [address] [facility] [place] [address] Mr Imaging Referral ID Status Reason Start Date Expiration Date Visits Requested Visits Authorized [id number] Pending Review Auto-Generat ed Referral 2 08/06/2023 1 1 Specialty Diagnoses / Procedures Referred By Contac t Referred To Contact MR IMAGING Diagnoses Cognitive impairment, mild, so stated Procedures MRI 3D POST PROCESSING 3D RENDERING W/INTERP&POSTPROC DIFF WORK STATION Caio Holloway MD, [address] [place] [address] Mr Imaging Referral ID Status Reason Start Date Expiration Date Visits Requested Visits Authorized [id number] Pending Review Auto-Generat ed Referral 10/08/2022 11/07/2023 1 1 Specialty Diagnoses / Procedures Referred By Contac t Referred To Contact MR IMAGING Diagnoses Cognitive impairment, mild, so stated Procedures MRI BRAIN WO IVCON MRI BRAIN BRAIN STEM W/O CONTRAST MATERIAL Akilah Quintero DO [address] [place] [address] Mr Imaging Referral ID Status Reason Start Date Expiration Date V isits Requested Visits Authorized [id number] Closed Auto-Generate d Referral 07/07/2022 08/06/2023 1 1 Chief Complaint and Reason for Visit Chief Complaint hx of breast cancer Additional Source Comments INFORMATION SOURCE (unrecogn ized section and content) DATE CREATED AUTHOR 11/15/2021 [facility] DATE CREATED AUTHOR AUTHOR'S ORGANIZ ATION 07/10/2022 [facility] DATE CREATED AUTHOR AUTHOR'S ORGANIZ ATION 09/07/2022 [facility] DATE CREATED AUTHOR AUTHOR'S ORGANIZ ATION 01/05/2023 [facility] DATE CREATED AUTHOR AUTHOR'S ORGANIZ ATION 08/31/2023 [facility] DATE CREATED AUTHOR AUTHOR'S ORGANIZ ATION 05/29/2024 [facility] Source Comments (unrecognize d section and content) In the event this informatio n is protected by the Federal Confidentiality of Alcohol and Drug Abuse Patient Records regulations: The Federal rules restrict any use of the information to criminally investigate or prosecute any alcohol or drug abuse patient.[facility] the event this information is protected by the Federal Confidentiality of Alcohol and Drug Abuse Patient Records regulations: The Federal rules restrict any use of the information to criminally investigate or prosecute any alcohol or drug abuse patient.[facility] the event this information is protected by the Federal Confidentiality of Alcohol and Drug Abuse Patient Records regulations: The Federal rules restrict any use of the information to criminally investigate or prosecute any alcohol or drug abuse patient.[facility] the event this information is protected by the Federal Confidentiality of Alcohol and Drug Abuse Patient Records regulations: The Federal rules restrict any use of the information to criminally investigate or prosecute any alcohol or drug abuse patient.[facility] the event this information is protected by the Federal Confidentiality of Alcohol and Drug Abuse Patient Records regulations: The Federal rules restrict any use of the information to criminally investigate or prosecute any alcohol or drug abuse patient.[facility] the event this information is protected by the Federal Confidentiality of Alcohol and Drug Abuse Patient Records regulations: The Federal rules restrict any use of the information to criminally investigate or prosecute any alcohol or drug abuse patient.[facility] the event this information is protected by the Federal Confidentiality of Alcohol and Drug Abuse Patient Records regulations: The Federal rules restrict any use of the information to criminally investigate or prosecute any alcohol or drug abuse patient.[facility] Reason for Visit (unrecogniz ed section and content) Reason Comments New Patient Rule out [facility] , Discu ss symptoms Reason Comments Patient Question Appointment Reason Comments Breast Cancer Specialty Diagnoses / Procedures Referred By Contac t Referred To Contact MR IMAGING Diagnoses Cognitive impairment, mild, so stated Procedures MRI BRAIN WO IVCON MRI BRAIN BRAIN STEM W/O CONTRAST MATERIAL Akilah Quintero DO [address] [place] [address] Mr Imaging Referral ID Status Reason Start Date Expiration Date V isits Requested Visits Authorized [id number] Closed Auto-Generate d Referral 07/07/2022 08/06/2023 1 1 Reason Onset Date Comments Opened In Error 01/23/2023 Specialty Diagnoses / Procedures Referred By Contact Referred To Contact Psychology / NEUROPSYCHOLOGY Diagnoses Cognitive impairment, mild, so stated [G31.84] Procedures PIANO REGULATOR [place] [address] [place] [address] Nanette Patton, PhD [address] [place] [address] Referral ID Status Reason Start Date Expiration Date V isits Requested Visits Authorized [id number] Pending Review 01/17/2023 04/17/2023 1 1 Care Teams (unrecognized sec tion and content) Induction Heating Equipment Setter Relationship Specialty Start Date End Date Joselyn Castillo MD [address] [place] [address] PCP - General Family Medicine 08/01/[address] [place] [address] Referring Family Medicine 05/31/22 Team Status: Inactive Member Role Status Dates Joselyn Castillo MD Primary Care Provider Active Say Drew MD Attending Provider Active Team Status: Active Member Role Status Dates Joselyn Castillo MD Primary Care Provider Active Induction Heating Equipment Setter Relationship Specialty Start Date End Date Joselyn Castillo MD [address] [place] [address] PCP - General Family Medicine 08/01/[address] [place] [address] Referring Family Medicine 05/31/22 Induction Heating Equipment Setter Relationship Specialty Start Date End Date Joselyn Castillo MD [address] [place] [address] PCP - General Family Medicine 08/01/[address] [place] [address] Referring Family Medicine 05/31/22 Induction Heating Equipment Setter Relationship Specialty Start Date End Date Joselyn Castillo MD [address] [place] [facility] [place] [address] PCP - General Family Medicine 08/01/[address] [place] [address] Referring Family Medicine 05/31/22 Induction Heating Equipment Setter Relationship Specialty Start Date End Date Joselyn Castillo MD [address] [place] [facility] [place] [address] PCP - General Family Medicine 08/01/[address] [place] [address] Referring Family Medicine 05/31/22 Induction Heating Equipment Setter Relationship Specialty Start Date End Date Joselyn Castillo MD [address] [place] [facility] [place] [address] PCP - General Family Medicine 08/01/[address] [place] [address] Referring Family Medicine 05/31/22 Induction Heating Equipment Setter Relationship Specialty Start Date End Date Joselyn Castillo MD [address] [place] [facility] [place] [address] PCP - General Family Medicine 08/01/[address] [place] [address] Referring Family Medicine 05/31/22 Goals (unrecognized section and content) Goals [...] BASED ON THE PRIMARY CLINICAL RECORDS. [facility], [facility]. provides no warranty or guarantee of the accuracy or completeness of information in this document.
[2024-06-06 18:18] VITALS: BP 227/84; PULSE 70; TEMP 37.3; O2SAT 99; BMI 19.0
--- NOTE | 2024-06-06 18:48 | ED_ITS ---
HPI - Female Genitourinary General Chief complaint: Urogenital-Female Stated complaint: Blood in Urine Time Seen by Provider: 06/06/24 18:42 Source: patient and family Mode of arrival: walk-in Limitations: altered mental status History of Present Illness HPI Narrative: The patient is a 88-year-old female is coming to the ER with complaint of having blood in urine for the last few days The patient who is at the bedside mentioned that she does not have any pain or any nausea or vomiting Related Data Home Medications ?Medication ?Instructions ?Recorded ?Confirmed carvedilol 6.25 mg tablet 6.25 mg PO BID 10/12/23 06/06/24 memantine 10 mg tablet 10 mg PO BID 10/12/23 06/06/24 sertraline 25 mg tablet 25 mg PO DAILY 12/31/23 06/06/24 Allergies Allergy/AdvReac Type Severity Reaction Status Date / Time No Known Drug Allergies Allergy Verified 06/06/24 18:17 Review of Systems ROS Status of ROS 10 or more systems reviewed and unremark able except as noted in history and below [facility] Medical History (Updated 05/30/24 @ 00:00 by ) CKD stage 3a, GFR 45-59 ml/min ?N18.31 - Chronic kidney disease, stage 3a (ICD-10) 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 ?F03.90 - Unspecified dementia, unspecified severity, without behavioral disturbance, psychotic disturbance, mood disturbance, and anxiety (ICD-10) Hypertension ?I10 - Essential (primary) hypertension (ICD-10) Dementia ?F03.90 - Unspecified dementia, unspecified severity, without behavioral disturbance, psychotic disturbance, mood disturbance, and anxiety (ICD-10) Syncope, vasovagal ?R55 - Syncope and collapse (ICD-10) Urinary tract infection ?N39.0 - Urinary tract infection, site not specified (ICD-10) Dementia ?F03.90 - Unspecified dementia, unspecified severity, without behavioral disturbance, psychotic disturbance, mood disturbance, and anxiety (ICD-10) Cognitive impairment ?R41.89 - Other symptoms and signs involving cognitive functions and awareness (ICD-10) Breast cancer ?C50.919 - Malignant neoplasm of unspecified site of unspecified female breast (ICD-10) Dementia ?F03.90 - Unspecified dementia, unspecified severity, without behavioral disturbance, psychotic disturbance, mood disturbance, and anxiety (ICD-10) Surgical History (Updated 12/31/23 @ 13:43 by Annette Richardson) H/O lumpectomy ?Z98.890 - Other specified postprocedural states (ICD-10) Hx of appendectomy ?Z90.49 - Acquired absence of other specified parts of digestive tract (ICD- 10) Family History (Updated 12/31/23 @ 13:45 by Annette Richardson) Aunt Family history of stroke Social History (Updated 12/31/23 @ 13:46 by Annette Richardson) Within the past year, how often did you have a drink containing alcohol: monthly or less Within the past year, how often did you have six or more drinks on one occasion: never Smoking status: Never smoker Non-prescribed substance use: denies use Previous occupational history: retired Highest level of school completed/degree received: high school graduate In a typical week, how many times do you talk on the telephone with family, friends, or neighbors: twice per week How often do you get together with friends or relatives: twice per week How often do you attend jew or pentecostal services: never Do you belong to any clubs or organizations such as jew groups unions, [employer] or athletic groups, or school groups: no Little interest or pleasure in doing things: not at all Feeling down, depressed, or hopeless: not at all Feel stressed/tense/nervous/anxious/difficulty sleeping: not at all Exam Narrative Exam Narrative: Nurses notes and vital signs reviewed and patient is not hypoxic. General: Well-appearing and in no apparent distress. Skin: Warm, dry, no pallor noted. No rash. Head: Normocephalic, atraumatic. Neck: Supple, non-tender. Eye: Pupils are equal, round and EOMI. No scleral icterus. Ears, Nose, Mouth, and Throat: TM are clear, no nasal mucosal hypertrophy. Oral mucosa is moist, no posterior oropharynx erythema, uvula is mid-line Cardiovascular: Regular Rate and Rhythm without murmur, gallop or rub. Respiratory: No accessory muscle use or respiratory distress. Lungs are clear to auscultation, no wheezing, rales or rhonchi Chest Wall: no tenderness Back: No midline thoracic or lumbar vertebral tenderness. No CVA tenderness Musculoskeletal: normal ROM, no calf or popliteal tenderness, no lower extremity edema/swelling GI: Abdomen is soft, non-distended. Normal bowel sounds. No masses appreciated. No tenderness to palpation. No rebound, guarding, or rigidity noted. Neurological: A&O x2. No cranial nerve dysfunction observed. No truncal ataxia. Moves all extremities. Sensation intact. Psychiatric: Cooperative and interactive. Normal mood and affect. Constitutional Vital Signs, click to edit/add: Last Vital Signs Temp 99.1 F 06/06/24 18:18 Pulse 70 06/06/24 18:18 Resp 14 06/06/24 18:18 BP 227/84 H 06/06/24 18:18 Pulse Ox 99 06/06/24 18:18 O2 Del Method Room Air 06/06/24 18:18 Course Vital Signs Vital signs: Vital Signs Temperature 99.1 F 06/06/24 18:18 Pulse Rate 70 06/06/24 18:18 Respiratory Rate 14 06/06/24 18:18 Blood Pressure 227/84 H 06/06/24 18:18 Pulse Oximetry 99 06/06/24 18:18 Oxygen Delivery Method Room Air 06/06/24 18:18 Temperature 99.1 F 06/06/24 18:18 Pulse Rate 70 06/06/24 18:18 Respiratory Rate 14 06/06/24 18:18 Blood Pressure 227/84 H 06/06/24 18:18 Pulse Oximetry 99 06/06/24 18:18 Oxygen Delivery Method Room Air 06/06/24 18:18 MDM - Female Genitourinary MDM Narrative Medical decision making narrative: CBC chemistry as well as urinalysis and CAT scan of abdomen ordered and the care was transferred to Dr. Jiménez for further care Discharge Plan Discharge Patient Disposition: Still a Patient
--- NOTE | 2024-06-06 18:48 | CT_ITS ---
[address] [address] Patient Name: BERNARD PACHECO MRN: [id number] date: 1935 Sex: F Assigned Patient Location: ER Current Patient Location: .MAIN Accession/Order Number: [id number] Exam Date: 06/06/2024 18:40 Report Date: 06/06/2024 20:03 At the request of: MELLISSA ROTH Procedure: CT abdomen pelvis wo con EXAM Indication: Blood in urine Comparison: None Procedure: Axial images were made from the diaphragms through the symphysis pubis. No oral contrast or intravenous contrast was given. Dose reduction techniques were achieved by using automated exposure control and/or adjustment of mA and/or kV according to patient size and/or use of iterative reconstruction technique. Findings: Liver/Biliary System: A 1.2 cm hypodensity in hepatic segment 7. Evaluation is limited due to lack of IV contrast. No intra or extrahepatic biliary dilatation. No gallstones or cholecystitis. Pancreas/Spleen: No evidence of acute pancreatitis. Pancreatic duct is not dilated. No splenomegaly. Kidneys/Adrenals: No renal or ureteral stones are seen. No hydronephrosis or hydroureter bilaterally. Couple of hyperdense lesions are seen in upper pole of left kidney, 8 mm each. Evaluation is limited due to lack of IV contrast. No adrenal nodules. Aorta/Vessels: No evidence of aortic aneurysm. Evaluation of vessels is limited due to lack of IV contrast. Bowel/Fluid/Nodes: No bowel dilatation or bowel wall thickening. No evidence of bowel obstruction. No ascites or fluid collections. No adenopathy. Lung bases: Clear. Other findings: No aggressive osseous lesions are seen. Pelvis: Bladder grossly unremarkable. Small calcified fibroid in uterine fundus. No pelvic masses or adenopathy. No free fluid seen in the pelvis. Other Findings: No aggressive osseous lesions are seen. CT/CT abdomen pelvis wo con Impression: 1. No evidence of acute abdominal or pelvic process. 2. No renal, ureteral or bladder stones. No hydronephrosis or hydroureter bilaterally. 3. A 1.2 cm hypodensity in hepatic segment 7. Couple of hyperdense lesions in upper pole of left kidney, 8 mm each. Although those findings probably represent hepatic and left renal cysts, evaluation is limited due to lack of IV contrast. Ultrasound may be recommended on a nonemergent basis to confirm cysts. 4. Small calcified uterine fibroid. Electronically authenticated by: BELA CANTRELL Date: 06/06/2024 20:03
[2024-06-06 18:52] VITALS: BP 182/88
[2024-06-06 19:01] VITALS: BP 196/82; PULSE 67; TEMP 36.8; O2SAT 98
[2024-06-06 19:28] LABS: Basophils Percent Auto 0.4 % (0.2-2.0); Eosinophils Absolute Auto 0.1 10^3/uL (0.0-0.7); Eosinophils Percent Auto 1.3 % (0.9-7.0); Immature Granulocytes Abs Auto 0.02 10^3/uL (0.00-0.03); Immature Granulocytes Pct Auto 0.3 % (0.0-0.5); Lymphocytes Absolute Auto 1.3 10^3/uL (1.2-3.8); Lymphocytes Percent Auto 18.6 % (20.5-60.0); Mean Corpuscular HGB Conc 32.5 g/dL (29.9-35.2); Mean Corpuscular Volume 95.5 fL (81.0-99.0); Mean Platelet Volume 10.7 fL (9.5-13.5); Monocytes Absolute Auto 0.7 10^3/uL (0.3-0.8); Neutrophils Absolute Auto 4.9 10^3/uL (1.4-6.5); Neutrophils Percent Auto 69.4 % (43.0-75.0); Platelet Count 141 10^3/uL (150-450); Red Blood Count 4.19 10^6/uL (4.20-5.40); Red Cell Distribution Width 13.6 % (11.0-15.0); White Blood Count 7.1 10^3/uL (4.0-11.0)
[2024-06-06 19:30] LABS: Bilirubin Urine NEGATIVE (NEGATIVE); Blood Urine TRACE-I (NEGATIVE); Clarity Urine CLEAR (CLEAR); Color Urine LT. YELLOW (YELLOW); Glucose Urine UA NEGATIVE (NEGATIVE); Ketones Urine NEGATIVE (NEGATIVE); Leukocyte Esterase Urine TRACE (NEGATIVE); Nitrite Urine POSITIVE (NEGATIVE); Protein Urine TRACE mg/dL (NEG/TRACE); Specific Gravity Urine 1.025 (1.005-1.025); Urobilinogen Urine 0.2 EU/dL (0.2-1.0)
[2024-06-06 19:41] LABS: Urine Microscopic Indicated YES
[2024-06-06 19:47] LABS: Alanine Aminotransferase 13 U/L (14-59); Albumin Globulin Ratio 0.9; Albumin Level 3.3 g/dL (3.4-5.0); Alkaline Phosphatase 107 U/L (46-116); Anion Gap 13.5; Aspartate Amino Transferase 15 U/L (15-37); BUN Creatinine Ratio 21.8; Bilirubin Total 0.4 mg/dL (0.2-1.0); Calcium 9.3 mg/dL (8.5-10.1); Carbon Dioxide 27.5 mmol/L (21.0-32.0); Chloride 106 mmol/L (98-107); Estimated GFR (African America 46 (>=60 mL/min/1.73m^2); Estimated GFR (Non-African Ame 38 (>=60 mL/min/1.73m^2); Globulin 3.6 g/dL; Glucose 106 mg/dL (74-106); Sodium 143 mmol/L (136-145); Total Protein 6.9 g/dL (6.4-8.2)
[2024-06-06 20:03] LABS: RBC Urine 0-2 #/HPF (0-2); WBC Urine 20-50 #/HPF (NONE SEEN)
[2024-06-06 20:04] LABS: Bacteria Urine LARGE #/HPF (NONE SEEN); Mucus Urine NONE SEEN (NONE SEEN)
[2024-06-06 20:05] LABS: Cast Seen? NONE SEEN #/LPF (NONE SEEN); Crystals Seen? None Seen #/HPF (None Seen); Squamous Epithelial Cell Urine NONE SEEN #/LPF (NONE/RARE); Urine Culture Indicated YES
[2024-06-06 20:06] VITALS: BP 185/85; PULSE 63; O2SAT 98
[2024-06-06 20:48] VITALS: BP 127/63; PULSE 58; O2SAT 99
[2024-06-06] MEDS: CEPHALEXIN 500 MG CAPSULE PO (20:52)
== END 2024-06-06 21:00 | disposition home or self-care (01) ==
PROVIDERS: Emergency Medicine; Emergency Provider Student in an Organized Health Care Education/Training Program; PCP Family Medicine
DX: N39.0 Urinary tract infection, site not specified (principal)
CPT/HCPCS: 36415; 74176; 80053; 81001; 85025; 87086; 87150; 99284